=== PATIENT | female | born 1955 | race African-American/Black ===

== ENCOUNTER 2017-07-19 07:17 | Inpatient (IN) | payer MEDICAID, OTHER ==
[~2017-07-19] VITALS: Ht 165.1 cm; Wt 64.0 kg
[~2017-07-19 07:17] MED LIST: AMLO10TA4 PO; ASPI-1159 PO; BENA20TA3 PO
[2017-07-19] MEDS ORDERED: ONDANSETRON HCL 4MG/2ML VIAL IV STA (07:36)
[2017-07-19] MEDS ORDERED: MORPHINE SULFATE 4 MG/ML CPJ (NOT FOR IM USE) IV STA (07:36)
[2017-07-19] MEDS ORDERED: ASPIRIN 81MG TABLET PO STA (07:36)
[2017-07-19 08:07] LABS: BASOPHILS % 0.2 % (0.0-2.0); HEMATOCRIT. 33.4 % (36.0-48.0); LYMPHOCYTES % 12.1 % (20.0-50.0); MEAN CORPUSCULAR HEMOGLOBIN 29.1 pg (28.0-32.0); MEAN CORPUSCULAR VOLUME 88.3 fL (81.0-99.0); MEAN PLATELET VOLUME 9.6 fl (7.4-10.4); MONOCYTES % 6.1 % (2.0-8.0); NEUTROPHILS % 81.6 % (40.0-76.0); PLATELET 196 x1000/uL (130-400); RED BLOOD CELL COUNT 3.78 mill/uL (4.2-5.4); RED CELL DISTRIBUTION WIDTH 14.9 % (11.6-14.6)
[2017-07-19 08:13] LABS: PARTIAL THROMBOPLASTIN TIME 26.8 sec (23.4-31.0); PROTHROMBIN TIME 10.3 sec (9.4-11.6)
[2017-07-19 08:19] LABS: CARBON DIOXIDE 27 mEq/L (21-32); CHLORIDE 107 mEq/L (98-107); TROPONIN I < 0.02 ng/mL (0.00-0.04)
[2017-07-19] MEDS ORDERED: FUROSEMIDE 40MG/4ML VIAL IVP ONE (08:30)
[2017-07-19] MEDS ORDERED: BENAZEPRIL 10MG TABLET PO ONE (09:15)
[2017-07-19] MEDS ORDERED: AMLODIPINE 10MG TABLET PO ONE (09:15)
[2017-07-19 09:18] LABS: *AMPHETAMINES SCREEN URINE NEGATIVE (NEGATIVE); *BARBITURATES SCREEN URINE NEGATIVE (NEGATIVE); *BENZODIAZEPINES SCREEN URINE NEGATIVE (NEGATIVE); *COCAINE SCREEN URINE NEGATIVE (NEGATIVE); CANNABINOID URINE SCREEN PRESUMTIVE POSITIVE (NEGATIVE); METHADONE URINE SCREEN NEGATIVE (NEGATIVE); OPIATES URINE SCREEN NEGATIVE (NEGATIVE); PHENCYCLIDINE URINE SCREEN NEGATIVE (NEGATIVE)
[2017-07-19] MEDS ORDERED: HYDRALAZINE 20MG/ML VIAL IV ONE (10:30)
[2017-07-19] MEDS ORDERED: MAGNESIUM/ALUMINUM HYDROXIDE/SIMETHICONE 30ML UDC PO PRN (11:15)
[2017-07-19] MEDS ORDERED: NIFEDIPINE XL 60MG TAB PO SCH (11:15)
[2017-07-19] MEDS ORDERED: CLONIDINE 0.1MG TABLET PO PRN (11:15)
[2017-07-19] MEDS ORDERED: DOCUSATE SODIUM 100MG CAPSULE PO PRN (11:15)
[2017-07-19] MEDS ORDERED: IPRATROPIUM/ALBUTEROL 0.5-3(2.5)MG/3ML NEB INH PRN (11:15)
[2017-07-19] MEDS ORDERED: HYDRALAZINE (NEO) 1MG/ML IV PRN (11:15)
[2017-07-19] MEDS ORDERED: POTASSIUM CHLORIDE 20MEQ TABLET SR PO SCH (11:30)
[2017-07-19] MEDS ORDERED: CLONIDINE 0.2MG TABLET PO PRN (11:30)
[2017-07-19] MEDS: HYDROCODONE/ACETAMINOPHEN 5/325MG TABLET PO PRN ×3 (12:02→22:29)
[2017-07-19] MEDS: ONDANSETRON HCL 4MG/2ML VIAL IV PRN ×2 (13:41→18:00)
[2017-07-19] MEDS: ACETAMINOPHEN 325MG TABLET PO PRN (14:22)
[2017-07-19 16:19] LABS: TROPONIN I 0.06 ng/mL (0.00-0.04)
[2017-07-19 16:20] LABS: CREATINE KINASE MB FRACTION 2.6 ng/mL (0.5-3.6)
[2017-07-19 16:35] VITALS: BP 205/99
[2017-07-19] MEDS ORDERED: FUROSEMIDE 40MG TABLET PO SCH (17:00)
[2017-07-19] MEDS: HYDRALAZINE 20MG/ML VIAL IV PRN (17:05)
[2017-07-19] MEDS: DILTIAZEM HCL 60MG TABLET PO SCH (18:00)
[2017-07-19] MEDS ORDERED: DEXTROSE 50% WATER 50ML SYRINGE IV PRN (18:30)
[2017-07-19 19:02] VITALS: BP 167/89
[2017-07-19 19:28] LABS: CLARITY URINE CLEAR (CLEAR); COLOR URINE YELLOW (YELLOW); GLUCOSE URINE NEGATIVE (NEGATIVE); KETONES URINE NEGATIVE (NEGATIVE); LEUKOCYTE ESTERASE URINE NEGATIVE (NEGATIVE); NITRITE URINE NEGATIVE (NEGATIVE); OCCULT BLOOD URINE NEGATIVE (NEGATIVE); PROTEIN URINE 3+ (NEGATIVE); UROBILINOGEN URINE 0.2 E.U./dL (0.2-1.0)
[2017-07-19 20:00] VITALS: BP 166/89
[2017-07-19] MEDS: INSULIN LISPRO 100 UNITS/ML SUBCUT SCH (21:00)
[2017-07-19] MEDS: METOPROLOL TARTRATE 50MG TABLET PO SCH (22:05)
[2017-07-19] MEDS: BLOOD SUGAR DIAGNOSTIC STRIP TEST SCH (22:16)
[2017-07-19] MEDS ORDERED: ZOLPIDEM TARTRATE 5MG TABLET PO PRN (22:45)
[2017-07-20] VITALS: BP 139/71
[2017-07-20 00:24] LABS: CREATINE KINASE MB FRACTION 3.6 ng/mL (0.5-3.6); TROPONIN I 0.32 ng/mL (0.00-0.04)
[2017-07-20] MEDS: DILTIAZEM HCL 60MG TABLET PO SCH ×3 (01:00→12:00)
[2017-07-20] MEDS: ONDANSETRON HCL 4MG/2ML VIAL IV PRN (01:00)
[2017-07-20 04:00] VITALS: BP 137/71
[2017-07-20] MEDS: ACETAMINOPHEN 325MG TABLET PO PRN (05:33)
[2017-07-20 07:29] LABS: CARBON DIOXIDE 27 mEq/L (21-32); CHLORIDE 106 mEq/L (98-107); HDL CHOLESTEROL 89 mg/dL (40-59); LDL CHOLESTEROL 138 mg/dL (5-100)
[2017-07-20] MEDS: BLOOD SUGAR DIAGNOSTIC STRIP TEST SCH ×2 (07:36→12:40)
[2017-07-20] MEDS: INSULIN LISPRO 100 UNITS/ML SUBCUT SCH ×2 (07:40→13:06)
[2017-07-20 07:59] LABS: BASOPHILS % 0.5 % (0.0-2.0); EOSINOPHILS % 0.2 % (0.0-5.0); HEMATOCRIT. 31.6 % (36.0-48.0); HEMOGLOBIN. 10.4 g/dL (12.0-16.0); LYMPHOCYTES % 16.1 % (20.0-50.0); MEAN CORPUSCULAR VOLUME 88.4 fL (81.0-99.0); MEAN PLATELET VOLUME 10.2 fl (7.4-10.4); MONOCYTES % 8.6 % (2.0-8.0); NEUTROPHILS % 74.6 % (40.0-76.0); PLATELET 195 x1000/uL (130-400); RED BLOOD CELL COUNT 3.57 mill/uL (4.2-5.4); RED CELL DISTRIBUTION WIDTH 14.6 % (11.6-14.6)
[2017-07-20 08:00] VITALS: BP 99/51
[2017-07-20] MEDS ORDERED: SODIUM CHLORIDE 0.45% 1,000 ML IV SCH (08:15)
[2017-07-20] MEDS: HYDROCODONE/ACETAMINOPHEN 5/325MG TABLET PO PRN (08:41)
[2017-07-20] MEDS ORDERED: ASPIRIN 81MG EC TABLET PO SCH (09:00)
[2017-07-20] MEDS: METOPROLOL TARTRATE 50MG TABLET PO SCH (09:45)
[2017-07-20] MEDS ORDERED: METOCLOPRAMIDE HCL 10MG/2ML VIAL IV SCH (12:00)
[2017-07-20 13:00] VITALS: BP 176/79
[2017-07-20] MEDS: HYDRALAZINE 20MG/ML VIAL IV PRN (13:21)
[2017-07-20] MEDS ORDERED: CLONIDINE 0.1MG TABLET PO SCH (13:45)
[2017-07-20] MEDS ORDERED: NIFEDIPINE XL 60MG TAB PO SCH (13:45)
[2017-07-20] MEDS ORDERED: NIFE60TA64 PO (14:57)
[2017-07-20] MEDS ORDERED: METO50TA5 PO (14:57)
[2017-07-20] MEDS ORDERED: HYDR-4001 PO ×2 (14:57→15:07)
[2017-07-20] MEDS ORDERED: ATOR20TA PO (14:57)
[2017-07-20] MEDS ORDERED: HYDR-523 PO (15:15)
[2017-07-20 16:00] VITALS: BP 163/76
[2017-07-20 16:15] VITALS: BP 163/76
[2017-07-20] MEDS ORDERED: ATORVASTATIN CALCIUM 20MG TABLET PO SCH (21:00)
[2017-07-21 15:07] LABS: ANTI-NUCLEAR ANTIBODIES DIRECT Negative (Negative)
[2017-07-24 14:21] LABS: COMPLEMENT C3 91 mg/dL (82-167)
== END 2017-07-20 16:50 | disposition home or self-care (01) | DRG 199 ==
LOC: ER 07:58 → 7WST 10:35 → EDBEDREQ 10:37 → ENRESERV 15:39
PROVIDERS: ADMIT Internal Medicine; ATTEND Internal Medicine
DX: I16.0 Hypertensive urgency (principal); I24.9 Acute ischemic heart disease, unspecified; I50.32 Chronic diastolic (congestive) heart failure; N17.9 Acute kidney failure, unspecified; K31.84 Gastroparesis; E11.40 Type 2 diabetes mellitus with diabetic neuropathy, unspecified; E11.22 Type 2 diabetes mellitus with diabetic chronic kidney disease; N18.3 Chronic kidney disease, stage 3 (moderate); I13.0 Hypertensive heart and chronic kidney disease with heart failure and stage 1 through stage 4 chronic kidney disease, or unspecified chronic kidney disease; F12.90 Cannabis use, unspecified, uncomplicated; D64.9 Anemia, unspecified; F41.9 Anxiety disorder, unspecified; E78.5 Hyperlipidemia, unspecified; F17.210 Nicotine dependence, cigarettes, uncomplicated; H40.9 Unspecified glaucoma; Z79.899 Other long term (current) drug therapy; Z91.19 Patient's noncompliance with other medical treatment and regimen; Z88.0 Allergy status to penicillin; Z91.013 Allergy to seafood; Z79.82 Long term (current) use of aspirin; Z79.1 Long term (current) use of non-steroidal anti-inflammatories (NSAID)
CPT/HCPCS: 36415; 71010; 76770; 80048; 80053; 80061; 80305; 81001; 82550; 82553; 82962; 83690; 83735; 83880; 84443; 84484; 85025; 85610; 85730; 86038; 86160; 93005; 93306; 93970; 96374; 96375; 96376; 99291; J0360; J1940; J2270; J2405; J2765

== ENCOUNTER 2017-07-20 20:52 | Inpatient (IN) | payer OTHER ==
[~2017-07-20] VITALS: Ht 165.1 cm; Wt 68.5 kg
[~2017-07-20 20:52] MED LIST changes: +ATOR20TA PO; +HYDR-4001 PO; +HYDR-523 PO; +METO50TA5 PO; +NIFE60TA64 PO
[2017-07-20] MEDS ORDERED: ONDANSETRON HCL 4MG/2ML VIAL IV STA (21:44)
[2017-07-20] MEDS ORDERED: PANTOPRAZOLE SODIUM 40 MG/VIAL IV STA (21:44)
[2017-07-20] MEDS ORDERED: SODIUM CHLORIDE 0.9% 1,000 ML IV ONE ×2 (21:44)
[2017-07-20] MEDS ORDERED: OCTREOTIDE 1,000 MCG in SODIUM CHLORIDE 0.9% 100 ML IV STA (21:44)
[2017-07-20] MEDS ORDERED: MORPHINE SULFATE 4 MG/ML CPJ (NOT FOR IM USE) IV STA (21:44)
[2017-07-20] MEDS ORDERED: PANTOPRAZOLE 80 MG in SODIUM CHLORIDE 0.9% 100 ML IV STA (21:44)
[2017-07-20] MEDS ORDERED: OCTREOTIDE ACETATE 50 MCG/ML 1ML IV STA (21:44)
[2017-07-20] MEDS ORDERED: OCTREOTIDE 1000MCG in SODIUM CHLORIDE 0.9% 100ML IV ONE (23:00)
[2017-07-20] MEDS ORDERED: OCTREOTIDE ACETATE 50 MCG/ML 1ML IV NR (23:00)
[2017-07-20] MEDS ORDERED: PANTOPRAZOLE 80 MG in SODIUM CHLORIDE 0.9% 100 ML IV SCH (23:00)
[2017-07-20 23:09] LABS: BASOPHILS % 0.3 % (0.0-2.0); EOSINOPHILS % 0.1 % (0.0-5.0); HEMOGLOBIN. 10.8 g/dL (12.0-16.0); LYMPHOCYTES % 9.4 % (20.0-50.0); MEAN CORPUSCULAR HEMOGLOBIN 29.4 pg (28.0-32.0); MEAN CORPUSCULAR VOLUME 87.3 fL (81.0-99.0); MEAN PLATELET VOLUME 9.8 fl (7.4-10.4); NEUTROPHILS % 84.2 % (40.0-76.0); PLATELET 203 x1000/uL (130-400); RED BLOOD CELL COUNT 3.66 mill/uL (4.2-5.4); RED CELL DISTRIBUTION WIDTH 14.8 % (11.6-14.6)
[2017-07-20 23:14] LABS: CHLORIDE 102 mEq/L (98-107)
[2017-07-20 23:16] LABS: CARBON DIOXIDE 28 mEq/L (21-32)
[2017-07-20 23:17] LABS: PROTHROMBIN TIME 10.9 sec (9.4-11.6)
[2017-07-21] VITALS (42 sets, daily range): BP systolic 124–169; BP diastolic 63–97
[2017-07-21] MEDS ORDERED: MAGNESIUM/ALUMINUM HYDROXIDE/SIMETHICONE 30ML UDC PO PRN
[2017-07-21 01:13] LABS: ETHANOL BLOOD < 10 mg/dL
[2017-07-21] MEDS: SODIUM CHLORIDE 0.9% 1,000 ML IV SCH ×2 (04:24→18:42)
[2017-07-21] MEDS: ONDANSETRON HCL 4MG/2ML VIAL IV PRN (05:19)
[2017-07-21] MEDS: CLONIDINE 0.1MG TABLET PO PRN (05:20)
[2017-07-21] MEDS: ACETAMINOPHEN 325MG TABLET PO PRN (05:20)
[2017-07-21] MEDS ORDERED: DEXTROSE 50% WATER 50ML SYRINGE IV PRN (07:30)
[2017-07-21] MEDS: MORPHINE SULFATE 2 MG/ML CPJ (NOT FOR IM USE) IV PRN ×2 (07:39→22:01)
[2017-07-21] MEDS: IPRATROPIUM/ALBUTEROL 0.5-3(2.5)MG/3ML NEB INH PRN ×3 (08:28→15:06)
[2017-07-21] MEDS ORDERED: PANTOPRAZOLE 80 MG in SODIUM CHLORIDE 0.9% 100 ML IV SCH (09:00)
[2017-07-21] MEDS: PANTOPRAZOLE 80 MG in SODIUM CHLORIDE 0.9% 100 ML IV SCH ×2 (09:05→19:39)
[2017-07-21 09:43] LABS: BASOPHILS % 0.5 % (0.0-2.0); EOSINOPHILS % 0.1 % (0.0-5.0); HEMATOCRIT. 30.1 % (36.0-48.0); LYMPHOCYTES % 16.7 % (20.0-50.0); MEAN CORPUSCULAR HEMOGLOBIN 29.2 pg (28.0-32.0); MEAN CORPUSCULAR VOLUME 88.2 fL (81.0-99.0); MEAN PLATELET VOLUME 10.1 fl (7.4-10.4); MONOCYTES % 6.6 % (2.0-8.0); NEUTROPHILS % 76.1 % (40.0-76.0); PLATELET 198 x1000/uL (130-400); RED BLOOD CELL COUNT 3.41 mill/uL (4.2-5.4); RED CELL DISTRIBUTION WIDTH 15.1 % (11.6-14.6)
[2017-07-21 10:40] LABS: CARBON DIOXIDE 24 mEq/L (21-32); CHLORIDE 105 mEq/L (98-107); CREATINE KINASE 233 IU/L (26-192); CREATINE KINASE MB FRACTION 3.5 ng/mL (0.5-3.6); HDL CHOLESTEROL 82 mg/dL (40-59); LDL CHOLESTEROL 136 mg/dL (5-100)
[2017-07-21 10:44] LABS: TROPONIN I 0.61 ng/mL (0.00-0.04)
[2017-07-21 11:09] LABS: CLARITY URINE CLEAR (CLEAR); COLOR URINE YELLOW (YELLOW); GLUCOSE URINE NEGATIVE (NEGATIVE); KETONES URINE TRACE (NEGATIVE); LEUKOCYTE ESTERASE URINE NEGATIVE (NEGATIVE); NITRITE URINE NEGATIVE (NEGATIVE); OCCULT BLOOD URINE TRACE (NEGATIVE); PROTEIN URINE 3+ (NEGATIVE); SPECIFIC GRAVITY URINE 1.014 (1.005-1.030); UROBILINOGEN URINE 0.2 E.U./dL (0.2-1.0)
[2017-07-21] MEDS ORDERED: METOPROLOL TARTRATE 50MG TABLET PO SCH (11:30)
[2017-07-21] MEDS: BLOOD SUGAR DIAGNOSTIC STRIP TEST SCH ×3 (11:52→21:21)
[2017-07-21 11:54] LABS: *AMPHETAMINES SCREEN URINE NEGATIVE (NEGATIVE); *BARBITURATES SCREEN URINE NEGATIVE (NEGATIVE); *BENZODIAZEPINES SCREEN URINE NEGATIVE (NEGATIVE); *COCAINE SCREEN URINE NEGATIVE (NEGATIVE); CANNABINOID URINE SCREEN PRESUMTIVE POSITIVE (NEGATIVE); METHADONE URINE SCREEN NEGATIVE (NEGATIVE); OPIATES URINE SCREEN PRESUMTIVE POSITIVE (NEGATIVE); PHENCYCLIDINE URINE SCREEN NEGATIVE (NEGATIVE)
[2017-07-21] MEDS: METOPROLOL TARTRATE 50MG TABLET PO SCH ×2 (11:56→21:10)
[2017-07-21] MEDS: INSULIN LISPRO 100 UNITS/ML SUBCUT SCH ×3 (12:00→21:00)
[2017-07-21 14:22] LABS: HEMOGLOBIN 9.3 g/dL (12.0-16.0)
[2017-07-21] MEDS: NITROGLYCERIN OINT 1GM/INCH UDPKT TD SCH ×2 (14:36→21:11)
[2017-07-21 14:46] LABS: CREATINE KINASE MB FRACTION 3.2 ng/mL (0.5-3.6)
[2017-07-21 15:03] LABS: TROPONIN I 0.68 ng/mL (0.00-0.04)
[2017-07-21] MEDS: LORAZEPAM 2MG/ML CPJ IV PRN (18:43)
[2017-07-21] MEDS: ATORVASTATIN CALCIUM 20MG TABLET PO SCH (21:10)
[2017-07-21 23:46] LABS: HEMATOCRIT 26.4 % (36.0-48.0); HEMOGLOBIN 8.8 g/dL (12.0-16.0)
[2017-07-22] VITALS (38 sets, daily range): BP systolic 145–222; BP diastolic 64–114
[2017-07-22] MEDS: MORPHINE SULFATE 2 MG/ML CPJ (NOT FOR IM USE) IV PRN ×3 (02:30→18:45)
[2017-07-22] MEDS: CLONIDINE 0.1MG TABLET PO PRN ×2 (03:08→12:13)
[2017-07-22] MEDS: PANTOPRAZOLE 80 MG in SODIUM CHLORIDE 0.9% 100 ML IV SCH ×2 (03:25→18:47)
[2017-07-22 04:59] LABS: BASOPHILS % 0.4 % (0.0-2.0); EOSINOPHILS % 0.2 % (0.0-5.0); HEMATOCRIT. 25.8 % (36.0-48.0); HEMOGLOBIN. 8.7 g/dL (12.0-16.0); MEAN CORPUSCULAR HEMOGLOBIN 29.6 pg (28.0-32.0); MEAN CORPUSCULAR VOLUME 87.9 fL (81.0-99.0); MEAN PLATELET VOLUME 9.8 fl (7.4-10.4); MONOCYTES % 8.2 % (2.0-8.0); NEUTROPHILS % 76.2 % (40.0-76.0); PLATELET 160 x1000/uL (130-400); RED BLOOD CELL COUNT 2.94 mill/uL (4.2-5.4); RED CELL DISTRIBUTION WIDTH 14.9 % (11.6-14.6)
[2017-07-22 05:15] LABS: CREATINE KINASE MB FRACTION 2.1 ng/mL (0.5-3.6)
[2017-07-22] MEDS: NITROGLYCERIN OINT 1GM/INCH UDPKT TD SCH ×3 (05:23→21:57)
[2017-07-22] MEDS: ACETAMINOPHEN 325MG TABLET PO PRN (05:23)
[2017-07-22 05:48] LABS: TROPONIN I 0.79 ng/mL (0.00-0.04)
[2017-07-22] MEDS: BLOOD SUGAR DIAGNOSTIC STRIP TEST SCH ×4 (06:30→21:22)
[2017-07-22] MEDS: INSULIN LISPRO 100 UNITS/ML SUBCUT SCH ×4 (07:00→21:00)
[2017-07-22] MEDS ORDERED: POTASSIUM CHLORIDE 20MEQ TABLET SR PO SCH (08:30)
[2017-07-22] MEDS: AMLODIPINE 5MG TABLET PO SCH ×2 (08:42→20:29)
[2017-07-22] MEDS: METOPROLOL TARTRATE 100MG TABLET PO SCH ×2 (08:43→20:29)
[2017-07-22] MEDS: LORAZEPAM 2MG/ML CPJ IV PRN ×2 (09:03→23:09)
[2017-07-22] MEDS: SODIUM CHLORIDE 0.9% 1,000 ML IV SCH ×2 (10:00→12:43)
[2017-07-22] MEDS: CLONIDINE 0.2MG TABLET PO SCH ×2 (14:35→21:57)
[2017-07-22] MEDS: HYDRALAZINE 20MG/ML VIAL IV PRN (18:06)
[2017-07-22] MEDS: DILTIAZEM HCL 5MG/ML 5ML VIAL IV PRN (20:06)
[2017-07-22] MEDS: ONDANSETRON HCL 4MG/2ML VIAL IV PRN (20:19)
[2017-07-22] MEDS: IPRATROPIUM/ALBUTEROL 0.5-3(2.5)MG/3ML NEB INH PRN (20:20)
[2017-07-22] MEDS: ATORVASTATIN CALCIUM 20MG TABLET PO SCH (20:29)
[2017-07-23] VITALS (25 sets, daily range): BP systolic 139–184; BP diastolic 65–90
[2017-07-23] MEDS: PANTOPRAZOLE 80 MG in SODIUM CHLORIDE 0.9% 100 ML IV SCH (01:00)
[2017-07-23] MEDS: SODIUM CHLORIDE 0.9% 1,000 ML IV SCH ×3 (03:30→23:29)
[2017-07-23] MEDS: HYDRALAZINE 20MG/ML VIAL IV PRN ×3 (03:36→18:49)
[2017-07-23] MEDS: IPRATROPIUM/ALBUTEROL 0.5-3(2.5)MG/3ML NEB INH PRN (04:38)
[2017-07-23] MEDS: MORPHINE SULFATE 2 MG/ML CPJ (NOT FOR IM USE) IV PRN (04:52)
[2017-07-23 05:40] LABS: BASOPHILS % 0.2 % (0.0-2.0); HEMATOCRIT. 28.1 % (36.0-48.0); HEMOGLOBIN. 9.5 g/dL (12.0-16.0); LYMPHOCYTES % 13.1 % (20.0-50.0); MEAN CORPUSCULAR HEMOGLOBIN 29.6 pg (28.0-32.0); MEAN CORPUSCULAR VOLUME 87.5 fL (81.0-99.0); MEAN PLATELET VOLUME 10.2 fl (7.4-10.4); MONOCYTES % 5.9 % (2.0-8.0); NEUTROPHILS % 80.8 % (40.0-76.0); PLATELET 162 x1000/uL (130-400); RED BLOOD CELL COUNT 3.21 mill/uL (4.2-5.4); RED CELL DISTRIBUTION WIDTH 14.4 % (11.6-14.6)
[2017-07-23] MEDS: NITROGLYCERIN OINT 1GM/INCH UDPKT TD SCH ×3 (05:57→22:16)
[2017-07-23] MEDS: CLONIDINE 0.2MG TABLET PO SCH ×3 (06:00→22:16)
[2017-07-23] MEDS: BLOOD SUGAR DIAGNOSTIC STRIP TEST SCH ×4 (06:08→21:19)
[2017-07-23] MEDS: INSULIN LISPRO 100 UNITS/ML SUBCUT SCH ×4 (06:08→21:00)
[2017-07-23 06:09] LABS: PHOSPHORUS 2.7 mg/dL (2.5-4.9)
[2017-07-23] MEDS ORDERED: POTASSIUM CHLORIDE 20MEQ TABLET SR PO SCH (07:00)
[2017-07-23] MEDS: AMLODIPINE 5MG TABLET PO SCH ×2 (10:20→21:04)
[2017-07-23] MEDS: METOPROLOL TARTRATE 100MG TABLET PO SCH ×2 (10:20→21:04)
[2017-07-23] MEDS ORDERED: PANTOPRAZOLE SODIUM 40 MG/VIAL IV SCH (10:24)
[2017-07-23] MEDS ORDERED: HYDRALAZINE 20MG/ML VIAL IV PRN (10:45)
[2017-07-23] MEDS: CLONIDINE 0.1MG TABLET PO PRN (13:26)
[2017-07-23] MEDS: DILTIAZEM HCL 5MG/ML 5ML VIAL IV PRN (15:17)
[2017-07-23] MEDS: PANTOPRAZOLE SODIUM 40 MG/VIAL IV SCH (21:04)
[2017-07-23] MEDS: ATORVASTATIN CALCIUM 20MG TABLET PO SCH (21:04)
[2017-07-23] MEDS: MORPHINE SULFATE 4 MG/ML CPJ (NOT FOR IM USE) IV PRN (21:11)
[2017-07-24] VITALS (25 sets, daily range): BP systolic 140–199; BP diastolic 63–89
[2017-07-24] MEDS: LORAZEPAM 2MG/ML CPJ IV PRN ×2 (00:06→21:51)
[2017-07-24] MEDS: HYDRALAZINE 20MG/ML VIAL IV PRN ×2 (04:12→15:51)
[2017-07-24] MEDS: CLONIDINE 0.2MG TABLET PO SCH ×3 (05:40→21:33)
[2017-07-24] MEDS: BLOOD SUGAR DIAGNOSTIC STRIP TEST SCH ×4 (05:40→21:27)
[2017-07-24] MEDS: NITROGLYCERIN OINT 1GM/INCH UDPKT TD SCH ×3 (05:40→21:32)
[2017-07-24 06:13] LABS: BASOPHILS % 0.2 % (0.0-2.0); EOSINOPHILS % 0.2 % (0.0-5.0); HEMATOCRIT. 27.2 % (36.0-48.0); HEMOGLOBIN. 9.2 g/dL (12.0-16.0); LYMPHOCYTES % 17.6 % (20.0-50.0); MEAN CORPUSCULAR HEMOGLOBIN 29.6 pg (28.0-32.0); MEAN CORPUSCULAR VOLUME 87.6 fL (81.0-99.0); MEAN PLATELET VOLUME 10.6 fl (7.4-10.4); MONOCYTES % 8.1 % (2.0-8.0); NEUTROPHILS % 73.9 % (40.0-76.0); PLATELET 164 x1000/uL (130-400); RED CELL DISTRIBUTION WIDTH 14.9 % (11.6-14.6)
[2017-07-24] MEDS: INSULIN LISPRO 100 UNITS/ML SUBCUT SCH ×4 (06:14→21:00)
[2017-07-24 06:15] LABS: INR 1.1; PROTHROMBIN TIME 10.9 sec (9.4-11.6)
[2017-07-24] MEDS ORDERED: POTASSIUM CHLORIDE 20MEQ TABLET SR PO NR (08:00)
[2017-07-24] MEDS: PANTOPRAZOLE SODIUM 40 MG/VIAL IV SCH ×2 (08:08→20:23)
[2017-07-24] MEDS: METOPROLOL TARTRATE 100MG TABLET PO SCH ×2 (08:08→20:25)
[2017-07-24] MEDS: AMLODIPINE 5MG TABLET PO SCH ×2 (08:08→20:25)
[2017-07-24] MEDS: SODIUM CHLORIDE 0.9% 1,000 ML IV SCH (13:33)
[2017-07-24] MEDS ORDERED: SODIUM CHLORIDE 0.9% 10ML VIAL ONE (14:13)
[2017-07-24] MEDS ORDERED: SIMETHICONE 40 MG/0.6 ML 30ML ONE (16:04)
[2017-07-24] MEDS ORDERED: FENTANYL CITRATE/PF 50MCG/ML 2ML VIAL ONE (16:04)
[2017-07-24] MEDS ORDERED: MIDAZOLAM HCL 5 MG/5 ML VIAL ONE (16:05)
[2017-07-24] MEDS ORDERED: FENTANYL CITRATE/PF 50MCG/ML 2ML VIAL IV PRN (16:14)
[2017-07-24] MEDS ORDERED: MIDAZOLAM HCL 5 MG/5 ML VIAL IV PRN (16:14)
[2017-07-24] MEDS: CLONIDINE 0.1MG TABLET PO PRN ×2 (17:08→21:28)
[2017-07-24] MEDS: MORPHINE SULFATE 4 MG/ML CPJ (NOT FOR IM USE) IV PRN (20:25)
[2017-07-24] MEDS: ATORVASTATIN CALCIUM 20MG TABLET PO SCH (20:25)
[2017-07-25] VITALS (37 sets, daily range): BP systolic 142–189; BP diastolic 20–124
[2017-07-25] MEDS: SODIUM CHLORIDE 0.9% 1,000 ML IV SCH (05:02)
[2017-07-25] MEDS: BLOOD SUGAR DIAGNOSTIC STRIP TEST SCH ×4 (06:15→21:14)
[2017-07-25] MEDS: NITROGLYCERIN OINT 1GM/INCH UDPKT TD SCH ×3 (06:15→22:50)
[2017-07-25] MEDS: CLONIDINE 0.2MG TABLET PO SCH ×3 (06:15→23:51)
[2017-07-25] MEDS: MORPHINE SULFATE 4 MG/ML CPJ (NOT FOR IM USE) IV PRN ×2 (07:59→19:17)
[2017-07-25] MEDS: METOPROLOL TARTRATE 100MG TABLET PO SCH ×2 (08:00→21:13)
[2017-07-25] MEDS: PANTOPRAZOLE SODIUM 40 MG/VIAL IV SCH ×2 (08:00→21:13)
[2017-07-25] MEDS: AMLODIPINE 5MG TABLET PO SCH ×2 (08:01→21:13)
[2017-07-25 09:11] LABS: BASOPHILS % 0.7 % (0.0-2.0); EOSINOPHILS % 0.1 % (0.0-5.0); HEMATOCRIT. 28.4 % (36.0-48.0); HEMOGLOBIN. 9.5 g/dL (12.0-16.0); LYMPHOCYTES % 11.9 % (20.0-50.0); MEAN CORPUSCULAR HEMOGLOBIN 29.3 pg (28.0-32.0); MEAN CORPUSCULAR VOLUME 87.5 fL (81.0-99.0); MEAN PLATELET VOLUME 9.8 fl (7.4-10.4); NEUTROPHILS % 79.3 % (40.0-76.0); PLATELET 171 x1000/uL (130-400); RED BLOOD CELL COUNT 3.24 mill/uL (4.2-5.4); RED CELL DISTRIBUTION WIDTH 15.3 % (11.6-14.6)
[2017-07-25] MEDS: HYDRALAZINE 20MG/ML VIAL IV PRN (11:24)
[2017-07-25] MEDS: INSULIN LISPRO 100 UNITS/ML SUBCUT SCH ×3 (11:24→21:15)
[2017-07-25] MEDS: HYDRALAZINE HCL 50MG TABLET PO SCH ×2 (13:09→22:46)
[2017-07-25] MEDS: LORAZEPAM 2MG/ML CPJ IV PRN (19:46)
[2017-07-25] MEDS: ATORVASTATIN CALCIUM 20MG TABLET PO SCH (21:13)
[2017-07-26] VITALS (12 sets, daily range): BP systolic 140–184; BP diastolic 69–110
[2017-07-26] MEDS: MORPHINE SULFATE 4 MG/ML CPJ (NOT FOR IM USE) IV PRN ×2 (00:42→08:46)
[2017-07-26] MEDS: HYDRALAZINE HCL 50MG TABLET PO SCH (05:46)
[2017-07-26] MEDS: NITROGLYCERIN OINT 1GM/INCH UDPKT TD SCH ×3 (05:54→22:32)
[2017-07-26] MEDS: CLONIDINE 0.2MG TABLET PO SCH ×3 (06:38→22:32)
[2017-07-26 06:58] LABS: BASOPHILS % 0.4 % (0.0-2.0); EOSINOPHILS % 0.1 % (0.0-5.0); HEMATOCRIT. 29.2 % (36.0-48.0); HEMOGLOBIN. 9.8 g/dL (12.0-16.0); LYMPHOCYTES % 14.5 % (20.0-50.0); MEAN CORPUSCULAR HEMOGLOBIN 29.4 pg (28.0-32.0); MEAN CORPUSCULAR VOLUME 87.6 fL (81.0-99.0); MEAN PLATELET VOLUME 10.1 fl (7.4-10.4); PLATELET 171 x1000/uL (130-400); RED BLOOD CELL COUNT 3.33 mill/uL (4.2-5.4)
[2017-07-26] MEDS: BLOOD SUGAR DIAGNOSTIC STRIP TEST SCH ×4 (07:30→20:58)
[2017-07-26] MEDS: PANTOPRAZOLE SODIUM 40 MG/VIAL IV SCH ×2 (08:44→20:58)
[2017-07-26] MEDS: METOPROLOL TARTRATE 100MG TABLET PO SCH ×2 (08:45→20:58)
[2017-07-26] MEDS: AMLODIPINE 5MG TABLET PO SCH ×2 (08:45→20:58)
[2017-07-26] MEDS: LORAZEPAM 2MG/ML CPJ IV PRN (08:47)
[2017-07-26] MEDS: INSULIN LISPRO 100 UNITS/ML SUBCUT SCH ×4 (10:09→20:59)
[2017-07-26] MEDS: HYDRALAZINE HCL 100MG TABLET PO SCH ×2 (13:31→22:32)
[2017-07-26] MEDS: ATORVASTATIN CALCIUM 20MG TABLET PO SCH (20:58)
[2017-07-27] VITALS: BP 134/70
[2017-07-27] MEDS: MORPHINE SULFATE 4 MG/ML CPJ (NOT FOR IM USE) IV PRN (03:00)
[2017-07-27 04:06] VITALS: BP 157/80
[2017-07-27] MEDS: NITROGLYCERIN OINT 1GM/INCH UDPKT TD SCH (05:56)
[2017-07-27] MEDS: CLONIDINE 0.2MG TABLET PO SCH (05:56)
[2017-07-27] MEDS: HYDRALAZINE HCL 100MG TABLET PO SCH (05:56)
[2017-07-27] MEDS: BLOOD SUGAR DIAGNOSTIC STRIP TEST SCH (07:30)
[2017-07-27 08:00] VITALS: BP 148/85
[2017-07-27] MEDS: PANTOPRAZOLE SODIUM 40 MG/VIAL IV SCH (09:02)
[2017-07-27] MEDS: AMLODIPINE 5MG TABLET PO SCH (09:02)
[2017-07-27] MEDS: METOPROLOL TARTRATE 100MG TABLET PO SCH (09:03)
[2017-07-27] MEDS: INSULIN LISPRO 100 UNITS/ML SUBCUT SCH (09:24)
[2017-07-27] MEDS ORDERED: AMLO5TAB88 PO (10:59)
[2017-07-27] MEDS ORDERED: CLON0.2T12 PO (10:59)
[2017-07-27] MEDS ORDERED: METO100T5 PO (10:59)
[2017-07-27] MEDS ORDERED: PROT40 PO (10:59)
[2017-07-27] MEDS ORDERED: HYDR100T26 PO (10:59)
[2017-07-27 11:39] VITALS: BP 135/78
[2017-07-27 12:00] VITALS: BP 135/84
== END 2017-07-27 13:30 | disposition home or self-care (01) | DRG 241 ==
LOC: ER 20:56 → MICUNO 07-21 00:59 → ENRESERV 07-21 01:08 → CANRESERV 07-21 01:18 → 5EST 07-26 01:05
PROVIDERS: ADMIT Internal Medicine; ATTEND Internal Medicine
PROC: 0DB68ZX Excision of Stomach, Via Natural or Artificial Opening Endoscopic, Diagnostic (ICD-10-PCS; principal; 2017-07-24 15:00)
DX: K29.61 Other gastritis with bleeding (principal); N17.9 Acute kidney failure, unspecified; C56.9 Malignant neoplasm of unspecified ovary; E11.22 Type 2 diabetes mellitus with diabetic chronic kidney disease; E11.40 Type 2 diabetes mellitus with diabetic neuropathy, unspecified; K22.2 Esophageal obstruction; I12.9 Hypertensive chronic kidney disease with stage 1 through stage 4 chronic kidney disease, or unspecified chronic kidney disease; D64.9 Anemia, unspecified; K92.2 Gastrointestinal hemorrhage, unspecified; N83.209 Unspecified ovarian cyst, unspecified side; K44.9 Diaphragmatic hernia without obstruction or gangrene; E78.5 Hyperlipidemia, unspecified; F17.210 Nicotine dependence, cigarettes, uncomplicated; F12.10 Cannabis abuse, uncomplicated; H26.9 Unspecified cataract; H40.9 Unspecified glaucoma; N18.9 Chronic kidney disease, unspecified; K29.50 Unspecified chronic gastritis without bleeding; Z79.82 Long term (current) use of aspirin; Z79.899 Other long term (current) drug therapy; Z82.5 Family history of asthma and other chronic lower respiratory diseases; Z88.0 Allergy status to penicillin; Z91.013 Allergy to seafood
CPT/HCPCS: 36415; 71010; 74176; 80048; 80053; 80061; 80305; 81001; 82550; 82553; 82962; 83690; 83735; 84100; 84443; 84484; 85014; 85018; 85025; 85610; 85730; 86304; 86850; 86900; 87086; 88305; 88313; 93005; 93970; 94640; 94664; 96361; 96365; 96375; 99291; A4216; C9113; G0482; J0360; J1815; J2060; J2250; J2270; J2354; J2405; J3010; J3490; J7030; J7050; J7620; A4315

== ENCOUNTER 2017-09-24 09:40 | Emergency (ER) | payer MEDICAID, OTHER ==
[~2017-09-24] VITALS: Ht 160 cm; Wt 63.0 kg
[~2017-09-24 09:40] MED LIST changes: -AMLO10TA4 PO; +AMLO5TAB88 PO; -ASPI-1159 PO; -BENA20TA3 PO; +CLON0.2T12 PO; -HYDR-4001 PO; +HYDR100T26 PO; +METO100T5 PO; -METO50TA5 PO; -NIFE60TA64 PO; +PROT40 PO
[2017-09-24 10:00] VITALS: BP 169/88
== END 2017-09-24 12:33 | disposition left against medical advice (07) ==
LOC: ER 10:22
DX: Z53.21 Procedure and treatment not carried out due to patient leaving prior to being seen by health care provider (principal)

== ENCOUNTER 2017-09-25 23:51 | Emergency (ER) | payer MEDICAID ==
[~2017-09-25] VITALS: Ht 165.1 cm; Wt 60.0 kg
[2017-09-26] MEDS ORDERED: MORPHINE SULFATE 4 MG/ML CPJ (NOT FOR IM USE) IV STA (01:29)
[2017-09-26] MEDS ORDERED: CLONIDINE 0.1MG TABLET PO STA (01:29)
[2017-09-26] MEDS ORDERED: ONDANSETRON HCL 4MG/2ML VIAL IV STA (01:29)
[2017-09-26] MEDS ORDERED: ASPIRIN 81MG TABLET PO ONE (01:30)
[2017-09-26] MEDS ORDERED: HYDRALAZINE 20MG/ML VIAL IV ONE (01:30)
[2017-09-26 01:45] LABS: BASOPHILS % 0.5 % (0.0-2.0); EOSINOPHILS % 0.3 % (0.0-5.0); HEMATOCRIT. 32.5 % (36.0-48.0); HEMOGLOBIN. 10.8 g/dL (12.0-16.0); LYMPHOCYTES % 18.1 % (20.0-50.0); MEAN CORPUSCULAR HEMOGLOBIN 29.7 pg (28.0-32.0); MEAN PLATELET VOLUME 9.3 fl (7.4-10.4); NEUTROPHILS % 73.1 % (40.0-76.0); PLATELET 213 x1000/uL (130-400); RED BLOOD CELL COUNT 3.65 mill/uL (4.2-5.4)
[2017-09-26 01:54] LABS: D-DIMER 0.78 mg/L FEU (<0.50); PROTHROMBIN TIME 10.5 sec (9.4-11.6)
[2017-09-26] MEDS ORDERED: MORPHINE SULFATE 10 MG/ML CPJ IV STA (01:56)
[2017-09-26 02:00] LABS: CARBON DIOXIDE 25 mEq/L (21-32); CHLORIDE 107 mEq/L (98-107); ETHANOL BLOOD < 10 mg/dL; TROPONIN I < 0.02 ng/mL (0.00-0.04)
[2017-09-26] MEDS ORDERED: MORPHINE SULFATE 10 MG/ML CPJ IV SCH (02:00)
[2017-09-26 03:05] LABS: CLARITY URINE CLOUDY (CLEAR); COLOR URINE YELLOW (YELLOW); GLUCOSE URINE NEGATIVE (NEGATIVE); KETONES URINE NEGATIVE (NEGATIVE); LEUKOCYTE ESTERASE URINE TRACE (NEGATIVE); NITRITE URINE NEGATIVE (NEGATIVE); OCCULT BLOOD URINE 1+ (NEGATIVE); PROTEIN URINE 3+ (NEGATIVE); SPECIFIC GRAVITY URINE 1.013 (1.005-1.030); UROBILINOGEN URINE 0.2 E.U./dL (0.2-1.0)
[2017-09-26 03:40] VITALS: BP 167/80
[2017-09-26 03:48] LABS: *AMPHETAMINES SCREEN URINE NEGATIVE (NEGATIVE); *BARBITURATES SCREEN URINE NEGATIVE (NEGATIVE); *BENZODIAZEPINES SCREEN URINE NEGATIVE (NEGATIVE); *COCAINE SCREEN URINE NEGATIVE (NEGATIVE); CANNABINOID URINE SCREEN PRESUMTIVE POSITIVE (NEGATIVE); METHADONE URINE SCREEN NEGATIVE (NEGATIVE); OPIATES URINE SCREEN NEGATIVE (NEGATIVE); PHENCYCLIDINE URINE SCREEN NEGATIVE (NEGATIVE)
== END 2017-09-26 03:40 | disposition home or self-care (01) ==
LOC: ER 23:51
DX: R07.2 Precordial pain (principal); R05 Cough; R09.3 Abnormal sputum; I10 Essential (primary) hypertension; H40.9 Unspecified glaucoma; E11.9 Type 2 diabetes mellitus without complications; F17.200 Nicotine dependence, unspecified, uncomplicated; F12.10 Cannabis abuse, uncomplicated; Z88.0 Allergy status to penicillin; Z91.013 Allergy to seafood
CPT/HCPCS: 36415; 71010; 80053; 80305; 81001; 82962; 83690; 83880; 84484; 85025; 85379; 85610; 87804; 93005; 96374; 96375; 99291; G0482; J0360; J2270; J2405; Z7610

== ENCOUNTER 2017-11-17 22:02 | Emergency (ER) | payer MEDICAID ==
[~2017-11-17] VITALS: Ht 165.1 cm; Wt 59.0 kg
[~2017-11-17 22:02] MED LIST changes: +METO100T16 PO; -METO100T5 PO
[2017-11-18] MEDS ORDERED: SODIUM CHLORIDE 0.9% 1,000 ML IV ONE (00:38)
[2017-11-18] MEDS ORDERED: ONDANSETRON HCL 4MG/2ML VIAL IV STA (00:38)
[2017-11-18] MEDS ORDERED: MORPHINE SULFATE 4 MG/ML CPJ (NOT FOR IM USE) IV STA (00:38)
[2017-11-18] MEDS ORDERED: FUROSEMIDE 40MG/4ML VIAL IV STA (00:40)
[2017-11-18] MEDS ORDERED: HYDRALAZINE 20MG/ML VIAL IV ONE (00:45)
[2017-11-18 01:09] LABS: BASOPHILS % 0.6 % (0.0-2.0); EOSINOPHILS % 0.1 % (0.0-5.0); HEMATOCRIT. 27.6 % (36.0-48.0); LYMPHOCYTES % 10.9 % (20.0-50.0); MEAN CORPUSCULAR VOLUME 88.8 fL (81.0-99.0); MEAN PLATELET VOLUME 8.8 fl (7.4-10.4); MONOCYTES % 11.5 % (2.0-8.0); NEUTROPHILS % 76.9 % (40.0-76.0); PLATELET 206 x1000/uL (130-400); RED BLOOD CELL COUNT 3.11 mill/uL (4.2-5.4); RED CELL DISTRIBUTION WIDTH 15.1 % (11.6-14.6)
[2017-11-18 01:17] LABS: PARTIAL THROMBOPLASTIN TIME 26.4 sec (23.4-31.0); PROTHROMBIN TIME 10.4 sec (9.4-11.6)
[2017-11-18 01:26] LABS: CARBON DIOXIDE 23 mEq/L (21-32); CHLORIDE 108 mEq/L (98-107); TROPONIN I < 0.02 ng/mL (0.00-0.04)
[2017-11-18 03:08] LABS: CLARITY URINE CLEAR (CLEAR); COLOR URINE YELLOW (YELLOW); KETONES URINE NEGATIVE (NEGATIVE); LEUKOCYTE ESTERASE URINE NEGATIVE (NEGATIVE); NITRITE URINE NEGATIVE (NEGATIVE); OCCULT BLOOD URINE NEGATIVE (NEGATIVE); PH URINE 6.5 (4.5-8.0); PROTEIN URINE 2+ (NEGATIVE); UROBILINOGEN URINE 0.2 E.U./dL (0.2-1.0)
[2017-11-18] MEDS ORDERED: MAGNESIUM/ALUMINUM HYDROXIDE/SIMETHICONE 30ML UDC PO PRN (11:15)
[2017-11-18] MEDS ORDERED: IPRATROPIUM/ALBUTEROL 0.5-3(2.5)MG/3ML NEB INH PRN (11:15)
[2017-11-18] MEDS ORDERED: ONDANSETRON HCL 4MG/2ML VIAL IV PRN (11:15)
[2017-11-18] MEDS ORDERED: CLONIDINE 0.1MG TABLET PO PRN (11:15)
[2017-11-18] MEDS ORDERED: DOCUSATE SODIUM 100MG CAPSULE PO PRN (11:15)
[2017-11-18] MEDS ORDERED: DIPHENHYDRAMINE 50MG/ML VIAL IV PRN (11:15)
[2017-11-18] MEDS ORDERED: GUAIFENESIN 200MG/10ML SUGAR FREE UDC PO PRN (11:15)
[2017-11-18] MEDS ORDERED: HYDROCODONE/ACETAMINOPHEN 5/325MG TABLET PO PRN (11:15)
[2017-11-18] MEDS ORDERED: ACETAMINOPHEN 325MG TABLET PO PRN (11:15)
[2017-11-18 11:20] VITALS: BP 156/85
[2017-11-18] MEDS ORDERED: ENOXAPARIN 30MG/0.3ML SYR SUBCUT SCH (11:45)
== END 2017-11-18 12:45 | disposition left against medical advice (07) ==
LOC: ER 22:05 → EDBEDREQTM 11-18 03:13 → EDBEDREQ 11-18 03:13 → ER 11-18 12:45 → CANRESERV 11-18 22:55 → ENRESERV 11-18 22:55 → CANBEDREQ 11-19 05:30
DX: R19.00 Intra-abdominal and pelvic swelling, mass and lump, unspecified site (principal); N28.9 Disorder of kidney and ureter, unspecified; I10 Essential (primary) hypertension; E11.9 Type 2 diabetes mellitus without complications; F12.10 Cannabis abuse, uncomplicated; Z88.0 Allergy status to penicillin; Z91.013 Allergy to seafood
CPT/HCPCS: 36415; 71045; 74176; 80053; 81001; 82962; 83690; 83880; 84484; 85025; 85610; 85730; 86850; 86900; 86901; 93005; 96361; 96374; 96375; 99285; J0360; J1940; J2270; J2405; J7030; Z7610

== ENCOUNTER 2017-12-21 07:45 | Emergency (ER) | payer MEDICAID ==
[~2017-12-21] VITALS: Ht 165.1 cm; Wt 57.0 kg
[~2017-12-21 07:45] MED LIST changes: +ALBU6.7H INH; -AMLO5TAB88 PO; -HYDR-523 PO; -HYDR100T26 PO; -METO100T16 PO
[2017-12-21] MEDS ORDERED: LORAZEPAM 2MG/ML CPJ IV ONE (08:30)
[2017-12-21 08:38] LABS: HEMOGLOBIN. 9.5 g/dL (12.0-16.0); MEAN CORPUSCULAR HEMOGLOBIN 28.9 pg (28.0-32.0); MEAN CORPUSCULAR VOLUME 88.3 fL (81.0-99.0); PLATELET 221 x1000/uL (130-400); RED BLOOD CELL COUNT 3.28 mill/uL (4.2-5.4); RED CELL DISTRIBUTION WIDTH 14.3 % (11.6-14.6)
[2017-12-21 08:46] LABS: CHLORIDE 97 mEq/L (98-107)
[2017-12-21 08:47] LABS: INR 0.9; PROTHROMBIN TIME 9.9 sec (9.4-11.6)
[2017-12-21 08:58] LABS: AMMONIA < 25 uMol/L (<32)
[2017-12-21 09:02] LABS: ETHANOL BLOOD < 10 mg/dL
[2017-12-21 09:35] LABS: CLARITY URINE CLEAR (CLEAR); COLOR URINE YELLOW (YELLOW); KETONES URINE NEGATIVE (NEGATIVE); LEUKOCYTE ESTERASE URINE TRACE (NEGATIVE); NITRITE URINE NEGATIVE (NEGATIVE); OCCULT BLOOD URINE NEGATIVE (NEGATIVE); PROTEIN URINE 3+ (NEGATIVE); SPECIFIC GRAVITY URINE 1.018 (1.005-1.030); UROBILINOGEN URINE 0.2 E.U./dL (0.2-1.0)
[2017-12-21 09:49] LABS: PLATELET ESTIMATE NORMAL
[2017-12-21 10:02] LABS: *AMPHETAMINES SCREEN URINE NEGATIVE (NEGATIVE); *BARBITURATES SCREEN URINE NEGATIVE (NEGATIVE); *BENZODIAZEPINES SCREEN URINE PRESUMTIVE POSITIVE (NEGATIVE); *COCAINE SCREEN URINE NEGATIVE (NEGATIVE); CANNABINOID URINE SCREEN PRESUMTIVE POSITIVE (NEGATIVE); METHADONE URINE SCREEN NEGATIVE (NEGATIVE); OPIATES URINE SCREEN PRESUMTIVE POSITIVE (NEGATIVE); PHENCYCLIDINE URINE SCREEN NEGATIVE (NEGATIVE)
[2017-12-21] MEDS ORDERED: METHYLPREDNISOLONE SOD SUCC 125 MG/2 ML VIAL IV ONE ×2 (12:00→14:00)
[2017-12-21] MEDS ORDERED: IPRATROPIUM/ALBUTEROL 0.5-3(2.5)MG/3ML NEB HHN ONE ×2 (12:00→14:00)
[2017-12-21] MEDS ORDERED: ACETAMINOPHEN 325MG TABLET PO PRN (12:00)
[2017-12-21] MEDS ORDERED: HYDROCODONE/ACETAMINOPHEN 5/325MG TABLET PO PRN (12:00)
[2017-12-21] MEDS ORDERED: CEFTRIAXONE 1 G PREMIX 50 ML IV ONE (12:00)
[2017-12-21] MEDS ORDERED: METHYLPREDNISOLONE SOD SUCC 40 MG/ML VIAL IV SCH (12:00)
[2017-12-21] MEDS ORDERED: LORAZEPAM 2MG/ML CPJ IV PRN (12:00)
[2017-12-21] MEDS ORDERED: IPRATROPIUM/ALBUTEROL 0.5-3(2.5)MG/3ML NEB HHN SCH (12:00)
[2017-12-21] MEDS ORDERED: MORPHINE SULFATE 4 MG/ML CPJ (NOT FOR IM USE) IV PRN (12:00)
[2017-12-21] MEDS ORDERED: LEVOFLOXACIN 500MG PREMIX 100 ML IV SCH (12:00)
[2017-12-21] MEDS ORDERED: CLONIDINE 0.1MG TABLET PO PRN (12:00)
[2017-12-21] MEDS ORDERED: AMLODIPINE 10MG TABLET PO SCH (12:00)
[2017-12-21] MEDS ORDERED: ONDANSETRON HCL 4MG/2ML VIAL IV PRN (12:00)
[2017-12-21] MEDS ORDERED: CLONIDINE 0.2MG TABLET PO SCH (14:00)
[2017-12-21] MEDS ORDERED: BUDESONIDE 0.5MG/2ML NEB HHN SCH (14:00)
[2017-12-21] MEDS ORDERED: OLANZAPINE 10 MG/VIAL IM ONE (14:00)
[2017-12-21] MEDS ORDERED: HYDRALAZINE HCL 100MG TABLET PO SCH (14:00)
[2017-12-21] MEDS ORDERED: IPRATROPIUM/ALBUTEROL 0.5-3(2.5)MG/3ML NEB HHN PRN (14:00)
[2017-12-21 19:35] VITALS: BP 175/95
[2017-12-21] MEDS ORDERED: ATORVASTATIN CALCIUM 20MG TABLET PO SCH (21:00)
[2017-12-22] MEDS ORDERED: PANTOPRAZOLE 40MG DR TABLET PO SCH (09:00)
[2017-12-28] MEDS ORDERED: HYDR100T31 PO (03:06)
[2017-12-28] MEDS ORDERED: AMLO5TAB88 PO (03:06)
[2017-12-28] MEDS ORDERED: METO100T16 PO (03:06)
[2017-12-28] MEDS ORDERED: GLIP5TAB12 PO (03:06)
[2017-12-28] MEDS ORDERED: DOCU-150 PO (03:06)
[2017-12-28] MEDS ORDERED: METO-293 PO (03:06)
[2017-12-29] MEDS ORDERED: CLON0.2T12 PO (12:09)
[2017-12-29] MEDS ORDERED: LEVO500T2 PO (12:09)
[2017-12-29] MEDS ORDERED: MORP15TA67 PO (12:09)
[2017-12-29] MEDS ORDERED: NIFE30TA83 PO (12:09)
[2017-12-29] MEDS ORDERED: HYDR100T26 PO (12:09)
[2017-12-29] MEDS ORDERED: INSU100I28 SQ (12:10)
[2017-12-29] MEDS ORDERED: METO-293 PO (13:35)
== END 2017-12-21 20:10 | disposition left against medical advice (07) ==
LOC: ER 07:47 → CANBEDREQ 20:29
DX: R44.1 Visual hallucinations (principal); D72.825 Bandemia; E11.9 Type 2 diabetes mellitus without complications; I10 Essential (primary) hypertension; F12.10 Cannabis abuse, uncomplicated; Z88.0 Allergy status to penicillin; Z91.013 Allergy to seafood
CPT/HCPCS: 36415; 70450; 71045; 80053; 80305; 81001; 82140; 83605; 84443; 85025; 85610; 87040; 94640; 96365; 96375; 99285; G0482; J0696; J2060; J2930; J7620; Z7610; J7626

== ENCOUNTER 2018-01-13 08:02 | Inpatient (IN) | payer MEDICAID ==
[2018-01-13] VITALS (8 sets, daily range): BP systolic 136–177; BP diastolic 75–95
[~2018-01-13] VITALS: Ht 165.1 cm; Wt 69.1 kg
[~2018-01-13 08:02] MED LIST changes: +DOCU-150 PO; +HYDR100T26 PO; +INSU100I28 SQ; +LEVO500T2 PO; +METO-293 PO; +MORP15TA67 PO; +NIFE30TA83 PO
[2018-01-13] MEDS ORDERED: FUROSEMIDE 40MG/4ML VIAL IV STA (08:08)
[2018-01-13] MEDS ORDERED: NITROGLYCERIN OINT 1GM/INCH UDPKT TD STA (08:08)
[2018-01-13 08:49] LABS: BASOPHILS % 0.4 % (0.0-2.0); EOSINOPHILS % 0.2 % (0.0-5.0); HEMOGLOBIN. 9.3 g/dL (12.0-16.0); INR 1.3; LYMPHOCYTES % 22.7 % (20.0-50.0); MEAN CORPUSCULAR VOLUME 90.9 fL (81.0-99.0); MEAN PLATELET VOLUME 9.3 fl (7.4-10.4); MONOCYTES % 9.6 % (2.0-8.0); NEUTROPHILS % 67.1 % (40.0-76.0); PLATELET 542 x1000/uL (130-400); PROTHROMBIN TIME 13.2 sec (9.4-11.6); RED BLOOD CELL COUNT 3.19 mill/uL (4.2-5.4); RED CELL DISTRIBUTION WIDTH 14.5 % (11.6-14.6)
[2018-01-13 08:51] LABS: CHLORIDE 104 mEq/L (98-107)
[2018-01-13 08:57] LABS: TROPONIN I 0.24 ng/mL (0.00-0.04)
[2018-01-13 09:01] LABS: CLARITY URINE CLOUDY (CLEAR); COLOR URINE YELLOW (YELLOW); KETONES URINE NEGATIVE (NEGATIVE); LEUKOCYTE ESTERASE URINE NEGATIVE (NEGATIVE); NITRITE URINE NEGATIVE (NEGATIVE); OCCULT BLOOD URINE NEGATIVE (NEGATIVE); PROTEIN URINE 3+ (NEGATIVE); SPECIFIC GRAVITY URINE 1.017 (1.005-1.030); UROBILINOGEN URINE 0.2 E.U./dL (0.2-1.0)
[2018-01-13 09:26] LABS: BG BASE EXCESS -0.8 mmol/L (-2.0-2.0); BG BILEVEL POS AIRWAY PRESSURE 13/5; BG CARBOXYHEMOGLOBIN 2.4 % (0.5-1.5); BG DEOXYHEMOGLOBIN 0.9 % (0.0-5.0); BG FRACTION INSPIRED OXYGEN 80; BG METHEMOGLOBIN 0.3 % (0.0-1.5); BG OXYGEN SATURATION 99.1 % (92.0-98.5); BG OXYHEMOGLOBIN 96.4 % (94.0-97.0); BG PCO2 46.6 mmHg (35.0-45.0); BG PH 7.347 (7.350-7.450); BG PO2 166.8 mmHg (75.0-100.0); BG SAMPLE SITE RIGHT RADIAL; BG TOTAL HEMOGLOBIN 9.1 g/dL (12.0-18.0); BG VENT MODE MASK - BIPAP; BG VENT RATE 20 set
[2018-01-13] MEDS ORDERED: LEVOFLOXACIN 750MG PREMIX 150 ML IV ONE (09:30)
[2018-01-13] MEDS ORDERED: AZTREONAM 2 GM in DEXT 5% WATER 100 ML IV ONE (09:30)
[2018-01-13] MEDS ORDERED: PANTOPRAZOLE SODIUM 40 MG/VIAL IV SCH (12:30)
[2018-01-13] MEDS ORDERED: DEXTROSE 50% WATER 50ML SYRINGE IV PRN (12:30)
[2018-01-13] MEDS ORDERED: ACETAMINOPHEN 650MG SUPP PR PRN (12:30)
[2018-01-13] MEDS ORDERED: IPRATROPIUM/ALBUTEROL 0.5-3(2.5)MG/3ML NEB HHN PRN (12:30)
[2018-01-13] MEDS ORDERED: LABETALOL 5MG/ML SYR 20 MG/4 ML SYRINGE IV PRN (12:30)
[2018-01-13] MEDS ORDERED: POTASSIUM CHLORIDE 20MEQ TABLET SR PO NR (12:30)
[2018-01-13] MEDS: INSULIN LISPRO 100 UNITS/ML SUBCUT SCH ×3 (13:00→21:56)
[2018-01-13] MEDS: BLOOD SUGAR DIAGNOSTIC STRIP TEST SCH ×3 (13:16→21:30)
[2018-01-13] MEDS: ONDANSETRON HCL 4MG/2ML VIAL IV PRN ×2 (13:30→23:27)
[2018-01-13] MEDS ORDERED: KCL 10MEQ/50ML PREMIX 50 ML IV ONE ×4 (15:00→18:00)
[2018-01-13] MEDS ORDERED: POTASSIUM CHLORIDE INJ 40 MEQ in SODIUM CHLORIDE 0.9% 250 ML IV SCH (15:30)
[2018-01-13 17:32] LABS: *BARBITURATES SCREEN URINE NEGATIVE (NEGATIVE)
[2018-01-13 17:33] LABS: *AMPHETAMINES SCREEN URINE NEGATIVE (NEGATIVE); *BENZODIAZEPINES SCREEN URINE PRESUMTIVE POSITIVE (NEGATIVE); *COCAINE SCREEN URINE NEGATIVE (NEGATIVE); CANNABINOID URINE SCREEN PRESUMTIVE POSITIVE (NEGATIVE); METHADONE URINE SCREEN NEGATIVE (NEGATIVE); OPIATES URINE SCREEN PRESUMTIVE POSITIVE (NEGATIVE); PHENCYCLIDINE URINE SCREEN NEGATIVE (NEGATIVE)
[2018-01-13] MEDS: DEXT 5%/0.45% NACL 1000ML 1,000 ML IV SCH (17:55)
[2018-01-13 18:34] LABS: HEMATOCRIT 22.5 % (36.0-48.0); HEMOGLOBIN 7.5 g/dL (12.0-16.0)
[2018-01-13] MEDS ORDERED: LORAZEPAM 2MG/ML CPJ IV PRN (20:30)
[2018-01-13] MEDS ORDERED: HEPARIN 5000 UNITS/ML VIAL SUBCUT SCH (21:00)
[2018-01-13] MEDS: PANTOPRAZOLE SODIUM 40 MG/VIAL IV SCH (21:30)
[2018-01-13 21:57] LABS: HEMATOCRIT 27.2 % (36.0-48.0); HEMOGLOBIN 8.4 g/dL (12.0-16.0)
[2018-01-13] MEDS: MORPHINE SULFATE 4 MG/ML CPJ (NOT FOR IM USE) IV PRN (23:28)
[2018-01-14] VITALS (15 sets, daily range): BP systolic 124–176; BP diastolic 60–107
[2018-01-14] MEDS: IPRATROPIUM/ALBUTEROL 0.5-3(2.5)MG/3ML NEB HHN SCH ×7 (00:27→21:20)
[2018-01-14 01:28] LABS: HEMATOCRIT 23.7 % (36.0-48.0); HEMOGLOBIN 7.5 g/dL (12.0-16.0)
[2018-01-14] MEDS: DEXT 5%/0.45% NACL 1000ML 1,000 ML IV SCH (06:31)
[2018-01-14] MEDS: BLOOD SUGAR DIAGNOSTIC STRIP TEST SCH ×4 (06:31→20:53)
[2018-01-14 07:33] LABS: BASOPHILS % 0.2 % (0.0-2.0); EOSINOPHILS % 0.2 % (0.0-5.0); HEMATOCRIT. 22.5 % (36.0-48.0); HEMOGLOBIN. 7.3 g/dL (12.0-16.0); LYMPHOCYTES % 8.6 % (20.0-50.0); MEAN CORPUSCULAR HEMOGLOBIN 29.2 pg (28.0-32.0); MEAN CORPUSCULAR VOLUME 90.3 fL (81.0-99.0); MEAN PLATELET VOLUME 9.6 fl (7.4-10.4); MONOCYTES % 7.6 % (2.0-8.0); NEUTROPHILS % 83.4 % (40.0-76.0); PLATELET 349 x1000/uL (130-400); RED CELL DISTRIBUTION WIDTH 14.4 % (11.6-14.6)
[2018-01-14 07:35] LABS: CHLORIDE 109 mEq/L (98-107)
[2018-01-14 07:48] LABS: HDL CHOLESTEROL 53 mg/dL (40-59); LDL CHOLESTEROL 65 mg/dL (5-100); PHOSPHORUS 4.6 mg/dL (2.5-4.9)
[2018-01-14] MEDS: INSULIN LISPRO 100 UNITS/ML SUBCUT SCH ×4 (08:00→21:19)
[2018-01-14] MEDS ORDERED: FUROSEMIDE 40MG/4ML VIAL IVP SCH (09:00)
[2018-01-14] MEDS ORDERED: LIDOCAINE HCL/PF 1% 10 MG/ML 5ML VIAL ONE (09:07)
[2018-01-14 09:14] LABS: BG BILEVEL POS AIRWAY PRESSURE 13.5; BG CARBOXYHEMOGLOBIN 0.7 % (0.5-1.5); BG DEOXYHEMOGLOBIN 3.1 % (0.0-5.0); BG FRACTION INSPIRED OXYGEN 50; BG HCO3 ACT 24.1 mmol/L (22.0-26.0); BG METHEMOGLOBIN 0.3 % (0.0-1.5); BG OXYGEN SATURATION 96.9 % (92.0-98.5); BG OXYHEMOGLOBIN 95.9 % (94.0-97.0); BG PCO2 42.1 mmHg (35.0-45.0); BG PH 7.376 (7.350-7.450); BG PO2 92.6 mmHg (75.0-100.0); BG SAMPLE SITE RIGHT RADIAL; BG TOTAL HEMOGLOBIN 7.4 g/dL (12.0-18.0); BG VENT MODE MASK - BIPAP; BG VENT RATE 16 set
[2018-01-14] MEDS: PANTOPRAZOLE SODIUM 40 MG/VIAL IV SCH ×2 (09:26→20:37)
[2018-01-14 10:55] LABS: INR 1.3; PARTIAL THROMBOPLASTIN TIME 34.1 sec (23.4-31.0); PROTHROMBIN TIME 13.1 sec (9.4-11.6)
[2018-01-14 11:51] LABS: HEPATITIS B SURFACE ANTIGEN NEGATIVE
[2018-01-14 12:18] LABS: HEPATITIS B CORE AB IGM NEGATIVE
[2018-01-14 12:20] LABS: HEPATITIS A AB IGM NEGATIVE (NEGATIVE)
[2018-01-14] MEDS: ONDANSETRON HCL 4MG/2ML VIAL IV PRN (12:26)
[2018-01-14] MEDS: MORPHINE SULFATE 4 MG/ML CPJ (NOT FOR IM USE) IV PRN ×2 (12:27→20:40)
[2018-01-14 15:09] LABS: HEMATOCRIT 32.4 % (36.0-48.0); HEMOGLOBIN 10.4 g/dL (12.0-16.0)
[2018-01-14] MEDS ORDERED: DILTIAZEM HCL 60MG TABLET PO NR (22:26)
[2018-01-15] VITALS (12 sets, daily range): BP systolic 110–172; BP diastolic 63–101
[2018-01-15] MEDS: ONDANSETRON HCL 4MG/2ML VIAL IV PRN (00:11)
[2018-01-15] MEDS: MORPHINE SULFATE 4 MG/ML CPJ (NOT FOR IM USE) IV PRN ×5 (00:11→20:12)
[2018-01-15] MEDS: IPRATROPIUM/ALBUTEROL 0.5-3(2.5)MG/3ML NEB HHN SCH ×5 (00:25→20:45)
[2018-01-15] MEDS: DILTIAZEM HCL 60MG TABLET PO SCH ×3 (06:11→22:00)
[2018-01-15 07:40] LABS: BASOPHILS % 0.1 % (0.0-2.0); EOSINOPHILS % 0.1 % (0.0-5.0); HEMATOCRIT. 24.9 % (36.0-48.0); LYMPHOCYTES % 7.3 % (20.0-50.0); MEAN CORPUSCULAR HEMOGLOBIN 28.5 pg (28.0-32.0); MEAN CORPUSCULAR VOLUME 89.3 fL (81.0-99.0); MEAN PLATELET VOLUME 9.7 fl (7.4-10.4); MONOCYTES % 10.7 % (2.0-8.0); NEUTROPHILS % 81.8 % (40.0-76.0); PLATELET 366 x1000/uL (130-400); RED CELL DISTRIBUTION WIDTH 14.5 % (11.6-14.6)
[2018-01-15] MEDS: PANTOPRAZOLE SODIUM 40 MG/VIAL IV SCH ×2 (08:25→20:12)
[2018-01-15] MEDS: BLOOD SUGAR DIAGNOSTIC STRIP TEST SCH ×4 (08:25→20:22)
[2018-01-15] MEDS: INSULIN LISPRO 100 UNITS/ML SUBCUT SCH ×4 (08:26→20:22)
[2018-01-15] MEDS: LEVOFLOXACIN 500MG PREMIX 100 ML IV SCH (09:44)
[2018-01-15 09:52] LABS: BG BASE EXCESS -1.8 mmol/L (-2.0-2.0); BG CARBOXYHEMOGLOBIN 0.9 % (0.5-1.5); BG DEOXYHEMOGLOBIN 10.2 % (0.0-5.0); BG FRACTION INSPIRED OXYGEN 36; BG METHEMOGLOBIN 1.3 % (0.0-1.5); BG OXYGEN SATURATION 89.6 % (92.0-98.5); BG OXYHEMOGLOBIN 87.6 % (94.0-97.0); BG PCO2 38.7 mmHg (35.0-45.0); BG PH 7.392 (7.350-7.450); BG PO2 57.2 mmHg (75.0-100.0); BG SAMPLE SITE RIGHT RADIAL; BG TOTAL HEMOGLOBIN 6.2 g/dL (12.0-18.0); BG VENT MODE NASAL CANNULA
[2018-01-15] MEDS ORDERED: LORAZEPAM 2MG/ML CPJ IV PRN (12:30)
[2018-01-15 14:04] LABS: HEMOGLOBIN 7.7 g/dL (12.0-16.0)
[2018-01-15] MEDS: LORAZEPAM 1MG TABLET PO PRN (20:14)
[2018-01-16] VITALS (11 sets, daily range): BP systolic 126–153; BP diastolic 64–82
[2018-01-16] MEDS: IPRATROPIUM/ALBUTEROL 0.5-3(2.5)MG/3ML NEB HHN SCH ×6 (00:53→21:06)
[2018-01-16] MEDS: MORPHINE SULFATE 4 MG/ML CPJ (NOT FOR IM USE) IV PRN ×6 (01:07→23:20)
[2018-01-16] MEDS: DILTIAZEM HCL 60MG TABLET PO SCH ×3 (05:10→21:33)
[2018-01-16] MEDS: BLOOD SUGAR DIAGNOSTIC STRIP TEST SCH ×4 (07:49→21:33)
[2018-01-16] MEDS: INSULIN LISPRO 100 UNITS/ML SUBCUT SCH ×4 (08:00→21:00)
[2018-01-16 08:16] LABS: BASOPHILS % 0.2 % (0.0-2.0); EOSINOPHILS % 0.2 % (0.0-5.0); HEMATOCRIT. 22.9 % (36.0-48.0); HEMOGLOBIN. 7.4 g/dL (12.0-16.0); MEAN CORPUSCULAR HEMOGLOBIN 28.7 pg (28.0-32.0); MEAN CORPUSCULAR VOLUME 88.2 fL (81.0-99.0); MEAN PLATELET VOLUME 9.7 fl (7.4-10.4); MONOCYTES % 12.1 % (2.0-8.0); NEUTROPHILS % 78.5 % (40.0-76.0); PLATELET 319 x1000/uL (130-400); RED BLOOD CELL COUNT 2.59 mill/uL (4.2-5.4); RED CELL DISTRIBUTION WIDTH 14.2 % (11.6-14.6)
[2018-01-16 08:35] LABS: PHOSPHORUS 3.6 mg/dL (2.5-4.9)
[2018-01-16] MEDS: PANTOPRAZOLE SODIUM 40 MG/VIAL IV SCH ×2 (08:43→21:33)
[2018-01-16] MEDS ORDERED: BISACODYL 10MG SUPP PR PRN (09:30)
[2018-01-16] MEDS ORDERED: SORBITOL 70% SOLN 30ML PO NR (10:15)
[2018-01-16] MEDS: DOCUSATE SODIUM 100MG CAPSULE PO SCH ×2 (10:48→18:29)
[2018-01-16 13:17] LABS: HEMATOCRIT 22.5 % (36.0-48.0); HEMOGLOBIN 7.5 g/dL (12.0-16.0); MEAN CORPUSCULAR HEMOGLOBIN 29.6 pg (28.0-32.0); MEAN CORPUSCULAR VOLUME 88.4 fL (81.0-99.0); PLATELET 332 x1000/uL (130-400); RED BLOOD CELL COUNT 2.54 mill/uL (4.2-5.4); RED CELL DISTRIBUTION WIDTH 14.3 % (11.6-14.6)
[2018-01-16] MEDS ORDERED: NA PHOS,M-B/NA PHOS,DI-BA ENEMA 118ML PR NR ×2 (15:10→20:00)
[2018-01-16] MEDS ORDERED: SENNOSIDES 8.6MG TABLET PO PRN (21:00)
[2018-01-17] VITALS: BP 144/71
[2018-01-17] MEDS: IPRATROPIUM/ALBUTEROL 0.5-3(2.5)MG/3ML NEB HHN SCH ×6 (00:24→22:13)
[2018-01-17] MEDS: LORAZEPAM 1MG TABLET PO PRN ×2 (00:36→21:58)
[2018-01-17 04:00] VITALS: BP 140/63
[2018-01-17] MEDS: BLOOD SUGAR DIAGNOSTIC STRIP TEST SCH ×4 (06:29→21:58)
[2018-01-17] MEDS: DILTIAZEM HCL 60MG TABLET PO SCH ×3 (06:29→21:58)
[2018-01-17] MEDS: MORPHINE SULFATE 4 MG/ML CPJ (NOT FOR IM USE) IV PRN ×4 (06:56→20:42)
[2018-01-17 07:38] VITALS: BP 144/65
[2018-01-17 08:19] LABS: HEMOGLOBIN. 7.8 g/dL (12.0-16.0); MEAN CORPUSCULAR HEMOGLOBIN 28.9 pg (28.0-32.0); MEAN PLATELET VOLUME 10.4 fl (7.4-10.4); RED CELL DISTRIBUTION WIDTH 14.4 % (11.6-14.6)
[2018-01-17] MEDS: INSULIN LISPRO 100 UNITS/ML SUBCUT SCH ×4 (08:29→21:00)
[2018-01-17] MEDS: PANTOPRAZOLE SODIUM 40 MG/VIAL IV SCH ×2 (08:31→21:58)
[2018-01-17] MEDS: DOCUSATE SODIUM 100MG CAPSULE PO SCH ×2 (08:31→17:43)
[2018-01-17 09:03] LABS: PHOSPHORUS 4.1 mg/dL (2.5-4.9)
[2018-01-17] MEDS: LEVOFLOXACIN 500MG PREMIX 100 ML IV SCH (10:31)
[2018-01-17 11:15] LABS: PLATELET ESTIMATE NORMAL
[2018-01-17 11:18] LABS: PLATELET 327 x1000/uL (130-400)
[2018-01-17 12:00] VITALS: BP 162/90
[2018-01-17] MEDS ORDERED: HEPARIN 5000 UNITS/ML VIAL IV SCH (13:15)
[2018-01-17 16:19] VITALS: BP 137/61
[2018-01-17 20:00] VITALS: BP 148/82
[2018-01-17] MEDS: ONDANSETRON HCL 4MG/2ML VIAL IV PRN (20:35)
[2018-01-17] MEDS ORDERED: MORPHINE SULFATE 4 MG/ML CPJ (NOT FOR IM USE) IV PRN (22:45)
[2018-01-18] VITALS: BP 135/77
[2018-01-18] MEDS: IPRATROPIUM/ALBUTEROL 0.5-3(2.5)MG/3ML NEB HHN SCH ×5 (01:30→20:05)
[2018-01-18 04:00] VITALS: BP 133/68
[2018-01-18] MEDS: DILTIAZEM HCL 60MG TABLET PO SCH ×3 (05:24→21:19)
[2018-01-18] MEDS: BLOOD SUGAR DIAGNOSTIC STRIP TEST SCH ×4 (06:21→21:00)
[2018-01-18] MEDS: MORPHINE SULFATE 4 MG/ML CPJ (NOT FOR IM USE) IV PRN ×3 (06:21→21:21)
[2018-01-18 06:38] LABS: PARTIAL THROMBOPLASTIN TIME 27.1 sec (23.4-31.0); PROTHROMBIN TIME 10.3 sec (9.4-11.6)
[2018-01-18 06:46] LABS: HEMATOCRIT 25.4 % (36.0-48.0); HEMOGLOBIN 8.4 g/dL (12.0-16.0); MEAN CORPUSCULAR HEMOGLOBIN 29.3 pg (28.0-32.0); MEAN CORPUSCULAR VOLUME 88.5 fL (81.0-99.0); PLATELET 366 x1000/uL (130-400); RED BLOOD CELL COUNT 2.87 mill/uL (4.2-5.4); RED CELL DISTRIBUTION WIDTH 14.1 % (11.6-14.6)
[2018-01-18 08:00] VITALS: BP 125/61
[2018-01-18] MEDS: PANTOPRAZOLE SODIUM 40 MG/VIAL IV SCH ×2 (09:05→20:52)
[2018-01-18] MEDS: DOCUSATE SODIUM 100MG CAPSULE PO SCH ×2 (09:05→17:00)
[2018-01-18] MEDS: INSULIN LISPRO 100 UNITS/ML SUBCUT SCH ×4 (09:11→21:23)
[2018-01-18 12:22] VITALS: BP 132/72
[2018-01-18 16:13] VITALS: BP 137/74
[2018-01-18] MEDS ORDERED: MORPHINE SULFATE 4 MG/ML CPJ (NOT FOR IM USE) IV ONE (16:15)
[2018-01-18] MEDS ORDERED: KETOROLAC 30MG/ML VIAL IV PRN (16:45)
[2018-01-18] MEDS ORDERED: FLUCONAZOLE 100MG TABLET PO NR (17:00)
[2018-01-18] MEDS ORDERED: IOHEXOL-350 100 ML BOTTLE ONE (17:23)
[2018-01-18] MEDS: OXYCODONE HCL/ACETAMINOPHEN 5/325MG TABLET PO PRN (17:40)
[2018-01-18 20:00] VITALS: BP 139/80
[2018-01-18] MEDS: LORAZEPAM 1MG TABLET PO PRN (20:51)
[2018-01-19 00:10] VITALS: BP 138/59
[2018-01-19] MEDS: IPRATROPIUM/ALBUTEROL 0.5-3(2.5)MG/3ML NEB HHN SCH ×6 (00:10→21:18)
[2018-01-19 04:00] VITALS: BP 140/70
[2018-01-19] MEDS: DILTIAZEM HCL 60MG TABLET PO SCH ×3 (05:47→21:28)
[2018-01-19] MEDS: BLOOD SUGAR DIAGNOSTIC STRIP TEST SCH ×4 (06:25→21:28)
[2018-01-19 08:00] VITALS: BP 147/82
[2018-01-19] MEDS: DOCUSATE SODIUM 100MG CAPSULE PO SCH ×2 (09:00→17:00)
[2018-01-19] MEDS: PANTOPRAZOLE SODIUM 40 MG/VIAL IV SCH ×2 (09:19→21:27)
[2018-01-19] MEDS: LEVOFLOXACIN 500MG PREMIX 100 ML IV SCH (09:20)
[2018-01-19] MEDS: INSULIN LISPRO 100 UNITS/ML SUBCUT SCH ×4 (09:29→21:00)
[2018-01-19] MEDS: MORPHINE SULFATE 4 MG/ML CPJ (NOT FOR IM USE) IV PRN ×2 (09:49→15:32)
[2018-01-19 12:00] VITALS: BP 141/69
[2018-01-19 16:00] VITALS: BP 145/77
[2018-01-19 20:04] VITALS: BP 148/77
[2018-01-19] MEDS: OXYCODONE HCL/ACETAMINOPHEN 5/325MG TABLET PO PRN (21:34)
[2018-01-20] VITALS: BP 155/74
[2018-01-20 00:06] VITALS: BP 148/77
[2018-01-21] MEDS ORDERED: LEVOFLOXACIN 250MG TABLET PO SCH (11:00)
== END 2018-01-20 00:40 | disposition home or self-care (01) | DRG 720 ==
LOC: ER 08:11 → 5EST 09:45 → EDBEDREQ 09:48 → ENRESERV 09:50 → 6WST 01-16 13:10
PROVIDERS: ADMIT Internal Medicine; ATTEND Internal Medicine
PROC: 5A09457 Assistance with Respiratory Ventilation, 24-96 Consecutive Hours, Continuous Positive Airway Pressure (ICD-10-PCS; principal; 2018-01-13)
PROC: 30233N1 Transfusion of Nonautologous Red Blood Cells into Peripheral Vein, Percutaneous Approach (ICD-10-PCS; 2018-01-14)
PROC: 02HV33Z Insertion of Infusion Device into Superior Vena Cava, Percutaneous Approach (ICD-10-PCS; 2018-01-14)
PROC: B548ZZA Ultrasonography of Superior Vena Cava, Guidance (ICD-10-PCS; 2018-01-14)
PROC: 5A1D70Z Performance of Urinary Filtration, Intermittent, Less than 6 Hours Per Day (ICD-10-PCS; 2018-01-14)
PROC: 5A1D70Z Performance of Urinary Filtration, Intermittent, Less than 6 Hours Per Day (ICD-10-PCS; 2018-01-15)
PROC: 5A1D70Z Performance of Urinary Filtration, Intermittent, Less than 6 Hours Per Day (ICD-10-PCS; 2018-01-17)
PROC: 5A1D70Z Performance of Urinary Filtration, Intermittent, Less than 6 Hours Per Day (ICD-10-PCS; 2018-01-19)
DX: A41.9 Sepsis, unspecified organism (principal); J96.00 Acute respiratory failure, unspecified whether with hypoxia or hypercapnia; G93.41 Metabolic encephalopathy; I50.33 Acute on chronic diastolic (congestive) heart failure; N17.9 Acute kidney failure, unspecified; J18.9 Pneumonia, unspecified organism; N18.6 End stage renal disease; I08.1 Rheumatic disorders of both mitral and tricuspid valves; E11.22 Type 2 diabetes mellitus with diabetic chronic kidney disease; D50.0 Iron deficiency anemia secondary to blood loss (chronic); E44.0 Moderate protein-calorie malnutrition; E87.5 Hyperkalemia; E87.6 Hypokalemia; G89.29 Other chronic pain; H54.8 Legal blindness, as defined in USA; I13.2 Hypertensive heart and chronic kidney disease with heart failure and with stage 5 chronic kidney disease, or end stage renal disease; J43.9 Emphysema, unspecified; Y95 Nosocomial condition; F19.10 Other psychoactive substance abuse, uncomplicated; Z91.19 Patient's noncompliance with other medical treatment and regimen; Z88.8 Allergy status to other drugs, medicaments and biological substances; Z88.6 Allergy status to analgesic agent; Z88.0 Allergy status to penicillin; Z91.013 Allergy to seafood; Z79.899 Other long term (current) drug therapy
CPT/HCPCS: 36415; 36600; 51702; 71045; 76937; 80048; 80053; 80061; 80305; 81003; 82270; 82375; 82805; 82962; 83605; 83690; 83735; 83880; 84100; 84443; 84484; 85014; 85018; 85025; 85027; 85610; 85730; 86705; 86706; 86709; 86803; 86850; 86900; 86920; 87040; 87086; 87340; 93005; 93970; 94640; 94660; 96365; 96375; 97162; 99291; C9113; J1644; J1815; J1940; J1956; J2060; J2270; J2405; J3480; J3490; J7030; J7050; J7060; J7620; P9016; Q9967; A4315

== ENCOUNTER 2018-03-30 22:48 | Emergency (ER) | payer MEDICAID ==
[~2018-03-30] VITALS: Ht 165.1 cm; Wt 61.0 kg
[~2018-03-30 22:48] MED LIST changes: -CLON0.2T12 PO; -HYDR100T26 PO; -LEVO500T2 PO; -MORP15TA67 PO; -NIFE30TA83 PO
[2018-03-30] MEDS ORDERED: MORPHINE SULFATE 4 MG/ML CPJ (NOT FOR IM USE) IV STA (23:30)
[2018-03-30] MEDS ORDERED: DIPHENHYDRAMINE 50MG/ML VIAL IV ONE (23:30)
[2018-03-31 00:07] LABS: CLARITY URINE CLEAR (CLEAR); COLOR URINE YELLOW (YELLOW); KETONES URINE NEGATIVE (NEGATIVE); LEUKOCYTE ESTERASE URINE 1+ (NEGATIVE); NITRITE URINE NEGATIVE (NEGATIVE); OCCULT BLOOD URINE NEGATIVE (NEGATIVE); PROTEIN URINE 2+ (NEGATIVE); SPECIFIC GRAVITY URINE 1.017 (1.005-1.030); UROBILINOGEN URINE 0.2 E.U./dL (0.2-1.0)
[2018-03-31 00:22] LABS: *AMPHETAMINES SCREEN URINE NEGATIVE (NEGATIVE); *BARBITURATES SCREEN URINE NEGATIVE (NEGATIVE); *BENZODIAZEPINES SCREEN URINE NEGATIVE (NEGATIVE)
[2018-03-31 00:23] LABS: *COCAINE SCREEN URINE NEGATIVE (NEGATIVE); CANNABINOID URINE SCREEN PRESUMTIVE POSITIVE (NEGATIVE); METHADONE URINE SCREEN NEGATIVE (NEGATIVE); OPIATES URINE SCREEN PRESUMTIVE POSITIVE (NEGATIVE); PHENCYCLIDINE URINE SCREEN NEGATIVE (NEGATIVE)
[2018-03-31] MEDS ORDERED: CEFTRIAXONE 1 G PREMIX 50 ML IV NR (00:45)
[2018-03-31 00:51] LABS: BASOPHILS % 0.2 % (0.0-2.0); HEMATOCRIT. 31.8 % (36.0-48.0); HEMOGLOBIN. 10.4 g/dL (12.0-16.0); LYMPHOCYTES % 12.3 % (20.0-50.0); MEAN CORPUSCULAR HEMOGLOBIN 29.2 pg (28.0-32.0); MEAN CORPUSCULAR VOLUME 89.1 fL (81.0-99.0); MEAN PLATELET VOLUME 10.4 fl (7.4-10.4); MONOCYTES % 12.2 % (2.0-8.0); NEUTROPHILS % 75.3 % (40.0-76.0); PLATELET 208 x1000/uL (130-400); RED BLOOD CELL COUNT 3.57 mill/uL (4.2-5.4); RED CELL DISTRIBUTION WIDTH 17.2 % (11.6-14.6)
[2018-03-31 00:52] LABS: CHLORIDE 103 mEq/L (98-107)
[2018-03-31 00:54] LABS: PROTHROMBIN TIME 10.1 sec (9.4-11.6)
[2018-03-31 00:56] LABS: ETHANOL BLOOD < 10 mg/dL
[2018-03-31 02:56] VITALS: BP 157/86
== END 2018-03-31 02:58 | disposition home or self-care (01) ==
LOC: ER 22:57
DX: R19.00 Intra-abdominal and pelvic swelling, mass and lump, unspecified site (principal); R10.9 Unspecified abdominal pain; M79.602 Pain in left arm; E11.22 Type 2 diabetes mellitus with diabetic chronic kidney disease; I12.0 Hypertensive chronic kidney disease with stage 5 chronic kidney disease or end stage renal disease; N18.6 End stage renal disease; Z79.4 Long term (current) use of insulin; Z88.0 Allergy status to penicillin; Z99.2 Dependence on renal dialysis; Z91.15 Patient's noncompliance with renal dialysis
CPT/HCPCS: 36415; 71045; 74176; 80053; 80305; 81003; 83605; 83690; 83880; 84484; 85025; 85610; 87040; 87086; 93005; 96374; 96375; 99285; G0482; J0696; J1200; J2270; Z7610

== ENCOUNTER 2018-05-06 02:10 | Emergency (ER) | payer MEDICAID ==
[~2018-05-06] VITALS: Ht 165.1 cm; Wt 60.0 kg
[~2018-05-06 02:10] MED LIST changes: +ALPR-339 MT; +ATEN-42 MT; +BENA5TAB3 MT; +CHLO25TA2 MT; +CLON0.2T PO; +GLIP5TAB12 MT; +HYDR100T26 MT; +MORP15TA67 MT; +TRAM50TA3 MT
[2018-05-06 02:42] VITALS: BP 161/79
== END 2018-05-06 07:34 | disposition left against medical advice (07) ==
LOC: ER 02:10
DX: R10.9 Unspecified abdominal pain (principal); M79.602 Pain in left arm; M79.601 Pain in right arm; Z53.21 Procedure and treatment not carried out due to patient leaving prior to being seen by health care provider

== ENCOUNTER 2018-05-07 09:11 | Emergency (ER) | payer MEDICAID ==
[~2018-05-07] VITALS: Ht 167.6 cm; Wt 61.0 kg
[2018-05-07] MEDS ORDERED: ONDANSETRON HCL 4MG/2ML VIAL IV STA (09:43)
[2018-05-07] MEDS ORDERED: MORPHINE SULFATE 4 MG/ML CPJ (NOT FOR IM USE) IV STA (09:43)
[2018-05-07 10:20] LABS: BASOPHILS % 0.5 % (0.0-2.0); EOSINOPHILS % 0.2 % (0.0-5.0); HEMATOCRIT. 34.3 % (36.0-48.0); HEMOGLOBIN. 11.1 g/dL (12.0-16.0); MEAN CORPUSCULAR HEMOGLOBIN 28.5 pg (28.0-32.0); MEAN CORPUSCULAR VOLUME 87.7 fL (81.0-99.0); MONOCYTES % 7.5 % (2.0-8.0); NEUTROPHILS % 77.8 % (40.0-76.0); PLATELET 178 x1000/uL (130-400); RED BLOOD CELL COUNT 3.91 mill/uL (4.2-5.4); RED CELL DISTRIBUTION WIDTH 16.7 % (11.6-14.6)
[2018-05-07 10:22] LABS: CHLORIDE 103 mEq/L (98-107); PROTHROMBIN TIME 10.4 sec (9.4-11.6)
[2018-05-07 10:32] LABS: CLARITY URINE CLEAR (CLEAR); COLOR URINE YELLOW (YELLOW); KETONES URINE NEGATIVE (NEGATIVE); LEUKOCYTE ESTERASE URINE TRACE (NEGATIVE); NITRITE URINE NEGATIVE (NEGATIVE); OCCULT BLOOD URINE NEGATIVE (NEGATIVE); PH URINE 6.5 (4.5-8.0); PROTEIN URINE 2+ (NEGATIVE); SPECIFIC GRAVITY URINE 1.015 (1.005-1.030); UROBILINOGEN URINE 0.2 E.U./dL (0.2-1.0)
[2018-05-07] MEDS ORDERED: LORAZEPAM 1MG TABLET PO ONE (11:30)
[2018-05-07] MEDS ORDERED: LEVOFLOXACIN 500MG TABLET PO ONE (12:00)
[2018-05-07] MEDS ORDERED: HYDROCODONE/ACETAMINOPHEN 5/325MG TABLET PO ONE (12:15)
[2018-05-07 13:15] VITALS: BP 130/72
== END 2018-05-07 13:18 | disposition home or self-care (01) ==
LOC: ER 09:11 → CANBEDREQ 15:27
DX: N39.0 Urinary tract infection, site not specified (principal); F41.9 Anxiety disorder, unspecified; E11.22 Type 2 diabetes mellitus with diabetic chronic kidney disease; I12.9 Hypertensive chronic kidney disease with stage 1 through stage 4 chronic kidney disease, or unspecified chronic kidney disease; N18.9 Chronic kidney disease, unspecified; D64.9 Anemia, unspecified; F12.10 Cannabis abuse, uncomplicated; Z88.8 Allergy status to other drugs, medicaments and biological substances; Z88.0 Allergy status to penicillin; Z91.013 Allergy to seafood; Z79.4 Long term (current) use of insulin
CPT/HCPCS: 36415; 80053; 81003; 83605; 83690; 85025; 85610; 93005; 96374; 96375; 99285; J2270; J2405; Z7610

== ENCOUNTER 2018-05-20 09:34 | Emergency (ER) | payer MEDICAID ==
[~2018-05-20] VITALS: Ht 160 cm; Wt 60.0 kg
[2018-05-20] MEDS ORDERED: HYDROCODONE/ACETAMINOPHEN 5/325MG TABLET PO ONE ×2 (11:00→12:45)
[2018-05-20 11:06] LABS: BASOPHILS % 0.7 % (0.0-2.0); EOSINOPHILS % 0.1 % (0.0-5.0); HEMATOCRIT. 32.6 % (36.0-48.0); HEMOGLOBIN. 10.9 g/dL (12.0-16.0); LYMPHOCYTES % 21.5 % (20.0-50.0); MEAN CORPUSCULAR VOLUME 86.7 fL (81.0-99.0); MEAN PLATELET VOLUME 8.5 fl (7.4-10.4); NEUTROPHILS % 69.7 % (40.0-76.0); PLATELET 216 x1000/uL (130-400); RED BLOOD CELL COUNT 3.77 mill/uL (4.2-5.4); RED CELL DISTRIBUTION WIDTH 16.8 % (11.6-14.6)
[2018-05-20 11:12] LABS: CHLORIDE 108 mEq/L (98-107)
[2018-05-20 11:21] LABS: INR 1.1; PROTHROMBIN TIME 10.9 sec (9.4-11.6)
[2018-05-20 12:07] LABS: CLARITY URINE CLEAR (CLEAR); COLOR URINE YELLOW (YELLOW); KETONES URINE NEGATIVE (NEGATIVE); LEUKOCYTE ESTERASE URINE NEGATIVE (NEGATIVE); NITRITE URINE NEGATIVE (NEGATIVE); OCCULT BLOOD URINE NEGATIVE (NEGATIVE); PROTEIN URINE 2+ (NEGATIVE); SPECIFIC GRAVITY URINE 1.013 (1.005-1.030); UROBILINOGEN URINE 0.2 E.U./dL (0.2-1.0)
[2018-05-20 13:09] VITALS: BP 144/80
== END 2018-05-20 13:10 | disposition home or self-care (01) ==
LOC: ER 09:34
DX: R10.0 Acute abdomen (principal); N17.9 Acute kidney failure, unspecified; D39.10 Neoplasm of uncertain behavior of unspecified ovary; I13.11 Hypertensive heart and chronic kidney disease without heart failure, with stage 5 chronic kidney disease, or end stage renal disease; N18.6 End stage renal disease; E11.22 Type 2 diabetes mellitus with diabetic chronic kidney disease; Z91.15 Patient's noncompliance with renal dialysis; F12.90 Cannabis use, unspecified, uncomplicated; F17.210 Nicotine dependence, cigarettes, uncomplicated; Z79.4 Long term (current) use of insulin; Z79.899 Other long term (current) drug therapy; Z88.0 Allergy status to penicillin; Z91.013 Allergy to seafood; Z99.2 Dependence on renal dialysis
CPT/HCPCS: 36415; 71045; 80053; 81003; 83605; 83690; 84484; 85025; 85610; 93005; 99285

== ENCOUNTER 2018-05-26 10:37 | Emergency (ER) | payer MEDICAID ==
[~2018-05-26] VITALS: Ht 167.6 cm; Wt 57.9 kg
[2018-05-26 10:43] VITALS: BP 156/74
== END 2018-05-26 16:49 | disposition left against medical advice (07) ==
LOC: ER 11:23
DX: T82.838A Hemorrhage due to vascular prosthetic devices, implants and grafts, initial encounter (principal); Y83.8 Other surgical procedures as the cause of abnormal reaction of the patient, or of later complication, without mention of misadventure at the time of the procedure; Z53.21 Procedure and treatment not carried out due to patient leaving prior to being seen by health care provider

== ENCOUNTER 2018-05-26 15:24 | Emergency (ER) | payer MEDICAID ==
[~2018-05-26] VITALS: Ht 165.1 cm; Wt 54.0 kg
[2018-05-26] MEDS ORDERED: MORPHINE SULFATE 10 MG/ML CPJ IM ONE (20:00)
[2018-05-26 20:07] VITALS: BP 160/70
== END 2018-05-26 20:13 | disposition home or self-care (01) ==
LOC: ER 16:02
DX: R19.09 Other intra-abdominal and pelvic swelling, mass and lump (principal); M25.511 Pain in right shoulder; F41.9 Anxiety disorder, unspecified; E11.22 Type 2 diabetes mellitus with diabetic chronic kidney disease; I12.0 Hypertensive chronic kidney disease with stage 5 chronic kidney disease or end stage renal disease; N18.6 End stage renal disease; F12.10 Cannabis abuse, uncomplicated; Z99.2 Dependence on renal dialysis; Z79.4 Long term (current) use of insulin; Z88.0 Allergy status to penicillin; Z88.8 Allergy status to other drugs, medicaments and biological substances; Z91.013 Allergy to seafood
CPT/HCPCS: 96372; 99283; J2270

== ENCOUNTER 2018-07-26 13:17 | Emergency (ER) | payer MEDICAID ==
[~2018-07-26] VITALS: Ht 165.1 cm; Wt 64.8 kg
[~2018-07-26 13:17] MED LIST changes: -BENA5TAB3 MT; +BENA5TAB6 MT
[2018-07-26] MEDS ORDERED: HYDROCODONE/ACETAMINOPHEN 10/325MG TABLET PO ONE (15:15)
[2018-07-26 15:29] LABS: BASOPHILS % 0.7 % (0.0-2.0); EOSINOPHILS % 0.1 % (0.0-5.0); HEMATOCRIT. 34.5 % (36.0-48.0); HEMOGLOBIN. 11.4 g/dL (12.0-16.0); LYMPHOCYTES % 13.7 % (20.0-50.0); MEAN CORPUSCULAR HEMOGLOBIN 31.5 pg (28.0-32.0); MEAN CORPUSCULAR VOLUME 95.3 fL (81.0-99.0); MEAN PLATELET VOLUME 9.6 fl (7.4-10.4); MONOCYTES % 6.4 % (2.0-8.0); NEUTROPHILS % 79.1 % (40.0-76.0); PLATELET 217 x1000/uL (130-400); RED BLOOD CELL COUNT 3.62 mill/uL (4.2-5.4); RED CELL DISTRIBUTION WIDTH 15.6 % (11.6-14.6)
[2018-07-26 15:31] VITALS: BP 146/115
[2018-07-26 15:34] LABS: CHLORIDE 108 mEq/L (98-107)
[2018-07-26 15:37] LABS: PARTIAL THROMBOPLASTIN TIME 27.2 sec (23.4-31.0); PROTHROMBIN TIME 10.2 sec (9.1-11.1)
== END 2018-07-26 15:34 | disposition left against medical advice (07) ==
LOC: ER 13:17
DX: R10.84 Generalized abdominal pain (principal); R14.0 Abdominal distension (gaseous); F12.10 Cannabis abuse, uncomplicated; E11.9 Type 2 diabetes mellitus without complications; I10 Essential (primary) hypertension; Z88.2 Allergy status to sulfonamides; Z79.899 Other long term (current) drug therapy; Z79.4 Long term (current) use of insulin; Z88.0 Allergy status to penicillin; Z91.013 Allergy to seafood; Z98.890 Other specified postprocedural states
CPT/HCPCS: 36415; 80053; 83690; 85025; 85610; 85730; 99284

== ENCOUNTER 2018-07-28 08:15 | Inpatient (IN) | payer MEDICAID ==
[~2018-07-28] VITALS: Ht 165.1 cm; Wt 65.3 kg
[2018-07-28] MEDS ORDERED: MORPHINE SULFATE 4 MG/ML CPJ (NOT FOR IM USE) IV STA (09:03)
[2018-07-28 09:21] LABS: CLARITY URINE CLEAR (CLEAR); COLOR URINE YELLOW (YELLOW); KETONES URINE NEGATIVE (NEGATIVE); LEUKOCYTE ESTERASE URINE NEGATIVE (NEGATIVE); NITRITE URINE NEGATIVE (NEGATIVE); OCCULT BLOOD URINE NEGATIVE (NEGATIVE); PH URINE 7.5 (4.5-8.0); PROTEIN URINE 2+ (NEGATIVE); SPECIFIC GRAVITY URINE 1.015 (1.005-1.030); UROBILINOGEN URINE 0.2 E.U./dL (0.2-1.0)
[2018-07-28] MEDS ORDERED: ONDANSETRON HCL 4MG/2ML INJ IV ONE (09:30)
[2018-07-28] MEDS ORDERED: CLONIDINE 0.1MG TABLET PO ONE (09:30)
[2018-07-28 10:07] LABS: *AMPHETAMINES SCREEN URINE NEGATIVE (NEGATIVE); *BENZODIAZEPINES SCREEN URINE NEGATIVE (NEGATIVE); *COCAINE SCREEN URINE NEGATIVE (NEGATIVE)
[2018-07-28 10:08] LABS: CANNABINOID URINE SCREEN PRESUMTIVE POSITIVE (NEGATIVE); METHADONE URINE SCREEN NEGATIVE (NEGATIVE); OPIATES URINE SCREEN NEGATIVE (NEGATIVE); PHENCYCLIDINE URINE SCREEN NEGATIVE (NEGATIVE)
[2018-07-28 10:20] LABS: *BARBITURATES SCREEN URINE NEGATIVE (NEGATIVE)
[2018-07-28 11:38] LABS: BASOPHILS % 0.6 % (0.0-2.0); EOSINOPHILS % 0.1 % (0.0-5.0); HEMATOCRIT. 31.6 % (36.0-48.0); HEMOGLOBIN. 10.5 g/dL (12.0-16.0); LYMPHOCYTES % 19.2 % (20.0-50.0); MEAN CORPUSCULAR HEMOGLOBIN 31.6 pg (28.0-32.0); MEAN CORPUSCULAR VOLUME 94.9 fL (81.0-99.0); MEAN PLATELET VOLUME 9.2 fl (7.4-10.4); MONOCYTES % 8.1 % (2.0-8.0); PLATELET 204 x1000/uL (130-400); RED BLOOD CELL COUNT 3.33 mill/uL (4.2-5.4); RED CELL DISTRIBUTION WIDTH 15.4 % (11.6-14.6)
[2018-07-28 11:42] LABS: PROTHROMBIN TIME 10.4 sec (9.1-11.1)
[2018-07-28 11:43] LABS: CHLORIDE 105 mEq/L (98-107)
[2018-07-28] MEDS ORDERED: ONDANSETRON HCL 4MG/2ML INJ IV PRN (18:15)
[2018-07-28] MEDS ORDERED: DIPHENHYDRAMINE 50MG/ML VIAL IV PRN (18:15)
[2018-07-28] MEDS ORDERED: ALPRAZOLAM 0.25 MG TABLET PO PRN (18:15)
[2018-07-28] MEDS ORDERED: IPRATROPIUM/ALBUTEROL 0.5-3(2.5)MG/3ML NEB INH PRN (18:15)
[2018-07-28] MEDS ORDERED: ACETAMINOPHEN 325MG TABLET PO PRN (18:15)
[2018-07-28] MEDS: CLONIDINE 0.1MG TABLET PO PRN (18:29)
[2018-07-28] MEDS ORDERED: MORPHINE SULFATE 4 MG/ML CPJ (NOT FOR IM USE) IV PRN (18:30)
[2018-07-28 22:00] VITALS: BP 121/83
[2018-07-28] MEDS: SODIUM CHLORIDE 0.9% INJ 3ML FLUSH IVF SCH (22:00)
[2018-07-28] MEDS ORDERED: TEMAZEPAM 15MG CAPSULE PO PRN (23:15)
[2018-07-28] MEDS ORDERED: BISACODYL 10MG SUPP PR PRN (23:30)
[2018-07-28] MEDS ORDERED: HYDRALAZINE 20MG/ML VIAL IV PRN (23:30)
[2018-07-28] MEDS ORDERED: MAGNESIUM HYDROXIDE 400MG/5ML 30ML UDC PO PRN (23:30)
[2018-07-29] MEDS: HYDRALAZINE HCL 100MG TABLET PO SCH ×2 (05:36→14:16)
[2018-07-29] MEDS: BLOOD SUGAR DIAGNOSTIC STRIP TEST SCH ×2 (05:41→13:31)
[2018-07-29] MEDS: INSULIN LISPRO 100 UNITS/ML SUBCUT SCH ×2 (05:41→13:10)
[2018-07-29] MEDS: SODIUM CHLORIDE 0.9% INJ 3ML FLUSH IVF SCH ×2 (05:41→14:11)
[2018-07-29] MEDS ORDERED: DEXTROSE 50% WATER 50ML SYRINGE IV PRN (07:00)
[2018-07-29 07:52] LABS: BASOPHILS % 0.3 % (0.0-2.0); EOSINOPHILS % 0.1 % (0.0-5.0); HEMOGLOBIN. 11.6 g/dL (12.0-16.0); LYMPHOCYTES % 16.7 % (20.0-50.0); MEAN CORPUSCULAR HEMOGLOBIN 32.1 pg (28.0-32.0); MEAN CORPUSCULAR VOLUME 94.2 fL (81.0-99.0); MEAN PLATELET VOLUME 9.3 fl (7.4-10.4); NEUTROPHILS % 74.9 % (40.0-76.0); PLATELET 212 x1000/uL (130-400); RED BLOOD CELL COUNT 3.61 mill/uL (4.2-5.4); RED CELL DISTRIBUTION WIDTH 15.7 % (11.6-14.6)
[2018-07-29 08:00] VITALS: BP 179/89
[2018-07-29] MEDS ORDERED: BENAZEPRIL 5MG TABLET PO SCH (09:00)
[2018-07-29] MEDS: HYDROCODONE/ACETAMINOPHEN 10/325MG TABLET PO PRN ×2 (09:08→15:52)
[2018-07-29] MEDS ORDERED: INSULIN GLARGINE UD 100 UNITS/ML SYR SUBCUT SCH (10:00)
[2018-07-29 12:00] VITALS: BP 167/87
[2018-07-29 16:00] VITALS: BP 194/108
[2018-07-29] MEDS: CLONIDINE 0.1MG TABLET PO PRN (17:06)
[2018-07-29 18:41] VITALS: BP 160/95
== END 2018-07-29 19:40 | disposition home or self-care (01) | DRG 694 ==
LOC: ER 08:15 → 7WST 12:35 → EDBEDREQ 13:08 → EDBEDREQTM 13:16 → ENRESERV 20:09
PROVIDERS: ADMIT Internal Medicine; ATTEND Internal Medicine
PROC: 5A1D70Z Performance of Urinary Filtration, Intermittent, Less than 6 Hours Per Day (ICD-10-PCS; principal; 2018-07-29)
DX: D48.7 Neoplasm of uncertain behavior of other specified sites (principal); I13.2 Hypertensive heart and chronic kidney disease with heart failure and with stage 5 chronic kidney disease, or end stage renal disease; K85.90 Acute pancreatitis without necrosis or infection, unspecified; E11.22 Type 2 diabetes mellitus with diabetic chronic kidney disease; N18.6 End stage renal disease; R18.8 Other ascites; I50.9 Heart failure, unspecified; F41.1 Generalized anxiety disorder; R74.8 Abnormal levels of other serum enzymes; K59.00 Constipation, unspecified; J45.909 Unspecified asthma, uncomplicated; Z82.49 Family history of ischemic heart disease and other diseases of the circulatory system; Z85.43 Personal history of malignant neoplasm of ovary; Z91.19 Patient's noncompliance with other medical treatment and regimen; Z99.2 Dependence on renal dialysis; Z88.8 Allergy status to other drugs, medicaments and biological substances; Z88.0 Allergy status to penicillin; Z91.013 Allergy to seafood; Z79.899 Other long term (current) drug therapy; Z79.4 Long term (current) use of insulin
CPT/HCPCS: 36415; 74021; 80048; 80053; 80305; 81003; 82962; 83690; 83880; 84484; 85025; 85610; 93005; 96374; 96375; 96376; 99285; J1815; J2270; J2405; J7030

== ENCOUNTER 2018-08-09 17:26 | Inpatient (IN) | payer MEDICAID ==
[~2018-08-09] VITALS: Ht 170.2 cm; Wt 68.5 kg
[2018-08-09 19:19] LABS: BASOPHILS % 0.1 % (0.0-2.0); EOSINOPHILS % 0.1 % (0.0-5.0); HEMATOCRIT. 39.1 % (36.0-48.0); HEMOGLOBIN. 12.9 g/dL (12.0-16.0); LYMPHOCYTES % 9.4 % (20.0-50.0); MEAN CORPUSCULAR HEMOGLOBIN 31.5 pg (28.0-32.0); MEAN CORPUSCULAR VOLUME 95.4 fL (81.0-99.0); MEAN PLATELET VOLUME 9.8 fl (7.4-10.4); MONOCYTES % 6.4 % (2.0-8.0); PLATELET 243 x1000/uL (130-400); RED CELL DISTRIBUTION WIDTH 15.7 % (11.6-14.6)
[2018-08-09 19:24] LABS: CHLORIDE 105 mEq/L (98-107)
[2018-08-09] MEDS ORDERED: ACETAMINOPHEN 325MG TABLET PO PRN (21:30)
[2018-08-09] MEDS ORDERED: ONDANSETRON HCL 4MG/2ML INJ IV PRN (21:30)
[2018-08-09] MEDS ORDERED: MAGNESIUM/ALUMINUM HYDROXIDE/SIMETHICONE 30ML UDC PO PRN (21:30)
[2018-08-09] MEDS ORDERED: IPRATROPIUM/ALBUTEROL 0.5-3(2.5)MG/3ML NEB INH PRN (21:30)
[2018-08-09] MEDS ORDERED: MORPHINE SULFATE 4 MG/ML CPJ (NOT FOR IM USE) IV NR (21:58)
[2018-08-09] MEDS: CLONIDINE 0.1MG TABLET PO PRN (22:24)
[2018-08-09] MEDS ORDERED: HYDRALAZINE 20MG/ML VIAL IV NR (22:30)
[2018-08-10 01:20] VITALS: BP 161/93
[2018-08-10] MEDS ORDERED: HYDRALAZINE 20MG/ML VIAL IV PRN (01:36)
[2018-08-10] MEDS ORDERED: METOCLOPRAMIDE HCL 10MG TABLET PO PRN (01:39)
[2018-08-10] MEDS ORDERED: DEXTROSE 50% WATER 50ML SYRINGE IV PRN (01:41)
[2018-08-10] MEDS: HYDROCODONE/ACETAMINOPHEN 10/325MG TABLET PO PRN ×3 (01:47→14:08)
[2018-08-10 04:00] VITALS: BP 159/69
[2018-08-10] MEDS: HYDRALAZINE HCL 100MG TABLET PO SCH ×3 (05:43→21:05)
[2018-08-10] MEDS: ALPRAZOLAM 0.25 MG TABLET PO SCH ×3 (05:44→21:05)
[2018-08-10] MEDS: SODIUM CHLORIDE 0.9% INJ 3ML FLUSH IVF SCH ×3 (05:44→21:04)
[2018-08-10] MEDS: GLIPIZIDE 5MG TABLET PO SCH (06:26)
[2018-08-10] MEDS: BLOOD SUGAR DIAGNOSTIC STRIP TEST SCH ×4 (06:27→20:21)
[2018-08-10] MEDS: INSULIN LISPRO 100 UNITS/ML SUBCUT SCH ×4 (07:50→20:51)
[2018-08-10 08:00] VITALS: BP 149/67
[2018-08-10] MEDS: BENAZEPRIL 5MG TABLET PO SCH (08:31)
[2018-08-10] MEDS: ATENOLOL 25MG TABLET PO SCH (08:31)
[2018-08-10] MEDS ORDERED: INFLUENZA VIRUS VACCINE 0.5ML SYR IM ONE (09:00)
[2018-08-10 12:00] VITALS: BP 125/66
[2018-08-10 16:00] VITALS: BP 160/63
[2018-08-10] MEDS: DIPHENHYDRAMINE 50MG/ML VIAL IV PRN (19:23)
[2018-08-10 20:00] VITALS: BP 117/66
[2018-08-10] MEDS: ATORVASTATIN CALCIUM 20MG TABLET PO SCH (20:51)
[2018-08-10] MEDS ORDERED: INSULIN GLARGINE UD 100 UNITS/ML SYR SUBCUT SCH (22:00)
[2018-08-10] MEDS: INSULIN GLARGINE UD 100 UNITS/ML SYR SUBCUT SCH (22:49)
[2018-08-11] VITALS: BP 171/71
[2018-08-11 04:03] VITALS: BP 146/80
[2018-08-11] MEDS: SODIUM CHLORIDE 0.9% INJ 3ML FLUSH IVF SCH ×3 (06:24→21:30)
[2018-08-11] MEDS: HYDRALAZINE HCL 100MG TABLET PO SCH ×3 (06:24→21:29)
[2018-08-11] MEDS: ALPRAZOLAM 0.25 MG TABLET PO SCH ×3 (06:25→21:29)
[2018-08-11] MEDS: GLIPIZIDE 5MG TABLET PO SCH (06:25)
[2018-08-11] MEDS: BLOOD SUGAR DIAGNOSTIC STRIP TEST SCH ×3 (06:25→20:15)
[2018-08-11 06:35] LABS: BASOPHILS % 0.4 % (0.0-2.0); EOSINOPHILS % 0.1 % (0.0-5.0); HEMATOCRIT. 33.7 % (36.0-48.0); HEMOGLOBIN. 11.1 g/dL (12.0-16.0); LYMPHOCYTES % 10.8 % (20.0-50.0); MEAN CORPUSCULAR HEMOGLOBIN 31.4 pg (28.0-32.0); MEAN CORPUSCULAR VOLUME 95.5 fL (81.0-99.0); MEAN PLATELET VOLUME 9.7 fl (7.4-10.4); MONOCYTES % 9.1 % (2.0-8.0); NEUTROPHILS % 79.6 % (40.0-76.0); PLATELET 189 x1000/uL (130-400); RED BLOOD CELL COUNT 3.53 mill/uL (4.2-5.4); RED CELL DISTRIBUTION WIDTH 15.5 % (11.6-14.6)
[2018-08-11] MEDS: INSULIN LISPRO 100 UNITS/ML SUBCUT SCH ×3 (07:50→20:15)
[2018-08-11 08:00] VITALS: BP 168/82
[2018-08-11] MEDS: ATENOLOL 25MG TABLET PO SCH (09:08)
[2018-08-11] MEDS: BENAZEPRIL 5MG TABLET PO SCH (09:08)
[2018-08-11] MEDS: HYDROCODONE/ACETAMINOPHEN 10/325MG TABLET PO PRN ×3 (09:23→23:57)
[2018-08-11 12:00] VITALS: BP 178/85
[2018-08-11 16:00] VITALS: BP 163/63
[2018-08-11] MEDS: CLONIDINE 0.1MG TABLET PO PRN (18:03)
[2018-08-11 20:00] VITALS: BP 159/83
[2018-08-11] MEDS: ATORVASTATIN CALCIUM 20MG TABLET PO SCH (20:25)
[2018-08-11] MEDS: DIPHENHYDRAMINE 50MG/ML VIAL IV PRN (20:26)
[2018-08-11] MEDS: INSULIN GLARGINE UD 100 UNITS/ML SYR SUBCUT SCH (21:31)
[2018-08-12] VITALS (18 sets, daily range): BP systolic 143–175; BP diastolic 64–87
[2018-08-12] MEDS: DIPHENHYDRAMINE 50MG/ML VIAL IV PRN (05:40)
[2018-08-12] MEDS: SODIUM CHLORIDE 0.9% INJ 3ML FLUSH IVF SCH (05:40)
[2018-08-12] MEDS: ALPRAZOLAM 0.25 MG TABLET PO SCH (05:41)
[2018-08-12] MEDS: HYDRALAZINE HCL 100MG TABLET PO SCH (05:41)
[2018-08-12] MEDS: GLIPIZIDE 5MG TABLET PO SCH (06:23)
[2018-08-12] MEDS: BLOOD SUGAR DIAGNOSTIC STRIP TEST SCH ×2 (06:24→12:36)
[2018-08-12 06:51] LABS: BASOPHILS % 0.4 % (0.0-2.0); EOSINOPHILS % 0.1 % (0.0-5.0); HEMOGLOBIN. 11.5 g/dL (12.0-16.0); LYMPHOCYTES % 12.4 % (20.0-50.0); MEAN CORPUSCULAR VOLUME 96.9 fL (81.0-99.0); MEAN PLATELET VOLUME 9.8 fl (7.4-10.4); MONOCYTES % 10.6 % (2.0-8.0); NEUTROPHILS % 76.5 % (40.0-76.0); PLATELET 187 x1000/uL (130-400); RED BLOOD CELL COUNT 3.61 mill/uL (4.2-5.4)
[2018-08-12] MEDS ORDERED: CLINDAMYCIN 600MG PREMIX 50 ML IV ONE (07:30)
[2018-08-12] MEDS ORDERED: SODIUM BICARBONATE 4% (2.4MEQ) 5ML VIAL IV ONE (07:49)
[2018-08-12] MEDS ORDERED: IOHEXOL-300 50 ML BOTTLE IV ONE (07:49)
[2018-08-12] MEDS ORDERED: LIDOCAINE HCL 1% 20ML VIAL (Pyxis) INJ ONE (07:49)
[2018-08-12] MEDS ORDERED: FENTANYL CITRATE/PF 50MCG/ML 2ML VIAL ONE (08:10)
[2018-08-12] MEDS ORDERED: FENTANYL CITRATE/PF 50MCG/ML 2ML VIAL IV ONE (08:30)
[2018-08-12] MEDS: BENAZEPRIL 5MG TABLET PO SCH (09:15)
[2018-08-12] MEDS: ATENOLOL 25MG TABLET PO SCH (09:15)
[2018-08-12] MEDS: INSULIN LISPRO 100 UNITS/ML SUBCUT SCH ×2 (09:18→12:36)
[2018-08-12] MEDS: HYDROCODONE/ACETAMINOPHEN 10/325MG TABLET PO PRN (10:41)
== END 2018-08-12 13:45 | disposition home or self-care (01) | DRG 466 ==
LOC: ER 17:30 → 6WST 19:31 → ENRESERV 23:02
PROVIDERS: ADMIT Internal Medicine; ATTEND Internal Medicine
PROC: 0JH63XZ Insertion of Tunneled Vascular Access Device into Chest Subcutaneous Tissue and Fascia, Percutaneous Approach (ICD-10-PCS; principal; 2018-08-12)
PROC: 02HV33Z Insertion of Infusion Device into Superior Vena Cava, Percutaneous Approach (ICD-10-PCS; 2018-08-12)
PROC: B5181ZA Fluoroscopy of Superior Vena Cava using Low Osmolar Contrast, Guidance (ICD-10-PCS; 2018-08-12)
PROC: B548ZZA Ultrasonography of Superior Vena Cava, Guidance (ICD-10-PCS; 2018-08-12)
PROC: 5A1D70Z Performance of Urinary Filtration, Intermittent, Less than 6 Hours Per Day (ICD-10-PCS; 2018-08-12)
DX: T82.42XA Displacement of vascular dialysis catheter, initial encounter (principal); N18.6 End stage renal disease; I13.2 Hypertensive heart and chronic kidney disease with heart failure and with stage 5 chronic kidney disease, or end stage renal disease; E11.22 Type 2 diabetes mellitus with diabetic chronic kidney disease; I50.9 Heart failure, unspecified; E78.5 Hyperlipidemia, unspecified; R19.00 Intra-abdominal and pelvic swelling, mass and lump, unspecified site; F41.1 Generalized anxiety disorder; J45.909 Unspecified asthma, uncomplicated; Y71.2 Prosthetic and other implants, materials and accessory cardiovascular devices associated with adverse incidents; Y92.098 Other place in other non-institutional residence as the place of occurrence of the external cause; Z99.2 Dependence on renal dialysis; Z79.4 Long term (current) use of insulin; Z79.899 Other long term (current) drug therapy; Z88.0 Allergy status to penicillin; Z91.013 Allergy to seafood; Z88.8 Allergy status to other drugs, medicaments and biological substances; Z98.891 History of uterine scar from previous surgery; Z82.49 Family history of ischemic heart disease and other diseases of the circulatory system
CPT/HCPCS: 36415; 36558; 71045; 76937; 77001; 80048; 80053; 82962; 85025; 85610; 90686; 93005; 93970; 96374; 96375; 99152; 99153; 99285; C1750; C1769; C1887; J1200; J1642; J1815; J2270; J2405; J3010; J3490; J7030; J7050; Q9967

== ENCOUNTER 2018-09-11 08:10 | Inpatient (IN) | payer MEDICAID ==
[~2018-09-11] VITALS: Ht 165.1 cm; Wt 69.4 kg
[2018-09-11] MEDS: BLOOD SUGAR DIAGNOSTIC STRIP TEST SCH (07:40)
[~2018-09-11 08:10] MED LIST changes: -ALPR-339 MT; -ATEN-42 MT; -CHLO25TA2 MT; -DOCU-150 PO; -GLIP5TAB12 MT; -HYDR100T26 MT; -TRAM50TA3 MT
[2018-09-11] MEDS: INSULIN LISPRO 100 UNITS/ML SUBCUT SCH (08:10)
[2018-09-11] MEDS ORDERED: MORPHINE SULFATE 4 MG/ML CPJ (NOT FOR IM USE) IV STA ×2 (09:24→11:12)
[2018-09-11] MEDS ORDERED: ONDANSETRON HCL 4MG/2ML INJ IV STA (09:24)
[2018-09-11 09:57] LABS: CHLORIDE 104 mEq/L (98-107)
[2018-09-11 10:06] LABS: CLARITY URINE CLEAR (CLEAR); COLOR URINE YELLOW (YELLOW); KETONES URINE NEGATIVE (NEGATIVE); LEUKOCYTE ESTERASE URINE NEGATIVE (NEGATIVE); NITRITE URINE NEGATIVE (NEGATIVE); OCCULT BLOOD URINE NEGATIVE (NEGATIVE); PROTEIN URINE 2+ (NEGATIVE); SPECIFIC GRAVITY URINE 1.015 (1.005-1.030); UROBILINOGEN URINE 0.2 E.U./dL (0.2-1.0)
[2018-09-11] MEDS ORDERED: ZOLPIDEM TARTRATE 5MG TABLET PO PRN (11:30)
[2018-09-11] MEDS ORDERED: MAGNESIUM/ALUMINUM HYDROXIDE/SIMETHICONE 30ML UDC PO PRN (11:30)
[2018-09-11] MEDS ORDERED: DEXTROSE 50% WATER 50ML SYRINGE IV PRN (11:30)
[2018-09-11] MEDS ORDERED: DOCUSATE SODIUM 100MG CAPSULE PO PRN (11:30)
[2018-09-11] MEDS ORDERED: ACETAMINOPHEN 325MG TABLET PO PRN (11:30)
[2018-09-11] MEDS ORDERED: GUAIFENESIN 200MG/10ML SUGAR FREE UDC PO PRN (11:30)
[2018-09-11] MEDS ORDERED: TRAMADOL 50MG TABLET PO PRN (11:30)
[2018-09-11] MEDS ORDERED: IPRATROPIUM/ALBUTEROL 0.5-3(2.5)MG/3ML NEB INH PRN (11:30)
[2018-09-11] MEDS ORDERED: ONDANSETRON HCL 4MG/2ML INJ IV PRN (11:30)
[2018-09-11] MEDS ORDERED: LORAZEPAM 0.5MG TABLET PO PRN (11:30)
[2018-09-11] MEDS ORDERED: CLONIDINE 0.1MG TABLET PO PRN (11:30)
[2018-09-11 11:56] LABS: BASOPHILS % 0.2 % (0.0-2.0); HEMATOCRIT. 38.4 % (36.0-48.0); HEMOGLOBIN. 12.7 g/dL (12.0-16.0); LYMPHOCYTES % 9.4 % (20.0-50.0); MEAN CORPUSCULAR HEMOGLOBIN 31.4 pg (28.0-32.0); MEAN CORPUSCULAR VOLUME 94.9 fL (81.0-99.0); MEAN PLATELET VOLUME 9.3 fl (7.4-10.4); MONOCYTES % 5.7 % (2.0-8.0); NEUTROPHILS % 84.7 % (40.0-76.0); PLATELET 216 x1000/uL (130-400); RED BLOOD CELL COUNT 4.05 mill/uL (4.2-5.4); RED CELL DISTRIBUTION WIDTH 15.2 % (11.6-14.6)
[2018-09-11] MEDS ORDERED: IOHEXOL-350 100 ML BOTTLE ONE (13:56)
[2018-09-11 20:20] VITALS: BP 172/82
[2018-09-11 20:32] LABS: CREATINE KINASE MB FRACTION 4.6 ng/mL (0.5-3.6)
[2018-09-11] MEDS ORDERED: ENOXAPARIN 30MG/0.3ML SYR SUBCUT SCH (21:00)
[2018-09-11 22:00] VITALS: BP 172/82
[2018-09-11] MEDS: HYDRALAZINE HCL 50MG TABLET PO SCH (22:58)
[2018-09-11] MEDS: ENOXAPARIN 60MG/0.6ML SYR SUBCUT SCH (22:58)
[2018-09-11] MEDS: SEVELAMER CARBONATE 800 MG TABLET PO SCH (22:58)
[2018-09-11] MEDS: MORPHINE SULFATE 4 MG/ML CPJ (NOT FOR IM USE) IV PRN (23:00)
[2018-09-12] VITALS: BP 185/89
[2018-09-12 04:00] VITALS: BP 156/73
[2018-09-12] MEDS: MORPHINE SULFATE 4 MG/ML CPJ (NOT FOR IM USE) IV PRN ×3 (04:51→20:09)
[2018-09-12] MEDS: HYDRALAZINE HCL 50MG TABLET PO SCH ×3 (06:56→22:29)
[2018-09-12 07:01] LABS: INR 1.1; PROTHROMBIN TIME 10.7 sec (9.1-11.1)
[2018-09-12 07:02] LABS: BASOPHILS % 0.4 % (0.0-2.0); EOSINOPHILS % 0.1 % (0.0-5.0); HEMATOCRIT. 37.7 % (36.0-48.0); HEMOGLOBIN. 12.3 g/dL (12.0-16.0); LYMPHOCYTES % 18.9 % (20.0-50.0); MEAN CORPUSCULAR HEMOGLOBIN 31.2 pg (28.0-32.0); MEAN CORPUSCULAR VOLUME 95.6 fL (81.0-99.0); MEAN PLATELET VOLUME 9.9 fl (7.4-10.4); MONOCYTES % 8.4 % (2.0-8.0); NEUTROPHILS % 72.2 % (40.0-76.0); PLATELET 243 x1000/uL (130-400); RED BLOOD CELL COUNT 3.94 mill/uL (4.2-5.4); RED CELL DISTRIBUTION WIDTH 15.3 % (11.6-14.6)
[2018-09-12 07:42] LABS: CREATINE KINASE MB FRACTION 3.6 ng/mL (0.5-3.6)
[2018-09-12 08:00] VITALS: BP 141/59
[2018-09-12] MEDS: SEVELAMER CARBONATE 800 MG TABLET PO SCH ×3 (08:51→18:10)
[2018-09-12] MEDS: FOLIC ACID/VITAMIN B COMP W-C TABLET PO SCH (08:52)
[2018-09-12] MEDS: FAMOTIDINE 20MG TABLET PO SCH (08:52)
[2018-09-12] MEDS: AMLODIPINE 10MG TABLET PO SCH (08:53)
[2018-09-12] MEDS ORDERED: HEPARIN SODIUM 1,000 UNIT/1ML VIAL IV SCH (10:15)
[2018-09-12 12:00] VITALS: BP 137/77
[2018-09-12] MEDS: BLOOD SUGAR DIAGNOSTIC STRIP TEST SCH ×3 (12:00→22:28)
[2018-09-12] MEDS: INSULIN LISPRO 100 UNITS/ML SUBCUT SCH ×3 (12:01→22:29)
[2018-09-12] MEDS ORDERED: REGADENOSON 0.4 MG/5 ML IV ONE (12:45)
[2018-09-12] MEDS: CLONIDINE 0.1MG TABLET PO SCH ×2 (13:46→22:29)
[2018-09-12 15:43] LABS: *AMPHETAMINES SCREEN URINE NEGATIVE (NEGATIVE); *BARBITURATES SCREEN URINE NEGATIVE (NEGATIVE); *BENZODIAZEPINES SCREEN URINE NEGATIVE (NEGATIVE)
[2018-09-12 15:45] LABS: *COCAINE SCREEN URINE NEGATIVE (NEGATIVE); CANNABINOID URINE SCREEN PRESUMTIVE POSITIVE (NEGATIVE); METHADONE URINE SCREEN NEGATIVE (NEGATIVE); OPIATES URINE SCREEN NEGATIVE (NEGATIVE); PHENCYCLIDINE URINE SCREEN NEGATIVE (NEGATIVE)
[2018-09-12 16:00] VITALS: BP 134/73
[2018-09-12 19:56] VITALS: BP 143/68
[2018-09-12] MEDS ORDERED: ATORVASTATIN CALCIUM 20MG TABLET PO SCH (21:00)
[2018-09-12] MEDS: ENOXAPARIN 60MG/0.6ML SYR SUBCUT SCH (22:35)
[2018-09-13] VITALS: BP 135/55
[2018-09-13 04:00] VITALS: BP 136/60
[2018-09-13] MEDS: HYDRALAZINE HCL 50MG TABLET PO SCH (05:13)
[2018-09-13] MEDS: CLONIDINE 0.1MG TABLET PO SCH (05:13)
[2018-09-13] MEDS: INSULIN LISPRO 100 UNITS/ML SUBCUT SCH ×2 (05:16→11:54)
[2018-09-13] MEDS: BLOOD SUGAR DIAGNOSTIC STRIP TEST SCH ×2 (05:16→11:50)
[2018-09-13 06:57] LABS: BASOPHILS % 0.5 % (0.0-2.0); HEMATOCRIT. 35.5 % (36.0-48.0); HEMOGLOBIN. 11.8 g/dL (12.0-16.0); LYMPHOCYTES % 17.9 % (20.0-50.0); MEAN CORPUSCULAR HEMOGLOBIN 31.8 pg (28.0-32.0); MEAN CORPUSCULAR VOLUME 95.8 fL (81.0-99.0); MEAN PLATELET VOLUME 9.3 fl (7.4-10.4); MONOCYTES % 9.9 % (2.0-8.0); NEUTROPHILS % 71.7 % (40.0-76.0); PLATELET 181 x1000/uL (130-400); RED CELL DISTRIBUTION WIDTH 14.9 % (11.6-14.6)
[2018-09-13 08:00] VITALS: BP 147/70
[2018-09-13] MEDS: SEVELAMER CARBONATE 800 MG TABLET PO SCH (08:10)
[2018-09-13] MEDS: FAMOTIDINE 20MG TABLET PO SCH (08:39)
[2018-09-13] MEDS: FOLIC ACID/VITAMIN B COMP W-C TABLET PO SCH (08:39)
[2018-09-13] MEDS: AMLODIPINE 10MG TABLET PO SCH (08:39)
[2018-09-13] MEDS: MORPHINE SULFATE 4 MG/ML CPJ (NOT FOR IM USE) IV PRN (09:08)
[2018-09-13] MEDS ORDERED: REGADENOSON 0.4 MG/5 ML IV ONE (10:02)
[2018-09-13 12:00] VITALS: BP 159/80
[2018-09-13 13:04] VITALS: BP 159/80
== END 2018-09-13 13:30 | disposition home or self-care (01) | DRG 190 ==
LOC: ER 08:10 → 7WST 10:22 → EDBEDREQ 10:27 → ENRESERV 19:30
PROVIDERS: ADMIT Internal Medicine; ATTEND Internal Medicine
PROC: 5A1D70Z Performance of Urinary Filtration, Intermittent, Less than 6 Hours Per Day (ICD-10-PCS; principal; 2018-09-11)
PROC: 5A1D70Z Performance of Urinary Filtration, Intermittent, Less than 6 Hours Per Day (ICD-10-PCS; 2018-09-12)
DX: I21.4 Non-ST elevation (NSTEMI) myocardial infarction (principal); E11.22 Type 2 diabetes mellitus with diabetic chronic kidney disease; N18.6 End stage renal disease; D68.59 Other primary thrombophilia; I13.11 Hypertensive heart and chronic kidney disease without heart failure, with stage 5 chronic kidney disease, or end stage renal disease; E11.319 Type 2 diabetes mellitus with unspecified diabetic retinopathy without macular edema; D64.9 Anemia, unspecified; E78.00 Pure hypercholesterolemia, unspecified; F41.9 Anxiety disorder, unspecified; G89.4 Chronic pain syndrome; F32.9 Major depressive disorder, single episode, unspecified; F51.04 Psychophysiologic insomnia; C56.9 Malignant neoplasm of unspecified ovary; I25.10 Atherosclerotic heart disease of native coronary artery without angina pectoris; Z99.2 Dependence on renal dialysis; I25.2 Old myocardial infarction; Z79.4 Long term (current) use of insulin; Z85.028 Personal history of other malignant neoplasm of stomach; Z85.43 Personal history of malignant neoplasm of ovary; Z88.0 Allergy status to penicillin; Z88.8 Allergy status to other drugs, medicaments and biological substances; Z91.013 Allergy to seafood; Z79.899 Other long term (current) drug therapy
CPT/HCPCS: 36415; 71045; 71275; 78452; 80048; 80061; 80305; 82550; 82553; 82962; 83036; 83880; 84484; 93005; 93017; 93306; 93970; 99285; A9500; J1644; J1650; J2270; J2405; J2785; J7030; Q9967

== ENCOUNTER 2018-12-02 05:47 | Inpatient (IN) | payer MEDICAID ==
[~2018-12-02] VITALS: Ht 165.1 cm; Wt 63.5 kg
[2018-12-02] MEDS ORDERED: ONDANSETRON HCL 4MG/2ML INJ IV ONE (06:30)
[2018-12-02] MEDS ORDERED: NITROGLYCERIN OINT 1GM/INCH UDPKT TD ONE (06:30)
[2018-12-02] MEDS ORDERED: FENTANYL CITRATE/PF 50MCG/ML 2ML VIAL IV ONE (06:30)
[2018-12-02] MEDS ORDERED: ASPIRIN 81MG TABLET PO ONE (06:30)
[2018-12-02 06:44] LABS: BASOPHILS % 0.5 % (0.0-2.0); HEMOGLOBIN. 12.8 g/dL (12.0-16.0); LYMPHOCYTES % 8.7 % (20.0-50.0); MEAN CORPUSCULAR HEMOGLOBIN 30.8 pg (28.0-32.0); MEAN CORPUSCULAR VOLUME 93.9 fL (81.0-99.0); MEAN PLATELET VOLUME 9.5 fl (7.4-10.4); NEUTROPHILS % 85.8 % (40.0-76.0); PLATELET 204 x1000/uL (130-400); RED BLOOD CELL COUNT 4.15 mill/uL (4.2-5.4); RED CELL DISTRIBUTION WIDTH 15.1 % (11.6-14.6)
[2018-12-02 06:53] LABS: PARTIAL THROMBOPLASTIN TIME 22.4 sec (23.4-31.0); PROTHROMBIN TIME 10.5 sec (9.1-11.1)
[2018-12-02 06:57] LABS: CHLORIDE 107 mEq/L (98-107)
[2018-12-02] MEDS ORDERED: IPRATROPIUM/ALBUTEROL 0.5-3(2.5)MG/3ML NEB INH PRN (07:45)
[2018-12-02] MEDS ORDERED: LORAZEPAM 0.5MG TABLET PO PRN (07:45)
[2018-12-02] MEDS ORDERED: NITROGLYCERIN 0.4MG TABLET SL SL PRN (07:45)
[2018-12-02] MEDS ORDERED: DOCUSATE SODIUM 100MG CAPSULE PO PRN (07:45)
[2018-12-02] MEDS ORDERED: DEXTROSE 50% WATER 50ML SYRINGE IV PRN (07:45)
[2018-12-02] MEDS ORDERED: ENOXAPARIN 40MG/0.4ML SYR SUBCUT SCH (07:45)
[2018-12-02] MEDS ORDERED: GUAIFENESIN 200MG/10ML SUGAR FREE UDC PO PRN (07:45)
[2018-12-02] MEDS ORDERED: ONDANSETRON HCL 4MG/2ML INJ IV PRN (07:45)
[2018-12-02] MEDS ORDERED: MAGNESIUM/ALUMINUM HYDROXIDE/SIMETHICONE 30ML UDC PO PRN (07:45)
[2018-12-02] MEDS ORDERED: AMLODIPINE 10MG TABLET PO NR (10:00)
[2018-12-02] MEDS: ACETAMINOPHEN 325MG TABLET PO PRN (10:02)
[2018-12-02] MEDS: CLONIDINE 0.1MG TABLET PO PRN ×2 (10:37→18:12)
[2018-12-02] MEDS: BLOOD SUGAR DIAGNOSTIC STRIP TEST SCH ×3 (13:00→21:49)
[2018-12-02] MEDS: INSULIN LISPRO 100 UNITS/ML SUBCUT SCH ×3 (13:20→22:01)
[2018-12-02] MEDS: METOPROLOL TARTRATE 25MG TABLET PO SCH ×2 (13:30→21:58)
[2018-12-02 13:47] VITALS: BP 194/100
[2018-12-02] MEDS: HYDRALAZINE HCL 50MG TABLET PO SCH ×2 (14:00→21:59)
[2018-12-02 14:12] VITALS: BP 193/100
[2018-12-02] MEDS: TRAMADOL 50MG TABLET PO PRN ×2 (14:37→21:59)
[2018-12-02] MEDS: FAMOTIDINE 20MG TABLET PO SCH (14:37)
[2018-12-02] MEDS: ENOXAPARIN 30MG/0.3ML SYR SUBCUT SCH (14:38)
[2018-12-02 16:00] VITALS: BP 188/113
[2018-12-02 17:25] LABS: CLARITY URINE CLEAR (CLEAR); COLOR URINE YELLOW (YELLOW); KETONES URINE NEGATIVE (NEGATIVE); LEUKOCYTE ESTERASE URINE NEGATIVE (NEGATIVE); NITRITE URINE NEGATIVE (NEGATIVE); OCCULT BLOOD URINE NEGATIVE (NEGATIVE); PROTEIN URINE 2+ (NEGATIVE); UROBILINOGEN URINE 0.2 E.U./dL (0.2-1.0)
[2018-12-02 17:49] LABS: *AMPHETAMINES SCREEN URINE NEGATIVE (NEGATIVE); *BENZODIAZEPINES SCREEN URINE NEGATIVE (NEGATIVE); METHADONE URINE SCREEN NEGATIVE (NEGATIVE)
[2018-12-02 17:50] LABS: CANNABINOID URINE SCREEN PRESUMTIVE POSITIVE (NEGATIVE); OPIATES URINE SCREEN NEGATIVE (NEGATIVE); PHENCYCLIDINE URINE SCREEN NEGATIVE (NEGATIVE)
[2018-12-02 17:51] LABS: *BARBITURATES SCREEN URINE NEGATIVE (NEGATIVE)
[2018-12-02 17:58] LABS: *COCAINE SCREEN URINE NEGATIVE (NEGATIVE)
[2018-12-02] MEDS: DIPHENHYDRAMINE 50MG/ML VIAL IV PRN ×2 (18:12→23:23)
[2018-12-02 20:00] VITALS: BP 160/75
[2018-12-02] MEDS ORDERED: ZOLPIDEM TARTRATE 5MG TABLET PO PRN (21:00)
[2018-12-02 22:49] LABS: CREATINE KINASE MB FRACTION 1.6 ng/mL (0.5-3.6)
[2018-12-03] VITALS: BP 183/93
[2018-12-03] MEDS: CLONIDINE 0.1MG TABLET PO PRN (02:04)
[2018-12-03 04:00] VITALS: BP 155/88
[2018-12-03] MEDS: TRAMADOL 50MG TABLET PO PRN ×2 (04:22→10:26)
[2018-12-03] MEDS: HYDRALAZINE HCL 50MG TABLET PO SCH (06:00)
[2018-12-03] MEDS: BLOOD SUGAR DIAGNOSTIC STRIP TEST SCH (07:05)
[2018-12-03] MEDS: INSULIN LISPRO 100 UNITS/ML SUBCUT SCH (07:53)
[2018-12-03 08:00] VITALS: BP 154/84
[2018-12-03] MEDS: ENOXAPARIN 30MG/0.3ML SYR SUBCUT SCH (08:24)
[2018-12-03] MEDS: METOPROLOL TARTRATE 25MG TABLET PO SCH (08:25)
[2018-12-03] MEDS: FAMOTIDINE 20MG TABLET PO SCH (08:25)
[2018-12-03] MEDS: ACETAMINOPHEN 325MG TABLET PO PRN (08:26)
[2018-12-03] MEDS ORDERED: ASPIRIN 325MG EC TABLET PO SCH (09:00)
[2018-12-03] MEDS ORDERED: AMLODIPINE 10MG TABLET PO SCH (09:00)
[2018-12-03 10:06] VITALS: BP 154/84
[2018-12-03 10:26] VITALS: BP 154/84
== END 2018-12-03 11:14 | disposition home or self-care (01) | DRG 203 ==
LOC: ER 05:47 → 7WST 07:10 → EDBEDREQ 07:32 → ENRESERV 10:04
PROVIDERS: ADMIT Internal Medicine; ATTEND Internal Medicine
PROC: 5A1D70Z Performance of Urinary Filtration, Intermittent, Less than 6 Hours Per Day (ICD-10-PCS; principal; 2018-12-02)
DX: R07.89 Other chest pain (principal); E11.22 Type 2 diabetes mellitus with diabetic chronic kidney disease; E87.2 Acidosis; E78.5 Hyperlipidemia, unspecified; F17.210 Nicotine dependence, cigarettes, uncomplicated; F32.9 Major depressive disorder, single episode, unspecified; D39.10 Neoplasm of uncertain behavior of unspecified ovary; I12.0 Hypertensive chronic kidney disease with stage 5 chronic kidney disease or end stage renal disease; N18.6 End stage renal disease; Z85.43 Personal history of malignant neoplasm of ovary; Z99.2 Dependence on renal dialysis; Z88.8 Allergy status to other drugs, medicaments and biological substances; Z88.0 Allergy status to penicillin; Z91.013 Allergy to seafood; Z79.899 Other long term (current) drug therapy; Z79.84 Long term (current) use of oral hypoglycemic drugs
CPT/HCPCS: 36415; 71045; 74176; 80061; 80305; 82550; 82553; 82962; 83036; 83880; 84484; 93005; 93971; 96374; 99285; J1200; J1650; J1815; J2405; J3010

== ENCOUNTER 2018-12-31 08:32 | Emergency (ER) | payer MEDICAID ==
[~2018-12-31] VITALS: Ht 165.1 cm; Wt 54.0 kg
[2018-12-31] MEDS ORDERED: MORPHINE SULFATE 10 MG/ML CPJ IM ONE (10:15)
[2018-12-31] MEDS ORDERED: AMLODIPINE 10MG TABLET PO ONE (10:15)
[2018-12-31] MEDS ORDERED: ONDANSETRON 4MG ODT PO ONE (10:15)
[2018-12-31] MEDS ORDERED: CLONIDINE 0.1MG TABLET PO ONE (10:15)
[2018-12-31] MEDS ORDERED: HYDRALAZINE HCL 10MG TABLET PO ONE (10:15)
[2018-12-31 13:05] VITALS: BP 170/83
== END 2018-12-31 13:15 | disposition home or self-care (01) ==
LOC: ER 08:43
DX: I12.9 Hypertensive chronic kidney disease with stage 1 through stage 4 chronic kidney disease, or unspecified chronic kidney disease (principal); E11.22 Type 2 diabetes mellitus with diabetic chronic kidney disease; N18.9 Chronic kidney disease, unspecified; G89.29 Other chronic pain; R10.9 Unspecified abdominal pain; G89.18 Other acute postprocedural pain; F12.10 Cannabis abuse, uncomplicated; Z98.890 Other specified postprocedural states; Z79.4 Long term (current) use of insulin; Z88.0 Allergy status to penicillin; Z91.013 Allergy to seafood; Z79.899 Other long term (current) drug therapy
CPT/HCPCS: 96372; 99284; J2270; Q0162; Z7610

== ENCOUNTER 2019-01-22 08:26 | Inpatient (IN) | payer MEDICAID ==
[~2019-01-22] VITALS: Ht 165.1 cm; Wt 55.3 kg
[2019-01-22] MEDS ORDERED: ASPIRIN 81MG TABLET PO ONE (10:00)
[2019-01-22] MEDS: NITROGLYCERIN 0.4MG TABLET SL SL PRN ×2 (10:10→10:28)
[2019-01-22 10:12] LABS: BASOPHILS % 0.5 % (0.0-2.0); EOSINOPHILS % 0.1 % (0.0-5.0); HEMATOCRIT. 29.7 % (36.0-48.0); HEMOGLOBIN. 9.8 g/dL (12.0-16.0); LYMPHOCYTES % 14.2 % (20.0-50.0); MEAN CORPUSCULAR HEMOGLOBIN 30.7 pg (28.0-32.0); MEAN CORPUSCULAR VOLUME 93.1 fL (81.0-99.0); MEAN PLATELET VOLUME 8.5 fl (7.4-10.4); MONOCYTES % 7.2 % (2.0-8.0); PLATELET 234 x1000/uL (130-400); RED BLOOD CELL COUNT 3.19 mill/uL (4.2-5.4)
[2019-01-22 10:19] LABS: CHLORIDE 107 mEq/L (98-107)
[2019-01-22] MEDS ORDERED: HYDROCODONE/ACETAMINOPHEN 5/325MG TABLET PO ONE (11:15)
[2019-01-22] MEDS ORDERED: DIPHENHYDRAMINE 25MG CAPSULE PO ONE (13:15)
[2019-01-22 15:59] VITALS: BP 153/68
[2019-01-22] MEDS ORDERED: NITROGLYCERIN 0.4MG TABLET SL SL PRN (16:45)
[2019-01-22] MEDS ORDERED: IBUPROFEN 200MG TABLET PO PRN (16:45)
[2019-01-22] MEDS ORDERED: ZOLPIDEM TARTRATE 5MG TABLET PO PRN (16:45)
[2019-01-22] MEDS: AMLODIPINE 10MG TABLET PO SCH (16:45)
[2019-01-22] MEDS ORDERED: CLONIDINE 0.1MG TABLET PO PRN (17:00)
[2019-01-22] MEDS ORDERED: ACETAMINOPHEN 325MG TABLET PO PRN (17:00)
[2019-01-22] MEDS ORDERED: LORAZEPAM 0.5MG TABLET PO PRN (17:00)
[2019-01-22] MEDS ORDERED: GUAIFENESIN 200MG/10ML SUGAR FREE UDC PO PRN (17:00)
[2019-01-22] MEDS ORDERED: ENOXAPARIN 30MG/0.3ML SYR SUBCUT SCH (17:00)
[2019-01-22] MEDS ORDERED: MAGNESIUM/ALUMINUM HYDROXIDE/SIMETHICONE 30ML UDC PO PRN (17:00)
[2019-01-22] MEDS ORDERED: DEXTROSE 50% WATER 50ML SYRINGE IV PRN (17:00)
[2019-01-22] MEDS ORDERED: IPRATROPIUM/ALBUTEROL 0.5-3(2.5)MG/3ML NEB INH PRN (17:00)
[2019-01-22] MEDS ORDERED: DOCUSATE SODIUM 100MG CAPSULE PO PRN (17:00)
[2019-01-22] MEDS ORDERED: ONDANSETRON HCL 4MG/2ML INJ IV PRN (17:00)
[2019-01-22] MEDS: BLOOD SUGAR DIAGNOSTIC STRIP TEST SCH ×2 (17:40→21:01)
[2019-01-22] MEDS: INSULIN LISPRO 100 UNITS/ML SUBCUT SCH ×2 (18:10→21:00)
[2019-01-22] MEDS: SEVELAMER CARBONATE 800 MG TABLET PO SCH (18:52)
[2019-01-22] MEDS: FAMOTIDINE 20MG TABLET PO SCH ×2 (18:53→18:55)
[2019-01-22 20:00] VITALS: BP 136/73
[2019-01-22] MEDS: DIPHENHYDRAMINE 50MG/ML VIAL IV PRN (20:40)
[2019-01-22] MEDS: HYDRALAZINE HCL 50MG TABLET PO SCH (20:41)
[2019-01-22] MEDS: LISINOPRIL 20MG TABLET PO SCH (20:41)
[2019-01-22] MEDS ORDERED: ATORVASTATIN CALCIUM 20MG TABLET PO SCH (21:00)
[2019-01-22] MEDS ORDERED: INSULIN GLARGINE UD 100 UNITS/ML SYR SUBCUT SCH (22:00)
[2019-01-23] VITALS: BP 168/79
[2019-01-23] MEDS: DIPHENHYDRAMINE 50MG/ML VIAL IV PRN (00:55)
[2019-01-23 01:10] LABS: CREATINE KINASE 112 IU/L (26-192)
[2019-01-23 01:11] LABS: CREATINE KINASE MB FRACTION 1.8 ng/mL (0.5-3.6)
[2019-01-23 04:00] VITALS: BP 154/71
[2019-01-23] MEDS ORDERED: HEPARIN 5000 UNITS/ML VIAL IV SCH (04:30)
[2019-01-23] MEDS: BLOOD SUGAR DIAGNOSTIC STRIP TEST SCH (05:45)
[2019-01-23] MEDS: HYDRALAZINE HCL 50MG TABLET PO SCH (05:45)
[2019-01-23 08:00] VITALS: BP 176/86
[2019-01-23] MEDS: INSULIN LISPRO 100 UNITS/ML SUBCUT SCH (08:10)
[2019-01-23] MEDS: FAMOTIDINE 20MG TABLET PO SCH (08:52)
[2019-01-23] MEDS: LISINOPRIL 20MG TABLET PO SCH (08:52)
[2019-01-23] MEDS: AMLODIPINE 10MG TABLET PO SCH (08:54)
[2019-01-23] MEDS: SEVELAMER CARBONATE 800 MG TABLET PO SCH (08:56)
[2019-01-23 09:00] VITALS: BP 152/81
[2019-01-23] MEDS ORDERED: ASPIRIN 325MG EC TABLET PO SCH (09:00)
[2019-01-23] MEDS ORDERED: FOLIC ACID/VITAMIN B COMP W-C TABLET PO SCH (09:00)
[2019-01-23 10:48] LABS: CREATINE KINASE 111 IU/L (26-192)
[2019-01-23 10:49] LABS: CREATINE KINASE MB FRACTION 1.4 ng/mL (0.5-3.6)
[2019-01-23 11:18] VITALS: BP 145/82
[2019-01-23 12:00] VITALS: BP 148/82
== END 2019-01-23 12:29 | disposition home or self-care (01) | DRG 194 ==
LOC: ER 08:26 → 7WST 11:11 → EDBEDREQ 11:16 → ENRESERV 14:57
PROVIDERS: ADMIT Internal Medicine; ATTEND Internal Medicine
PROC: 5A1D70Z Performance of Urinary Filtration, Intermittent, Less than 6 Hours Per Day (ICD-10-PCS; principal; 2019-01-22)
DX: I13.2 Hypertensive heart and chronic kidney disease with heart failure and with stage 5 chronic kidney disease, or end stage renal disease (principal); E11.22 Type 2 diabetes mellitus with diabetic chronic kidney disease; N18.6 End stage renal disease; D63.8 Anemia in other chronic diseases classified elsewhere; E11.65 Type 2 diabetes mellitus with hyperglycemia; E78.00 Pure hypercholesterolemia, unspecified; R07.89 Other chest pain; E78.5 Hyperlipidemia, unspecified; F12.90 Cannabis use, unspecified, uncomplicated; I50.33 Acute on chronic diastolic (congestive) heart failure; Z85.43 Personal history of malignant neoplasm of ovary; Z91.15 Patient's noncompliance with renal dialysis; Z91.19 Patient's noncompliance with other medical treatment and regimen; Z99.2 Dependence on renal dialysis; Z88.8 Allergy status to other drugs, medicaments and biological substances; Z88.0 Allergy status to penicillin; Z91.013 Allergy to seafood; Z79.4 Long term (current) use of insulin; Z79.899 Other long term (current) drug therapy
CPT/HCPCS: 36415; 71045; 80061; 82550; 82553; 82962; 83036; 83880; 84484; 93005; 93970; 99291; J1200; J1644; J1650; J1815; Q0163

== ENCOUNTER 2019-02-27 08:04 | Emergency (ER) | payer MEDICAID ==
[~2019-02-27] VITALS: Ht 165.1 cm; Wt 57.0 kg
[2019-02-27] MEDS ORDERED: MORPHINE SULFATE 4 MG/ML CPJ (NOT FOR IM USE) IV STA (08:48)
[2019-02-27] MEDS ORDERED: ONDANSETRON HCL 4MG/2ML INJ IV STA (08:48)
[2019-02-27] MEDS ORDERED: ASPIRIN 81MG TABLET PO ONE (09:00)
[2019-02-27 09:16] LABS: BASOPHILS % 0.6 % (0.0-2.0); HEMATOCRIT. 38.8 % (36.0-48.0); HEMOGLOBIN. 13.1 g/dL (12.0-16.0); LYMPHOCYTES % 18.3 % (20.0-50.0); MEAN CORPUSCULAR HEMOGLOBIN 30.5 pg (28.0-32.0); MEAN CORPUSCULAR VOLUME 90.6 fL (81.0-99.0); MEAN PLATELET VOLUME 8.6 fl (7.4-10.4); MONOCYTES % 6.7 % (2.0-8.0); NEUTROPHILS % 74.4 % (40.0-76.0); PLATELET 235 x1000/uL (130-400); RED BLOOD CELL COUNT 4.29 mill/uL (4.2-5.4); RED CELL DISTRIBUTION WIDTH 15.4 % (11.6-14.6)
[2019-02-27 09:20] LABS: CHLORIDE 104 mEq/L (98-107)
[2019-02-27] MEDS ORDERED: CLONIDINE 0.1MG TABLET PO ONE (09:45)
[2019-02-27 13:00] VITALS: BP 154/68
== END 2019-02-27 13:23 | disposition home or self-care (01) ==
LOC: ER 08:04
DX: R07.9 Chest pain, unspecified (principal); I12.0 Hypertensive chronic kidney disease with stage 5 chronic kidney disease or end stage renal disease; E11.22 Type 2 diabetes mellitus with diabetic chronic kidney disease; N18.6 End stage renal disease; N17.9 Acute kidney failure, unspecified; Z99.2 Dependence on renal dialysis; Z79.4 Long term (current) use of insulin; Z88.0 Allergy status to penicillin; Z91.013 Allergy to seafood
CPT/HCPCS: 36415; 71045; 80053; 83880; 84484; 85025; 93005; 96374; 96375; 99284; J2270; J2405

== ENCOUNTER 2019-03-20 15:59 | Inpatient (IN) | payer MEDICAID ==
[~2019-03-20] VITALS: Ht 165.1 cm; Wt 56.2 kg
[2019-03-20] MEDS ORDERED: HYDRALAZINE 20MG/ML VIAL IV ONE (16:45)
[2019-03-20] MEDS ORDERED: ASPIRIN 81MG TABLET PO ONE (16:45)
[2019-03-20] MEDS ORDERED: NITROGLYCERIN OINT 1GM/INCH UDPKT TD ONE (16:45)
[2019-03-20 16:55] LABS: BASOPHILS % 0.6 % (0.0-2.0); EOSINOPHILS % 0.2 % (0.0-5.0); HEMATOCRIT. 36.5 % (36.0-48.0); HEMOGLOBIN. 12.1 g/dL (12.0-16.0); LYMPHOCYTES % 17.3 % (20.0-50.0); MEAN CORPUSCULAR HEMOGLOBIN 30.4 pg (28.0-32.0); MEAN CORPUSCULAR VOLUME 91.4 fL (81.0-99.0); MEAN PLATELET VOLUME 9.2 fl (7.4-10.4); MONOCYTES % 8.6 % (2.0-8.0); NEUTROPHILS % 73.3 % (40.0-76.0); PLATELET 236 x1000/uL (130-400); RED CELL DISTRIBUTION WIDTH 14.6 % (11.6-14.6)
[2019-03-20 17:01] LABS: CHLORIDE 113 mEq/L (98-107)
[2019-03-20 17:02] LABS: INR 1.2; PROTHROMBIN TIME 12.4 sec (9.6-11.0)
[2019-03-20] MEDS ORDERED: IPRATROPIUM/ALBUTEROL 0.5-3(2.5)MG/3ML NEB INH PRN (20:00)
[2019-03-20] MEDS ORDERED: DEXTROSE 50% WATER 50ML SYRINGE IV PRN (20:00)
[2019-03-20] MEDS ORDERED: DOCUSATE SODIUM 100MG CAPSULE PO PRN (20:00)
[2019-03-20] MEDS ORDERED: GUAIFENESIN 200MG/10ML SUGAR FREE UDC PO PRN (20:00)
[2019-03-20] MEDS ORDERED: ONDANSETRON HCL 4MG/2ML INJ IV PRN (20:00)
[2019-03-20] MEDS ORDERED: LORAZEPAM 0.5MG TABLET PO PRN (20:00)
[2019-03-20] MEDS ORDERED: MAGNESIUM/ALUMINUM HYDROXIDE/SIMETHICONE 30ML UDC PO PRN (20:00)
[2019-03-20] MEDS ORDERED: NITROGLYCERIN 0.4MG TABLET SL SL PRN (20:00)
[2019-03-20 20:48] LABS: *AMPHETAMINES SCREEN URINE NEGATIVE (NEGATIVE); *BARBITURATES SCREEN URINE NEGATIVE (NEGATIVE); *BENZODIAZEPINES SCREEN URINE NEGATIVE (NEGATIVE); *COCAINE SCREEN URINE NEGATIVE (NEGATIVE); METHADONE URINE SCREEN NEGATIVE (NEGATIVE); OPIATES URINE SCREEN NEGATIVE (NEGATIVE); PHENCYCLIDINE URINE SCREEN NEGATIVE (NEGATIVE)
[2019-03-20 20:49] LABS: CANNABINOID URINE SCREEN PRESUMTIVE POSITIVE (NEGATIVE)
[2019-03-20] MEDS: METOPROLOL TARTRATE 25MG TABLET PO SCH (21:09)
[2019-03-20] MEDS: INSULIN LISPRO 100 UNITS/ML SUBCUT SCH (21:37)
[2019-03-20 22:52] LABS: CREATINE KINASE MB FRACTION 1.5 ng/mL (0.5-3.6)
[2019-03-20 23:00] VITALS: BP 160/91
[2019-03-20] MEDS ORDERED: ZOLPIDEM TARTRATE 5MG TABLET PO PRN (23:00)
[2019-03-20] MEDS: FAMOTIDINE 20MG TABLET PO SCH (23:56)
[2019-03-20] MEDS: ATORVASTATIN CALCIUM 10MG TABLET PO SCH (23:56)
[2019-03-20] MEDS: HYDRALAZINE HCL 50MG TABLET PO SCH (23:56)
[2019-03-20] MEDS: DIPHENHYDRAMINE 50MG/ML VIAL IV PRN (23:57)
[2019-03-20] MEDS: BLOOD SUGAR DIAGNOSTIC STRIP TEST SCH (23:58)
[2019-03-20] MEDS: ENOXAPARIN 30MG/0.3ML SYR SUBCUT SCH (23:59)
[2019-03-21] MEDS ORDERED: INSULIN GLARGINE UD 100 UNITS/ML SYR SUBCUT NR (01:00)
[2019-03-21] MEDS: DIPHENHYDRAMINE 50MG/ML VIAL IV PRN ×2 (04:05→20:34)
[2019-03-21] MEDS: CLONIDINE 0.2MG TABLET PO PRN ×3 (04:22→17:18)
[2019-03-21] MEDS: HYDRALAZINE HCL 50MG TABLET PO SCH ×3 (06:08→21:35)
[2019-03-21] MEDS: BLOOD SUGAR DIAGNOSTIC STRIP TEST SCH ×4 (06:47→20:53)
[2019-03-21] MEDS: INSULIN LISPRO 100 UNITS/ML SUBCUT SCH ×4 (07:01→21:32)
[2019-03-21 07:40] LABS: CREATINE KINASE 85 IU/L (26-192)
[2019-03-21 07:41] LABS: CREATINE KINASE MB FRACTION 1.4 ng/mL (0.5-3.6)
[2019-03-21 08:00] VITALS: BP 173/143
[2019-03-21] MEDS: FOLIC ACID/VITAMIN B COMP W-C TABLET PO SCH (09:04)
[2019-03-21] MEDS: SEVELAMER CARBONATE 800 MG TABLET PO SCH ×3 (09:04→18:13)
[2019-03-21] MEDS: ASPIRIN 325MG EC TABLET PO SCH (09:05)
[2019-03-21] MEDS: METOPROLOL TARTRATE 25MG TABLET PO SCH ×2 (09:05→21:00)
[2019-03-21] MEDS: AMLODIPINE 10MG TABLET PO SCH (09:05)
[2019-03-21 11:58] LABS: HEMOGLOBIN. 11.9 g/dL (12.0-16.0); MEAN CORPUSCULAR HEMOGLOBIN 30.2 pg (28.0-32.0); MEAN CORPUSCULAR VOLUME 91.4 fL (81.0-99.0); MEAN PLATELET VOLUME 9.5 fl (7.4-10.4); PLATELET 231 x1000/uL (130-400); RED BLOOD CELL COUNT 3.94 mill/uL (4.2-5.4); RED CELL DISTRIBUTION WIDTH 14.6 % (11.6-14.6)
[2019-03-21 12:00] VITALS: BP 172/135
[2019-03-21 13:07] LABS: PLATELET ESTIMATE NORMAL
[2019-03-21 16:00] VITALS: BP 186/88
[2019-03-21] MEDS: ACETAMINOPHEN 325MG TABLET PO PRN (17:17)
[2019-03-21 20:00] VITALS: BP 167/81
[2019-03-21] MEDS: ENOXAPARIN 30MG/0.3ML SYR SUBCUT SCH (21:31)
[2019-03-21] MEDS: FAMOTIDINE 20MG TABLET PO SCH (21:31)
[2019-03-21] MEDS: ATORVASTATIN CALCIUM 10MG TABLET PO SCH (21:31)
[2019-03-21] MEDS ORDERED: INSULIN GLARGINE UD 100 UNITS/ML SYR SUBCUT SCH (22:00)
[2019-03-22] VITALS: BP 164/80
[2019-03-22] MEDS: DIPHENHYDRAMINE 50MG/ML VIAL IV PRN (01:04)
[2019-03-22 04:00] VITALS: BP 179/86
[2019-03-22] MEDS: HYDRALAZINE HCL 50MG TABLET PO SCH (05:05)
[2019-03-22] MEDS: BLOOD SUGAR DIAGNOSTIC STRIP TEST SCH (06:19)
[2019-03-22] MEDS: INSULIN LISPRO 100 UNITS/ML SUBCUT SCH (06:31)
[2019-03-22 06:47] LABS: BASOPHILS % 0.6 % (0.0-2.0); EOSINOPHILS % 0.1 % (0.0-5.0); HEMATOCRIT. 37.7 % (36.0-48.0); HEMOGLOBIN. 12.6 g/dL (12.0-16.0); LYMPHOCYTES % 18.1 % (20.0-50.0); MEAN CORPUSCULAR HEMOGLOBIN 30.3 pg (28.0-32.0); MEAN CORPUSCULAR VOLUME 90.6 fL (81.0-99.0); MEAN PLATELET VOLUME 8.8 fl (7.4-10.4); MONOCYTES % 8.2 % (2.0-8.0); PLATELET 238 x1000/uL (130-400); RED BLOOD CELL COUNT 4.16 mill/uL (4.2-5.4); RED CELL DISTRIBUTION WIDTH 14.6 % (11.6-14.6)
[2019-03-22] MEDS: ACETAMINOPHEN 325MG TABLET PO PRN (06:49)
[2019-03-22 08:00] VITALS: BP 211/103
[2019-03-22] MEDS: SEVELAMER CARBONATE 800 MG TABLET PO SCH (08:03)
[2019-03-22] MEDS: FOLIC ACID/VITAMIN B COMP W-C TABLET PO SCH (08:03)
[2019-03-22] MEDS: ASPIRIN 325MG EC TABLET PO SCH (08:04)
[2019-03-22] MEDS: METOPROLOL TARTRATE 25MG TABLET PO SCH (08:04)
[2019-03-22] MEDS: AMLODIPINE 10MG TABLET PO SCH (08:04)
[2019-03-22] MEDS ORDERED: TRAMADOL 50MG TABLET PO PRN (09:15)
[2019-03-22] MEDS ORDERED: CLONIDINE 0.3MG TABLET PO NR (11:37)
[2019-03-22 11:58] VITALS: BP 222/116
== END 2019-03-22 12:25 | disposition home or self-care (01) | DRG 203 ==
LOC: ER 16:14 → 8WST 17:55 → EDBEDREQ 17:59 → CANRESERV 20:54 → ENRESERV 20:54 → 8WST 22:54
PROVIDERS: ADMIT Internal Medicine; ATTEND Internal Medicine
PROC: 5A1D70Z Performance of Urinary Filtration, Intermittent, Less than 6 Hours Per Day (ICD-10-PCS; principal; 2019-03-21)
DX: R07.89 Other chest pain (principal); E43 Unspecified severe protein-calorie malnutrition; E11.22 Type 2 diabetes mellitus with diabetic chronic kidney disease; I12.0 Hypertensive chronic kidney disease with stage 5 chronic kidney disease or end stage renal disease; N18.6 End stage renal disease; E11.65 Type 2 diabetes mellitus with hyperglycemia; E83.51 Hypocalcemia; E83.52 Hypercalcemia; F41.9 Anxiety disorder, unspecified; E87.6 Hypokalemia; F12.10 Cannabis abuse, uncomplicated; D64.9 Anemia, unspecified; Z91.19 Patient's noncompliance with other medical treatment and regimen; Z99.2 Dependence on renal dialysis; Z88.0 Allergy status to penicillin; Z91.013 Allergy to seafood; Z79.4 Long term (current) use of insulin; Z79.51 Long term (current) use of inhaled steroids; Z79.899 Other long term (current) drug therapy; Z85.43 Personal history of malignant neoplasm of ovary; Z68.20 Body mass index [BMI] 20.0-20.9, adult
CPT/HCPCS: 36415; 71045; 80048; 80305; 82550; 82553; 82962; 83036; 83880; 84484; 93005; 96374; 99285; J0360; J1200; J1650; J1815

== ENCOUNTER 2019-05-03 12:09 | Emergency (ER) | payer MEDICAID ==
[~2019-05-03] VITALS: Ht 167.6 cm; Wt 69.0 kg
[2019-05-03] MEDS ORDERED: MORPHINE SULFATE 4 MG/ML CPJ (NOT FOR IM USE) IV STA (12:29)
[2019-05-03] MEDS ORDERED: ONDANSETRON HCL 4MG/2ML INJ IV STA (12:29)
[2019-05-03 13:52] LABS: CHLORIDE 98 mEq/L (98-107)
[2019-05-03 13:53] LABS: BASOPHILS % 0.3 % (0.0-2.0); EOSINOPHILS % 0.1 % (0.0-5.0); HEMATOCRIT. 38.9 % (36.0-48.0); HEMOGLOBIN. 13.1 g/dL (12.0-16.0); LYMPHOCYTES % 13.5 % (20.0-50.0); MEAN CORPUSCULAR VOLUME 89.2 fL (81.0-99.0); MEAN PLATELET VOLUME 9.2 fl (7.4-10.4); MONOCYTES % 7.5 % (2.0-8.0); NEUTROPHILS % 78.6 % (40.0-76.0); PLATELET 216 x1000/uL (130-400); RED BLOOD CELL COUNT 4.37 mill/uL (4.2-5.4); RED CELL DISTRIBUTION WIDTH 14.1 % (11.6-14.6)
[2019-05-03 15:16] VITALS: BP 158/84
== END 2019-05-03 15:20 | disposition home or self-care (01) ==
LOC: ER 12:09
DX: T78.49XA Other allergy, initial encounter (principal); E11.22 Type 2 diabetes mellitus with diabetic chronic kidney disease; I12.0 Hypertensive chronic kidney disease with stage 5 chronic kidney disease or end stage renal disease; N18.6 End stage renal disease; Z99.2 Dependence on renal dialysis; F14.10 Cocaine abuse, uncomplicated; F12.10 Cannabis abuse, uncomplicated; Z85.9 Personal history of malignant neoplasm, unspecified; Z88.0 Allergy status to penicillin; Z91.013 Allergy to seafood; X58.XXXA Exposure to other specified factors, initial encounter
CPT/HCPCS: 36415; 71045; 80053; 85025; 93005; 96374; 96375; 99284; J2270; J2405

== ENCOUNTER 2019-05-08 06:32 | Inpatient (IN) | payer MEDICAID ==
[2019-05-08] VITALS (7 sets, daily range): BP systolic 139–159; BP diastolic 64–95
[~2019-05-08] VITALS: Ht 165.1 cm; Wt 63.0 kg
[2019-05-08] MEDS ORDERED: CLONIDINE 0.1MG TABLET PO PRN (07:00)
[2019-05-08] MEDS ORDERED: ACETAMINOPHEN 325MG TABLET PO PRN (07:00)
[2019-05-08] MEDS ORDERED: MORPHINE SULFATE 4 MG/ML CPJ (NOT FOR IM USE) IV ONE (07:00)
[2019-05-08] MEDS ORDERED: ONDANSETRON HCL 4MG/2ML INJ IV ONE (07:00)
[2019-05-08] MEDS ORDERED: DOCUSATE SODIUM 100MG CAPSULE PO PRN (07:00)
[2019-05-08] MEDS ORDERED: ONDANSETRON HCL 4MG/2ML INJ IV PRN (07:00)
[2019-05-08] MEDS ORDERED: GUAIFENESIN 200MG/10ML SUGAR FREE UDC PO PRN (07:00)
[2019-05-08] MEDS ORDERED: HYDROCODONE/ACETAMINOPHEN 5/325MG TABLET PO PRN (07:00)
[2019-05-08 07:02] LABS: BG BASE EXCESS -5.3 mmol/L (-2.0-2.0); BG CARBOXYHEMOGLOBIN 0.8 % (0.5-1.5); BG DEOXYHEMOGLOBIN 2.7 % (0.0-5.0); BG FRACTION INSPIRED OXYGEN 21; BG HCO3 ACT 19.1 mmol/L (22.0-26.0); BG METHEMOGLOBIN 0.3 % (0.0-1.5); BG OXYGEN SATURATION 97.3 % (92.0-98.5); BG OXYHEMOGLOBIN 96.2 % (94.0-97.0); BG PCO2 33.6 mmHg (35.0-45.0); BG PH 7.372 (7.350-7.450); BG PO2 99.1 mmHg (75.0-100.0); BG SAMPLE SITE RIGHT RADIAL; BG TOTAL HEMOGLOBIN 12.1 g/dL (12.0-18.0); BG VENT MODE ROOM AIR
[2019-05-08 07:10] LABS: BASOPHILS % 0.4 % (0.0-2.0); HEMATOCRIT. 36.8 % (36.0-48.0); LYMPHOCYTES % 11.3 % (20.0-50.0); MEAN CORPUSCULAR HEMOGLOBIN 30.1 pg (28.0-32.0); MEAN CORPUSCULAR VOLUME 92.4 fL (81.0-99.0); MEAN PLATELET VOLUME 9.4 fl (7.4-10.4); MONOCYTES % 1.2 % (2.0-8.0); NEUTROPHILS % 87.1 % (40.0-76.0); PLATELET 248 x1000/uL (130-400); RED BLOOD CELL COUNT 3.98 mill/uL (4.2-5.4)
[2019-05-08 07:14] LABS: CHLORIDE 95 mEq/L (98-107)
[2019-05-08 07:17] LABS: PROTHROMBIN TIME 9.8 sec (9.6-11.0)
[2019-05-08] MEDS ORDERED: INSULIN REGULAR (HUMULIN R) 300UNITS/3ML IV ONE (08:15)
[2019-05-08] MEDS ORDERED: DEXTROSE 50% WATER 50ML SYRINGE IV PRN ×2 (12:00)
[2019-05-08] MEDS: BLOOD SUGAR DIAGNOSTIC STRIP TEST SCH ×3 (12:31→20:38)
[2019-05-08] MEDS: INSULIN LISPRO 100 UNITS/ML SUBCUT SCH ×3 (12:31→20:38)
[2019-05-08] MEDS: ASPIRIN 81MG EC TABLET PO SCH (13:44)
[2019-05-08] MEDS: AMLODIPINE 10MG TABLET PO SCH (13:44)
[2019-05-08] MEDS: METOPROLOL TARTRATE 25MG TABLET PO SCH ×2 (13:45→20:40)
[2019-05-08] MEDS: ISOSORBIDE MONONITRATE 30MG TABLET SR 24HR PO SCH (13:48)
[2019-05-08] MEDS: INSULIN GLARGINE UD 100 UNITS/ML SYR SUBCUT SCH ×2 (13:49→21:18)
[2019-05-08 16:34] LABS: CREATINE KINASE 848 IU/L (26-192)
[2019-05-08] MEDS ORDERED: ATORVASTATIN CALCIUM 20MG TABLET PO SCH (21:00)
[2019-05-08] MEDS: DIPHENHYDRAMINE 50MG/ML VIAL IV PRN (21:18)
[2019-05-08] MEDS ORDERED: INSULIN GLARGINE UD 100 UNITS/ML SYR SUBCUT SCH (22:00)
[2019-05-08 23:17] LABS: CREATINE KINASE 612 IU/L (26-192)
[2019-05-09] VITALS (8 sets, daily range): BP systolic 130–158; BP diastolic 50–86
[2019-05-09] MEDS: MORPHINE SULFATE 2 MG/ML CPJ (NOT FOR IM USE) IV PRN ×3 (00:34→13:55)
[2019-05-09] MEDS: DIPHENHYDRAMINE 50MG/ML VIAL IV PRN (00:35)
[2019-05-09 06:52] LABS: BASOPHILS % 0.3 % (0.0-2.0); HEMATOCRIT. 32.8 % (36.0-48.0); HEMOGLOBIN. 11.2 g/dL (12.0-16.0); LYMPHOCYTES % 12.6 % (20.0-50.0); MEAN CORPUSCULAR HEMOGLOBIN 30.1 pg (28.0-32.0); MEAN CORPUSCULAR VOLUME 88.7 fL (81.0-99.0); MEAN PLATELET VOLUME 9.6 fl (7.4-10.4); MONOCYTES % 6.8 % (2.0-8.0); NEUTROPHILS % 80.3 % (40.0-76.0); PLATELET 217 x1000/uL (130-400); RED CELL DISTRIBUTION WIDTH 14.1 % (11.6-14.6)
[2019-05-09 07:11] LABS: CHLORIDE 103 mEq/L (98-107)
[2019-05-09 07:25] LABS: LDL CHOLESTEROL 150 mg/dL (5-100)
[2019-05-09 07:28] LABS: HDL CHOLESTEROL 99 mg/dL (40-59)
[2019-05-09] MEDS: BLOOD SUGAR DIAGNOSTIC STRIP TEST SCH ×2 (07:30→12:48)
[2019-05-09] MEDS: INSULIN LISPRO 100 UNITS/ML SUBCUT SCH ×2 (08:00→13:00)
[2019-05-09] MEDS: METOPROLOL TARTRATE 25MG TABLET PO SCH (08:39)
[2019-05-09] MEDS: ISOSORBIDE MONONITRATE 30MG TABLET SR 24HR PO SCH (08:39)
[2019-05-09] MEDS: ASPIRIN 81MG EC TABLET PO SCH (08:39)
[2019-05-09] MEDS: AMLODIPINE 10MG TABLET PO SCH (08:40)
[2019-05-09] MEDS: INSULIN GLARGINE UD 100 UNITS/ML SYR SUBCUT SCH (10:02)
== END 2019-05-09 16:26 | disposition home or self-care (01) | DRG 425 ==
LOC: ER 06:40 → 5EST 06:53 → ENRESERV 08:08
PROVIDERS: ADMIT Hospitalist; ATTEND Hospitalist
PROC: 5A1D70Z Performance of Urinary Filtration, Intermittent, Less than 6 Hours Per Day (ICD-10-PCS; principal; 2019-05-08)
PROC: 5A1D70Z Performance of Urinary Filtration, Intermittent, Less than 6 Hours Per Day (ICD-10-PCS; 2019-05-09)
DX: E87.70 Fluid overload, unspecified (principal); I13.2 Hypertensive heart and chronic kidney disease with heart failure and with stage 5 chronic kidney disease, or end stage renal disease; E11.22 Type 2 diabetes mellitus with diabetic chronic kidney disease; E87.2 Acidosis; E11.65 Type 2 diabetes mellitus with hyperglycemia; R07.89 Other chest pain; I20.9 Angina pectoris, unspecified; I50.33 Acute on chronic diastolic (congestive) heart failure; N18.6 End stage renal disease; E87.1 Hypo-osmolality and hyponatremia; F32.9 Major depressive disorder, single episode, unspecified; F41.9 Anxiety disorder, unspecified; F12.10 Cannabis abuse, uncomplicated; F14.10 Cocaine abuse, uncomplicated; N83.9 Noninflammatory disorder of ovary, fallopian tube and broad ligament, unspecified; Z85.00 Personal history of malignant neoplasm of unspecified digestive organ; Z99.2 Dependence on renal dialysis; Z88.2 Allergy status to sulfonamides; Z88.0 Allergy status to penicillin; Z91.013 Allergy to seafood
CPT/HCPCS: 36415; 36600; 71045; 80061; 82375; 82550; 82805; 82962; 83735; 84484; 93005; 93306; 93970; 96374; 96375; 99291; J1200; J1815; J2270; J2405

== ENCOUNTER 2019-07-24 06:06 | Inpatient (IN) | payer MEDICAID ==
[~2019-07-24] VITALS: Ht 165.1 cm; Wt 74.5 kg
[2019-07-24] VITALS (28 sets, daily range): BP systolic 105–195; BP diastolic 66–110
[~2019-07-24 06:06] MED LIST changes: -MORP15TA67 MT
[2019-07-24] MEDS ORDERED: ASPIRIN 81MG TABLET PO ONE (06:30)
[2019-07-24] MEDS ORDERED: MORPHINE SULFATE 4 MG/ML CPJ (NOT FOR IM USE) IV ONE ×3 (06:30→15:00)
[2019-07-24] MEDS ORDERED: NITROGLYCERIN 0.4MG TABLET SL SL ONE (06:30)
[2019-07-24 06:44] LABS: BASOPHILS % 1.1 % (0.0-2.0); EOSINOPHILS % 0.4 % (0.0-5.0); HEMATOCRIT. 32.2 % (36.0-48.0); HEMOGLOBIN. 10.5 g/dL (12.0-16.0); LYMPHOCYTES % 15.4 % (20.0-50.0); MEAN CORPUSCULAR HEMOGLOBIN 29.9 pg (28.0-32.0); MEAN CORPUSCULAR VOLUME 91.9 fL (81.0-99.0); MEAN PLATELET VOLUME 8.5 fl (7.4-10.4); MONOCYTES % 9.4 % (2.0-8.0); NEUTROPHILS % 73.7 % (40.0-76.0); PLATELET 382 x1000/uL (130-400); RED CELL DISTRIBUTION WIDTH 16.4 % (11.6-14.6)
[2019-07-24 06:57] LABS: CHLORIDE 105 mEq/L (98-107)
[2019-07-24 07:04] LABS: INR 1.1; PARTIAL THROMBOPLASTIN TIME 30.6 sec (23.4-31.0); PROTHROMBIN TIME 11.1 sec (9.6-11.0)
[2019-07-24] MEDS ORDERED: NITROGLYCERIN OINT 1GM/INCH UDPKT TD ONE (07:15)
[2019-07-24 08:26] LABS: CLARITY URINE CLOUDY (CLEAR); COLOR URINE YELLOW (YELLOW); KETONES URINE NEGATIVE (NEGATIVE); LEUKOCYTE ESTERASE URINE NEGATIVE (NEGATIVE); NITRITE URINE NEGATIVE (NEGATIVE); OCCULT BLOOD URINE NEGATIVE (NEGATIVE); PH URINE 5.5 (4.5-8.0); PROTEIN URINE 3+ (NEGATIVE); SPECIFIC GRAVITY URINE 1.018 (1.005-1.030); UROBILINOGEN URINE 0.2 E.U./dL (0.2-1.0)
[2019-07-24] MEDS ORDERED: CLONIDINE 0.1MG TABLET PO ONE (10:00)
[2019-07-24] MEDS ORDERED: HYDRALAZINE HCL 25MG TABLET PO ONE (10:00)
[2019-07-24] MEDS ORDERED: NITROGLYCERIN 50MG PREMIX 250 ML IV ONE (15:00)
[2019-07-24] MEDS ORDERED: ENOXAPARIN 60MG/0.6ML SYR SUBCUT ONE (15:15)
[2019-07-24] MEDS ORDERED: ASPIRIN 325MG TABLET PO ONE (15:15)
[2019-07-24] MEDS: NITROGLYCERIN 50MG PREMIX 250 ML IV PRN (17:22)
[2019-07-24] MEDS: CLONIDINE 0.1MG TABLET PO SCH (18:08)
[2019-07-24] MEDS ORDERED: DEXTROSE 50% WATER 50ML SYRINGE IV PRN (18:45)
[2019-07-24] MEDS: BLOOD SUGAR DIAGNOSTIC STRIP TEST SCH (20:30)
[2019-07-24] MEDS: INSULIN LISPRO 100 UNITS/ML SUBCUT SCH (20:31)
[2019-07-24] MEDS: ATORVASTATIN CALCIUM 20MG TABLET PO SCH (20:46)
[2019-07-24] MEDS: MORPHINE SULFATE 4 MG/ML CPJ (NOT FOR IM USE) IV PRN (20:47)
[2019-07-25] VITALS (62 sets, daily range): BP systolic 100–192; BP diastolic 64–105
[2019-07-25] MEDS: MORPHINE SULFATE 4 MG/ML CPJ (NOT FOR IM USE) IV PRN ×2 (00:49→05:06)
[2019-07-25 04:27] LABS: BASOPHILS % 0.5 % (0.0-2.0); EOSINOPHILS % 0.3 % (0.0-5.0); HEMATOCRIT. 33.8 % (36.0-48.0); HEMOGLOBIN. 11.1 g/dL (12.0-16.0); LYMPHOCYTES % 15.7 % (20.0-50.0); MEAN CORPUSCULAR HEMOGLOBIN 29.9 pg (28.0-32.0); MEAN CORPUSCULAR VOLUME 91.1 fL (81.0-99.0); MEAN PLATELET VOLUME 8.6 fl (7.4-10.4); MONOCYTES % 9.1 % (2.0-8.0); NEUTROPHILS % 74.4 % (40.0-76.0); PLATELET 353 x1000/uL (130-400); RED BLOOD CELL COUNT 3.71 mill/uL (4.2-5.4); RED CELL DISTRIBUTION WIDTH 16.2 % (11.6-14.6)
[2019-07-25] MEDS: CLONIDINE 0.1MG TABLET PO SCH ×2 (05:26→17:35)
[2019-07-25] MEDS: BLOOD SUGAR DIAGNOSTIC STRIP TEST SCH ×4 (07:50→20:59)
[2019-07-25] MEDS ORDERED: CAPSAICIN 0.025% CREAM 60GM TOP PRN (08:00)
[2019-07-25] MEDS ORDERED: BENAZEPRIL 5MG TABLET PO SCH (08:00)
[2019-07-25] MEDS: NITROGLYCERIN 50MG PREMIX 250 ML IV PRN (08:59)
[2019-07-25] MEDS ORDERED: NIFEDIPINE XL 90MG TAB PO SCH (09:00)
[2019-07-25] MEDS: ONDANSETRON HCL 4MG/2ML INJ IV PRN ×3 (09:03→23:47)
[2019-07-25] MEDS: INSULIN LISPRO 100 UNITS/ML SUBCUT SCH ×4 (09:09→20:58)
[2019-07-25] MEDS: HYDRALAZINE HCL 25MG TABLET PO SCH ×2 (09:12→23:04)
[2019-07-25] MEDS: ENOXAPARIN 30MG/0.3ML SYR SUBCUT SCH (09:12)
[2019-07-25] MEDS: FAMOTIDINE 20MG/2ML VIAL IV SCH (09:15)
[2019-07-25] MEDS: MORPHINE SULFATE 2 MG/ML CPJ (NOT FOR IM USE) IV PRN ×3 (09:23→20:57)
[2019-07-25] MEDS: ASPIRIN 81MG EC TABLET PO SCH ×2 (10:19→17:24)
[2019-07-25] MEDS: NITROGLYCERIN OINT 1GM/INCH UDPKT TD SCH ×3 (10:27→23:03)
[2019-07-25] MEDS: HYDROCODONE/ACETAMINOPHEN 5/325MG TABLET PO PRN (11:44)
[2019-07-25 14:19] LABS: *AMPHETAMINES SCREEN URINE NEGATIVE (NEGATIVE); *BARBITURATES SCREEN URINE NEGATIVE (NEGATIVE); *BENZODIAZEPINES SCREEN URINE NEGATIVE (NEGATIVE); *COCAINE SCREEN URINE NEGATIVE (NEGATIVE); CANNABINOID URINE SCREEN PRESUMTIVE POSITIVE (NEGATIVE); METHADONE URINE SCREEN NEGATIVE (NEGATIVE); OPIATES URINE SCREEN PRESUMTIVE POSITIVE (NEGATIVE); PHENCYCLIDINE URINE SCREEN NEGATIVE (NEGATIVE)
[2019-07-25] MEDS: ATORVASTATIN CALCIUM 20MG TABLET PO SCH (20:59)
[2019-07-25] MEDS: AMLODIPINE 5MG TABLET PO SCH (23:04)
[2019-07-25] MEDS ORDERED: DIPHENHYDRAMINE 25MG CAPSULE PO PRN (23:30)
[2019-07-26] VITALS (17 sets, daily range): BP systolic 129–180; BP diastolic 56–93
[2019-07-26] MEDS: MORPHINE SULFATE 2 MG/ML CPJ (NOT FOR IM USE) IV PRN ×3 (01:43→11:45)
[2019-07-26] MEDS: HYDROCODONE/ACETAMINOPHEN 5/325MG TABLET PO PRN ×3 (02:59→19:41)
[2019-07-26] MEDS: NITROGLYCERIN OINT 1GM/INCH UDPKT TD SCH ×3 (04:00→15:08)
[2019-07-26] MEDS: CLONIDINE 0.1MG TABLET PO SCH ×2 (05:53→18:57)
[2019-07-26] MEDS: BLOOD SUGAR DIAGNOSTIC STRIP TEST SCH ×4 (06:16→21:33)
[2019-07-26] MEDS: INSULIN LISPRO 100 UNITS/ML SUBCUT SCH ×4 (06:24→21:42)
[2019-07-26 07:14] LABS: BASOPHILS % 0.2 % (0.0-2.0); EOSINOPHILS % 0.3 % (0.0-5.0); HEMATOCRIT. 29.6 % (36.0-48.0); HEMOGLOBIN. 9.7 g/dL (12.0-16.0); MEAN CORPUSCULAR HEMOGLOBIN 29.6 pg (28.0-32.0); MEAN CORPUSCULAR VOLUME 90.1 fL (81.0-99.0); MEAN PLATELET VOLUME 8.7 fl (7.4-10.4); MONOCYTES % 8.7 % (2.0-8.0); NEUTROPHILS % 74.8 % (40.0-76.0); PLATELET 366 x1000/uL (130-400); RED BLOOD CELL COUNT 3.28 mill/uL (4.2-5.4); RED CELL DISTRIBUTION WIDTH 16.1 % (11.6-14.6)
[2019-07-26] MEDS: HYDRALAZINE HCL 25MG TABLET PO SCH (08:53)
[2019-07-26] MEDS: ASPIRIN 81MG EC TABLET PO SCH ×2 (08:54→16:04)
[2019-07-26] MEDS: FAMOTIDINE 20MG/2ML VIAL IV SCH (08:54)
[2019-07-26] MEDS: AMLODIPINE 5MG TABLET PO SCH ×2 (08:54→21:32)
[2019-07-26] MEDS: ENOXAPARIN 30MG/0.3ML SYR SUBCUT SCH (08:55)
[2019-07-26] MEDS ORDERED: AMLO5TAB88 PO (18:38)
[2019-07-26] MEDS ORDERED: HYDR-4134 PO (18:38)
[2019-07-26] MEDS ORDERED: ASPI-1158 PO (18:38)
[2019-07-26] MEDS: ONDANSETRON HCL 4MG/2ML INJ IV PRN (18:53)
[2019-07-26] MEDS: HYDRALAZINE HCL 50MG TABLET PO SCH (21:33)
[2019-07-26] MEDS: ATORVASTATIN CALCIUM 20MG TABLET PO SCH (21:33)
[2019-07-26 21:34] LABS: BG BASE EXCESS -1.9 mmol/L (-2.0-2.0); BG CARBOXYHEMOGLOBIN 0.2 % (0.5-1.5); BG DEOXYHEMOGLOBIN 5.1 % (0.0-5.0); BG FRACTION INSPIRED OXYGEN 21; BG METHEMOGLOBIN 0.3 % (0.0-1.5); BG OXYGEN SATURATION 94.9 % (92.0-98.5); BG OXYHEMOGLOBIN 94.4 % (94.0-97.0); BG PCO2 34.5 mmHg (35.0-45.0); BG PH 7.423 (7.350-7.450); BG PO2 74.2 mmHg (75.0-100.0); BG SAMPLE SITE RIGHT RADIAL; BG TOTAL HEMOGLOBIN 10.6 g/dL (12.0-18.0); BG VENT MODE ROOM AIR
[2019-07-27] VITALS (10 sets, daily range): BP systolic 109–163; BP diastolic 67–99
[2019-07-27] MEDS: HYDROCODONE/ACETAMINOPHEN 5/325MG TABLET PO PRN ×5 (03:30→23:00)
[2019-07-27 05:38] LABS: BASOPHILS % 0.6 % (0.0-2.0); EOSINOPHILS % 0.3 % (0.0-5.0); HEMATOCRIT. 33.1 % (36.0-48.0); HEMOGLOBIN. 10.9 g/dL (12.0-16.0); LYMPHOCYTES % 13.3 % (20.0-50.0); MEAN CORPUSCULAR HEMOGLOBIN 29.9 pg (28.0-32.0); MEAN CORPUSCULAR VOLUME 90.8 fL (81.0-99.0); MEAN PLATELET VOLUME 8.4 fl (7.4-10.4); MONOCYTES % 8.5 % (2.0-8.0); NEUTROPHILS % 77.3 % (40.0-76.0); PLATELET 365 x1000/uL (130-400); RED BLOOD CELL COUNT 3.64 mill/uL (4.2-5.4)
[2019-07-27] MEDS: CLONIDINE 0.1MG TABLET PO SCH ×2 (05:57→17:25)
[2019-07-27] MEDS: BLOOD SUGAR DIAGNOSTIC STRIP TEST SCH ×4 (05:57→21:00)
[2019-07-27] MEDS ORDERED: ATOR20TA PO (06:40)
[2019-07-27] MEDS: INSULIN LISPRO 100 UNITS/ML SUBCUT SCH ×5 (07:20→22:59)
[2019-07-27] MEDS: AMLODIPINE 5MG TABLET PO SCH ×2 (08:14→21:28)
[2019-07-27] MEDS: ASPIRIN 81MG EC TABLET PO SCH ×2 (08:14→17:27)
[2019-07-27] MEDS: FAMOTIDINE 20MG/2ML VIAL IV SCH (08:14)
[2019-07-27] MEDS: ENOXAPARIN 30MG/0.3ML SYR SUBCUT SCH (08:15)
[2019-07-27] MEDS: HYDRALAZINE HCL 50MG TABLET PO SCH ×2 (08:15→21:28)
[2019-07-27] MEDS ORDERED: HYDR-4134 PO (10:35)
[2019-07-27] MEDS: ATORVASTATIN CALCIUM 20MG TABLET PO SCH (21:28)
[2019-07-28] VITALS: BP 154/82
[2019-07-28] MEDS: HYDROCODONE/ACETAMINOPHEN 5/325MG TABLET PO PRN ×2 (02:52→09:20)
[2019-07-28 04:00] VITALS: BP 154/84
[2019-07-28 05:56] LABS: BASOPHILS % 0.3 % (0.0-2.0); EOSINOPHILS % 0.3 % (0.0-5.0); HEMATOCRIT. 31.3 % (36.0-48.0); HEMOGLOBIN. 10.2 g/dL (12.0-16.0); MEAN CORPUSCULAR HEMOGLOBIN 29.4 pg (28.0-32.0); MEAN CORPUSCULAR VOLUME 90.2 fL (81.0-99.0); MEAN PLATELET VOLUME 8.9 fl (7.4-10.4); MONOCYTES % 9.6 % (2.0-8.0); NEUTROPHILS % 71.8 % (40.0-76.0); PLATELET 317 x1000/uL (130-400); RED BLOOD CELL COUNT 3.47 mill/uL (4.2-5.4); RED CELL DISTRIBUTION WIDTH 15.8 % (11.6-14.6)
[2019-07-28] MEDS: INSULIN LISPRO 100 UNITS/ML SUBCUT SCH ×2 (06:18→13:10)
[2019-07-28] MEDS: BLOOD SUGAR DIAGNOSTIC STRIP TEST SCH ×2 (06:18→13:35)
[2019-07-28] MEDS: CLONIDINE 0.1MG TABLET PO SCH ×2 (06:35→17:06)
[2019-07-28 08:00] VITALS: BP 143/82
[2019-07-28] MEDS: ENOXAPARIN 30MG/0.3ML SYR SUBCUT SCH (09:19)
[2019-07-28] MEDS: FAMOTIDINE 20MG/2ML VIAL IV SCH (09:19)
[2019-07-28] MEDS: HYDRALAZINE HCL 50MG TABLET PO SCH (09:21)
[2019-07-28] MEDS: ASPIRIN 81MG EC TABLET PO SCH ×2 (09:21→17:06)
[2019-07-28] MEDS: AMLODIPINE 5MG TABLET PO SCH (09:21)
[2019-07-28] MEDS: MORPHINE SULFATE 2 MG/ML CPJ (NOT FOR IM USE) IV PRN (10:31)
[2019-07-28 16:40] VITALS: BP 165/86
== END 2019-07-28 17:45 | disposition home or self-care (01) | DRG 199 ==
LOC: ER 06:06 → EDBEDREQ 15:13 → EDBEDREQSVC 15:13 → EDBEDREQ 15:26 → EDBEDREQSVC 15:26 → EDBEDREQTM 15:26 → EDBEDREQSVC 15:32 → EDBEDREQ 15:41 → EDBEDREQSVC 15:48 → CVICU 15:51 → ENRESERV 15:56 → EDBEDREQ 15:58 → 3WST 07-25 20:18 → 7WST 07-27 18:57
PROVIDERS: ADMIT Family Medicine; ATTEND Family Medicine
PROC: 5A09357 Assistance with Respiratory Ventilation, Less than 24 Consecutive Hours, Continuous Positive Airway Pressure (ICD-10-PCS; principal; 2019-07-24)
PROC: 5A1D70Z Performance of Urinary Filtration, Intermittent, Less than 6 Hours Per Day (ICD-10-PCS; 2019-07-24)
PROC: 5A1D70Z Performance of Urinary Filtration, Intermittent, Less than 6 Hours Per Day (ICD-10-PCS; 2019-07-26)
PROC: 5A1D70Z Performance of Urinary Filtration, Intermittent, Less than 6 Hours Per Day (ICD-10-PCS; 2019-07-28)
DX: I16.9 Hypertensive crisis, unspecified (principal); E11.22 Type 2 diabetes mellitus with diabetic chronic kidney disease; E87.2 Acidosis; E44.1 Mild protein-calorie malnutrition; E11.319 Type 2 diabetes mellitus with unspecified diabetic retinopathy without macular edema; I25.110 Atherosclerotic heart disease of native coronary artery with unstable angina pectoris; I13.2 Hypertensive heart and chronic kidney disease with heart failure and with stage 5 chronic kidney disease, or end stage renal disease; I31.3 Pericardial effusion (noninflammatory); N18.6 End stage renal disease; Z95.1 Presence of aortocoronary bypass graft; D63.1 Anemia in chronic kidney disease; Z79.4 Long term (current) use of insulin; I44.7 Left bundle-branch block, unspecified; I25.5 Ischemic cardiomyopathy; M25.512 Pain in left shoulder; F41.9 Anxiety disorder, unspecified; I35.0 Nonrheumatic aortic (valve) stenosis; E78.5 Hyperlipidemia, unspecified; F32.9 Major depressive disorder, single episode, unspecified; I25.2 Old myocardial infarction; Z99.2 Dependence on renal dialysis; I25.10 Atherosclerotic heart disease of native coronary artery without angina pectoris; I50.20 Unspecified systolic (congestive) heart failure; I16.1 Hypertensive emergency; Z68.27 Body mass index [BMI] 27.0-27.9, adult
CPT/HCPCS: 36415; 36600; 71045; 73030; 80048; 80305; 81003; 82375; 82805; 82962; 83605; 83880; 84484; 93005; 93306; 94660; 97162; 99291; J1650; J1815; J2270; J2405; J3490

== ENCOUNTER 2019-08-21 06:21 | Inpatient (IN) | payer MEDICAID ==
[~2019-08-21] VITALS: Ht 165.1 cm; Wt 63.3 kg
[~2019-08-21 06:21] MED LIST changes: +AMLO5TAB88 PO; +ASPI-1158 PO; +HYDR-4134 PO
[2019-08-21] MEDS ORDERED: ASPIRIN 81MG TABLET PO ONE (06:45)
[2019-08-21] MEDS ORDERED: NITROGLYCERIN 0.4MG TABLET SL SL PRN (06:45)
[2019-08-21 07:55] LABS: BASOPHILS % 0.6 % (0.0-2.0); EOSINOPHILS % 0.2 % (0.0-5.0); HEMOGLOBIN. 11.7 g/dL (12.0-16.0); MEAN CORPUSCULAR HEMOGLOBIN 29.3 pg (28.0-32.0); MEAN PLATELET VOLUME 8.8 fl (7.4-10.4); MONOCYTES % 7.3 % (2.0-8.0); NEUTROPHILS % 78.9 % (40.0-76.0); PLATELET 214 x1000/uL (130-400); RED CELL DISTRIBUTION WIDTH 16.5 % (11.6-14.6)
[2019-08-21 08:10] LABS: CHLORIDE 106 mEq/L (98-107)
[2019-08-21 11:00] VITALS: BP 171/96
[2019-08-21] MEDS ORDERED: DEXTROSE 50% WATER 50ML SYRINGE IV PRN (11:30)
[2019-08-21] MEDS ORDERED: HYDROCODONE/ACETAMINOPHEN 5/325MG TABLET PO PRN (11:30)
[2019-08-21] MEDS ORDERED: HYDROCODONE/ACETAMINOPHEN 10/325MG TABLET PO PRN (12:15)
[2019-08-21 12:32] VITALS: BP 171/96
[2019-08-21] MEDS: BLOOD SUGAR DIAGNOSTIC STRIP TEST SCH ×3 (12:59→21:04)
[2019-08-21] MEDS: INSULIN LISPRO 100 UNITS/ML SUBCUT SCH ×3 (13:00→21:04)
[2019-08-21] MEDS ORDERED: METOCLOPRAMIDE HCL 5MG TABLET PO PRN (15:00)
[2019-08-21] MEDS: MORPHINE SULFATE 2 MG/ML CPJ (NOT FOR IM USE) IV PRN ×2 (15:22→19:44)
[2019-08-21] MEDS: ENOXAPARIN 30MG/0.3ML SYR SUBCUT SCH (15:23)
[2019-08-21 20:00] VITALS: BP 179/89
[2019-08-21] MEDS ORDERED: ZOLPIDEM TARTRATE 5MG TABLET PO NR (20:57)
[2019-08-21] MEDS ORDERED: ATORVASTATIN CALCIUM 20MG TABLET PO SCH (21:00)
[2019-08-21] MEDS ORDERED: DIPHENHYDRAMINE 25MG CAPSULE PO PRN (21:00)
[2019-08-21] MEDS: CLONIDINE 0.2MG TABLET PO SCH (21:03)
[2019-08-21] MEDS: AMLODIPINE 5MG TABLET PO SCH (21:03)
[2019-08-21] MEDS: HYDRALAZINE HCL 25MG TABLET PO SCH (21:04)
[2019-08-21] MEDS ORDERED: DULOXETINE HCL 20MG DR CAPSULE PO SCH (21:15)
[2019-08-21] MEDS: DIPHENHYDRAMINE 50MG/ML VIAL IV PRN (22:26)
[2019-08-22] VITALS: BP 139/84
[2019-08-22 00:31] LABS: CLARITY URINE CLOUDY (CLEAR); COLOR URINE YELLOW (YELLOW); KETONES URINE NEGATIVE (NEGATIVE); LEUKOCYTE ESTERASE URINE TRACE (NEGATIVE); NITRITE URINE NEGATIVE (NEGATIVE); OCCULT BLOOD URINE NEGATIVE (NEGATIVE); PROTEIN URINE 3+ (NEGATIVE); SPECIFIC GRAVITY URINE 1.017 (1.005-1.030); UROBILINOGEN URINE 0.2 E.U./dL (0.2-1.0)
[2019-08-22 00:47] LABS: *AMPHETAMINES SCREEN URINE NEGATIVE (NEGATIVE)
[2019-08-22 00:48] LABS: *BARBITURATES SCREEN URINE NEGATIVE (NEGATIVE); *BENZODIAZEPINES SCREEN URINE NEGATIVE (NEGATIVE); *COCAINE SCREEN URINE NEGATIVE (NEGATIVE); CANNABINOID URINE SCREEN PRESUMTIVE POSITIVE (NEGATIVE); METHADONE URINE SCREEN NEGATIVE (NEGATIVE); OPIATES URINE SCREEN PRESUMTIVE POSITIVE (NEGATIVE)
[2019-08-22] MEDS: MORPHINE SULFATE 2 MG/ML CPJ (NOT FOR IM USE) IV PRN ×3 (00:49→12:46)
[2019-08-22 00:50] LABS: PHENCYCLIDINE URINE SCREEN NEGATIVE (NEGATIVE)
[2019-08-22 04:00] VITALS: BP 154/88
[2019-08-22] MEDS: HYDRALAZINE HCL 25MG TABLET PO SCH ×2 (05:08→13:05)
[2019-08-22] MEDS: DIPHENHYDRAMINE 50MG/ML VIAL IV PRN (05:08)
[2019-08-22] MEDS: BLOOD SUGAR DIAGNOSTIC STRIP TEST SCH ×3 (06:21→18:02)
[2019-08-22] MEDS ORDERED: PANTOPRAZOLE 40MG DR TABLET PO SCH (07:20)
[2019-08-22 08:00] VITALS: BP 138/90
[2019-08-22] MEDS: CLONIDINE 0.2MG TABLET PO SCH (08:16)
[2019-08-22] MEDS: AMLODIPINE 5MG TABLET PO SCH (08:18)
[2019-08-22] MEDS: INSULIN LISPRO 100 UNITS/ML SUBCUT SCH ×3 (08:25→18:24)
[2019-08-22] MEDS ORDERED: ENOXAPARIN 40MG/0.4ML SYR SUBCUT SCH (09:00)
[2019-08-22] MEDS ORDERED: ASPIRIN 81MG TABLET PO SCH (09:00)
[2019-08-22] MEDS ORDERED: PREGABALIN 25MG CAPSULE PO SCH (09:00)
[2019-08-22 12:00] VITALS: BP 129/81
[2019-08-22] MEDS: ENOXAPARIN 30MG/0.3ML SYR SUBCUT SCH (13:05)
[2019-08-22 16:00] VITALS: BP 128/84
[2019-08-22 16:12] LABS: T4 FREE 1.15 ng/dL (0.76-1.46)
[2019-08-22 16:13] LABS: CREATINE KINASE 47 IU/L (26-192)
[2019-08-22 16:14] LABS: CREATINE KINASE MB FRACTION < 1.0 ng/mL (0.5-3.6)
[2019-08-22 17:41] VITALS: BP 128/84
== END 2019-08-22 19:55 | disposition home or self-care (01) | DRG 425 ==
LOC: ER 06:21 → 6WST 09:56 → EDBEDREQ 09:59 → ENRESERV 10:02
PROVIDERS: ADMIT Family Medicine; ATTEND Family Medicine
PROC: 5A1D70Z Performance of Urinary Filtration, Intermittent, Less than 6 Hours Per Day (ICD-10-PCS; principal; 2019-08-21)
PROC: 5A1D70Z Performance of Urinary Filtration, Intermittent, Less than 6 Hours Per Day (ICD-10-PCS; 2019-08-22)
DX: E87.70 Fluid overload, unspecified (principal); E11.22 Type 2 diabetes mellitus with diabetic chronic kidney disease; I13.11 Hypertensive heart and chronic kidney disease without heart failure, with stage 5 chronic kidney disease, or end stage renal disease; I25.110 Atherosclerotic heart disease of native coronary artery with unstable angina pectoris; N18.6 End stage renal disease; R07.9 Chest pain, unspecified; D64.9 Anemia, unspecified; J98.11 Atelectasis; E78.5 Hyperlipidemia, unspecified; Z87.891 Personal history of nicotine dependence; Z79.899 Other long term (current) drug therapy; Z79.82 Long term (current) use of aspirin; Z79.4 Long term (current) use of insulin; Z91.19 Patient's noncompliance with other medical treatment and regimen; Z99.2 Dependence on renal dialysis; Z95.1 Presence of aortocoronary bypass graft; Z88.2 Allergy status to sulfonamides; Z88.0 Allergy status to penicillin; Z91.013 Allergy to seafood; Z85.9 Personal history of malignant neoplasm, unspecified
CPT/HCPCS: 36415; 71045; 80061; 80305; 81003; 82550; 82553; 82962; 83036; 83880; 84439; 84443; 84484; 85379; 93005; 93970; 96372; 99285; J1200; J1650; J1815; J2270; J8597

== ENCOUNTER 2019-09-03 07:00 | Inpatient (IN) | payer MEDICAID ==
[~2019-09-03] VITALS: Ht 165.1 cm; Wt 62.1 kg
[2019-09-03] MEDS ORDERED: ONDANSETRON HCL 4MG/2ML INJ IV STA (07:15)
[2019-09-03] MEDS ORDERED: MORPHINE SULFATE 4 MG/ML CPJ (NOT FOR IM USE) IV STA (07:15)
[2019-09-03] MEDS ORDERED: CALCIUM CHLORIDE 1GM/10ML SYR IV ONE (08:15)
[2019-09-03] MEDS ORDERED: AMIODARONE HCL 150 MG in DEXT 5% WATER 100 ML IV ONE (08:30)
[2019-09-03 08:39] LABS: BASOPHILS % 0.3 % (0.0-2.0); HEMATOCRIT. 36.2 % (36.0-48.0); HEMOGLOBIN. 11.5 g/dL (12.0-16.0); LYMPHOCYTES % 17.3 % (20.0-50.0); MEAN CORPUSCULAR HEMOGLOBIN 29.3 pg (28.0-32.0); MEAN PLATELET VOLUME 9.4 fl (7.4-10.4); MONOCYTES % 3.7 % (2.0-8.0); NEUTROPHILS % 78.7 % (40.0-76.0); PLATELET 260 x1000/uL (130-400); RED BLOOD CELL COUNT 3.94 mill/uL (4.2-5.4); RED CELL DISTRIBUTION WIDTH 16.7 % (11.6-14.6)
[2019-09-03 08:44] LABS: CHLORIDE 106 mEq/L (98-107)
[2019-09-03] MEDS ORDERED: AMIODARONE HCL 150 MG in DEXT 5% WATER 100 ML IV NR (08:45)
[2019-09-03] MEDS ORDERED: ASPIRIN 325MG EC TABLET PO SCH (09:00)
[2019-09-03] MEDS ORDERED: MORPHINE SULFATE 4 MG/ML CPJ (NOT FOR IM USE) IV ONE (09:15)
[2019-09-03] MEDS ORDERED: HYDRALAZINE 20MG/ML VIAL IV ONE (09:30)
[2019-09-03] MEDS ORDERED: IPRATROPIUM/ALBUTEROL 0.5-3(2.5)MG/3ML NEB NEB PRN (12:45)
[2019-09-03] MEDS ORDERED: ACETAMINOPHEN 325MG TABLET PO PRN (12:45)
[2019-09-03] MEDS ORDERED: LORAZEPAM 0.5MG TABLET PO PRN (12:45)
[2019-09-03] MEDS ORDERED: GUAIFENESIN 200MG/10ML SUGAR FREE UDC PO PRN (12:45)
[2019-09-03] MEDS ORDERED: ONDANSETRON HCL 4MG/2ML INJ IV PRN (12:45)
[2019-09-03] MEDS ORDERED: DEXTROSE 50% WATER 50ML SYRINGE IV PRN (12:45)
[2019-09-03] MEDS ORDERED: MAGNESIUM/ALUMINUM HYDROXIDE/SIMETHICONE 30ML UDC PO PRN (12:45)
[2019-09-03] MEDS: INSULIN LISPRO 100 UNITS/ML SUBCUT SCH ×2 (13:20→21:00)
[2019-09-03] MEDS: NITROGLYCERIN 0.4MG TABLET SL SL PRN ×2 (15:15→15:20)
[2019-09-03] MEDS: BLOOD SUGAR DIAGNOSTIC STRIP TEST SCH ×3 (15:46→21:00)
[2019-09-03 16:35] VITALS: BP 178/106
[2019-09-03] MEDS: AMLODIPINE 5MG TABLET PO SCH (17:13)
[2019-09-03] MEDS: LOSARTAN POTASSIUM 25 MG TABLET PO SCH (17:13)
[2019-09-03] MEDS ORDERED: POTASSIUM CHLORIDE 20MEQ TABLET SR PO NR (17:15)
[2019-09-03 18:00] VITALS: BP 179/99
[2019-09-03] MEDS ORDERED: PNEUMOCOCCAL 23-VAL P-SAC VAC 0.5 ML IM ONE (18:15)
[2019-09-03] MEDS ORDERED: INFLUENZA VIRUS VACCINE(AFLURIA) 0.5ML SYR IM ONE (18:15)
[2019-09-03] MEDS: NITROGLYCERIN OINT 1GM/INCH UDPKT TD SCH (18:20)
[2019-09-03] MEDS: ENOXAPARIN 30MG/0.3ML SYR SUBCUT SCH (18:20)
[2019-09-03] MEDS: TRAMADOL 50MG TABLET PO PRN (18:21)
[2019-09-03] MEDS: SEVELAMER CARBONATE 800 MG TABLET PO SCH (18:21)
[2019-09-03] MEDS: CLONIDINE 0.1MG TABLET PO PRN (18:23)
[2019-09-03 20:00] VITALS: BP 156/90
[2019-09-04] VITALS (11 sets, daily range): BP systolic 132–178; BP diastolic 68–99
[2019-09-04] MEDS: MORPHINE SULFATE 2 MG/ML CPJ (NOT FOR IM USE) IV PRN ×5 (00:59→18:44)
[2019-09-04] MEDS: FAMOTIDINE 20MG TABLET PO SCH ×2 (02:13→08:27)
[2019-09-04] MEDS: NITROGLYCERIN OINT 1GM/INCH UDPKT TD SCH ×5 (02:14→23:18)
[2019-09-04] MEDS: ZOLPIDEM TARTRATE 5MG TABLET PO PRN (02:14)
[2019-09-04] MEDS: METOPROLOL TARTRATE 25MG TABLET PO SCH ×3 (02:15→21:44)
[2019-09-04] MEDS: AMLODIPINE 5MG TABLET PO SCH ×3 (02:15→21:44)
[2019-09-04] MEDS: CLONIDINE 0.1MG TABLET PO PRN (02:15)
[2019-09-04] MEDS: INSULIN GLARGINE UD 100 UNITS/ML SYR SUBCUT SCH (03:23)
[2019-09-04] MEDS: BLOOD SUGAR DIAGNOSTIC STRIP TEST SCH ×4 (06:50→21:26)
[2019-09-04 07:03] LABS: CHLORIDE 105 mEq/L (98-107)
[2019-09-04 07:05] LABS: BASOPHILS % 0.3 % (0.0-2.0); EOSINOPHILS % 0.3 % (0.0-5.0); HEMATOCRIT. 32.5 % (36.0-48.0); HEMOGLOBIN. 10.6 g/dL (12.0-16.0); LYMPHOCYTES % 18.7 % (20.0-50.0); MEAN CORPUSCULAR HEMOGLOBIN 29.5 pg (28.0-32.0); MEAN CORPUSCULAR VOLUME 90.6 fL (81.0-99.0); MEAN PLATELET VOLUME 9.8 fl (7.4-10.4); MONOCYTES % 9.3 % (2.0-8.0); NEUTROPHILS % 71.4 % (40.0-76.0); PLATELET 204 x1000/uL (130-400); RED BLOOD CELL COUNT 3.58 mill/uL (4.2-5.4); RED CELL DISTRIBUTION WIDTH 16.4 % (11.6-14.6)
[2019-09-04] MEDS: INSULIN LISPRO 100 UNITS/ML SUBCUT SCH ×4 (07:20→21:39)
[2019-09-04] MEDS: SEVELAMER CARBONATE 800 MG TABLET PO SCH ×3 (07:20→17:20)
[2019-09-04 07:22] LABS: CREATINE KINASE MB FRACTION 6.8 ng/mL (0.5-3.6); LDL CHOLESTEROL 111 mg/dL (5-100)
[2019-09-04 07:23] LABS: CREATINE KINASE 114 IU/L (26-192)
[2019-09-04 07:24] LABS: HDL CHOLESTEROL 69 mg/dL (40-59)
[2019-09-04] MEDS: LOSARTAN POTASSIUM 25 MG TABLET PO SCH ×3 (08:27→21:43)
[2019-09-04] MEDS: ASPIRIN 325MG EC TABLET PO SCH (08:28)
[2019-09-04] MEDS: FOLIC ACID/VITAMIN B COMP W-C TABLET PO SCH (08:28)
[2019-09-04] MEDS ORDERED: CLINDAMYCIN 600MG PREMIX 50 ML IV SCH (09:30)
[2019-09-04] MEDS ORDERED: HYDRALAZINE 20MG/ML VIAL IV PRN (09:45)
[2019-09-04] MEDS: CLONIDINE 0.1MG TABLET PO SCH ×2 (10:00→21:43)
[2019-09-04 10:17] LABS: PARTIAL THROMBOPLASTIN TIME 30.7 sec (23.4-31.0); PROTHROMBIN TIME 10.7 sec (9.6-11.0)
[2019-09-04] MEDS ORDERED: IODIXANOL 320MG/ML 100 ML BOTTLE IV ONE ×2 (12:39→13:45)
[2019-09-04] MEDS ORDERED: LIDOCAINE HCL 1% 20ML VIAL (Pyxis) INJ ONE (12:39)
[2019-09-04] MEDS ORDERED: FAMOTIDINE 20MG/2ML VIAL IV ONE (12:55)
[2019-09-04] MEDS ORDERED: HYDROCORTISONE SOD SUCCINATE 250 MG/2 ML VIAL ONE (12:55)
[2019-09-04] MEDS ORDERED: DIPHENHYDRAMINE 50MG/ML VIAL ONE (12:55)
[2019-09-04] MEDS ORDERED: FENTANYL CITRATE/PF 50MCG/ML 2ML VIAL ONE (13:05)
[2019-09-04] MEDS ORDERED: MIDAZOLAM HCL 2 MG/2 ML VIAL ONE (13:05)
[2019-09-04] MEDS ORDERED: IOHEXOL-300 100 ML BOTTLE ONE (13:47)
[2019-09-04] MEDS: HYDRALAZINE HCL 100MG TABLET PO SCH ×2 (14:00→23:00)
[2019-09-04] MEDS ORDERED: HYDRALAZINE HCL 25MG TABLET PO SCH (14:00)
[2019-09-04] MEDS ORDERED: CLOPIDOGREL 75MG TABLET ONE (14:18)
[2019-09-04] MEDS ORDERED: ATROPINE SULFATE 1MG/10ML SYR IV PRN (14:30)
[2019-09-04] MEDS ORDERED: HEPARIN SODIUM 1,000 UNIT/1ML VIAL IV ONE (14:30)
[2019-09-04] MEDS ORDERED: CLOPIDOGREL 75MG TABLET PO NR (14:30)
[2019-09-04] MEDS ORDERED: ONDANSETRON HCL 4MG/2ML INJ IV PRN (14:30)
[2019-09-04] MEDS ORDERED: NICARDIPINE 100MCG/ML 10ML VIAL (CATH LAB) IV ONE (14:30)
[2019-09-04] MEDS ORDERED: NITROGLYCERIN 50MCG/ML 10ML VIAL (CATH LAB) IV ONE (14:30)
[2019-09-04] MEDS ORDERED: MORPHINE SULFATE 2 MG/ML CPJ (NOT FOR IM USE) IV PRN (14:30)
[2019-09-04] MEDS ORDERED: ACETAMINOPHEN 325MG TABLET PO PRN (14:30)
[2019-09-04] MEDS: ENOXAPARIN 30MG/0.3ML SYR SUBCUT SCH (18:24)
[2019-09-04] MEDS: TRAMADOL 50MG TABLET PO PRN (20:00)
[2019-09-04] MEDS: ATORVASTATIN CALCIUM 10MG TABLET PO SCH (21:44)
[2019-09-05] VITALS (23 sets, daily range): BP systolic 110–170; BP diastolic 63–91
[2019-09-05] MEDS: INSULIN GLARGINE UD 100 UNITS/ML SYR SUBCUT SCH (00:41)
[2019-09-05] MEDS: MORPHINE SULFATE 2 MG/ML CPJ (NOT FOR IM USE) IV PRN (00:45)
[2019-09-05] MEDS: HYDRALAZINE HCL 100MG TABLET PO SCH ×3 (06:00→22:00)
[2019-09-05] MEDS: NITROGLYCERIN OINT 1GM/INCH UDPKT TD SCH ×3 (06:31→17:30)
[2019-09-05] MEDS: BLOOD SUGAR DIAGNOSTIC STRIP TEST SCH ×4 (06:34→21:38)
[2019-09-05 06:51] LABS: BASOPHILS % 0.4 % (0.0-2.0); EOSINOPHILS % 0.6 % (0.0-5.0); HEMATOCRIT. 34.9 % (36.0-48.0); HEMOGLOBIN. 11.2 g/dL (12.0-16.0); LYMPHOCYTES % 20.6 % (20.0-50.0); MEAN CORPUSCULAR HEMOGLOBIN 29.1 pg (28.0-32.0); MEAN CORPUSCULAR VOLUME 90.3 fL (81.0-99.0); MONOCYTES % 8.3 % (2.0-8.0); NEUTROPHILS % 70.1 % (40.0-76.0); PLATELET 266 x1000/uL (130-400); RED BLOOD CELL COUNT 3.86 mill/uL (4.2-5.4); RED CELL DISTRIBUTION WIDTH 16.6 % (11.6-14.6)
[2019-09-05] MEDS: SEVELAMER CARBONATE 800 MG TABLET PO SCH ×3 (07:20→17:29)
[2019-09-05 07:28] LABS: CHLORIDE 103 mEq/L (98-107)
[2019-09-05 07:38] LABS: CREATINE KINASE 163 IU/L (26-192)
[2019-09-05 07:41] LABS: CREATINE KINASE MB FRACTION 14.8 ng/mL (0.5-3.6)
[2019-09-05] MEDS ORDERED: SODIUM BICARBONATE 4% (2.4MEQ) 5ML VIAL IV ONE (08:40)
[2019-09-05] MEDS ORDERED: LIDOCAINE HCL 1% 20ML VIAL (Pyxis) INJ ONE (08:40)
[2019-09-05] MEDS ORDERED: LIDOCAINE HCL/EPINEPHRINE 1%-EPI 1:100,000 20 ML VIAL ONE (08:40)
[2019-09-05] MEDS: INSULIN LISPRO 100 UNITS/ML SUBCUT SCH ×4 (08:57→21:50)
[2019-09-05] MEDS ORDERED: CLINDAMYCIN 600MG PREMIX 50 ML IV NR (09:00)
[2019-09-05] MEDS ORDERED: ASPIRIN 325MG TABLET PO SCH (09:00)
[2019-09-05] MEDS ORDERED: FENTANYL CITRATE/PF 50MCG/ML 2ML VIAL ONE (09:14)
[2019-09-05] MEDS ORDERED: FENTANYL CITRATE/PF 50MCG/ML 2ML VIAL IV SCH (09:45)
[2019-09-05] MEDS: CLOPIDOGREL 75MG TABLET PO SCH (10:32)
[2019-09-05] MEDS: ASPIRIN 325MG EC TABLET PO SCH (10:33)
[2019-09-05] MEDS: METOPROLOL TARTRATE 25MG TABLET PO SCH (10:33)
[2019-09-05] MEDS: FOLIC ACID/VITAMIN B COMP W-C TABLET PO SCH (10:33)
[2019-09-05] MEDS: LOSARTAN POTASSIUM 25 MG TABLET PO SCH (10:33)
[2019-09-05] MEDS: AMLODIPINE 5MG TABLET PO SCH ×2 (10:33→20:43)
[2019-09-05] MEDS: CLONIDINE 0.1MG TABLET PO SCH ×2 (10:34→20:42)
[2019-09-05] MEDS: TRAMADOL 50MG TABLET PO PRN (11:08)
[2019-09-05] MEDS ORDERED: HEPARIN SODIUM 1,000 UNIT/1ML VIAL IV NR (14:15)
[2019-09-05] MEDS ORDERED: LOSARTAN POTASSIUM 50 MG TABLET PO SCH (16:42)
[2019-09-05] MEDS: ENOXAPARIN 30MG/0.3ML SYR SUBCUT SCH (17:31)
[2019-09-05] MEDS: LOSARTAN POTASSIUM 50 MG TABLET PO SCH (20:42)
[2019-09-05] MEDS: FAMOTIDINE 20MG TABLET PO SCH (21:48)
[2019-09-05] MEDS: METOPROLOL TARTRATE 50MG TABLET PO SCH (21:48)
[2019-09-05] MEDS: ATORVASTATIN CALCIUM 10MG TABLET PO SCH (21:48)
[2019-09-05] MEDS ORDERED: INSULIN GLARGINE UD 100 UNITS/ML SYR SUBCUT SCH (22:00)
[2019-09-05] MEDS: ZOLPIDEM TARTRATE 5MG TABLET PO PRN (22:20)
[2019-09-06] VITALS (12 sets, daily range): BP systolic 108–165; BP diastolic 45–78
[2019-09-06] MEDS: NITROGLYCERIN OINT 1GM/INCH UDPKT TD SCH ×4 (00:40→17:55)
[2019-09-06] MEDS: BLOOD SUGAR DIAGNOSTIC STRIP TEST SCH ×3 (06:05→17:25)
[2019-09-06] MEDS: HYDRALAZINE HCL 100MG TABLET PO SCH ×2 (06:23→13:26)
[2019-09-06 06:45] LABS: BASOPHILS % 0.3 % (0.0-2.0); EOSINOPHILS % 0.2 % (0.0-5.0); HEMATOCRIT. 32.4 % (36.0-48.0); HEMOGLOBIN. 10.7 g/dL (12.0-16.0); LYMPHOCYTES % 18.3 % (20.0-50.0); MEAN CORPUSCULAR HEMOGLOBIN 29.4 pg (28.0-32.0); MEAN CORPUSCULAR VOLUME 89.3 fL (81.0-99.0); MEAN PLATELET VOLUME 9.5 fl (7.4-10.4); MONOCYTES % 12.2 % (2.0-8.0); PLATELET 187 x1000/uL (130-400); RED BLOOD CELL COUNT 3.63 mill/uL (4.2-5.4); RED CELL DISTRIBUTION WIDTH 16.3 % (11.6-14.6)
[2019-09-06] MEDS: INSULIN LISPRO 100 UNITS/ML SUBCUT SCH ×3 (07:20→17:45)
[2019-09-06] MEDS: SEVELAMER CARBONATE 800 MG TABLET PO SCH ×3 (07:54→17:20)
[2019-09-06] MEDS: LOSARTAN POTASSIUM 50 MG TABLET PO SCH (08:37)
[2019-09-06] MEDS: METOPROLOL TARTRATE 50MG TABLET PO SCH (08:37)
[2019-09-06] MEDS: CLOPIDOGREL 75MG TABLET PO SCH (08:37)
[2019-09-06] MEDS: FOLIC ACID/VITAMIN B COMP W-C TABLET PO SCH (08:37)
[2019-09-06] MEDS: CLONIDINE 0.1MG TABLET PO SCH (08:37)
[2019-09-06] MEDS: ASPIRIN 325MG EC TABLET PO SCH (08:37)
[2019-09-06] MEDS: AMLODIPINE 5MG TABLET PO SCH (08:38)
[2019-09-06] MEDS: TRAMADOL 50MG TABLET PO PRN (08:38)
[2019-09-06] MEDS: ENOXAPARIN 30MG/0.3ML SYR SUBCUT SCH (17:48)
== END 2019-09-06 20:45 | disposition home or self-care (01) | DRG 174 ==
LOC: ER 07:00 → 3WST 10:18 → EDBEDREQ 10:22 → EDBEDREQSVC 10:22 → ENRESERV 15:16
PROVIDERS: ADMIT Internal Medicine; ATTEND Internal Medicine
PROC: 5A1D70Z Performance of Urinary Filtration, Intermittent, Less than 6 Hours Per Day (ICD-10-PCS; 2019-09-03)
PROC: 0JPT0XZ Removal of Tunneled Vascular Access Device from Trunk Subcutaneous Tissue and Fascia, Open Approach (ICD-10-PCS; 2019-09-03)
PROC: 0JH60XZ Insertion of Tunneled Vascular Access Device into Chest Subcutaneous Tissue and Fascia, Open Approach (ICD-10-PCS; 2019-09-03)
PROC: B5181ZA Fluoroscopy of Superior Vena Cava using Low Osmolar Contrast, Guidance (ICD-10-PCS; 2019-09-03)
PROC: 4A023N7 Measurement of Cardiac Sampling and Pressure, Left Heart, Percutaneous Approach (ICD-10-PCS; principal; 2019-09-04)
PROC: 027034Z Dilation of Coronary Artery, One Artery with Drug-eluting Intraluminal Device, Percutaneous Approach (ICD-10-PCS; 2019-09-04)
PROC: B2111ZZ Fluoroscopy of Multiple Coronary Arteries using Low Osmolar Contrast (ICD-10-PCS; 2019-09-04)
PROC: B2181ZZ Fluoroscopy of Left Internal Mammary Bypass Graft using Low Osmolar Contrast (ICD-10-PCS; 2019-09-04)
PROC: B2151ZZ Fluoroscopy of Left Heart using Low Osmolar Contrast (ICD-10-PCS; 2019-09-04)
PROC: 5A1D70Z Performance of Urinary Filtration, Intermittent, Less than 6 Hours Per Day (ICD-10-PCS; 2019-09-04)
PROC: 5A1D70Z Performance of Urinary Filtration, Intermittent, Less than 6 Hours Per Day (ICD-10-PCS; 2019-09-05)
PROC: 5A1D70Z Performance of Urinary Filtration, Intermittent, Less than 6 Hours Per Day (ICD-10-PCS; 2019-09-06)
DX: I21.4 Non-ST elevation (NSTEMI) myocardial infarction (principal); I47.2 Ventricular tachycardia; I13.2 Hypertensive heart and chronic kidney disease with heart failure and with stage 5 chronic kidney disease, or end stage renal disease; E11.22 Type 2 diabetes mellitus with diabetic chronic kidney disease; N18.6 End stage renal disease; I31.3 Pericardial effusion (noninflammatory); E11.649 Type 2 diabetes mellitus with hypoglycemia without coma; I50.33 Acute on chronic diastolic (congestive) heart failure; E11.65 Type 2 diabetes mellitus with hyperglycemia; I25.10 Atherosclerotic heart disease of native coronary artery without angina pectoris; Z99.2 Dependence on renal dialysis; Z95.1 Presence of aortocoronary bypass graft; N83.9 Noninflammatory disorder of ovary, fallopian tube and broad ligament, unspecified; D63.8 Anemia in other chronic diseases classified elsewhere; I44.7 Left bundle-branch block, unspecified; D64.9 Anemia, unspecified; I25.2 Old myocardial infarction; I25.5 Ischemic cardiomyopathy; E78.00 Pure hypercholesterolemia, unspecified; E78.5 Hyperlipidemia, unspecified; F32.9 Major depressive disorder, single episode, unspecified; J44.9 Chronic obstructive pulmonary disease, unspecified; K21.9 Gastro-esophageal reflux disease without esophagitis; Z79.4 Long term (current) use of insulin; Z85.43 Personal history of malignant neoplasm of ovary; Z91.11 Patient's noncompliance with dietary regimen; Z91.14 Patient's other noncompliance with medication regimen; Z91.15 Patient's noncompliance with renal dialysis; Z88.0 Allergy status to penicillin; Z88.2 Allergy status to sulfonamides; Z91.013 Allergy to seafood
CPT/HCPCS: 36415; 36558; 71045; 77001; 80048; 80061; 82550; 82553; 82962; 83036; 83735; 83880; 84443; 84484; 85347; 85379; 90686; 90732; 92928; 93005; 93306; 93459; 93571; 93970; 99152; 99153; 99291; C1725; C1750; C1769; C1887; C1893; J0282; J0360; J1200; J1642; J1644; J1650; J1720; J1815; J2250; J2270; J2405; J3010; J3490; J7040; J7060; Q9967; G0500

== ENCOUNTER 2019-10-28 08:36 | Inpatient (IN) | payer MEDICAID ==
[~2019-10-28] VITALS: Ht 166.4 cm; Wt 59.0 kg
[2019-10-28 12:31] LABS: BASOPHILS % 1.2 % (0.0-2.0); EOSINOPHILS % 0.1 % (0.0-5.0); HEMATOCRIT. 37.4 % (36.0-48.0); HEMOGLOBIN. 12.2 g/dL (12.0-16.0); LYMPHOCYTES % 22.4 % (20.0-50.0); MEAN CORPUSCULAR HEMOGLOBIN 30.4 pg (28.0-32.0); MEAN CORPUSCULAR VOLUME 92.9 fL (81.0-99.0); MEAN PLATELET VOLUME 9.7 fl (7.4-10.4); MONOCYTES % 6.7 % (2.0-8.0); NEUTROPHILS % 69.6 % (40.0-76.0); PLATELET 185 x1000/uL (130-400); RED BLOOD CELL COUNT 4.02 mill/uL (4.2-5.4); RED CELL DISTRIBUTION WIDTH 16.8 % (11.6-14.6)
[2019-10-28] MEDS ORDERED: MORPHINE SULFATE 4 MG/ML CPJ (NOT FOR IM USE) IV STA (13:10)
[2019-10-28] MEDS ORDERED: ONDANSETRON HCL 4MG/2ML INJ IV STA (13:10)
[2019-10-28] MEDS ORDERED: MORPHINE SULFATE 4 MG/ML CPJ (NOT FOR IM USE) IV ONE (17:00)
[2019-10-28] MEDS ORDERED: NITROGLYCERIN 0.4MG TABLET SL SL PRN (17:30)
[2019-10-28] MEDS: ASPIRIN 325MG EC TABLET PO NR ×2 (17:30→20:58)
[2019-10-28] MEDS ORDERED: DIPHENHYDRAMINE 50MG/ML VIAL IV PRN (23:30)
[2019-10-28] MEDS ORDERED: GUAIFENESIN 200MG/10ML SUGAR FREE UDC PO PRN (23:30)
[2019-10-28] MEDS ORDERED: CLONIDINE 0.1MG TABLET PO PRN (23:30)
[2019-10-28] MEDS ORDERED: MAGNESIUM/ALUMINUM HYDROXIDE/SIMETHICONE 30ML UDC PO PRN (23:30)
[2019-10-28] MEDS ORDERED: ACETAMINOPHEN 325MG TABLET PO PRN (23:30)
[2019-10-28] MEDS ORDERED: IPRATROPIUM/ALBUTEROL 0.5-3(2.5)MG/3ML NEB NEB PRN (23:30)
[2019-10-28] MEDS ORDERED: ONDANSETRON HCL 4MG/2ML INJ IV PRN (23:30)
[2019-10-28] MEDS ORDERED: DEXTROSE 50% WATER 50ML SYRINGE IV PRN (23:30)
[2019-10-29] VITALS: BP 173/83
[2019-10-29] MEDS: TRAMADOL 50MG TABLET PO PRN ×3 (00:28→18:28)
[2019-10-29] MEDS ORDERED: INSULIN GLARGINE UD 100 UNITS/ML SYR SUBCUT NR (01:00)
[2019-10-29] MEDS: LORAZEPAM 0.5MG TABLET PO PRN ×2 (01:01→19:44)
[2019-10-29] MEDS: HYDRALAZINE HCL 100MG TABLET PO SCH ×4 (06:33→21:18)
[2019-10-29] MEDS: BLOOD SUGAR DIAGNOSTIC STRIP TEST SCH ×4 (06:33→20:40)
[2019-10-29] MEDS: SODIUM CHLORIDE 0.9% INJ 3ML FLUSH IVF SCH ×3 (06:34→21:18)
[2019-10-29] MEDS: INSULIN LISPRO 100 UNITS/ML SUBCUT SCH ×4 (07:50→20:40)
[2019-10-29 08:16] VITALS: BP 127/64
[2019-10-29] MEDS: CLOPIDOGREL 75MG TABLET PO SCH (08:46)
[2019-10-29] MEDS: METOPROLOL TARTRATE 50MG TABLET PO SCH ×2 (08:47→20:39)
[2019-10-29] MEDS: LOSARTAN POTASSIUM 50 MG TABLET PO SCH ×2 (08:47→20:39)
[2019-10-29] MEDS: FAMOTIDINE 20MG TABLET PO SCH (08:47)
[2019-10-29] MEDS: ASPIRIN 325MG EC TABLET PO SCH (08:47)
[2019-10-29 12:08] VITALS: BP 135/72
[2019-10-29 16:19] VITALS: BP 160/86
[2019-10-29 20:00] VITALS: BP 148/79
[2019-10-29] MEDS: TRAZODONE HCL 50MG TABLET PO SCH (20:38)
[2019-10-29] MEDS: ATORVASTATIN CALCIUM 10MG TABLET PO SCH (20:39)
[2019-10-29] MEDS: INSULIN GLARGINE UD 100 UNITS/ML SYR SUBCUT SCH (21:29)
[2019-10-30] VITALS (12 sets, daily range): BP systolic 127–170; BP diastolic 63–100
[2019-10-30] MEDS: HYDRALAZINE HCL 100MG TABLET PO SCH ×3 (06:00→23:05)
[2019-10-30] MEDS: BLOOD SUGAR DIAGNOSTIC STRIP TEST SCH ×4 (06:59→20:59)
[2019-10-30] MEDS: SODIUM CHLORIDE 0.9% INJ 3ML FLUSH IVF SCH ×3 (07:00→21:30)
[2019-10-30] MEDS: INSULIN LISPRO 100 UNITS/ML SUBCUT SCH ×4 (07:50→21:30)
[2019-10-30 07:54] LABS: BASOPHILS % 0.4 % (0.0-2.0); EOSINOPHILS % 0.2 % (0.0-5.0); HEMATOCRIT. 41.3 % (36.0-48.0); HEMOGLOBIN. 13.5 g/dL (12.0-16.0); LYMPHOCYTES % 15.6 % (20.0-50.0); MEAN CORPUSCULAR HEMOGLOBIN 30.3 pg (28.0-32.0); MEAN CORPUSCULAR VOLUME 92.6 fL (81.0-99.0); MEAN PLATELET VOLUME 9.8 fl (7.4-10.4); MONOCYTES % 10.3 % (2.0-8.0); NEUTROPHILS % 73.5 % (40.0-76.0); PLATELET 187 x1000/uL (130-400); RED BLOOD CELL COUNT 4.47 mill/uL (4.2-5.4); RED CELL DISTRIBUTION WIDTH 16.4 % (11.6-14.6)
[2019-10-30] MEDS: TRAMADOL 50MG TABLET PO PRN ×2 (08:59→16:41)
[2019-10-30] MEDS: METOPROLOL TARTRATE 50MG TABLET PO SCH ×2 (09:00→20:56)
[2019-10-30] MEDS: LOSARTAN POTASSIUM 50 MG TABLET PO SCH ×2 (09:00→23:05)
[2019-10-30] MEDS: FAMOTIDINE 20MG TABLET PO SCH (09:00)
[2019-10-30] MEDS: CLOPIDOGREL 75MG TABLET PO SCH (09:00)
[2019-10-30] MEDS: ASPIRIN 325MG EC TABLET PO SCH (09:00)
[2019-10-30] MEDS ORDERED: DEXT 5%/0.45% NACL 500ML 500 ML IV ONE (10:15)
[2019-10-30] MEDS ORDERED: NITROGLYCERIN 50MCG/ML 10ML VIAL (CATH LAB) IV ONE (11:00)
[2019-10-30] MEDS ORDERED: HEPARIN SODIUM 1,000 UNIT/1ML VIAL IV ONE (11:00)
[2019-10-30] MEDS ORDERED: NICARDIPINE 100MCG/ML 10ML VIAL (CATH LAB) IV ONE (11:00)
[2019-10-30] MEDS ORDERED: ASPIRIN/SOD BICARB/CITRIC ACID 324MG TAB EFF ONE (11:53)
[2019-10-30] MEDS ORDERED: IODIXANOL 320MG/ML 100 ML BOTTLE IV ONE (11:54)
[2019-10-30] MEDS ORDERED: IOHEXOL-300 100 ML BOTTLE ONE (11:54)
[2019-10-30] MEDS ORDERED: FENTANYL CITRATE/PF 50MCG/ML 2ML VIAL ONE (11:54)
[2019-10-30] MEDS ORDERED: MIDAZOLAM HCL 2 MG/2 ML VIAL ONE (11:54)
[2019-10-30] MEDS ORDERED: LIDOCAINE HCL 1% 20ML VIAL (Pyxis) INJ ONE (11:55)
[2019-10-30] MEDS ORDERED: DIPHENHYDRAMINE 50MG/ML VIAL ONE (12:34)
[2019-10-30] MEDS ORDERED: HYDROCORTISONE SOD SUCCINATE 250 MG/2 ML VIAL ONE (12:35)
[2019-10-30] MEDS ORDERED: ONDANSETRON HCL 4MG/2ML INJ IV PRN (14:00)
[2019-10-30] MEDS ORDERED: CLOPIDOGREL 75MG TABLET PO SCH (14:00)
[2019-10-30] MEDS ORDERED: ACETAMINOPHEN 325MG TABLET PO PRN (14:00)
[2019-10-30] MEDS ORDERED: MORPHINE SULFATE 2 MG/ML CPJ (NOT FOR IM USE) IV PRN (14:00)
[2019-10-30] MEDS ORDERED: ATROPINE SULFATE 1MG/10ML SYR IV PRN (14:00)
[2019-10-30] MEDS ORDERED: CLOPIDOGREL 75MG TABLET ONE (14:08)
[2019-10-30] MEDS: LORAZEPAM 0.5MG TABLET PO PRN (19:40)
[2019-10-30] MEDS: ATORVASTATIN CALCIUM 10MG TABLET PO SCH (20:55)
[2019-10-30] MEDS: TRAZODONE HCL 50MG TABLET PO SCH (20:56)
[2019-10-30] MEDS: HYDROCODONE/ACETAMINOPHEN 5/325MG TABLET PO PRN (21:29)
[2019-10-30] MEDS: INSULIN GLARGINE UD 100 UNITS/ML SYR SUBCUT SCH (23:08)
[2019-10-31] VITALS (12 sets, daily range): BP systolic 125–169; BP diastolic 55–88
[2019-10-31] MEDS: HYDRALAZINE HCL 100MG TABLET PO SCH ×3 (06:22→22:34)
[2019-10-31] MEDS: BLOOD SUGAR DIAGNOSTIC STRIP TEST SCH ×4 (06:22→21:00)
[2019-10-31] MEDS: SODIUM CHLORIDE 0.9% INJ 3ML FLUSH IVF SCH ×3 (06:22→22:32)
[2019-10-31 07:09] LABS: BASOPHILS % 0.4 % (0.0-2.0); EOSINOPHILS % 0.1 % (0.0-5.0); HEMATOCRIT. 40.8 % (36.0-48.0); HEMOGLOBIN. 13.7 g/dL (12.0-16.0); LYMPHOCYTES % 14.4 % (20.0-50.0); MEAN CORPUSCULAR HEMOGLOBIN 30.7 pg (28.0-32.0); MEAN CORPUSCULAR VOLUME 91.5 fL (81.0-99.0); MEAN PLATELET VOLUME 9.9 fl (7.4-10.4); MONOCYTES % 11.1 % (2.0-8.0); PLATELET 182 x1000/uL (130-400); RED BLOOD CELL COUNT 4.46 mill/uL (4.2-5.4)
[2019-10-31] MEDS: INSULIN LISPRO 100 UNITS/ML SUBCUT SCH ×4 (07:20→21:00)
[2019-10-31] MEDS: LOSARTAN POTASSIUM 50 MG TABLET PO SCH ×2 (09:00→20:44)
[2019-10-31] MEDS: TRAMADOL 50MG TABLET PO PRN (09:50)
[2019-10-31] MEDS: FAMOTIDINE 20MG TABLET PO SCH (09:52)
[2019-10-31] MEDS: METOPROLOL TARTRATE 50MG TABLET PO SCH ×2 (09:52→20:43)
[2019-10-31] MEDS: ASPIRIN 325MG EC TABLET PO SCH (09:52)
[2019-10-31] MEDS: CLOPIDOGREL 75MG TABLET PO SCH (09:52)
[2019-10-31] MEDS: HYDROCODONE/ACETAMINOPHEN 5/325MG TABLET PO PRN ×2 (17:17→22:05)
[2019-10-31] MEDS: LORAZEPAM 0.5MG TABLET PO PRN (20:44)
[2019-10-31] MEDS: ATORVASTATIN CALCIUM 10MG TABLET PO SCH (20:44)
[2019-10-31] MEDS: TRAZODONE HCL 50MG TABLET PO SCH (20:44)
[2019-10-31] MEDS: INSULIN GLARGINE UD 100 UNITS/ML SYR SUBCUT SCH (22:28)
[2019-11-01] MEDS: HYDROCODONE/ACETAMINOPHEN 5/325MG TABLET PO PRN ×2 (04:33→10:10)
[2019-11-01 04:34] VITALS: BP 156/79
[2019-11-01] MEDS: HYDRALAZINE HCL 100MG TABLET PO SCH ×2 (04:35→14:00)
[2019-11-01] MEDS: BLOOD SUGAR DIAGNOSTIC STRIP TEST SCH ×2 (06:12→13:17)
[2019-11-01] MEDS: INSULIN LISPRO 100 UNITS/ML SUBCUT SCH ×2 (06:12→12:50)
[2019-11-01] MEDS: SODIUM CHLORIDE 0.9% INJ 3ML FLUSH IVF SCH ×2 (06:51→14:00)
[2019-11-01 07:15] LABS: BASOPHILS % 0.3 % (0.0-2.0); EOSINOPHILS % 0.1 % (0.0-5.0); HEMATOCRIT. 37.8 % (36.0-48.0); HEMOGLOBIN. 12.5 g/dL (12.0-16.0); LYMPHOCYTES % 19.6 % (20.0-50.0); MEAN CORPUSCULAR HEMOGLOBIN 30.3 pg (28.0-32.0); MEAN CORPUSCULAR VOLUME 91.8 fL (81.0-99.0); MEAN PLATELET VOLUME 9.9 fl (7.4-10.4); MONOCYTES % 11.5 % (2.0-8.0); NEUTROPHILS % 68.5 % (40.0-76.0); PLATELET 189 x1000/uL (130-400); RED BLOOD CELL COUNT 4.11 mill/uL (4.2-5.4); RED CELL DISTRIBUTION WIDTH 15.9 % (11.6-14.6)
[2019-11-01 08:00] VITALS: BP 131/61
[2019-11-01] MEDS: LOSARTAN POTASSIUM 50 MG TABLET PO SCH (08:43)
[2019-11-01] MEDS: CLOPIDOGREL 75MG TABLET PO SCH (08:43)
[2019-11-01] MEDS: FAMOTIDINE 20MG TABLET PO SCH (08:43)
[2019-11-01] MEDS: ASPIRIN 325MG EC TABLET PO SCH (08:43)
[2019-11-01] MEDS: METOPROLOL TARTRATE 50MG TABLET PO SCH (08:43)
[2019-11-01 12:00] VITALS: BP 148/77
[2019-11-01 14:50] VITALS: BP 148/77
== END 2019-11-01 15:40 | disposition home or self-care (01) | DRG 175 ==
LOC: ER 08:36 → EDBEDREQTM 16:49 → EDBEDREQ 16:49 → ENRESERV 19:59 → 6WST 23:17 → 3WST 10-30 14:16 → 6WST 10-31 23:31
PROVIDERS: ADMIT Internal Medicine; ATTEND Internal Medicine
PROC: 5A1D70Z Performance of Urinary Filtration, Intermittent, Less than 6 Hours Per Day (ICD-10-PCS; 2019-10-29)
PROC: 4A023N7 Measurement of Cardiac Sampling and Pressure, Left Heart, Percutaneous Approach (ICD-10-PCS; principal; 2019-10-30)
PROC: 027034Z Dilation of Coronary Artery, One Artery with Drug-eluting Intraluminal Device, Percutaneous Approach (ICD-10-PCS; 2019-10-30)
PROC: B2111ZZ Fluoroscopy of Multiple Coronary Arteries using Low Osmolar Contrast (ICD-10-PCS; 2019-10-30)
PROC: B2181ZZ Fluoroscopy of Left Internal Mammary Bypass Graft using Low Osmolar Contrast (ICD-10-PCS; 2019-10-30)
PROC: 4A033BC Measurement of Arterial Pressure, Coronary, Percutaneous Approach (ICD-10-PCS; 2019-10-30)
PROC: 5A1D70Z Performance of Urinary Filtration, Intermittent, Less than 6 Hours Per Day (ICD-10-PCS; 2019-10-31)
DX: T82.898A Other specified complication of vascular prosthetic devices, implants and grafts, initial encounter (principal); E11.22 Type 2 diabetes mellitus with diabetic chronic kidney disease; I12.0 Hypertensive chronic kidney disease with stage 5 chronic kidney disease or end stage renal disease; I25.82 Chronic total occlusion of coronary artery; N18.6 End stage renal disease; R07.89 Other chest pain; F17.200 Nicotine dependence, unspecified, uncomplicated; I25.5 Ischemic cardiomyopathy; I35.0 Nonrheumatic aortic (valve) stenosis; Y83.2 Surgical operation with anastomosis, bypass or graft as the cause of abnormal reaction of the patient, or of later complication, without mention of misadventure at the time of the procedure; F41.1 Generalized anxiety disorder; F41.9 Anxiety disorder, unspecified; I25.10 Atherosclerotic heart disease of native coronary artery without angina pectoris; K21.9 Gastro-esophageal reflux disease without esophagitis; Z99.2 Dependence on renal dialysis; Z82.49 Family history of ischemic heart disease and other diseases of the circulatory system; I25.2 Old myocardial infarction; Z95.1 Presence of aortocoronary bypass graft; Z88.2 Allergy status to sulfonamides; Z88.0 Allergy status to penicillin; Z91.013 Allergy to seafood; Z79.82 Long term (current) use of aspirin; Z79.4 Long term (current) use of insulin; Z79.899 Other long term (current) drug therapy; Y92.89 Other specified places as the place of occurrence of the external cause
CPT/HCPCS: 36415; 71045; 80048; 82962; 83880; 84484; 85347; 92937; 93005; 93454; 93571; 96374; 96375; 96376; 99285; C1769; C1874; C1887; C1893; J1200; J1644; J1720; J1815; J2250; J2270; J2405; J3010; J3490; J7620; Q9967

== ENCOUNTER 2020-02-02 00:12 | Inpatient (IN) | payer MEDICAID ==
[2020-02-02] VITALS (11 sets, daily range): BP systolic 116–151; BP diastolic 63–104
[~2020-02-02] VITALS: Ht 162.6 cm; Wt 56.8 kg
[~2020-02-02 00:12] MED LIST changes: -ALBU6.7H INH; +ALBU6.7H11 INH; -CLON0.2T PO; -HYDR-4134 PO; -METO-293 PO
[2020-02-02] MEDS ORDERED: NITROGLYCERIN OINT 1GM/INCH UDPKT TD ONE (00:30)
[2020-02-02] MEDS ORDERED: ASPIRIN 81MG TABLET PO ONE (00:30)
[2020-02-02 01:04] LABS: BASOPHILS % 0.6 % (0.0-2.0); EOSINOPHILS % 0.2 % (0.0-5.0); HEMATOCRIT. 31.2 % (36.0-48.0); HEMOGLOBIN. 10.3 g/dL (12.0-16.0); LYMPHOCYTES % 10.4 % (20.0-50.0); MEAN CORPUSCULAR HEMOGLOBIN 31.3 pg (28.0-32.0); MEAN CORPUSCULAR VOLUME 94.9 fL (81.0-99.0); MEAN PLATELET VOLUME 10.1 fl (7.4-10.4); MONOCYTES % 5.3 % (2.0-8.0); NEUTROPHILS % 83.5 % (40.0-76.0); PLATELET 420 x1000/uL (130-400); RED BLOOD CELL COUNT 3.28 mill/uL (4.2-5.4); RED CELL DISTRIBUTION WIDTH 16.1 % (11.6-14.6)
[2020-02-02 01:10] LABS: CHLORIDE 103 mEq/L (98-107)
[2020-02-02] MEDS ORDERED: MORPHINE SULFATE 2 MG/ML CPJ (NOT FOR IM USE) IV ONE (01:30)
[2020-02-02] MEDS ORDERED: HEPARIN 25,000 UNITS PREMIX 500 ML IV ONE (01:45)
[2020-02-02] MEDS ORDERED: HEPARIN 5000 UNITS/ML VIAL IV ONE (01:45)
[2020-02-02 02:08] LABS: PARTIAL THROMBOPLASTIN TIME 26.7 sec (23.4-31.0); PROTHROMBIN TIME 10.5 sec (9.6-11.0)
[2020-02-02] MEDS ORDERED: HEPARIN BOLUS PRN aPTT <30 IV (02:45)
[2020-02-02] MEDS ORDERED: HEPARIN BOLUS PRN aPTT 30-44 IV ×2 (02:45→03:06)
[2020-02-02] MEDS: HEPARIN 25,000 UNITS PREMIX 500 ML IV SCH (03:01)
[2020-02-02] MEDS ORDERED: ONDANSETRON HCL 4MG/2ML INJ IV PRN (06:00)
[2020-02-02] MEDS ORDERED: DEXTROSE 50% WATER 50ML SYRINGE IV PRN (07:00)
[2020-02-02] MEDS ORDERED: LORAZEPAM 0.5MG TABLET PO PRN (07:16)
[2020-02-02] MEDS ORDERED: PANTOPRAZOLE 40MG DR TABLET PO SCH (07:30)
[2020-02-02] MEDS: BLOOD SUGAR DIAGNOSTIC STRIP TEST SCH ×4 (08:10→21:43)
[2020-02-02] MEDS ORDERED: AMLODIPINE 5MG TABLET PO SCH (09:00)
[2020-02-02] MEDS: ASPIRIN 81MG TABLET PO SCH (09:14)
[2020-02-02] MEDS: INSULIN LISPRO 100 UNITS/ML SUBCUT SCH ×4 (09:15→21:39)
[2020-02-02] MEDS: MORPHINE SULFATE 2 MG/ML CPJ (NOT FOR IM USE) IV PRN ×2 (09:16→23:23)
[2020-02-02 09:36] LABS: BASOPHILS % 0.6 % (0.0-2.0); EOSINOPHILS % 0.1 % (0.0-5.0); HEMATOCRIT. 28.8 % (36.0-48.0); HEMOGLOBIN. 9.4 g/dL (12.0-16.0); LYMPHOCYTES % 9.6 % (20.0-50.0); MEAN CORPUSCULAR HEMOGLOBIN 31.1 pg (28.0-32.0); MEAN CORPUSCULAR VOLUME 94.9 fL (81.0-99.0); MEAN PLATELET VOLUME 10.2 fl (7.4-10.4); MONOCYTES % 5.7 % (2.0-8.0); PLATELET 362 x1000/uL (130-400); RED BLOOD CELL COUNT 3.03 mill/uL (4.2-5.4); RED CELL DISTRIBUTION WIDTH 16.3 % (11.6-14.6)
[2020-02-02] MEDS: HEPARIN BOLUS PRN aPTT <30 IV ×2 (10:19→18:24)
[2020-02-02] MEDS: AMLODIPINE 5MG TABLET PO SCH (21:37)
[2020-02-02] MEDS: ATORVASTATIN CALCIUM 20MG TABLET PO SCH (21:38)
[2020-02-02] MEDS: ACETAMINOPHEN 650MG/20.3ML UDC PO PRN (21:38)
[2020-02-02] MEDS ORDERED: INSULIN GLARGINE UD 100 UNITS/ML SYR SUBCUT SCH (22:00)
[2020-02-02] MEDS: INSULIN GLARGINE UD 100 UNITS/ML SYR SUBCUT SCH (22:15)
[2020-02-03] VITALS (12 sets, daily range): BP systolic 115–150; BP diastolic 52–82
[2020-02-03] MEDS ORDERED: ENOXAPARIN 40MG/0.4ML SYR SUBCUT NR
[2020-02-03 03:00] LABS: *BARBITURATES SCREEN URINE NEGATIVE (NEGATIVE); *BENZODIAZEPINES SCREEN URINE NEGATIVE (NEGATIVE); *COCAINE SCREEN URINE NEGATIVE (NEGATIVE); CANNABINOID URINE SCREEN PRESUMTIVE POSITIVE (NEGATIVE); METHADONE URINE SCREEN NEGATIVE (NEGATIVE); OPIATES URINE SCREEN PRESUMTIVE POSITIVE (NEGATIVE)
[2020-02-03 03:01] LABS: *AMPHETAMINES SCREEN URINE NEGATIVE (NEGATIVE); PHENCYCLIDINE URINE SCREEN NEGATIVE (NEGATIVE)
[2020-02-03 06:12] LABS: BASOPHILS % 0.6 % (0.0-2.0); EOSINOPHILS % 0.2 % (0.0-5.0); HEMATOCRIT. 28.2 % (36.0-48.0); HEMOGLOBIN. 9.4 g/dL (12.0-16.0); LYMPHOCYTES % 10.8 % (20.0-50.0); MEAN CORPUSCULAR HEMOGLOBIN 31.3 pg (28.0-32.0); MEAN CORPUSCULAR VOLUME 94.2 fL (81.0-99.0); MEAN PLATELET VOLUME 10.2 fl (7.4-10.4); MONOCYTES % 5.8 % (2.0-8.0); NEUTROPHILS % 82.6 % (40.0-76.0); PLATELET 377 x1000/uL (130-400); RED CELL DISTRIBUTION WIDTH 16.4 % (11.6-14.6)
[2020-02-03] MEDS: BLOOD SUGAR DIAGNOSTIC STRIP TEST SCH ×4 (07:35→20:56)
[2020-02-03] MEDS: MORPHINE SULFATE 2 MG/ML CPJ (NOT FOR IM USE) IV PRN ×2 (07:38→21:49)
[2020-02-03] MEDS: INSULIN LISPRO 100 UNITS/ML SUBCUT SCH ×4 (07:48→21:00)
[2020-02-03] MEDS ORDERED: LIDOCAINE HCL 1% 20ML VIAL (Pyxis) INJ ONE (08:17)
[2020-02-03] MEDS: AMLODIPINE 5MG TABLET PO SCH (08:47)
[2020-02-03] MEDS: PANTOPRAZOLE 40MG DR TABLET PO SCH (08:47)
[2020-02-03] MEDS: ASPIRIN 81MG TABLET PO SCH (08:47)
[2020-02-03] MEDS: HEPARIN 25,000 UNITS PREMIX 500 ML IV SCH (08:50)
[2020-02-03] MEDS: NICOTINE 14MG PATCH TD SCH (08:56)
[2020-02-03] MEDS: INSULIN GLARGINE UD 100 UNITS/ML SYR SUBCUT SCH ×2 (10:00→21:07)
[2020-02-03] MEDS ORDERED: HEPARIN 25,000 UNITS PREMIX 500 ML IV PRN (13:30)
[2020-02-03] MEDS: ACETAMINOPHEN 650MG/20.3ML UDC PO PRN (17:28)
[2020-02-03] MEDS ORDERED: ENOXAPARIN 80MG/0.8ML SYR SUBCUT SCH (18:00)
[2020-02-03] MEDS: ATORVASTATIN CALCIUM 20MG TABLET PO SCH (20:55)
[2020-02-03] MEDS: CARVEDILOL 3.125 MG TABLET PO SCH (20:55)
[2020-02-04] VITALS (13 sets, daily range): BP systolic 101–141; BP diastolic 43–88
[2020-02-04] MEDS: MORPHINE SULFATE 2 MG/ML CPJ (NOT FOR IM USE) IV PRN ×2 (05:44→20:16)
[2020-02-04 06:32] LABS: BASOPHILS % 0.3 % (0.0-2.0); EOSINOPHILS % 0.2 % (0.0-5.0); HEMATOCRIT. 28.6 % (36.0-48.0); HEMOGLOBIN. 9.4 g/dL (12.0-16.0); LYMPHOCYTES % 10.4 % (20.0-50.0); MEAN PLATELET VOLUME 10.2 fl (7.4-10.4); MONOCYTES % 7.7 % (2.0-8.0); NEUTROPHILS % 81.4 % (40.0-76.0); PLATELET 336 x1000/uL (130-400); RED BLOOD CELL COUNT 3.04 mill/uL (4.2-5.4); RED CELL DISTRIBUTION WIDTH 16.4 % (11.6-14.6)
[2020-02-04 06:35] LABS: PROTHROMBIN TIME 10.8 sec (9.6-11.0)
[2020-02-04] MEDS: BLOOD SUGAR DIAGNOSTIC STRIP TEST SCH ×3 (07:40→20:30)
[2020-02-04] MEDS: INSULIN LISPRO 100 UNITS/ML SUBCUT SCH ×3 (08:00→21:45)
[2020-02-04] MEDS: PANTOPRAZOLE 40MG DR TABLET PO SCH (08:26)
[2020-02-04] MEDS: ASPIRIN 81MG TABLET PO SCH (08:26)
[2020-02-04] MEDS: NICOTINE 14MG PATCH TD SCH (08:27)
[2020-02-04] MEDS: CARVEDILOL 3.125 MG TABLET PO SCH ×2 (08:27→20:17)
[2020-02-04] MEDS ORDERED: IODIXANOL 320MG/ML 100 ML BOTTLE IV ONE (09:50)
[2020-02-04] MEDS ORDERED: LIDOCAINE HCL 1% 20ML VIAL (Pyxis) INJ ONE (09:50)
[2020-02-04] MEDS ORDERED: DIPHENHYDRAMINE 50MG/ML VIAL ONE (09:52)
[2020-02-04] MEDS ORDERED: HYDROCORTISONE SOD SUCCINATE 250 MG/2 ML VIAL ONE (09:52)
[2020-02-04] MEDS ORDERED: ASPIRIN/SOD BICARB/CITRIC ACID 324MG TAB EFF ONE (09:52)
[2020-02-04] MEDS ORDERED: FAMOTIDINE 20MG/2ML VIAL IV ONE (09:52)
[2020-02-04] MEDS ORDERED: HEPARIN SODIUM 1,000 UNIT/1ML VIAL IV ONE (10:00)
[2020-02-04] MEDS: INSULIN GLARGINE UD 100 UNITS/ML SYR SUBCUT SCH ×2 (10:28→21:46)
[2020-02-04] MEDS ORDERED: MIDAZOLAM HCL 2 MG/2 ML VIAL ONE (11:15)
[2020-02-04] MEDS ORDERED: FENTANYL CITRATE/PF 50MCG/ML 2ML VIAL ONE (11:15)
[2020-02-04] MEDS ORDERED: ONDANSETRON HCL 4MG/2ML INJ IV PRN (12:00)
[2020-02-04] MEDS ORDERED: CLOPIDOGREL 75MG TABLET PO SCH (12:00)
[2020-02-04] MEDS ORDERED: ATROPINE SULFATE 1MG/10ML SYR IV PRN (12:00)
[2020-02-04] MEDS ORDERED: ACETAMINOPHEN 325MG TABLET PO PRN (12:00)
[2020-02-04] MEDS ORDERED: MORPHINE SULFATE 2 MG/ML CPJ (NOT FOR IM USE) IV PRN (12:00)
[2020-02-04] MEDS: ATORVASTATIN CALCIUM 20MG TABLET PO SCH (20:17)
[2020-02-05] VITALS (13 sets, daily range): BP systolic 123–161; BP diastolic 60–118
[2020-02-05] MEDS: BLOOD SUGAR DIAGNOSTIC STRIP TEST SCH ×4 (05:40→22:05)
[2020-02-05 06:26] LABS: BASOPHILS % 0.8 % (0.0-2.0); EOSINOPHILS % 0.4 % (0.0-5.0); HEMATOCRIT. 28.4 % (36.0-48.0); HEMOGLOBIN. 9.5 g/dL (12.0-16.0); LYMPHOCYTES % 15.3 % (20.0-50.0); MEAN CORPUSCULAR HEMOGLOBIN 31.3 pg (28.0-32.0); MEAN CORPUSCULAR VOLUME 93.9 fL (81.0-99.0); MEAN PLATELET VOLUME 10.2 fl (7.4-10.4); MONOCYTES % 8.6 % (2.0-8.0); NEUTROPHILS % 74.9 % (40.0-76.0); PLATELET 357 x1000/uL (130-400); RED BLOOD CELL COUNT 3.03 mill/uL (4.2-5.4); RED CELL DISTRIBUTION WIDTH 16.5 % (11.6-14.6)
[2020-02-05] MEDS: INSULIN LISPRO 100 UNITS/ML SUBCUT SCH ×4 (07:20→22:05)
[2020-02-05] MEDS: NICOTINE 14MG PATCH TD SCH (09:00)
[2020-02-05] MEDS ORDERED: CLOPIDOGREL 75MG TABLET PO SCH (09:00)
[2020-02-05] MEDS: ASPIRIN 81MG TABLET PO SCH ×2 (09:31→17:43)
[2020-02-05] MEDS: PANTOPRAZOLE 40MG DR TABLET PO SCH (09:31)
[2020-02-05] MEDS: CARVEDILOL 6.25 MG TABLET PO SCH ×2 (09:32→23:30)
[2020-02-05] MEDS: INSULIN GLARGINE UD 100 UNITS/ML SYR SUBCUT SCH ×2 (11:05→22:11)
[2020-02-05] MEDS: MORPHINE SULFATE 2 MG/ML CPJ (NOT FOR IM USE) IV PRN ×3 (11:12→23:29)
[2020-02-05] MEDS ORDERED: CLOP75TA15 PO (12:32)
[2020-02-05] MEDS ORDERED: ASPI-1160 PO (12:32)
[2020-02-05] MEDS ORDERED: ATOR20TA PO (12:32)
[2020-02-05] MEDS ORDERED: COR6 PO (12:32)
[2020-02-05] MEDS: ATORVASTATIN CALCIUM 20MG TABLET PO SCH (22:03)
[2020-02-06 00:09] VITALS: BP 144/81
[2020-02-06 01:35] VITALS: BP 111/69
[2020-02-06 03:36] VITALS: BP 148/80
[2020-02-06 05:35] VITALS: BP 115/60
[2020-02-06] MEDS: BLOOD SUGAR DIAGNOSTIC STRIP TEST SCH (05:54)
[2020-02-06 06:13] VITALS: BP 115/60
[2020-02-06] MEDS: INSULIN LISPRO 100 UNITS/ML SUBCUT SCH (07:20)
[2020-02-06 07:55] VITALS: BP 116/50
== END 2020-02-06 07:49 | disposition home or self-care (01) | DRG 190 ==
LOC: ER 00:12 → 5EST 02:45 → EDBEDREQSVC 02:49 → EDBEDREQTM 02:49 → EDBEDREQ 02:49 → ENRESERV 03:30 → 3WST 02-04 12:18
PROVIDERS: ADMIT Internal Medicine; ATTEND Internal Medicine
PROC: 05HY33Z Insertion of Infusion Device into Upper Vein, Percutaneous Approach (ICD-10-PCS; 2020-02-03)
PROC: 5A1D70Z Performance of Urinary Filtration, Intermittent, Less than 6 Hours Per Day (ICD-10-PCS; 2020-02-03)
PROC: 4A023N7 Measurement of Cardiac Sampling and Pressure, Left Heart, Percutaneous Approach (ICD-10-PCS; principal; 2020-02-04)
PROC: B2111ZZ Fluoroscopy of Multiple Coronary Arteries using Low Osmolar Contrast (ICD-10-PCS; 2020-02-04)
PROC: B2131ZZ Fluoroscopy of Multiple Coronary Artery Bypass Grafts using Low Osmolar Contrast (ICD-10-PCS; 2020-02-04)
PROC: B2151ZZ Fluoroscopy of Left Heart using Low Osmolar Contrast (ICD-10-PCS; 2020-02-04)
PROC: B2181ZZ Fluoroscopy of Left Internal Mammary Bypass Graft using Low Osmolar Contrast (ICD-10-PCS; 2020-02-04)
PROC: B41J1ZZ Fluoroscopy of Other Lower Arteries using Low Osmolar Contrast (ICD-10-PCS; 2020-02-04)
PROC: 5A1D70Z Performance of Urinary Filtration, Intermittent, Less than 6 Hours Per Day (ICD-10-PCS; 2020-02-05)
DX: I21.3 ST elevation (STEMI) myocardial infarction of unspecified site (principal); I13.2 Hypertensive heart and chronic kidney disease with heart failure and with stage 5 chronic kidney disease, or end stage renal disease; E11.22 Type 2 diabetes mellitus with diabetic chronic kidney disease; E11.65 Type 2 diabetes mellitus with hyperglycemia; N18.6 End stage renal disease; I69.354 Hemiplegia and hemiparesis following cerebral infarction affecting left non-dominant side; R45.851 Suicidal ideations; I44.7 Left bundle-branch block, unspecified; I25.10 Atherosclerotic heart disease of native coronary artery without angina pectoris; R07.9 Chest pain, unspecified; I25.5 Ischemic cardiomyopathy; N83.9 Noninflammatory disorder of ovary, fallopian tube and broad ligament, unspecified; D64.9 Anemia, unspecified; I50.22 Chronic systolic (congestive) heart failure; I34.0 Nonrheumatic mitral (valve) insufficiency; F41.9 Anxiety disorder, unspecified; F17.200 Nicotine dependence, unspecified, uncomplicated; E78.1 Pure hyperglyceridemia; E78.5 Hyperlipidemia, unspecified; D72.829 Elevated white blood cell count, unspecified; K21.9 Gastro-esophageal reflux disease without esophagitis; Z88.2 Allergy status to sulfonamides; Z95.1 Presence of aortocoronary bypass graft; Z95.5 Presence of coronary angioplasty implant and graft; Z99.2 Dependence on renal dialysis; Z85.43 Personal history of malignant neoplasm of ovary; Z79.899 Other long term (current) drug therapy; Z79.02 Long term (current) use of antithrombotics/antiplatelets; Z79.4 Long term (current) use of insulin; Z88.0 Allergy status to penicillin; Z91.013 Allergy to seafood; Z79.82 Long term (current) use of aspirin
CPT/HCPCS: 36415; 71045; 76937; 80048; 80053; 80061; 80305; 82550; 82962; 83036; 83880; 84484; 85025; 85347; 93005; 93306; 93459; 96365; 99291; C1725; C1760; C1769; C1893; J1200; J1644; J1720; J1815; J2250; J2270; J2405; J3010; J3490; Q9967

== ENCOUNTER 2020-02-24 03:57 | Inpatient (IN) | payer MEDICAID ==
[~2020-02-24] VITALS: Ht 165.1 cm; Wt 66.7 kg
[2020-02-24] VITALS (9 sets, daily range): BP systolic 124–149; BP diastolic 74–86
[~2020-02-24 03:57] MED LIST changes: -AMLO5TAB88 PO; -ASPI-1158 PO; +ASPI-1160 PO; -BENA5TAB6 MT; +CLOP75TA15 PO; +COR6 PO
[2020-02-24] MEDS ORDERED: ONDANSETRON HCL 4MG/2ML INJ IV STA (04:05)
[2020-02-24] MEDS ORDERED: MORPHINE SULFATE 2 MG/ML CPJ (NOT FOR IM USE) IV ONE (04:15)
[2020-02-24] MEDS ORDERED: FUROSEMIDE 40MG/4ML VIAL IV ONE (04:15)
[2020-02-24] MEDS ORDERED: ENALAPRIL 2.5MG/2ML VIAL 2ML IV ONE (04:15)
[2020-02-24] MEDS ORDERED: NITROGLYCERIN OINT 1GM/INCH UDPKT TD ONE (04:15)
[2020-02-24] MEDS ORDERED: LABETALOL HCL 20MG/4ML CARPUJECT IV ONE (04:30)
[2020-02-24 04:31] LABS: BASOPHILS % 0.6 % (0.0-2.0); EOSINOPHILS % 0.3 % (0.0-5.0); HEMATOCRIT. 32.3 % (36.0-48.0); HEMOGLOBIN. 10.4 g/dL (12.0-16.0); LYMPHOCYTES % 30.7 % (20.0-50.0); MEAN CORPUSCULAR HEMOGLOBIN 31.4 pg (28.0-32.0); MEAN CORPUSCULAR VOLUME 97.9 fL (81.0-99.0); MEAN PLATELET VOLUME 10.1 fl (7.4-10.4); MONOCYTES % 6.4 % (2.0-8.0); PLATELET 295 x1000/uL (130-400); RED CELL DISTRIBUTION WIDTH 16.4 % (11.6-14.6)
[2020-02-24 04:36] LABS: PROTHROMBIN TIME 10.6 sec (9.6-11.0)
[2020-02-24 04:38] LABS: CHLORIDE 100 mEq/L (98-107)
[2020-02-24 05:45] LABS: BG BASE EXCESS -7.6 mmol/L (-2.0-2.0); BG CARBOXYHEMOGLOBIN 0.3 % (0.5-1.5); BG DEOXYHEMOGLOBIN 0.9 % (0.0-5.0); BG FRACTION INSPIRED OXYGEN 60; BG HCO3 ACT 18.8 mmol/L (22.0-26.0); BG METHEMOGLOBIN 0.3 % (0.0-1.5); BG OXYGEN SATURATION 99.1 % (92.0-98.5); BG OXYHEMOGLOBIN 98.5 % (94.0-97.0); BG PCO2 41.9 mmHg (35.0-45.0); BG PH 7.269 (7.350-7.450); BG PO2 188.5 mmHg (75.0-100.0); BG SAMPLE SITE LEFT BRACHIAL; BG TOTAL HEMOGLOBIN 9.3 g/dL (12.0-18.0); BG VENT MODE MASK - SIMPLE
[2020-02-24] MEDS ORDERED: LABETALOL 5MG/ML SYR 20 MG/4 ML SYRINGE IV SCH (06:15)
[2020-02-24] MEDS ORDERED: IPRATROPIUM/ALBUTEROL 0.5-3(2.5)MG/3ML NEB NEB PRN (07:15)
[2020-02-24] MEDS ORDERED: DOCUSATE SODIUM 100MG CAPSULE PO PRN (07:15)
[2020-02-24] MEDS ORDERED: ONDANSETRON HCL 4MG/2ML INJ IV PRN (07:15)
[2020-02-24] MEDS ORDERED: ACETAMINOPHEN 325MG TABLET PO PRN ×2 (07:15)
[2020-02-24] MEDS ORDERED: MAGNESIUM/ALUMINUM HYDROXIDE/SIMETHICONE 30ML UDC PO PRN (07:15)
[2020-02-24] MEDS ORDERED: CLONIDINE 0.1MG TABLET PO PRN (07:15)
[2020-02-24] MEDS ORDERED: LORAZEPAM 0.5MG TABLET PO PRN (07:15)
[2020-02-24] MEDS ORDERED: NITROGLYCERIN 0.4MG TABLET SL SL PRN (07:15)
[2020-02-24] MEDS ORDERED: DEXTROSE 50% WATER 50ML SYRINGE IV PRN (07:15)
[2020-02-24] MEDS ORDERED: ZOLPIDEM TARTRATE 5MG TABLET PO PRN ×2 (07:15)
[2020-02-24] MEDS ORDERED: ENOXAPARIN 40MG/0.4ML SYR SUBCUT SCH (07:15)
[2020-02-24] MEDS ORDERED: GUAIFENESIN 200MG/10ML SUGAR FREE UDC PO PRN (07:15)
[2020-02-24] MEDS ORDERED: ATOR-2 PO (08:21)
[2020-02-24] MEDS ORDERED: METO75TA PO (08:21)
[2020-02-24] MEDS ORDERED: CALC667C PO (08:21)
[2020-02-24] MEDS ORDERED: TICA90TA PO (08:21)
[2020-02-24] MEDS: BLOOD SUGAR DIAGNOSTIC STRIP TEST SCH ×4 (08:45→20:43)
[2020-02-24] MEDS ORDERED: FAMOTIDINE 20MG TABLET PO SCH (09:00)
[2020-02-24] MEDS ORDERED: ENOXAPARIN 30MG/0.3ML SYR SUBCUT SCH ×2 (09:00→17:30)
[2020-02-24] MEDS: SEVELAMER CARBONATE 800 MG TABLET PO SCH ×3 (09:59→18:31)
[2020-02-24] MEDS ORDERED: INSULIN GLARGINE UD 100 UNITS/ML SYR SUBCUT SCH (10:00)
[2020-02-24] MEDS: ASCORBIC ACID 500 MG TABLET PO SCH ×2 (10:00→20:26)
[2020-02-24] MEDS: ZINC SULFATE 220 MG ( 50 ) CAPSULE PO SCH (10:00)
[2020-02-24] MEDS: ASPIRIN 81MG EC TABLET PO SCH (10:00)
[2020-02-24] MEDS: FAMOTIDINE 20MG TABLET PO SCH (10:00)
[2020-02-24] MEDS: CLOPIDOGREL 75MG TABLET PO SCH (10:00)
[2020-02-24] MEDS: INSULIN LISPRO 100 UNITS/ML SUBCUT SCH ×4 (10:03→20:46)
[2020-02-24] MEDS: HYDROCODONE/APAP 7.5/325MG 1 TAB TABLET PO PRN ×2 (13:39→20:27)
[2020-02-24] MEDS: INSULIN GLARGINE UD 100 UNITS/ML SYR SUBCUT SCH (13:42)
[2020-02-24] MEDS: CARVEDILOL 6.25 MG TABLET PO SCH (18:31)
[2020-02-24] MEDS ORDERED: ATORVASTATIN CALCIUM 20MG TABLET PO SCH (21:00)
[2020-02-24] MEDS ORDERED: ATORVASTATIN CALCIUM 10MG TABLET PO SCH (21:00)
[2020-02-24] MEDS: DIPHENHYDRAMINE 50MG/ML VIAL IV PRN (23:09)
[2020-02-24 23:45] LABS: CREATINE KINASE MB FRACTION 4.4 ng/mL (0.5-3.6)
[2020-02-25] VITALS (11 sets, daily range): BP systolic 124–153; BP diastolic 74–94
[2020-02-25] MEDS: CARVEDILOL 6.25 MG TABLET PO SCH ×2 (06:20→18:00)
[2020-02-25] MEDS: INSULIN LISPRO 100 UNITS/ML SUBCUT SCH ×4 (08:00→20:34)
[2020-02-25] MEDS: BLOOD SUGAR DIAGNOSTIC STRIP TEST SCH ×4 (08:49→20:34)
[2020-02-25] MEDS ORDERED: ENOXAPARIN 60MG/0.6ML SYR SUBCUT SCH (09:00)
[2020-02-25] MEDS: CLOPIDOGREL 75MG TABLET PO SCH (09:02)
[2020-02-25] MEDS: ZINC SULFATE 220 MG ( 50 ) CAPSULE PO SCH (09:02)
[2020-02-25] MEDS: ASPIRIN 81MG EC TABLET PO SCH (09:02)
[2020-02-25] MEDS: FAMOTIDINE 20MG TABLET PO SCH (09:02)
[2020-02-25] MEDS: ASCORBIC ACID 500 MG TABLET PO SCH ×2 (09:02→20:29)
[2020-02-25] MEDS: SEVELAMER CARBONATE 800 MG TABLET PO SCH ×3 (09:02→18:41)
[2020-02-25] MEDS: INSULIN GLARGINE UD 100 UNITS/ML SYR SUBCUT SCH (10:00)
[2020-02-25] MEDS: DIPHENHYDRAMINE 50MG/ML VIAL IV PRN (16:15)
[2020-02-25] MEDS ORDERED: HEPARIN SODIUM 1,000 UNIT/1ML VIAL IV NR (18:45)
[2020-02-25] MEDS: HYDROCODONE/APAP 7.5/325MG 1 TAB TABLET PO PRN (19:17)
[2020-02-25] MEDS ORDERED: ATORVASTATIN CALCIUM 20MG TABLET PO SCH (21:00)
== END 2020-02-25 20:50 | disposition home or self-care (01) | DRG 133 ==
LOC: ER 03:57 → 5EST 05:12 → EDBEDREQSVC 05:14 → EDBEDREQTM 05:14 → EDBEDREQ 05:14 → ENRESERV 07:22
PROVIDERS: ADMIT Internal Medicine; ATTEND Internal Medicine
PROC: 5A1D70Z Performance of Urinary Filtration, Intermittent, Less than 6 Hours Per Day (ICD-10-PCS; principal; 2020-02-24)
PROC: 5A09357 Assistance with Respiratory Ventilation, Less than 24 Consecutive Hours, Continuous Positive Airway Pressure (ICD-10-PCS; 2020-02-24)
PROC: 5A09357 Assistance with Respiratory Ventilation, Less than 24 Consecutive Hours, Continuous Positive Airway Pressure (ICD-10-PCS; 2020-02-25)
DX: J96.00 Acute respiratory failure, unspecified whether with hypoxia or hypercapnia (principal); I13.2 Hypertensive heart and chronic kidney disease with heart failure and with stage 5 chronic kidney disease, or end stage renal disease; E11.22 Type 2 diabetes mellitus with diabetic chronic kidney disease; N18.6 End stage renal disease; E11.65 Type 2 diabetes mellitus with hyperglycemia; I50.30 Unspecified diastolic (congestive) heart failure; I70.0 Atherosclerosis of aorta; I25.5 Ischemic cardiomyopathy; D63.8 Anemia in other chronic diseases classified elsewhere; E78.5 Hyperlipidemia, unspecified; I25.10 Atherosclerotic heart disease of native coronary artery without angina pectoris; N83.9 Noninflammatory disorder of ovary, fallopian tube and broad ligament, unspecified; I34.0 Nonrheumatic mitral (valve) insufficiency; I44.7 Left bundle-branch block, unspecified; K21.9 Gastro-esophageal reflux disease without esophagitis; Z99.81 Dependence on supplemental oxygen; Z95.1 Presence of aortocoronary bypass graft; Z95.5 Presence of coronary angioplasty implant and graft; Z79.82 Long term (current) use of aspirin; Z79.02 Long term (current) use of antithrombotics/antiplatelets; Z91.11 Patient's noncompliance with dietary regimen; Z99.2 Dependence on renal dialysis; Z88.0 Allergy status to penicillin; Z79.899 Other long term (current) drug therapy; Z88.2 Allergy status to sulfonamides; Z91.013 Allergy to seafood
CPT/HCPCS: 36415; 36600; 71045; 80053; 80061; 82375; 82550; 82553; 82805; 82962; 83036; 83605; 83880; 84484; 85025; 93005; 93970; 99291; J1200; J1644; J1650; J1815; J1940; J2270; J2405; J3490

== ENCOUNTER 2020-03-01 05:27 | Inpatient (IN) | payer MEDICAID ==
[2020-03-01] VITALS (7 sets, daily range): BP systolic 106–138; BP diastolic 67–84
[~2020-03-01] VITALS: Ht 152.4 cm; Wt 60.3 kg
[~2020-03-01 05:27] MED LIST changes: +ATOR-2 PO; +CALC667C PO; +METO75TA PO; +TICA90TA PO
[2020-03-01] MEDS ORDERED: ASPIRIN 325MG TABLET PO ONE (06:15)
[2020-03-01 06:31] LABS: BASOPHILS % 0.9 % (0.0-2.0); EOSINOPHILS % 0.1 % (0.0-5.0); HEMATOCRIT. 33.9 % (36.0-48.0); HEMOGLOBIN. 10.9 g/dL (12.0-16.0); LYMPHOCYTES % 25.9 % (20.0-50.0); MEAN CORPUSCULAR HEMOGLOBIN 31.8 pg (28.0-32.0); MEAN CORPUSCULAR VOLUME 98.6 fL (81.0-99.0); MEAN PLATELET VOLUME 10.8 fl (7.4-10.4); MONOCYTES % 4.9 % (2.0-8.0); NEUTROPHILS % 68.2 % (40.0-76.0); PLATELET 381 x1000/uL (130-400); RED BLOOD CELL COUNT 3.44 mill/uL (4.2-5.4); RED CELL DISTRIBUTION WIDTH 17.1 % (11.6-14.6)
[2020-03-01 06:37] LABS: CHLORIDE 101 mEq/L (98-107)
[2020-03-01] MEDS ORDERED: MORPHINE SULFATE 4 MG/ML CPJ (NOT FOR IM USE) IV ONE (06:45)
[2020-03-01] MEDS ORDERED: ENALAPRIL 2.5MG/2ML VIAL 2ML IV ONE (07:00)
[2020-03-01] MEDS ORDERED: FUROSEMIDE 40MG/4ML VIAL IVP ONE (07:00)
[2020-03-01] MEDS ORDERED: SODIUM BICARBONATE 8.4% 1 MEQ/ML 50ML SYR IV ONE (07:15)
[2020-03-01] MEDS ORDERED: INSULIN REGULAR (HUMULIN R) 300UNITS/3ML IV ONE (07:15)
[2020-03-01] MEDS ORDERED: DEXTROSE 50% WATER 50ML SYRINGE IV ONE (07:15)
[2020-03-01] MEDS ORDERED: CALCIUM CHLORIDE 1GM/10ML SYR IV ONE (07:15)
[2020-03-01] MEDS ORDERED: ALBUTEROL (0.083%) 2.5MG/3ML NEB HHN ONE (07:15)
[2020-03-01 07:31] LABS: BG BILEVEL POS AIRWAY PRESSURE 15/5; BG CARBOXYHEMOGLOBIN 0.3 % (0.5-1.5); BG DEOXYHEMOGLOBIN 0.3 % (0.0-5.0); BG FRACTION INSPIRED OXYGEN 100; BG HCO3 ACT 23.2 mmol/L (22.0-26.0); BG OXYGEN SATURATION 99.7 % (92.0-98.5); BG OXYHEMOGLOBIN 99.4 % (94.0-97.0); BG PCO2 60.2 mmHg (35.0-45.0); BG PH 7.203 (7.350-7.450); BG SAMPLE SITE RIGHT BRACHIAL; BG TOTAL HEMOGLOBIN 9.2 g/dL (12.0-18.0); BG VENT MODE MASK - BIPAP
[2020-03-01] MEDS: HYDROMORPHONE HCL/PF 2MG/ML CPJ IV PRN ×2 (11:41→21:21)
[2020-03-01] MEDS ORDERED: ONDANSETRON HCL 4MG/2ML INJ IV PRN (15:45)
[2020-03-01] MEDS ORDERED: ACETAMINOPHEN 325MG TABLET PO PRN (15:45)
[2020-03-01] MEDS ORDERED: IPRATROPIUM/ALBUTEROL 0.5-3(2.5)MG/3ML NEB HHN PRN (15:45)
[2020-03-01] MEDS: CALCIUM ACETATE 667MG CAPSULE PO SCH (17:10)
[2020-03-01] MEDS: DIPHENHYDRAMINE 50MG/ML VIAL IV PRN (17:10)
[2020-03-01] MEDS: IPRATROPIUM/ALBUTEROL 0.5-3(2.5)MG/3ML NEB HHN SCH (20:09)
[2020-03-01] MEDS: INSULIN GLARGINE UD 100 UNITS/ML SYR SUBCUT SCH (21:22)
[2020-03-01] MEDS: ATORVASTATIN CALCIUM 40MG TABLET PO SCH (21:25)
[2020-03-01] MEDS: CARVEDILOL 6.25 MG TABLET PO SCH (21:26)
[2020-03-01] MEDS: LORAZEPAM 0.5MG TABLET PO PRN (22:49)
[2020-03-02] VITALS (10 sets, daily range): BP systolic 110–135; BP diastolic 66–83
[2020-03-02] MEDS: DIPHENHYDRAMINE 50MG/ML VIAL IV PRN ×2 (00:53→19:59)
[2020-03-02] MEDS: CALCIUM ACETATE 667MG CAPSULE PO SCH ×3 (06:55→17:13)
[2020-03-02 07:11] LABS: BASOPHILS % 0.2 % (0.0-2.0); EOSINOPHILS % 0.3 % (0.0-5.0); HEMATOCRIT. 22.8 % (36.0-48.0); HEMOGLOBIN. 7.5 g/dL (12.0-16.0); LYMPHOCYTES % 10.9 % (20.0-50.0); MEAN CORPUSCULAR HEMOGLOBIN 31.5 pg (28.0-32.0); MEAN CORPUSCULAR VOLUME 96.2 fL (81.0-99.0); MEAN PLATELET VOLUME 10.1 fl (7.4-10.4); NEUTROPHILS % 79.6 % (40.0-76.0); PLATELET 191 x1000/uL (130-400); RED BLOOD CELL COUNT 2.37 mill/uL (4.2-5.4); RED CELL DISTRIBUTION WIDTH 16.7 % (11.6-14.6)
[2020-03-02] MEDS: IPRATROPIUM/ALBUTEROL 0.5-3(2.5)MG/3ML NEB HHN SCH ×2 (08:28)
[2020-03-02] MEDS ORDERED: ASPIRIN 81MG TABLET PO SCH (09:00)
[2020-03-02] MEDS ORDERED: CLOPIDOGREL 75MG TABLET PO SCH (09:00)
[2020-03-02] MEDS: CARVEDILOL 6.25 MG TABLET PO SCH ×2 (09:27→22:09)
[2020-03-02] MEDS: INSULIN GLARGINE UD 100 UNITS/ML SYR SUBCUT SCH ×2 (09:29→22:19)
[2020-03-02 11:51] LABS: HEMATOCRIT 23.3 % (36.0-48.0); HEMOGLOBIN 7.6 g/dL (12.0-16.0)
[2020-03-02] MEDS: LORAZEPAM 0.5MG TABLET PO PRN (20:03)
[2020-03-02] MEDS: ATORVASTATIN CALCIUM 40MG TABLET PO SCH (22:08)
[2020-03-03] VITALS (12 sets, daily range): BP systolic 121–154; BP diastolic 70–87
[2020-03-03] MEDS ORDERED: DEXTROSE 50% WATER 50ML SYRINGE IV PRN (05:30)
[2020-03-03] MEDS: BLOOD SUGAR DIAGNOSTIC STRIP TEST SCH ×4 (06:50→21:00)
[2020-03-03] MEDS: CALCIUM ACETATE 667MG CAPSULE PO SCH ×3 (06:50→17:20)
[2020-03-03 07:50] LABS: BASOPHILS % 0.4 % (0.0-2.0); EOSINOPHILS % 0.2 % (0.0-5.0); HEMATOCRIT. 22.7 % (36.0-48.0); HEMOGLOBIN. 7.8 g/dL (12.0-16.0); LYMPHOCYTES % 8.8 % (20.0-50.0); MEAN CORPUSCULAR HEMOGLOBIN 33.1 pg (28.0-32.0); MONOCYTES % 9.9 % (2.0-8.0); NEUTROPHILS % 80.7 % (40.0-76.0); PLATELET 173 x1000/uL (130-400); RED BLOOD CELL COUNT 2.37 mill/uL (4.2-5.4); RED CELL DISTRIBUTION WIDTH 16.2 % (11.6-14.6)
[2020-03-03] MEDS: INSULIN LISPRO 100 UNITS/ML SUBCUT SCH ×4 (08:20→22:30)
[2020-03-03] MEDS: CARVEDILOL 6.25 MG TABLET PO SCH ×2 (08:31→20:59)
[2020-03-03] MEDS: LORAZEPAM 0.5MG TABLET PO PRN ×2 (08:31→21:09)
[2020-03-03] MEDS ORDERED: DIPHENHYDRAMINE 25MG CAPSULE PO PRN (10:45)
[2020-03-03] MEDS: INSULIN GLARGINE UD 100 UNITS/ML SYR SUBCUT SCH ×2 (11:41→22:30)
[2020-03-03] MEDS: DIPHENHYDRAMINE 50MG/ML VIAL IV PRN ×2 (11:42→21:01)
[2020-03-03] MEDS ORDERED: CLOPIDOGREL 75MG TABLET PO SCH (13:45)
[2020-03-03] MEDS ORDERED: ASPIRIN 81MG EC TABLET PO SCH (13:45)
[2020-03-03 17:07] LABS: TOTAL IRON BINDING CAPACITY 228 ug/dL (250-450)
[2020-03-03] MEDS: ATORVASTATIN CALCIUM 40MG TABLET PO SCH (20:57)
[2020-03-03] MEDS ORDERED: EPOETIN ALFA 10000UNITS/ML VIAL SUBCUT SCH (21:00)
[2020-03-04] VITALS (9 sets, daily range): BP systolic 103–133; BP diastolic 55–84
[2020-03-04 07:04] LABS: BASOPHILS % 0.3 % (0.0-2.0); EOSINOPHILS % 0.2 % (0.0-5.0); HEMATOCRIT. 24.8 % (36.0-48.0); HEMOGLOBIN. 8.3 g/dL (12.0-16.0); LYMPHOCYTES % 10.8 % (20.0-50.0); MEAN CORPUSCULAR HEMOGLOBIN 32.2 pg (28.0-32.0); MEAN CORPUSCULAR VOLUME 96.3 fL (81.0-99.0); MEAN PLATELET VOLUME 9.9 fl (7.4-10.4); MONOCYTES % 10.1 % (2.0-8.0); NEUTROPHILS % 78.6 % (40.0-76.0); PLATELET 222 x1000/uL (130-400); RED BLOOD CELL COUNT 2.57 mill/uL (4.2-5.4)
[2020-03-04] MEDS: INSULIN LISPRO 100 UNITS/ML SUBCUT SCH ×2 (07:20→12:36)
[2020-03-04] MEDS: BLOOD SUGAR DIAGNOSTIC STRIP TEST SCH ×2 (07:24→11:51)
[2020-03-04] MEDS: DIPHENHYDRAMINE 50MG/ML VIAL IV PRN (08:31)
[2020-03-04] MEDS: LORAZEPAM 0.5MG TABLET PO PRN (08:31)
[2020-03-04] MEDS: CARVEDILOL 6.25 MG TABLET PO SCH (08:31)
[2020-03-04] MEDS: CALCIUM ACETATE 667MG CAPSULE PO SCH ×2 (08:31→12:43)
[2020-03-04 10:42] LABS: FOLIC ACID (FOLATE) SERUM 11.7 ng/mL (>5.38)
[2020-03-04] MEDS: INSULIN GLARGINE UD 100 UNITS/ML SYR SUBCUT SCH (11:12)
[2020-03-04] MEDS ORDERED: ASPIRIN 81MG EC TABLET PO SCH (12:00)
== END 2020-03-04 14:58 | disposition home or self-care (01) | DRG 133 ==
LOC: ER 05:27 → 3WST 07:17 → EDBEDREQSVC 07:38 → EDBEDREQ 07:38 → EDBEDREQTM 07:38 → ENRESERV 10:41
PROVIDERS: ADMIT Internal Medicine; ATTEND Internal Medicine
PROC: 5A1D70Z Performance of Urinary Filtration, Intermittent, Less than 6 Hours Per Day (ICD-10-PCS; principal; 2020-03-01)
PROC: 5A09357 Assistance with Respiratory Ventilation, Less than 24 Consecutive Hours, Continuous Positive Airway Pressure (ICD-10-PCS; 2020-03-01)
PROC: 5A1D70Z Performance of Urinary Filtration, Intermittent, Less than 6 Hours Per Day (ICD-10-PCS; 2020-03-02)
PROC: 5A09357 Assistance with Respiratory Ventilation, Less than 24 Consecutive Hours, Continuous Positive Airway Pressure (ICD-10-PCS; 2020-03-02)
PROC: 5A1D70Z Performance of Urinary Filtration, Intermittent, Less than 6 Hours Per Day (ICD-10-PCS; 2020-03-03)
PROC: 5A09357 Assistance with Respiratory Ventilation, Less than 24 Consecutive Hours, Continuous Positive Airway Pressure (ICD-10-PCS; 2020-03-03)
PROC: 5A1D70Z Performance of Urinary Filtration, Intermittent, Less than 6 Hours Per Day (ICD-10-PCS; 2020-03-04)
PROC: 5A09357 Assistance with Respiratory Ventilation, Less than 24 Consecutive Hours, Continuous Positive Airway Pressure (ICD-10-PCS; 2020-03-04)
DX: J96.02 Acute respiratory failure with hypercapnia (principal); I13.2 Hypertensive heart and chronic kidney disease with heart failure and with stage 5 chronic kidney disease, or end stage renal disease; E11.22 Type 2 diabetes mellitus with diabetic chronic kidney disease; R65.10 Systemic inflammatory response syndrome (SIRS) of non-infectious origin without acute organ dysfunction; N18.6 End stage renal disease; E87.1 Hypo-osmolality and hyponatremia; E87.5 Hyperkalemia; Z95.1 Presence of aortocoronary bypass graft; I50.43 Acute on chronic combined systolic (congestive) and diastolic (congestive) heart failure; E78.5 Hyperlipidemia, unspecified; I25.10 Atherosclerotic heart disease of native coronary artery without angina pectoris; K21.9 Gastro-esophageal reflux disease without esophagitis; I70.0 Atherosclerosis of aorta; I34.0 Nonrheumatic mitral (valve) insufficiency; I25.5 Ischemic cardiomyopathy; F17.210 Nicotine dependence, cigarettes, uncomplicated; D63.8 Anemia in other chronic diseases classified elsewhere; Z88.0 Allergy status to penicillin; Z79.899 Other long term (current) drug therapy; Z95.5 Presence of coronary angioplasty implant and graft; Z99.2 Dependence on renal dialysis; I69.354 Hemiplegia and hemiparesis following cerebral infarction affecting left non-dominant side; Z79.82 Long term (current) use of aspirin; Z79.02 Long term (current) use of antithrombotics/antiplatelets; Z88.2 Allergy status to sulfonamides; Z91.013 Allergy to seafood; Z91.14 Patient's other noncompliance with medication regimen
CPT/HCPCS: 36415; 36600; 71045; 80048; 80053; 82270; 82375; 82607; 82746; 82805; 82962; 83036; 83540; 83550; 83880; 84484; 85014; 85018; 85025; 85044; 93005; 99291; J0885; J1170; J1200; J1815; J1940; J2270; J3490

== ENCOUNTER 2020-03-06 04:10 | Inpatient (IN) | payer MEDICAID ==
[~2020-03-06] VITALS: Ht 165.1 cm; Wt 66.5 kg
[~2020-03-06 04:10] MED LIST changes: -ATOR20TA PO; -METO75TA PO; -TICA90TA PO
[2020-03-06] MEDS ORDERED: NITROGLYCERIN 50MG PREMIX 250 ML IV ONE (04:30)
[2020-03-06] MEDS ORDERED: MORPHINE SULFATE 4 MG/ML CPJ (NOT FOR IM USE) IV ONE (04:45)
[2020-03-06] MEDS ORDERED: ASPIRIN 81MG TABLET PO ONE (04:45)
[2020-03-06] MEDS ORDERED: NITROGLYCERIN 0.4MG TABLET SL SL SCH (04:45)
[2020-03-06 04:56] LABS: BASOPHILS % 0.9 % (0.0-2.0); EOSINOPHILS % 0.1 % (0.0-5.0); HEMATOCRIT. 29.8 % (36.0-48.0); HEMOGLOBIN. 9.4 g/dL (12.0-16.0); LYMPHOCYTES % 34.2 % (20.0-50.0); MEAN CORPUSCULAR HEMOGLOBIN 31.7 pg (28.0-32.0); MEAN CORPUSCULAR VOLUME 100.3 fL (81.0-99.0); MEAN PLATELET VOLUME 9.8 fl (7.4-10.4); NEUTROPHILS % 57.8 % (40.0-76.0); PLATELET 345 x1000/uL (130-400); RED BLOOD CELL COUNT 2.98 mill/uL (4.2-5.4); RED CELL DISTRIBUTION WIDTH 17.1 % (11.6-14.6)
[2020-03-06 05:03] LABS: CHLORIDE 104 mEq/L (98-107); PROTHROMBIN TIME 10.8 sec (9.6-11.0)
[2020-03-06 06:09] LABS: BG BASE EXCESS -7.4 mmol/L (-2.0-2.0); BG BILEVEL POS AIRWAY PRESSURE 15/5; BG CARBOXYHEMOGLOBIN 0.3 % (0.5-1.5); BG DEOXYHEMOGLOBIN 2.5 % (0.0-5.0); BG FRACTION INSPIRED OXYGEN 60; BG HCO3 ACT 18.8 mmol/L (22.0-26.0); BG METHEMOGLOBIN 0.2 % (0.0-1.5); BG OXYGEN SATURATION 97.5 % (92.0-98.5); BG PCO2 40.9 mmHg (35.0-45.0); BG PO2 114.2 mmHg (75.0-100.0); BG SAMPLE SITE RIGHT RADIAL; BG TOTAL HEMOGLOBIN 7.9 g/dL (12.0-18.0); BG VENT MODE MASK - BIPAP
[2020-03-06] MEDS ORDERED: MORPHINE SULFATE 2 MG/ML CPJ (NOT FOR IM USE) IV ONE (06:15)
[2020-03-06] MEDS ORDERED: LEVOFLOXACIN 500MG PREMIX 100 ML IV SCH (09:15)
[2020-03-06] MEDS ORDERED: ACETAMINOPHEN 325MG TABLET PO PRN (09:15)
[2020-03-06] MEDS ORDERED: DEXTROSE 50% WATER 50ML SYRINGE IV PRN (09:15)
[2020-03-06] MEDS ORDERED: ONDANSETRON HCL 4MG/2ML INJ IV PRN (09:15)
[2020-03-06] MEDS ORDERED: LEVOFLOXACIN 500MG PREMIX 100 ML IV ONE (11:45)
[2020-03-06] MEDS: MORPHINE SULFATE 2 MG/ML CPJ (NOT FOR IM USE) IV PRN ×2 (12:45→19:44)
[2020-03-06] MEDS: INSULIN LISPRO 100 UNITS/ML SUBCUT SCH ×3 (13:20→21:11)
[2020-03-06] MEDS ORDERED: IPRATROPIUM/ALBUTEROL 0.5-3(2.5)MG/3ML NEB HHN PRN (16:15)
[2020-03-06 17:13] VITALS: BP 132/73
[2020-03-06 17:30] VITALS: BP 127/76
[2020-03-06] MEDS: BLOOD SUGAR DIAGNOSTIC STRIP TEST SCH ×2 (17:40→21:00)
[2020-03-06] MEDS ORDERED: ENOXAPARIN 30MG/0.3ML SYR SUBCUT SCH (18:00)
[2020-03-06] MEDS: LOSARTAN POTASSIUM 50 MG TABLET PO SCH (18:48)
[2020-03-06 20:00] VITALS: BP 126/67
[2020-03-06] MEDS: ATORVASTATIN CALCIUM 40MG TABLET PO SCH (21:09)
[2020-03-06] MEDS: DIPHENHYDRAMINE 50MG/ML VIAL IV PRN (21:10)
[2020-03-06] MEDS: CARVEDILOL 12.5MG TABLET PO SCH (21:10)
[2020-03-06 22:00] VITALS: BP 121/68
[2020-03-07] VITALS (12 sets, daily range): BP systolic 99–132; BP diastolic 53–78
[2020-03-07] MEDS: BLOOD SUGAR DIAGNOSTIC STRIP TEST SCH ×4 (06:11→20:43)
[2020-03-07] MEDS: INSULIN LISPRO 100 UNITS/ML SUBCUT SCH ×4 (06:25→20:42)
[2020-03-07] MEDS ORDERED: CLOPIDOGREL 75MG TABLET PO SCH (09:00)
[2020-03-07] MEDS ORDERED: ASPIRIN 81MG TABLET PO SCH (09:00)
[2020-03-07] MEDS: DIPHENHYDRAMINE 50MG/ML VIAL IV PRN ×2 (09:42→20:43)
[2020-03-07] MEDS: CARVEDILOL 12.5MG TABLET PO SCH ×2 (09:43→20:42)
[2020-03-07 09:48] LABS: BASOPHILS % 0.6 % (0.0-2.0); EOSINOPHILS % 0.1 % (0.0-5.0); HEMOGLOBIN. 7.2 g/dL (12.0-16.0); LYMPHOCYTES % 15.9 % (20.0-50.0); MEAN CORPUSCULAR VOLUME 98.3 fL (81.0-99.0); MEAN PLATELET VOLUME 9.8 fl (7.4-10.4); MONOCYTES % 6.5 % (2.0-8.0); NEUTROPHILS % 76.9 % (40.0-76.0); PLATELET 183 x1000/uL (130-400); RED BLOOD CELL COUNT 2.24 mill/uL (4.2-5.4); RED CELL DISTRIBUTION WIDTH 16.5 % (11.6-14.6)
[2020-03-07] MEDS ORDERED: HEPARIN SODIUM 1,000 UNIT/1ML VIAL IV SCH (10:15)
[2020-03-07] MEDS: LOSARTAN POTASSIUM 50 MG TABLET PO SCH (11:25)
[2020-03-07 15:16] LABS: BG CARBOXYHEMOGLOBIN 0.3 % (0.5-1.5); BG DEOXYHEMOGLOBIN 6.6 % (0.0-5.0); BG FRACTION INSPIRED OXYGEN 21; BG HCO3 ACT 26.8 mmol/L (22.0-26.0); BG METHEMOGLOBIN 0.2 % (0.0-1.5); BG OXYGEN SATURATION 93.4 % (92.0-98.5); BG OXYHEMOGLOBIN 92.9 % (94.0-97.0); BG PH 7.412 (7.350-7.450); BG PO2 69.7 mmHg (75.0-100.0); BG SAMPLE SITE RIGHT BRACHIAL; BG TOTAL HEMOGLOBIN 7.6 g/dL (12.0-18.0); BG VENT MODE ROOM AIR
[2020-03-07 17:36] LABS: BASOPHILS % 0.3 % (0.0-2.0); EOSINOPHILS % 0.1 % (0.0-5.0); HEMATOCRIT. 23.3 % (36.0-48.0); HEMOGLOBIN. 7.7 g/dL (12.0-16.0); LYMPHOCYTES % 7.7 % (20.0-50.0); MEAN CORPUSCULAR HEMOGLOBIN 32.1 pg (28.0-32.0); MEAN CORPUSCULAR VOLUME 97.3 fL (81.0-99.0); MEAN PLATELET VOLUME 9.4 fl (7.4-10.4); MONOCYTES % 9.6 % (2.0-8.0); NEUTROPHILS % 82.3 % (40.0-76.0); PLATELET 211 x1000/uL (130-400); RED CELL DISTRIBUTION WIDTH 16.2 % (11.6-14.6)
[2020-03-07] MEDS: OMEPRAZOLE 20MG CAPSULE EXTENDED RELEASE PO SCH (17:37)
[2020-03-07 17:47] LABS: TOTAL IRON BINDING CAPACITY 233 ug/dL (250-450)
[2020-03-07] MEDS: HYDROCODONE/ACETAMINOPHEN 10/325MG TABLET PO PRN (18:47)
[2020-03-07] MEDS: ATORVASTATIN CALCIUM 40MG TABLET PO SCH (20:42)
[2020-03-08] VITALS (11 sets, daily range): BP systolic 101–134; BP diastolic 57–79
[2020-03-08] MEDS: HYDROCODONE/ACETAMINOPHEN 10/325MG TABLET PO PRN ×2 (03:19→20:20)
[2020-03-08 06:03] LABS: BASOPHILS % 0.3 % (0.0-2.0); EOSINOPHILS % 0.2 % (0.0-5.0); HEMATOCRIT. 22.7 % (36.0-48.0); HEMOGLOBIN. 7.5 g/dL (12.0-16.0); LYMPHOCYTES % 13.7 % (20.0-50.0); MEAN CORPUSCULAR HEMOGLOBIN 32.2 pg (28.0-32.0); MEAN CORPUSCULAR VOLUME 97.8 fL (81.0-99.0); MEAN PLATELET VOLUME 9.8 fl (7.4-10.4); NEUTROPHILS % 73.8 % (40.0-76.0); PLATELET 180 x1000/uL (130-400); RED BLOOD CELL COUNT 2.32 mill/uL (4.2-5.4); RED CELL DISTRIBUTION WIDTH 16.2 % (11.6-14.6)
[2020-03-08] MEDS: OMEPRAZOLE 20MG CAPSULE EXTENDED RELEASE PO SCH (06:16)
[2020-03-08] MEDS: BLOOD SUGAR DIAGNOSTIC STRIP TEST SCH ×4 (06:42→20:21)
[2020-03-08] MEDS: INSULIN LISPRO 100 UNITS/ML SUBCUT SCH ×4 (07:20→20:30)
[2020-03-08] MEDS: CARVEDILOL 12.5MG TABLET PO SCH ×2 (09:58→20:20)
[2020-03-08] MEDS: LOSARTAN POTASSIUM 50 MG TABLET PO SCH (09:58)
[2020-03-08] MEDS: DIPHENHYDRAMINE 50MG/ML VIAL IV PRN ×2 (11:03→20:21)
[2020-03-08] MEDS ORDERED: BISACODYL 5MG TABLET PO SCH (12:15)
[2020-03-08] MEDS: ASPIRIN 81MG EC TABLET PO SCH (14:35)
[2020-03-08] MEDS: CLOPIDOGREL 75MG TABLET PO SCH (14:35)
[2020-03-08] MEDS ORDERED: LEVOFLOXACIN 250MG PREMIX 50 ML IV SCH (18:00)
[2020-03-08] MEDS: ATORVASTATIN CALCIUM 40MG TABLET PO SCH (20:20)
[2020-03-09] VITALS (12 sets, daily range): BP systolic 112–141; BP diastolic 58–81
[2020-03-09] MEDS: OMEPRAZOLE 20MG CAPSULE EXTENDED RELEASE PO SCH (06:01)
[2020-03-09] MEDS: INSULIN LISPRO 100 UNITS/ML SUBCUT SCH ×4 (06:09→20:53)
[2020-03-09] MEDS: BLOOD SUGAR DIAGNOSTIC STRIP TEST SCH ×4 (06:09→20:44)
[2020-03-09 07:06] LABS: BASOPHILS % 0.4 % (0.0-2.0); EOSINOPHILS % 0.1 % (0.0-5.0); HEMATOCRIT. 23.6 % (36.0-48.0); HEMOGLOBIN. 7.8 g/dL (12.0-16.0); LYMPHOCYTES % 14.3 % (20.0-50.0); MEAN CORPUSCULAR HEMOGLOBIN 32.3 pg (28.0-32.0); MEAN CORPUSCULAR VOLUME 97.7 fL (81.0-99.0); MEAN PLATELET VOLUME 9.9 fl (7.4-10.4); MONOCYTES % 11.2 % (2.0-8.0); PLATELET 200 x1000/uL (130-400); RED BLOOD CELL COUNT 2.41 mill/uL (4.2-5.4); RED CELL DISTRIBUTION WIDTH 16.2 % (11.6-14.6)
[2020-03-09] MEDS: LOSARTAN POTASSIUM 50 MG TABLET PO SCH (09:00)
[2020-03-09] MEDS: CARVEDILOL 12.5MG TABLET PO SCH ×2 (09:00→20:44)
[2020-03-09] MEDS: CLOPIDOGREL 75MG TABLET PO SCH (10:44)
[2020-03-09] MEDS: ASPIRIN 81MG EC TABLET PO SCH (10:44)
[2020-03-09] MEDS: DIPHENHYDRAMINE 50MG/ML VIAL IV PRN ×2 (10:52→18:15)
[2020-03-09] MEDS: HYDROCODONE/ACETAMINOPHEN 10/325MG TABLET PO PRN (14:12)
[2020-03-09] MEDS: ATORVASTATIN CALCIUM 40MG TABLET PO SCH (20:43)
== END 2020-03-09 21:35 | disposition home or self-care (01) | DRG 720 ==
LOC: ER 04:10 → 3WST 06:45 → EDBEDREQSVC 13:46 → ENRESERV 15:23
PROVIDERS: ADMIT Internal Medicine; ATTEND Internal Medicine
PROC: 5A09357 Assistance with Respiratory Ventilation, Less than 24 Consecutive Hours, Continuous Positive Airway Pressure (ICD-10-PCS; principal; 2020-03-06)
PROC: 5A1D70Z Performance of Urinary Filtration, Intermittent, Less than 6 Hours Per Day (ICD-10-PCS; 2020-03-07)
PROC: 5A1D70Z Performance of Urinary Filtration, Intermittent, Less than 6 Hours Per Day (ICD-10-PCS; 2020-03-09)
DX: A41.9 Sepsis, unspecified organism (principal); J96.00 Acute respiratory failure, unspecified whether with hypoxia or hypercapnia; I13.2 Hypertensive heart and chronic kidney disease with heart failure and with stage 5 chronic kidney disease, or end stage renal disease; E87.2 Acidosis; E11.22 Type 2 diabetes mellitus with diabetic chronic kidney disease; N18.6 End stage renal disease; I50.23 Acute on chronic systolic (congestive) heart failure; Z95.1 Presence of aortocoronary bypass graft; E78.5 Hyperlipidemia, unspecified; F17.200 Nicotine dependence, unspecified, uncomplicated; I25.10 Atherosclerotic heart disease of native coronary artery without angina pectoris; I25.5 Ischemic cardiomyopathy; M94.0 Chondrocostal junction syndrome [Tietze]; D63.1 Anemia in chronic kidney disease; K21.9 Gastro-esophageal reflux disease without esophagitis; I44.7 Left bundle-branch block, unspecified; I35.0 Nonrheumatic aortic (valve) stenosis; I16.9 Hypertensive crisis, unspecified; Z79.02 Long term (current) use of antithrombotics/antiplatelets; Z99.2 Dependence on renal dialysis; Z79.82 Long term (current) use of aspirin; Z86.73 Personal history of transient ischemic attack (TIA), and cerebral infarction without residual deficits; Z91.19 Patient's noncompliance with other medical treatment and regimen; Z95.5 Presence of coronary angioplasty implant and graft; Z88.2 Allergy status to sulfonamides; Z88.0 Allergy status to penicillin; Z91.013 Allergy to seafood; Z82.49 Family history of ischemic heart disease and other diseases of the circulatory system; Z83.3 Family history of diabetes mellitus
CPT/HCPCS: 36415; 36600; 71045; 80048; 80053; 82375; 82607; 82728; 82746; 82805; 82962; 83540; 83550; 83605; 83735; 84145; 84484; 85025; 86850; 86900; 93005; 99285; J1200; J1644; J1650; J1815; J1956; J2270; J3490

== ENCOUNTER 2020-03-16 02:37 | Inpatient (IN) | payer MEDICAID ==
[~2020-03-16] VITALS: Ht 165.1 cm; Wt 65.8 kg
[2020-03-16] VITALS (11 sets, daily range): BP systolic 98–128; BP diastolic 57–73
[2020-03-16] MEDS ORDERED: METHYLPREDNISOLONE SOD SUCC 125 MG/2 ML VIAL IV STA (02:48)
[2020-03-16] MEDS ORDERED: ALBUTEROL (0.083%) 2.5MG/3ML NEB HHN STA (02:48)
[2020-03-16] MEDS ORDERED: IPRATROPIUM BROMIDE (0.02%) 0.5MG/2.5ML NEB HHN STA (02:48)
[2020-03-16] MEDS ORDERED: ASPIRIN 81MG TABLET PO ONE (03:00)
[2020-03-16] MEDS ORDERED: NITROGLYCERIN OINT 1GM/INCH UDPKT TD ONE (03:00)
[2020-03-16 03:29] LABS: BG BASE EXCESS -6.6 mmol/L (-2.0-2.0); BG BILEVEL POS AIRWAY PRESSURE 15/5; BG CARBOXYHEMOGLOBIN 0.3 % (0.5-1.5); BG DEOXYHEMOGLOBIN 0.5 % (0.0-5.0); BG FRACTION INSPIRED OXYGEN 100; BG HCO3 ACT 19.8 mmol/L (22.0-26.0); BG METHEMOGLOBIN 0.1 % (0.0-1.5); BG OXYGEN SATURATION 99.5 % (92.0-98.5); BG OXYHEMOGLOBIN 99.1 % (94.0-97.0); BG PCO2 43.6 mmHg (35.0-45.0); BG PH 7.276 (7.350-7.450); BG PO2 354.5 mmHg (75.0-100.0); BG SAMPLE SITE RIGHT BRACHIAL; BG TOTAL HEMOGLOBIN 10.6 g/dL (12.0-18.0); BG VENT MODE MASK - BIPAP; BG VENT RATE 18 set
[2020-03-16 03:38] LABS: BASOPHILS % 0.8 % (0.0-2.0); EOSINOPHILS % 0.1 % (0.0-5.0); HEMATOCRIT. 28.7 % (36.0-48.0); HEMOGLOBIN. 9.4 g/dL (12.0-16.0); LYMPHOCYTES % 31.5 % (20.0-50.0); MEAN CORPUSCULAR HEMOGLOBIN 32.7 pg (28.0-32.0); MEAN CORPUSCULAR VOLUME 99.4 fL (81.0-99.0); MEAN PLATELET VOLUME 10.8 fl (7.4-10.4); MONOCYTES % 6.2 % (2.0-8.0); NEUTROPHILS % 61.4 % (40.0-76.0); PLATELET 267 x1000/uL (130-400); RED BLOOD CELL COUNT 2.89 mill/uL (4.2-5.4); RED CELL DISTRIBUTION WIDTH 16.7 % (11.6-14.6)
[2020-03-16 03:41] LABS: CHLORIDE 102 mEq/L (98-107)
[2020-03-16 03:43] LABS: PARTIAL THROMBOPLASTIN TIME 26.9 sec (23.4-31.0); PROTHROMBIN TIME 10.8 sec (9.6-11.0)
[2020-03-16] MEDS ORDERED: MORPHINE SULFATE 4 MG/ML CPJ (NOT FOR IM USE) IV STA (04:16)
[2020-03-16] MEDS ORDERED: ONDANSETRON HCL 4MG/2ML INJ IV STA (04:16)
[2020-03-16] MEDS ORDERED: ENOXAPARIN 40MG/0.4ML SYR SUBCUT SCH (06:45)
[2020-03-16] MEDS ORDERED: MAGNESIUM/ALUMINUM HYDROXIDE/SIMETHICONE 30ML UDC PO PRN (06:45)
[2020-03-16] MEDS ORDERED: ONDANSETRON HCL 4MG/2ML INJ IV PRN (06:45)
[2020-03-16] MEDS ORDERED: CLONIDINE 0.1MG TABLET PO PRN (06:45)
[2020-03-16] MEDS ORDERED: ACETAMINOPHEN 325MG TABLET PO PRN (06:45)
[2020-03-16] MEDS ORDERED: ZOLPIDEM TARTRATE 5MG TABLET PO PRN (06:45)
[2020-03-16] MEDS ORDERED: IPRATROPIUM/ALBUTEROL 0.5-3(2.5)MG/3ML NEB ORI PRN (06:45)
[2020-03-16] MEDS ORDERED: GUAIFENESIN 200MG/10ML SUGAR FREE UDC PO PRN (06:45)
[2020-03-16] MEDS: BLOOD SUGAR DIAGNOSTIC STRIP TEST SCH ×4 (07:30→21:00)
[2020-03-16] MEDS: IPRATROPIUM/ALBUTEROL 0.5-3(2.5)MG/3ML NEB HHN SCH ×5 (08:00→23:55)
[2020-03-16] MEDS: METHYLPREDNISOLONE SOD SUCC 125 MG/2 ML VIAL IV SCH ×2 (08:31→15:17)
[2020-03-16] MEDS: CLOPIDOGREL 75MG TABLET PO SCH (08:32)
[2020-03-16] MEDS: SEVELAMER CARBONATE 800 MG TABLET PO SCH ×3 (08:32→18:12)
[2020-03-16] MEDS: FAMOTIDINE 20MG TABLET PO SCH (08:32)
[2020-03-16] MEDS: ASCORBIC ACID 500 MG TABLET PO SCH ×2 (08:32→20:25)
[2020-03-16] MEDS: ENOXAPARIN 30MG/0.3ML SYR SUBCUT SCH (08:32)
[2020-03-16] MEDS: ZINC SULFATE 220 MG ( 50 ) CAPSULE PO SCH (08:33)
[2020-03-16] MEDS: CARVEDILOL 3.125 MG TABLET PO SCH ×2 (08:34→21:00)
[2020-03-16] MEDS: INSULIN LISPRO 100 UNITS/ML SUBCUT SCH ×4 (08:47→21:17)
[2020-03-16] MEDS: TRAMADOL 50MG TABLET PO PRN ×2 (08:53→20:25)
[2020-03-16] MEDS ORDERED: FAMOTIDINE 20MG TABLET PO SCH (09:00)
[2020-03-16] MEDS: INSULIN GLARGINE UD 100 UNITS/ML SYR SUBCUT SCH (11:36)
[2020-03-16] MEDS: LORAZEPAM 0.5MG TABLET PO PRN ×2 (11:42→20:26)
[2020-03-16] MEDS ORDERED: LEVOFLOXACIN 500MG PREMIX 100 ML IV SCH ×2 (12:30→14:00)
[2020-03-16 17:12] LABS: CREATINE KINASE MB FRACTION 2.4 ng/mL (0.5-3.6)
[2020-03-16] MEDS: DIPHENHYDRAMINE 50MG/ML VIAL IV PRN (19:56)
[2020-03-17] VITALS (11 sets, daily range): BP systolic 101–153; BP diastolic 63–90
[2020-03-17] MEDS: NITROGLYCERIN 0.4MG TABLET SL SL PRN ×2 (00:09→11:19)
[2020-03-17 01:30] LABS: CREATINE KINASE MB FRACTION 1.9 ng/mL (0.5-3.6)
[2020-03-17] MEDS: IPRATROPIUM/ALBUTEROL 0.5-3(2.5)MG/3ML NEB HHN SCH ×5 (04:39→21:38)
[2020-03-17] MEDS: BLOOD SUGAR DIAGNOSTIC STRIP TEST SCH ×4 (07:17→21:22)
[2020-03-17] MEDS: ASCORBIC ACID 500 MG TABLET PO SCH ×2 (08:16→21:12)
[2020-03-17] MEDS: SEVELAMER CARBONATE 800 MG TABLET PO SCH ×3 (08:16→18:11)
[2020-03-17] MEDS: FAMOTIDINE 20MG TABLET PO SCH (08:16)
[2020-03-17] MEDS: DOCUSATE SODIUM 100MG CAPSULE PO PRN (08:17)
[2020-03-17] MEDS: CARVEDILOL 3.125 MG TABLET PO SCH ×2 (08:17→21:12)
[2020-03-17] MEDS: CLOPIDOGREL 75MG TABLET PO SCH (08:17)
[2020-03-17] MEDS: ZINC SULFATE 220 MG ( 50 ) CAPSULE PO SCH (08:17)
[2020-03-17] MEDS: INSULIN LISPRO 100 UNITS/ML SUBCUT SCH ×4 (08:18→21:00)
[2020-03-17] MEDS: ENOXAPARIN 30MG/0.3ML SYR SUBCUT SCH (08:18)
[2020-03-17] MEDS: INSULIN GLARGINE UD 100 UNITS/ML SYR SUBCUT SCH (11:18)
[2020-03-17] MEDS: TRAMADOL 50MG TABLET PO PRN (11:19)
[2020-03-17] MEDS ORDERED: ALBU18HF2 IH (13:28)
[2020-03-17] MEDS: DEXTROSE 50% WATER 50ML SYRINGE IV PRN ×2 (17:37→21:51)
[2020-03-17] MEDS: DIPHENHYDRAMINE 50MG/ML VIAL IV PRN (21:13)
[2020-03-17] MEDS: LORAZEPAM 0.5MG TABLET PO PRN (21:13)
[2020-03-18] VITALS (12 sets, daily range): BP systolic 115–137; BP diastolic 63–81
[2020-03-18] MEDS: IPRATROPIUM/ALBUTEROL 0.5-3(2.5)MG/3ML NEB HHN SCH ×6 (01:04→20:03)
[2020-03-18 06:11] LABS: BASOPHILS % 0.2 % (0.0-2.0); EOSINOPHILS % 0.2 % (0.0-5.0); HEMOGLOBIN. 7.6 g/dL (12.0-16.0); MEAN CORPUSCULAR HEMOGLOBIN 32.1 pg (28.0-32.0); MEAN CORPUSCULAR VOLUME 97.5 fL (81.0-99.0); MEAN PLATELET VOLUME 10.6 fl (7.4-10.4); MONOCYTES % 5.6 % (2.0-8.0); PLATELET 161 x1000/uL (130-400); RED BLOOD CELL COUNT 2.36 mill/uL (4.2-5.4)
[2020-03-18] MEDS: BLOOD SUGAR DIAGNOSTIC STRIP TEST SCH ×4 (07:30→20:27)
[2020-03-18] MEDS: INSULIN LISPRO 100 UNITS/ML SUBCUT SCH ×4 (08:00→20:29)
[2020-03-18] MEDS: ASCORBIC ACID 500 MG TABLET PO SCH ×2 (08:47→20:26)
[2020-03-18] MEDS: ZINC SULFATE 220 MG ( 50 ) CAPSULE PO SCH (08:47)
[2020-03-18] MEDS: FAMOTIDINE 20MG TABLET PO SCH (08:47)
[2020-03-18] MEDS: SEVELAMER CARBONATE 800 MG TABLET PO SCH ×3 (08:47→18:34)
[2020-03-18] MEDS: DIPHENHYDRAMINE 50MG/ML VIAL IV PRN ×2 (08:47→20:27)
[2020-03-18] MEDS: DOCUSATE SODIUM 100MG CAPSULE PO PRN (08:47)
[2020-03-18] MEDS: CLOPIDOGREL 75MG TABLET PO SCH (08:47)
[2020-03-18] MEDS: ENOXAPARIN 30MG/0.3ML SYR SUBCUT SCH (08:48)
[2020-03-18] MEDS: CARVEDILOL 3.125 MG TABLET PO SCH ×2 (08:49→20:26)
[2020-03-18] MEDS ORDERED: LEVOFLOXACIN 250MG PREMIX 50 ML IV SCH (11:00)
[2020-03-18] MEDS: TRAMADOL 50MG TABLET PO PRN (11:55)
[2020-03-18] MEDS: INSULIN GLARGINE UD 100 UNITS/ML SYR SUBCUT SCH (11:56)
[2020-03-18 12:27] LABS: HEMATOCRIT 24.1 % (36.0-48.0); HEMOGLOBIN 7.9 g/dL (12.0-16.0)
[2020-03-18] MEDS: ACETAMINOPHEN 325MG TABLET PO PRN (18:35)
[2020-03-19] VITALS (7 sets, daily range): BP systolic 113–140; BP diastolic 44–87
[2020-03-19] MEDS: IPRATROPIUM/ALBUTEROL 0.5-3(2.5)MG/3ML NEB HHN SCH ×3 (04:00→08:28)
[2020-03-19] MEDS: BLOOD SUGAR DIAGNOSTIC STRIP TEST SCH (07:30)
[2020-03-19] MEDS: INSULIN LISPRO 100 UNITS/ML SUBCUT SCH (08:00)
[2020-03-19] MEDS: ASCORBIC ACID 500 MG TABLET PO SCH (08:36)
[2020-03-19] MEDS: ENOXAPARIN 30MG/0.3ML SYR SUBCUT SCH (08:36)
[2020-03-19] MEDS: ZINC SULFATE 220 MG ( 50 ) CAPSULE PO SCH (08:36)
[2020-03-19] MEDS: CARVEDILOL 3.125 MG TABLET PO SCH (08:37)
[2020-03-19] MEDS: FAMOTIDINE 20MG TABLET PO SCH (08:37)
[2020-03-19] MEDS: SEVELAMER CARBONATE 800 MG TABLET PO SCH (08:37)
[2020-03-19] MEDS: CLOPIDOGREL 75MG TABLET PO SCH (08:37)
[2020-03-19] MEDS: ACETAMINOPHEN 325MG TABLET PO PRN (09:09)
[2020-03-19] MEDS: INSULIN GLARGINE UD 100 UNITS/ML SYR SUBCUT SCH (10:00)
== END 2020-03-19 11:00 | disposition home or self-care (01) | DRG 140 ==
LOC: ER 02:37 → 5EST 04:19 → EDBEDREQ 04:28 → EDBEDREQTM 04:28 → ENRESERV 05:14 → 5EST 06:28
PROVIDERS: ADMIT Internal Medicine; ATTEND Internal Medicine
PROC: 5A09357 Assistance with Respiratory Ventilation, Less than 24 Consecutive Hours, Continuous Positive Airway Pressure (ICD-10-PCS; principal; 2020-03-16)
PROC: 5A09357 Assistance with Respiratory Ventilation, Less than 24 Consecutive Hours, Continuous Positive Airway Pressure (ICD-10-PCS; 2020-03-17)
DX: J44.1 Chronic obstructive pulmonary disease with (acute) exacerbation (principal); J96.00 Acute respiratory failure, unspecified whether with hypoxia or hypercapnia; I13.2 Hypertensive heart and chronic kidney disease with heart failure and with stage 5 chronic kidney disease, or end stage renal disease; E11.22 Type 2 diabetes mellitus with diabetic chronic kidney disease; E87.2 Acidosis; I95.9 Hypotension, unspecified; I42.9 Cardiomyopathy, unspecified; N18.6 End stage renal disease; I50.22 Chronic systolic (congestive) heart failure; D63.8 Anemia in other chronic diseases classified elsewhere; E78.00 Pure hypercholesterolemia, unspecified; I25.10 Atherosclerotic heart disease of native coronary artery without angina pectoris; N83.9 Noninflammatory disorder of ovary, fallopian tube and broad ligament, unspecified; Z91.15 Patient's noncompliance with renal dialysis; Z91.19 Patient's noncompliance with other medical treatment and regimen; Z95.1 Presence of aortocoronary bypass graft; Z95.5 Presence of coronary angioplasty implant and graft; Z99.2 Dependence on renal dialysis; Z88.2 Allergy status to sulfonamides; Z88.8 Allergy status to other drugs, medicaments and biological substances; Z88.0 Allergy status to penicillin; Z91.013 Allergy to seafood; Z79.82 Long term (current) use of aspirin; Z79.84 Long term (current) use of oral hypoglycemic drugs; Z79.899 Other long term (current) drug therapy; R79.89 Other specified abnormal findings of blood chemistry
CPT/HCPCS: 36415; 36600; 71045; 80048; 80053; 80061; 82375; 82550; 82553; 82805; 82962; 83036; 83880; 84484; 85014; 85018; 85025; 93005; 93970; 99291; J1200; J1650; J1815; J1956; J2270; J2405; J2930

== ENCOUNTER 2020-03-30 02:09 | Inpatient (IN) | payer MEDICAID ==
[2020-03-30] VITALS (68 sets, daily range): BP systolic 50–185; BP diastolic 33–125
[~2020-03-30] VITALS: Ht 182.9 cm; Wt 64.9 kg
[~2020-03-30 02:09] MED LIST changes: +ALBU18HF2 IH
[2020-03-30] MEDS ORDERED: ONDANSETRON HCL 4MG/2ML INJ IV STA (02:33)
[2020-03-30] MEDS ORDERED: NITROGLYCERIN OINT 1GM/INCH UDPKT TD ONE (02:45)
[2020-03-30] MEDS ORDERED: LABETALOL 5MG/ML SYR 20 MG/4 ML SYRINGE IV ONE (02:45)
[2020-03-30 02:54] LABS: BASOPHILS % 0.7 % (0.0-2.0); EOSINOPHILS % 0.1 % (0.0-5.0); HEMOGLOBIN. 7.6 g/dL (12.0-16.0); LYMPHOCYTES % 20.8 % (20.0-50.0); MEAN CORPUSCULAR HEMOGLOBIN 32.8 pg (28.0-32.0); MEAN CORPUSCULAR VOLUME 99.7 fL (81.0-99.0); MEAN PLATELET VOLUME 10.3 fl (7.4-10.4); MONOCYTES % 4.2 % (2.0-8.0); NEUTROPHILS % 74.2 % (40.0-76.0); PLATELET 207 x1000/uL (130-400); RED CELL DISTRIBUTION WIDTH 15.8 % (11.6-14.6)
[2020-03-30 03:01] LABS: CHLORIDE 104 mEq/L (98-107); INR 1.1; PROTHROMBIN TIME 11.9 sec (9.6-11.0)
[2020-03-30 03:11] LABS: BG BASE EXCESS -10.7 mmol/L (-2.0-2.0); BG BILEVEL POS AIRWAY PRESSURE 15/5; BG CARBOXYHEMOGLOBIN 0.3 % (0.5-1.5); BG DEOXYHEMOGLOBIN 0.3 % (0.0-5.0); BG FRACTION INSPIRED OXYGEN 100; BG HCO3 ACT 16.6 mmol/L (22.0-26.0); BG METHEMOGLOBIN 0.1 % (0.0-1.5); BG OXYGEN SATURATION 99.7 % (92.0-98.5); BG OXYHEMOGLOBIN 99.3 % (94.0-97.0); BG PCO2 42.5 mmHg (35.0-45.0); BG PO2 524.9 mmHg (75.0-100.0); BG SAMPLE SITE LEFT BRACHIAL; BG TOTAL HEMOGLOBIN 10.6 g/dL (12.0-18.0); BG VENT MODE MASK - BIPAP; BG VENT RATE 16 set
[2020-03-30] MEDS ORDERED: HYDROCODONE/ACETAMINOPHEN 5/325MG TABLET PO ONE (05:30)
[2020-03-30] MEDS: HYDROCODONE/ACETAMINOPHEN 5/325MG TABLET PO PRN ×2 (11:15→11:50)
[2020-03-30] MEDS ORDERED: LEVOFLOXACIN 250MG PREMIX 50 ML IV SCH (14:15)
[2020-03-30] MEDS ORDERED: PHENYLEPHRINE 20 MG in DEXT 5% WATER 248 ML IV PRN (14:15)
[2020-03-30] MEDS ORDERED: FENTANYL CITRATE/PF 500 MCG in SODIUM CHLORIDE 0.9% 40 ML IV PRN (14:15)
[2020-03-30] MEDS ORDERED: IPRATROPIUM/ALBUTEROL 0.5-3(2.5)MG/3ML NEB HHN PRN (14:15)
[2020-03-30 15:42] LABS: BG BASE EXCESS -9.5 mmol/L (-2.0-2.0); BG CARBOXYHEMOGLOBIN 0.3 % (0.5-1.5); BG DEOXYHEMOGLOBIN 0.5 % (0.0-5.0); BG HCO3 ACT 18.5 mmol/L (22.0-26.0); BG METHEMOGLOBIN 0.2 % (0.0-1.5); BG OXYGEN SATURATION 99.5 % (92.0-98.5); BG PCO2 50.8 mmHg (35.0-45.0); BG PH 7.179 (7.350-7.450); BG PO2 476.3 mmHg (75.0-100.0); BG SAMPLE SITE RIGHT BRACHIAL; BG TIDAL VOLUME(mL) 500 mL; BG TOTAL HEMOGLOBIN 9.5 g/dL (12.0-18.0); BG VENT MODE VENT - A/C; BG VENT RATE 18 set
[2020-03-30] MEDS: PROPOFOL 10MG/ML 100ML 100 ML IV PRN ×2 (16:28→17:34)
[2020-03-30] MEDS ORDERED: LEVOFLOXACIN 500MG PREMIX 100 ML IV NR (16:30)
[2020-03-30] MEDS ORDERED: MORPHINE SULFATE 2 MG/ML CPJ (NOT FOR IM USE) IV NR (16:30)
[2020-03-30] MEDS: FENTANYL CITRATE/PF 1,000 MCG in SODIUM CHLORIDE 0.9% 80 ML IV PRN (16:30)
[2020-03-30] MEDS ORDERED: AZITHROMYCIN 500MG in DEXTROSE 5% WATER 250ML IV NR (18:00)
[2020-03-30] MEDS ORDERED: PHENYLEPHRINE 40 MG in DEXT 5% WATER 246 ML IV PRN (19:00)
[2020-03-30] MEDS ORDERED: ACETAMINOPHEN 650MG SUPP PR PRN (19:15)
[2020-03-30] MEDS ORDERED: DEXTROSE 50% WATER 50ML SYRINGE IV PRN (19:15)
[2020-03-30] MEDS: NOREPINEPHRINE 8 MG in DEXT 5% WATER 242 ML IV PRN (20:34)
[2020-03-30] MEDS: SODIUM CHLORIDE 0.9% INJ 3ML FLUSH IVF SCH (22:09)
[2020-03-30 22:54] LABS: BG BASE EXCESS 3.1 mmol/L (-2.0-2.0); BG CARBOXYHEMOGLOBIN 0.3 % (0.5-1.5); BG DEOXYHEMOGLOBIN 6.9 % (0.0-5.0); BG FRACTION INSPIRED OXYGEN 40; BG HCO3 ACT 24.9 mmol/L (22.0-26.0); BG METHEMOGLOBIN 0.1 % (0.0-1.5); BG OXYGEN SATURATION 93.1 % (92.0-98.5); BG OXYHEMOGLOBIN 92.7 % (94.0-97.0); BG PCO2 28.7 mmHg (35.0-45.0); BG PH 7.557 (7.350-7.450); BG PIP 42 cmH2O; BG PO2 63.7 mmHg (75.0-100.0); BG SAMPLE SITE RIGHT BRACHIAL; BG TIDAL VOLUME(mL) 500 mL; BG TOTAL HEMOGLOBIN 9.8 g/dL (12.0-18.0); BG VENT MODE VENT - A/C; BG VENT RATE 20 set
[2020-03-30] MEDS: BLOOD SUGAR DIAGNOSTIC STRIP TEST SCH (23:49)
[2020-03-30] MEDS: INSULIN LISPRO 100 UNITS/ML SUBCUT SCH (23:49)
[2020-03-31] VITALS (96 sets, daily range): BP systolic 70–133; BP diastolic 44–83
[2020-03-31] MEDS ORDERED: VANCOMYCIN 1 G PREMIX 200 ML IV NR
[2020-03-31] MEDS: FENTANYL CITRATE/PF 1,000 MCG in SODIUM CHLORIDE 0.9% 80 ML IV PRN ×2 (00:43→19:03)
[2020-03-31] MEDS: PROPOFOL 10MG/ML 100ML 100 ML IV PRN ×2 (03:36→10:14)
[2020-03-31] MEDS: INSULIN LISPRO 100 UNITS/ML SUBCUT SCH ×3 (05:16→18:00)
[2020-03-31] MEDS: SODIUM CHLORIDE 0.9% INJ 3ML FLUSH IVF SCH ×3 (05:16→22:07)
[2020-03-31] MEDS: BLOOD SUGAR DIAGNOSTIC STRIP TEST SCH ×3 (05:16→18:00)
[2020-03-31 08:04] LABS: BASOPHILS % 0.2 % (0.0-2.0); EOSINOPHILS % 0.2 % (0.0-5.0); HEMATOCRIT. 21.9 % (36.0-48.0); HEMOGLOBIN. 7.4 g/dL (12.0-16.0); LYMPHOCYTES % 8.6 % (20.0-50.0); MEAN CORPUSCULAR HEMOGLOBIN 32.2 pg (28.0-32.0); MEAN PLATELET VOLUME 10.4 fl (7.4-10.4); MONOCYTES % 7.5 % (2.0-8.0); NEUTROPHILS % 83.5 % (40.0-76.0); PLATELET 164 x1000/uL (130-400); RED CELL DISTRIBUTION WIDTH 15.2 % (11.6-14.6)
[2020-03-31] MEDS: CLOPIDOGREL 75MG TABLET PO SCH (08:28)
[2020-03-31] MEDS: PANTOPRAZOLE SODIUM 40 MG/VIAL IV SCH (08:28)
[2020-03-31] MEDS: ASPIRIN 81MG TABLET NG SCH (08:31)
[2020-03-31 08:54] LABS: BG CARBOXYHEMOGLOBIN 0.2 % (0.5-1.5); BG DEOXYHEMOGLOBIN 6.1 % (0.0-5.0); BG FRACTION INSPIRED OXYGEN 40; BG HCO3 ACT 20.6 mmol/L (22.0-26.0); BG METHEMOGLOBIN 0.3 % (0.0-1.5); BG OXYGEN SATURATION 93.9 % (92.0-98.5); BG OXYHEMOGLOBIN 93.4 % (94.0-97.0); BG PCO2 26.5 mmHg (35.0-45.0); BG PH 7.509 (7.350-7.450); BG PO2 72.8 mmHg (75.0-100.0); BG SAMPLE SITE RIGHT BRACHIAL; BG TIDAL VOLUME(mL) 500 mL; BG TOTAL HEMOGLOBIN 7.3 g/dL (12.0-18.0); BG VENT MODE VENT - A/C; BG VENT RATE 16 set
[2020-03-31] MEDS ORDERED: ASPIRIN 81MG EC TABLET PO SCH (09:00)
[2020-03-31] MEDS: IPRATROPIUM/ALBUTEROL 0.5-3(2.5)MG/3ML NEB HHN SCH ×2 (12:00→23:45)
[2020-03-31] MEDS: AZITHROMYCIN 250 MG in DEXT 5% WATER 250 ML IV SCH (12:22)
[2020-03-31] MEDS ORDERED: POTASSIUM CHLORIDE 20MEQ/PACKET NG NR (14:00)
[2020-03-31] MEDS: MIDAZOLAM HCL 100 MG in DEXT 5% WATER 80 ML IV PRN (15:17)
[2020-03-31] MEDS ORDERED: ACETAMINOPHEN 650MG/20.3ML UDC PO PRN (18:15)
[2020-03-31] MEDS: EPOETIN ALFA 10000UNITS/ML VIAL SUBCUT SCH (21:30)
[2020-04-01] VITALS (103 sets, daily range): BP systolic 62–154; BP diastolic 40–75
[2020-04-01] MEDS: FENTANYL CITRATE/PF 1,000 MCG in SODIUM CHLORIDE 0.9% 80 ML IV PRN ×3 (03:29→20:17)
[2020-04-01] MEDS: MIDAZOLAM HCL 100 MG in DEXT 5% WATER 80 ML IV PRN (03:57)
[2020-04-01] MEDS: SODIUM CHLORIDE 0.9% INJ 3ML FLUSH IVF SCH ×3 (05:22→22:14)
[2020-04-01] MEDS: NOREPINEPHRINE 8 MG in DEXT 5% WATER 242 ML IV PRN (05:34)
[2020-04-01 05:47] LABS: BASOPHILS % 0.2 % (0.0-2.0); EOSINOPHILS % 0.2 % (0.0-5.0); HEMATOCRIT. 21.1 % (36.0-48.0); HEMOGLOBIN. 7.3 g/dL (12.0-16.0); LYMPHOCYTES % 7.9 % (20.0-50.0); MEAN CORPUSCULAR HEMOGLOBIN 32.6 pg (28.0-32.0); MEAN CORPUSCULAR VOLUME 94.7 fL (81.0-99.0); MEAN PLATELET VOLUME 10.3 fl (7.4-10.4); MONOCYTES % 10.8 % (2.0-8.0); NEUTROPHILS % 80.9 % (40.0-76.0); PLATELET 144 x1000/uL (130-400); RED BLOOD CELL COUNT 2.23 mill/uL (4.2-5.4); RED CELL DISTRIBUTION WIDTH 15.1 % (11.6-14.6)
[2020-04-01] MEDS: INSULIN LISPRO 100 UNITS/ML SUBCUT SCH ×5 (06:00→23:43)
[2020-04-01] MEDS: BLOOD SUGAR DIAGNOSTIC STRIP TEST SCH ×5 (06:34→23:35)
[2020-04-01] MEDS: IPRATROPIUM/ALBUTEROL 0.5-3(2.5)MG/3ML NEB HHN SCH ×3 (08:20→20:40)
[2020-04-01] MEDS: ASPIRIN 81MG TABLET NG SCH (08:22)
[2020-04-01] MEDS: CLOPIDOGREL 75MG TABLET PO SCH (08:22)
[2020-04-01] MEDS: FOLIC ACID/VITAMIN B COMP W-C TABLET PO SCH (08:22)
[2020-04-01] MEDS: PANTOPRAZOLE SODIUM 40 MG/VIAL IV SCH (08:22)
[2020-04-01 09:22] LABS: BG BASE EXCESS 1.3 mmol/L (-2.0-2.0); BG CARBOXYHEMOGLOBIN 0.3 % (0.5-1.5); BG DEOXYHEMOGLOBIN 1.2 % (0.0-5.0); BG FRACTION INSPIRED OXYGEN 40; BG HCO3 ACT 26.1 mmol/L (22.0-26.0); BG METHEMOGLOBIN 0.3 % (0.0-1.5); BG OXYGEN SATURATION 98.8 % (92.0-98.5); BG OXYHEMOGLOBIN 98.2 % (94.0-97.0); BG PCO2 42.4 mmHg (35.0-45.0); BG PH 7.407 (7.350-7.450); BG PO2 176.7 mmHg (75.0-100.0); BG SAMPLE SITE RIGHT RADIAL; BG TIDAL VOLUME(mL) 500 mL; BG TOTAL HEMOGLOBIN 7.9 g/dL (12.0-18.0); BG VENT MODE VENT - A/C; BG VENT RATE 12 set
[2020-04-01] MEDS ORDERED: LEVOFLOXACIN 500MG PREMIX 100 ML IV SCH (11:00)
[2020-04-01] MEDS: AZITHROMYCIN 250 MG in DEXT 5% WATER 250 ML IV SCH (12:21)
[2020-04-01] MEDS: HYDROCODONE/ACETAMINOPHEN 5/325MG TABLET NG PRN (14:17)
[2020-04-01] MEDS ORDERED: VANCOMYCIN 1 G PREMIX 200 ML IV SCH (15:00)
[2020-04-02] VITALS (79 sets, daily range): BP systolic 70–145; BP diastolic 22–83
[2020-04-02] MEDS: MIDAZOLAM HCL 100 MG in DEXT 5% WATER 80 ML IV PRN (00:56)
[2020-04-02] MEDS: IPRATROPIUM/ALBUTEROL 0.5-3(2.5)MG/3ML NEB HHN SCH ×3 (04:00→20:52)
[2020-04-02] MEDS: FENTANYL CITRATE/PF 1,000 MCG in SODIUM CHLORIDE 0.9% 80 ML IV PRN (04:26)
[2020-04-02] MEDS: INSULIN LISPRO 100 UNITS/ML SUBCUT SCH ×3 (05:10→17:13)
[2020-04-02] MEDS: SODIUM CHLORIDE 0.9% INJ 3ML FLUSH IVF SCH ×3 (05:10→22:07)
[2020-04-02] MEDS: BLOOD SUGAR DIAGNOSTIC STRIP TEST SCH ×3 (05:10→17:08)
[2020-04-02 05:29] LABS: HEMATOCRIT. 26.6 % (36.0-48.0); HEMOGLOBIN. 9.4 g/dL (12.0-16.0); MEAN CORPUSCULAR HEMOGLOBIN 33.7 pg (28.0-32.0); MEAN CORPUSCULAR VOLUME 95.6 fL (81.0-99.0); MEAN PLATELET VOLUME 10.4 fl (7.4-10.4); PLATELET 163 x1000/uL (130-400); RED BLOOD CELL COUNT 2.78 mill/uL (4.2-5.4); RED CELL DISTRIBUTION WIDTH 15.1 % (11.6-14.6)
[2020-04-02] MEDS: CLOPIDOGREL 75MG TABLET PO SCH (08:00)
[2020-04-02] MEDS: FOLIC ACID/VITAMIN B COMP W-C TABLET PO SCH (08:00)
[2020-04-02] MEDS: ASPIRIN 81MG TABLET NG SCH (08:00)
[2020-04-02] MEDS: PANTOPRAZOLE SODIUM 40 MG/VIAL IV SCH (08:01)
[2020-04-02 10:30] LABS: PLATELET ESTIMATE NORMAL
[2020-04-02 10:56] LABS: BG BASE EXCESS 1.1 mmol/L (-2.0-2.0); BG CARBOXYHEMOGLOBIN 0.2 % (0.5-1.5); BG DEOXYHEMOGLOBIN 1.2 % (0.0-5.0); BG FRACTION INSPIRED OXYGEN 40; BG HCO3 ACT 26.3 mmol/L (22.0-26.0); BG METHEMOGLOBIN 0.1 % (0.0-1.5); BG OXYGEN SATURATION 98.8 % (92.0-98.5); BG OXYHEMOGLOBIN 98.5 % (94.0-97.0); BG PCO2 44.3 mmHg (35.0-45.0); BG PH 7.391 (7.350-7.450); BG PO2 167.7 mmHg (75.0-100.0); BG PRESSURE SUPPORT 8; BG SAMPLE SITE RIGHT BRACHIAL; BG TOTAL HEMOGLOBIN 8.9 g/dL (12.0-18.0); BG VENT MODE VENT - CPAP
[2020-04-02] MEDS: AZITHROMYCIN 250 MG in DEXT 5% WATER 250 ML IV SCH (11:40)
[2020-04-02] MEDS: MORPHINE SULFATE 2 MG/ML CPJ (NOT FOR IM USE) IV PRN ×2 (14:20→18:23)
[2020-04-02] MEDS: MIDODRINE HCL 2.5MG TABLET PO SCH (17:12)
[2020-04-02] MEDS: ZOLPIDEM TARTRATE 5MG TABLET PO PRN (19:27)
[2020-04-02] MEDS: EPOETIN ALFA 10000UNITS/ML VIAL SUBCUT SCH (20:28)
[2020-04-02] MEDS: DIPHENHYDRAMINE 50MG/ML VIAL IV PRN (22:18)
[2020-04-03] VITALS (12 sets, daily range): BP systolic 86–131; BP diastolic 49–79
[2020-04-03] MEDS: BLOOD SUGAR DIAGNOSTIC STRIP TEST SCH ×5 (00:45→20:37)
[2020-04-03] MEDS: INSULIN LISPRO 100 UNITS/ML SUBCUT SCH ×5 (00:45→21:08)
[2020-04-03] MEDS: IPRATROPIUM/ALBUTEROL 0.5-3(2.5)MG/3ML NEB HHN SCH ×4 (01:26→20:50)
[2020-04-03] MEDS: SODIUM CHLORIDE 0.9% INJ 3ML FLUSH IVF SCH ×3 (06:00→21:08)
[2020-04-03 07:37] LABS: BASOPHILS % 0.4 % (0.0-2.0); EOSINOPHILS % 0.3 % (0.0-5.0); HEMATOCRIT. 25.6 % (36.0-48.0); HEMOGLOBIN. 8.5 g/dL (12.0-16.0); LYMPHOCYTES % 11.4 % (20.0-50.0); MEAN CORPUSCULAR HEMOGLOBIN 31.6 pg (28.0-32.0); MEAN CORPUSCULAR VOLUME 94.9 fL (81.0-99.0); MEAN PLATELET VOLUME 10.6 fl (7.4-10.4); NEUTROPHILS % 75.9 % (40.0-76.0); PLATELET 163 x1000/uL (130-400)
[2020-04-03] MEDS: PANTOPRAZOLE SODIUM 40 MG/VIAL IV SCH (08:03)
[2020-04-03] MEDS: ASPIRIN 81MG TABLET NG SCH (08:03)
[2020-04-03] MEDS: MIDODRINE HCL 2.5MG TABLET PO SCH ×3 (08:04→16:18)
[2020-04-03] MEDS: CLOPIDOGREL 75MG TABLET PO SCH (08:04)
[2020-04-03] MEDS: FOLIC ACID/VITAMIN B COMP W-C TABLET PO SCH (08:04)
[2020-04-03] MEDS: DIPHENHYDRAMINE 50MG/ML VIAL IV PRN ×3 (08:04→21:16)
[2020-04-03] MEDS: MORPHINE SULFATE 2 MG/ML CPJ (NOT FOR IM USE) IV PRN ×2 (10:33→14:44)
[2020-04-03] MEDS: HYDROCODONE/ACETAMINOPHEN 5/325MG TABLET NG PRN (18:38)
[2020-04-04] VITALS (12 sets, daily range): BP systolic 95–135; BP diastolic 52–97
[2020-04-04] MEDS: ZOLPIDEM TARTRATE 5MG TABLET PO PRN (00:28)
[2020-04-04] MEDS: ONDANSETRON HCL 4MG/2ML INJ IV PRN ×2 (04:03→20:50)
[2020-04-04] MEDS: SODIUM CHLORIDE 0.9% INJ 3ML FLUSH IVF SCH ×3 (05:00→21:00)
[2020-04-04 07:53] LABS: BASOPHILS % 0.3 % (0.0-2.0); EOSINOPHILS % 0.2 % (0.0-5.0); HEMATOCRIT. 25.9 % (36.0-48.0); HEMOGLOBIN. 8.7 g/dL (12.0-16.0); LYMPHOCYTES % 12.3 % (20.0-50.0); MEAN CORPUSCULAR HEMOGLOBIN 32.2 pg (28.0-32.0); MEAN CORPUSCULAR VOLUME 95.5 fL (81.0-99.0); MEAN PLATELET VOLUME 10.1 fl (7.4-10.4); MONOCYTES % 13.4 % (2.0-8.0); NEUTROPHILS % 73.8 % (40.0-76.0); PLATELET 186 x1000/uL (130-400); RED BLOOD CELL COUNT 2.71 mill/uL (4.2-5.4); RED CELL DISTRIBUTION WIDTH 14.6 % (11.6-14.6)
[2020-04-04] MEDS: BLOOD SUGAR DIAGNOSTIC STRIP TEST SCH ×4 (08:10→20:35)
[2020-04-04] MEDS: PANTOPRAZOLE SODIUM 40 MG/VIAL IV SCH (08:10)
[2020-04-04] MEDS: FOLIC ACID/VITAMIN B COMP W-C TABLET PO SCH (08:10)
[2020-04-04] MEDS: ASPIRIN 81MG TABLET NG SCH (08:10)
[2020-04-04] MEDS: MIDODRINE HCL 2.5MG TABLET PO SCH ×3 (08:12→16:14)
[2020-04-04] MEDS: INSULIN LISPRO 100 UNITS/ML SUBCUT SCH ×4 (08:13→20:59)
[2020-04-04] MEDS: CLOPIDOGREL 75MG TABLET PO SCH (08:29)
[2020-04-04] MEDS: IPRATROPIUM/ALBUTEROL 0.5-3(2.5)MG/3ML NEB HHN SCH ×3 (08:49→22:13)
[2020-04-04] MEDS: DIPHENHYDRAMINE 50MG/ML VIAL IV PRN ×2 (11:33→20:50)
[2020-04-04] MEDS: MORPHINE SULFATE 2 MG/ML CPJ (NOT FOR IM USE) IV PRN (12:22)
[2020-04-04] MEDS ORDERED: GUAIFENESIN-DM 200MG-20MG/10ML UDC PO PRN (14:45)
[2020-04-05] VITALS (13 sets, daily range): BP systolic 110–138; BP diastolic 43–80
[2020-04-05] MEDS: DIPHENHYDRAMINE 50MG/ML VIAL IV PRN ×3 (01:48→20:27)
[2020-04-05] MEDS: IPRATROPIUM/ALBUTEROL 0.5-3(2.5)MG/3ML NEB HHN SCH ×4 (02:51→20:29)
[2020-04-05] MEDS: ONDANSETRON HCL 4MG/2ML INJ IV PRN (03:47)
[2020-04-05] MEDS: SODIUM CHLORIDE 0.9% INJ 3ML FLUSH IVF SCH ×3 (05:54→22:00)
[2020-04-05 07:03] LABS: BASOPHILS % 0.3 % (0.0-2.0); EOSINOPHILS % 0.3 % (0.0-5.0); HEMATOCRIT. 24.3 % (36.0-48.0); HEMOGLOBIN. 8.3 g/dL (12.0-16.0); MEAN CORPUSCULAR HEMOGLOBIN 32.2 pg (28.0-32.0); MEAN CORPUSCULAR VOLUME 94.1 fL (81.0-99.0); MONOCYTES % 12.2 % (2.0-8.0); NEUTROPHILS % 72.2 % (40.0-76.0); PLATELET 190 x1000/uL (130-400); RED BLOOD CELL COUNT 2.59 mill/uL (4.2-5.4); RED CELL DISTRIBUTION WIDTH 14.5 % (11.6-14.6)
[2020-04-05] MEDS: BLOOD SUGAR DIAGNOSTIC STRIP TEST SCH ×4 (07:30→21:00)
[2020-04-05] MEDS: MIDODRINE HCL 2.5MG TABLET PO SCH ×3 (08:35→18:23)
[2020-04-05] MEDS: FAMOTIDINE 20MG/2ML VIAL IV SCH (08:35)
[2020-04-05] MEDS: ASPIRIN 81MG TABLET NG SCH (08:35)
[2020-04-05] MEDS: FOLIC ACID/VITAMIN B COMP W-C TABLET PO SCH (08:35)
[2020-04-05] MEDS: MORPHINE SULFATE 2 MG/ML CPJ (NOT FOR IM USE) IV PRN ×3 (08:37→20:28)
[2020-04-05] MEDS: CLOPIDOGREL 75MG TABLET PO SCH (08:56)
[2020-04-05] MEDS: INSULIN LISPRO 100 UNITS/ML SUBCUT SCH ×4 (08:57→21:00)
[2020-04-05] MEDS: EPOETIN ALFA 10000UNITS/ML VIAL SUBCUT SCH (20:27)
[2020-04-06] VITALS (8 sets, daily range): BP systolic 98–141; BP diastolic 68–127
[2020-04-06] MEDS: IPRATROPIUM/ALBUTEROL 0.5-3(2.5)MG/3ML NEB HHN SCH (01:50)
[2020-04-06] MEDS: FOLIC ACID/VITAMIN B COMP W-C TABLET PO SCH (08:11)
[2020-04-06] MEDS: ASPIRIN 81MG TABLET NG SCH (08:11)
[2020-04-06] MEDS: CLOPIDOGREL 75MG TABLET PO SCH (08:12)
[2020-04-06] MEDS: DIPHENHYDRAMINE 50MG/ML VIAL IV PRN (08:12)
[2020-04-06] MEDS: MIDODRINE HCL 2.5MG TABLET PO SCH ×2 (08:12→12:42)
[2020-04-06] MEDS: MORPHINE SULFATE 2 MG/ML CPJ (NOT FOR IM USE) IV PRN (08:13)
[2020-04-06] MEDS: INSULIN LISPRO 100 UNITS/ML SUBCUT SCH ×2 (08:14→12:40)
[2020-04-06] MEDS: BLOOD SUGAR DIAGNOSTIC STRIP TEST SCH ×2 (08:15→12:24)
[2020-04-06] MEDS: FAMOTIDINE 20MG/2ML VIAL IV SCH (08:19)
[2020-04-06] MEDS ORDERED: HEPARIN SODIUM 1,000 UNIT/1ML VIAL IV ONE (13:30)
== END 2020-04-06 14:35 | disposition home or self-care (01) | DRG 720 ==
LOC: ER 02:09 → 7EST 05:22 → ENRESERV 11:15 → MICUNO 14:30 → 5EST 04-02 22:00
PROVIDERS: ADMIT Internal Medicine; ATTEND Internal Medicine
PROC: 5A1945Z Respiratory Ventilation, 24-96 Consecutive Hours (ICD-10-PCS; principal; 2020-03-30)
PROC: 0BH17EZ Insertion of Endotracheal Airway into Trachea, Via Natural or Artificial Opening (ICD-10-PCS; 2020-03-30)
PROC: 02HV33Z Insertion of Infusion Device into Superior Vena Cava, Percutaneous Approach (ICD-10-PCS; 2020-03-30)
PROC: B548ZZA Ultrasonography of Superior Vena Cava, Guidance (ICD-10-PCS; 2020-03-30)
PROC: 5A1D70Z Performance of Urinary Filtration, Intermittent, Less than 6 Hours Per Day (ICD-10-PCS; 2020-03-30)
PROC: 5A09357 Assistance with Respiratory Ventilation, Less than 24 Consecutive Hours, Continuous Positive Airway Pressure (ICD-10-PCS; 2020-03-30)
PROC: 5A1D70Z Performance of Urinary Filtration, Intermittent, Less than 6 Hours Per Day (ICD-10-PCS; 2020-03-31)
PROC: 5A1D70Z Performance of Urinary Filtration, Intermittent, Less than 6 Hours Per Day (ICD-10-PCS; 2020-04-06)
DX: A40.8 Other streptococcal sepsis (principal); J96.00 Acute respiratory failure, unspecified whether with hypoxia or hypercapnia; R57.9 Shock, unspecified; I13.2 Hypertensive heart and chronic kidney disease with heart failure and with stage 5 chronic kidney disease, or end stage renal disease; E11.22 Type 2 diabetes mellitus with diabetic chronic kidney disease; I50.22 Chronic systolic (congestive) heart failure; E87.5 Hyperkalemia; N18.6 End stage renal disease; I25.5 Ischemic cardiomyopathy; E78.5 Hyperlipidemia, unspecified; D63.8 Anemia in other chronic diseases classified elsewhere; J44.9 Chronic obstructive pulmonary disease, unspecified; I44.7 Left bundle-branch block, unspecified; I25.10 Atherosclerotic heart disease of native coronary artery without angina pectoris; F41.1 Generalized anxiety disorder; F12.90 Cannabis use, unspecified, uncomplicated; I70.0 Atherosclerosis of aorta; I34.0 Nonrheumatic mitral (valve) insufficiency; F17.210 Nicotine dependence, cigarettes, uncomplicated; Z88.2 Allergy status to sulfonamides; Z88.0 Allergy status to penicillin; Z91.013 Allergy to seafood; Z79.82 Long term (current) use of aspirin; Z79.4 Long term (current) use of insulin; Z99.2 Dependence on renal dialysis; Z95.1 Presence of aortocoronary bypass graft; Z82.49 Family history of ischemic heart disease and other diseases of the circulatory system; Z95.5 Presence of coronary angioplasty implant and graft; Z91.19 Patient's noncompliance with other medical treatment and regimen; Z91.15 Patient's noncompliance with renal dialysis; Z03.818 Encounter for observation for suspected exposure to other biological agents ruled out
CPT/HCPCS: 36415; 36600; 71045; 80048; 80053; 80202; 82375; 82805; 82962; 83605; 84145; 84478; 84484; 85025; 87070; 93005; 93970; 94618; 97162; 99291; C9113; J0456; J0885; J1200; J1644; J1815; J1956; J2250; J2270; J2405; J2704; J3010; J3370; J3490; J7050; J7060; U0003-CS

== ENCOUNTER 2020-05-16 14:17 | Inpatient (IN) | payer MEDICAID ==
[~2020-05-16] VITALS: Ht 165.1 cm; Wt 68.5 kg
[~2020-05-16 14:17] MED LIST changes: +HYDR-4001 MT
[2020-05-16] MEDS ORDERED: IPRATROPIUM BROMIDE (0.02%) 0.5MG/2.5ML NEB HHN STA (14:32)
[2020-05-16] MEDS ORDERED: METHYLPREDNISOLONE SOD SUCC 125 MG/2 ML VIAL IV STA (14:32)
[2020-05-16] MEDS ORDERED: MAGNESIUM 2 G PREMIX 50 ML IV STA (14:32)
[2020-05-16] MEDS ORDERED: ALBUTEROL (0.083%) 2.5MG/3ML NEB HHN STA (14:32)
[2020-05-16 15:33] LABS: BASOPHILS % 0.2 % (0.0-2.0); EOSINOPHILS % 0.1 % (0.0-5.0); HEMATOCRIT. 27.7 % (36.0-48.0); LYMPHOCYTES % 12.2 % (20.0-50.0); MEAN CORPUSCULAR HEMOGLOBIN 30.4 pg (28.0-32.0); MEAN CORPUSCULAR VOLUME 93.9 fL (81.0-99.0); MEAN PLATELET VOLUME 10.7 fl (7.4-10.4); MONOCYTES % 6.6 % (2.0-8.0); NEUTROPHILS % 80.9 % (40.0-76.0); PLATELET 168 x1000/uL (130-400); RED BLOOD CELL COUNT 2.95 mill/uL (4.2-5.4); RED CELL DISTRIBUTION WIDTH 16.7 % (11.6-14.6)
[2020-05-16 15:38] LABS: CHLORIDE 100 mEq/L (98-107)
[2020-05-16 15:44] LABS: INR 1.1; PROTHROMBIN TIME 11.6 sec (9.6-11.0)
[2020-05-16 15:47] LABS: CLARITY URINE CLOUDY (CLEAR); COLOR URINE YELLOW (YELLOW); KETONES URINE TRACE (NEGATIVE); LEUKOCYTE ESTERASE URINE 1+ (NEGATIVE); NITRITE URINE NEGATIVE (NEGATIVE); OCCULT BLOOD URINE NEGATIVE (NEGATIVE); PROTEIN URINE 3+ (NEGATIVE); SPECIFIC GRAVITY URINE 1.022 (1.005-1.030)
[2020-05-16 16:09] LABS: *AMPHETAMINES SCREEN URINE NEGATIVE (NEGATIVE); *BARBITURATES SCREEN URINE NEGATIVE (NEGATIVE); *BENZODIAZEPINES SCREEN URINE NEGATIVE (NEGATIVE)
[2020-05-16 16:10] LABS: *COCAINE SCREEN URINE NEGATIVE (NEGATIVE); CANNABINOID URINE SCREEN NEGATIVE (NEGATIVE); METHADONE URINE SCREEN NEGATIVE (NEGATIVE); OPIATES URINE SCREEN PRESUMTIVE POSITIVE (NEGATIVE); PHENCYCLIDINE URINE SCREEN NEGATIVE (NEGATIVE)
[2020-05-16] MEDS ORDERED: MORPHINE SULFATE 2 MG/ML CPJ (NOT FOR IM USE) IV ONE (16:15)
[2020-05-16] MEDS ORDERED: ONDANSETRON HCL 4MG/2ML INJ IV ONE (16:15)
[2020-05-16] MEDS ORDERED: LEVOFLOXACIN 500MG PREMIX 100 ML IV ONE (16:45)
[2020-05-16 17:21] LABS: BG BASE EXCESS -4.3 mmol/L (-2.0-2.0); BG CARBOXYHEMOGLOBIN 0.4 % (0.5-1.5); BG DEOXYHEMOGLOBIN 9.1 % (0.0-5.0); BG FRACTION INSPIRED OXYGEN 21; BG HCO3 ACT 20.5 mmol/L (22.0-26.0); BG METHEMOGLOBIN 0.1 % (0.0-1.5); BG OXYGEN SATURATION 90.9 % (92.0-98.5); BG OXYHEMOGLOBIN 90.4 % (94.0-97.0); BG PCO2 36.5 mmHg (35.0-45.0); BG PH 7.367 (7.350-7.450); BG PO2 63.6 mmHg (75.0-100.0); BG SAMPLE SITE RIGHT BRACHIAL; BG TOTAL HEMOGLOBIN 9.9 g/dL (12.0-18.0); BG VENT MODE ROOM AIR
[2020-05-16] MEDS ORDERED: DEXTROSE 50% WATER 50ML SYRINGE IV PRN (18:45)
[2020-05-16] MEDS ORDERED: ACETAMINOPHEN 325MG TABLET PO PRN (18:45)
[2020-05-16] MEDS ORDERED: VANCOMYCIN 1 G PREMIX 200 ML IV SCH (20:00)
[2020-05-16] MEDS: IPRATROPIUM/ALBUTEROL 0.5-3(2.5)MG/3ML NEB HHN SCH (20:00)
[2020-05-16] MEDS ORDERED: CEFEPIME 1,000 MG in DEXTROSE 5% WATER 50 ML IV SCH (20:00)
[2020-05-16] MEDS: HYDROCODONE/ACETAMINOPHEN 5/325MG TABLET PO PRN (20:19)
[2020-05-16] MEDS: ATORVASTATIN CALCIUM 20MG TABLET PO SCH (21:00)
[2020-05-16] MEDS: ENOXAPARIN 30MG/0.3ML SYR SUBCUT SCH (21:00)
[2020-05-16] MEDS ORDERED: ENOXAPARIN 40MG/0.4ML SYR SUBCUT SCH (21:00)
[2020-05-16] MEDS ORDERED: MORPHINE SULFATE 2 MG/ML CPJ (NOT FOR IM USE) IV PRN (21:30)
[2020-05-16] MEDS ORDERED: METHYLPREDNISOLONE SOD SUCC 40 MG/ML VIAL IV SCH (23:00)
[2020-05-17] MEDS: HYDROCODONE/ACETAMINOPHEN 5/325MG TABLET PO PRN ×3 (03:39→22:29)
[2020-05-17] MEDS: IPRATROPIUM/ALBUTEROL 0.5-3(2.5)MG/3ML NEB HHN SCH ×6 (04:00→20:00)
[2020-05-17 04:44] LABS: HEMATOCRIT. 27.9 % (36.0-48.0); HEMOGLOBIN. 8.9 g/dL (12.0-16.0); MEAN CORPUSCULAR HEMOGLOBIN 30.7 pg (28.0-32.0); MEAN CORPUSCULAR VOLUME 96.5 fL (81.0-99.0); MEAN PLATELET VOLUME 11.4 fl (7.4-10.4); PLATELET 161 x1000/uL (130-400); RED BLOOD CELL COUNT 2.89 mill/uL (4.2-5.4); RED CELL DISTRIBUTION WIDTH 16.5 % (11.6-14.6)
[2020-05-17] MEDS: INSULIN LISPRO 100 UNITS/ML SUBCUT SCH ×5 (05:30→21:00)
[2020-05-17] MEDS: BLOOD SUGAR DIAGNOSTIC STRIP TEST SCH ×5 (06:30→21:00)
[2020-05-17 10:08] LABS: PLATELET ESTIMATE NORMAL
[2020-05-17] MEDS: INSULIN GLARGINE UD 100 UNITS/ML SYR SUBCUT SCH ×2 (11:54→22:31)
[2020-05-17] MEDS ORDERED: VANCOMYCIN 500 MG PREMIX 100 ML IV NR (14:00)
[2020-05-17 22:00] VITALS: BP 139/84
[2020-05-17] MEDS: ATORVASTATIN CALCIUM 20MG TABLET PO SCH (22:28)
[2020-05-17] MEDS: CARVEDILOL 6.25 MG TABLET PO SCH (22:28)
[2020-05-17] MEDS: ENOXAPARIN 30MG/0.3ML SYR SUBCUT SCH (22:30)
[2020-05-17] MEDS: CEFEPIME 1,000 MG in DEXTROSE 5% WATER 50 ML IV SCH (22:32)
[2020-05-17 22:56] VITALS: BP 139/84
[2020-05-17] MEDS: DIPHENHYDRAMINE 50MG/ML VIAL IV PRN (23:16)
[2020-05-18] VITALS (7 sets, daily range): BP systolic 101–127; BP diastolic 61–76
[2020-05-18] MEDS: IPRATROPIUM/ALBUTEROL 0.5-3(2.5)MG/3ML NEB HHN SCH ×5 (00:31→16:55)
[2020-05-18 06:21] LABS: BASOPHILS % 0.1 % (0.0-2.0); HEMATOCRIT. 26.9 % (36.0-48.0); HEMOGLOBIN. 8.6 g/dL (12.0-16.0); LYMPHOCYTES % 7.4 % (20.0-50.0); MEAN CORPUSCULAR HEMOGLOBIN 29.7 pg (28.0-32.0); MEAN CORPUSCULAR VOLUME 92.8 fL (81.0-99.0); MEAN PLATELET VOLUME 10.5 fl (7.4-10.4); MONOCYTES % 5.8 % (2.0-8.0); NEUTROPHILS % 86.7 % (40.0-76.0); PLATELET 184 x1000/uL (130-400); RED CELL DISTRIBUTION WIDTH 16.6 % (11.6-14.6)
[2020-05-18] MEDS: BLOOD SUGAR DIAGNOSTIC STRIP TEST SCH ×4 (07:20→21:44)
[2020-05-18] MEDS: INSULIN LISPRO 100 UNITS/ML SUBCUT SCH ×4 (07:50→21:55)
[2020-05-18] MEDS: LOSARTAN POTASSIUM 25 MG TABLET PO SCH (08:55)
[2020-05-18] MEDS: CARVEDILOL 6.25 MG TABLET PO SCH ×3 (08:56→21:43)
[2020-05-18] MEDS: HYDROCODONE/ACETAMINOPHEN 5/325MG TABLET PO PRN ×2 (08:59→17:34)
[2020-05-18] MEDS: ENOXAPARIN 30MG/0.3ML SYR SUBCUT SCH (21:00)
[2020-05-18] MEDS: ATORVASTATIN CALCIUM 20MG TABLET PO SCH (21:43)
[2020-05-18] MEDS: DIPHENHYDRAMINE 50MG/ML VIAL IV PRN (21:43)
[2020-05-19] VITALS (7 sets, daily range): BP systolic 109–131; BP diastolic 72–107
[2020-05-19] MEDS: HYDROCODONE/ACETAMINOPHEN 5/325MG TABLET PO PRN ×4 (00:41→20:00)
[2020-05-19] MEDS: CEFEPIME 1,000 MG in DEXTROSE 5% WATER 50 ML IV SCH ×2 (02:44→20:51)
[2020-05-19] MEDS: ONDANSETRON HCL 4MG/2ML INJ IV PRN (03:50)
[2020-05-19] MEDS: DIPHENHYDRAMINE 50MG/ML VIAL IV PRN ×3 (03:50→20:51)
[2020-05-19] MEDS: BLOOD SUGAR DIAGNOSTIC STRIP TEST SCH ×4 (06:18→21:44)
[2020-05-19 06:45] LABS: BASOPHILS % 0.1 % (0.0-2.0); EOSINOPHILS % 0.1 % (0.0-5.0); HEMATOCRIT. 29.5 % (36.0-48.0); HEMOGLOBIN. 9.5 g/dL (12.0-16.0); LYMPHOCYTES % 14.5 % (20.0-50.0); MEAN CORPUSCULAR HEMOGLOBIN 29.9 pg (28.0-32.0); MEAN CORPUSCULAR VOLUME 92.8 fL (81.0-99.0); MEAN PLATELET VOLUME 10.5 fl (7.4-10.4); MONOCYTES % 6.8 % (2.0-8.0); NEUTROPHILS % 78.5 % (40.0-76.0); PLATELET 209 x1000/uL (130-400); RED BLOOD CELL COUNT 3.18 mill/uL (4.2-5.4); RED CELL DISTRIBUTION WIDTH 16.3 % (11.6-14.6)
[2020-05-19] MEDS: IPRATROPIUM/ALBUTEROL 0.5-3(2.5)MG/3ML NEB HHN SCH ×5 (07:35→23:52)
[2020-05-19] MEDS: INSULIN LISPRO 100 UNITS/ML SUBCUT SCH ×4 (07:47→20:51)
[2020-05-19] MEDS: LOSARTAN POTASSIUM 25 MG TABLET PO SCH (08:36)
[2020-05-19] MEDS ORDERED: LOSA50TA41 MT (12:59)
[2020-05-19] MEDS ORDERED: COR6 PO (12:59)
[2020-05-19] MEDS ORDERED: MORPHINE SULFATE 2 MG/ML CPJ (NOT FOR IM USE) IV NR (15:15)
[2020-05-19] MEDS: NITROGLYCERIN 0.4MG TABLET SL SL PRN ×3 (20:36→21:00)
[2020-05-19] MEDS: ATORVASTATIN CALCIUM 20MG TABLET PO SCH (20:50)
[2020-05-19] MEDS: CARVEDILOL 6.25 MG TABLET PO SCH (20:51)
[2020-05-19] MEDS: ENOXAPARIN 30MG/0.3ML SYR SUBCUT SCH (22:34)
[2020-05-20] VITALS: BP 107/60
[2020-05-20] MEDS: DIPHENHYDRAMINE 50MG/ML VIAL IV PRN (02:04)
[2020-05-20] MEDS: ONDANSETRON HCL 4MG/2ML INJ IV PRN (02:14)
[2020-05-20] MEDS: IPRATROPIUM/ALBUTEROL 0.5-3(2.5)MG/3ML NEB HHN SCH ×3 (04:10→12:00)
[2020-05-20 04:14] VITALS: BP 116/72
[2020-05-20] MEDS: BLOOD SUGAR DIAGNOSTIC STRIP TEST SCH ×2 (06:44→12:20)
[2020-05-20 08:00] VITALS: BP 117/79
[2020-05-20] MEDS: INSULIN LISPRO 100 UNITS/ML SUBCUT SCH ×2 (08:40→12:50)
[2020-05-20] MEDS: CARVEDILOL 6.25 MG TABLET PO SCH (08:41)
[2020-05-20] MEDS: LOSARTAN POTASSIUM 25 MG TABLET PO SCH (08:41)
[2020-05-20] MEDS: HYDROCODONE/ACETAMINOPHEN 5/325MG TABLET PO PRN (08:42)
[2020-05-20 12:00] VITALS: BP 149/99
[2020-08-11] MEDS ORDERED: AMLO10TA4 MT (15:45)
[2020-08-11] MEDS ORDERED: CALC667C PO (15:56)
== END 2020-05-20 14:35 | disposition home or self-care (01) | DRG 720 ==
LOC: ER 14:30 → EDBEDREQ 15:29 → EDBEDREQTM 15:29 → EDBEDREQ 15:31 → MICUSO 16:15 → EDBEDREQ 16:18 → EDBEDREQTM 19:46 → EDBEDREQSVC 19:46 → 6WST 05-17 20:58
PROVIDERS: ADMIT Internal Medicine; ATTEND Internal Medicine
PROC: 5A09357 Assistance with Respiratory Ventilation, Less than 24 Consecutive Hours, Continuous Positive Airway Pressure (ICD-10-PCS; principal; 2020-05-16)
PROC: 5A09357 Assistance with Respiratory Ventilation, Less than 24 Consecutive Hours, Continuous Positive Airway Pressure (ICD-10-PCS; 2020-05-17)
PROC: 5A1D70Z Performance of Urinary Filtration, Intermittent, Less than 6 Hours Per Day (ICD-10-PCS; 2020-05-17)
PROC: 5A1D70Z Performance of Urinary Filtration, Intermittent, Less than 6 Hours Per Day (ICD-10-PCS; 2020-05-19)
DX: A41.51 Sepsis due to Escherichia coli [E. coli] (principal); J96.01 Acute respiratory failure with hypoxia; I13.2 Hypertensive heart and chronic kidney disease with heart failure and with stage 5 chronic kidney disease, or end stage renal disease; I27.20 Pulmonary hypertension, unspecified; E11.22 Type 2 diabetes mellitus with diabetic chronic kidney disease; N18.6 End stage renal disease; I42.9 Cardiomyopathy, unspecified; I50.23 Acute on chronic systolic (congestive) heart failure; N39.0 Urinary tract infection, site not specified; E78.5 Hyperlipidemia, unspecified; I25.10 Atherosclerotic heart disease of native coronary artery without angina pectoris; I08.0 Rheumatic disorders of both mitral and aortic valves; F17.200 Nicotine dependence, unspecified, uncomplicated; E87.5 Hyperkalemia; D64.9 Anemia, unspecified; E78.00 Pure hypercholesterolemia, unspecified; E87.2 Acidosis; Z86.73 Personal history of transient ischemic attack (TIA), and cerebral infarction without residual deficits; Z95.1 Presence of aortocoronary bypass graft; Z99.2 Dependence on renal dialysis; Z91.15 Patient's noncompliance with renal dialysis; Z95.5 Presence of coronary angioplasty implant and graft; Z88.2 Allergy status to sulfonamides; Z88.0 Allergy status to penicillin; Z91.013 Allergy to seafood; Z79.82 Long term (current) use of aspirin; Z79.4 Long term (current) use of insulin; Z79.899 Other long term (current) drug therapy
CPT/HCPCS: 36415; 36600; 71045; 80048; 80053; 80202; 80305; 81003; 82375; 82805; 82962; 83605; 83880; 84145; 84484; 85025; 87077; 87186; 93005; 94640; 94660; 96365; 99291; J0692; J1200; J1650; J1815; J1956; J2270; J2405; J2920; J2930; J3370; J3475; J7060

== ENCOUNTER 2020-06-10 14:09 | Inpatient (IN) | payer MEDICAID ==
[~2020-06-10] VITALS: Ht 165.1 cm; Wt 69.6 kg
[~2020-06-10 14:09] MED LIST changes: +LOSA50TA41 MT
[2020-06-10] MEDS ORDERED: SODIUM CHLORIDE 0.9% 250 ML IV ONE (14:45)
[2020-06-10 15:38] LABS: HEMATOCRIT. 31.4 % (36.0-48.0); MEAN CORPUSCULAR VOLUME 87.7 fL (81.0-99.0); MEAN PLATELET VOLUME 9.8 fl (7.4-10.4); PLATELET 192 x1000/uL (130-400); RED BLOOD CELL COUNT 3.58 mill/uL (4.2-5.4); RED CELL DISTRIBUTION WIDTH 17.3 % (11.6-14.6)
[2020-06-10 15:42] LABS: CHLORIDE 100 mEq/L (98-107)
[2020-06-10 15:45] LABS: INR 1.2; PROTHROMBIN TIME 12.5 sec (9.6-11.0)
[2020-06-10 16:01] LABS: PLATELET ESTIMATE NORMAL
[2020-06-10] MEDS ORDERED: IPRATROPIUM/ALBUTEROL 0.5-3(2.5)MG/3ML NEB NEB PRN (18:15)
[2020-06-10] MEDS ORDERED: MAGNESIUM/ALUMINUM HYDROXIDE/SIMETHICONE 30ML UDC PO PRN (18:15)
[2020-06-10] MEDS ORDERED: CLONIDINE 0.1MG TABLET PO PRN (18:15)
[2020-06-10] MEDS ORDERED: HYDROCODONE/ACETAMINOPHEN 5/325MG TABLET PO PRN (18:15)
[2020-06-10] MEDS ORDERED: GUAIFENESIN 200MG/10ML SUGAR FREE UDC PO PRN (18:15)
[2020-06-10] MEDS ORDERED: DOCUSATE SODIUM 100MG CAPSULE PO PRN (18:15)
[2020-06-10] MEDS ORDERED: ACETAMINOPHEN 325MG TABLET PO PRN (18:15)
[2020-06-10] MEDS ORDERED: ONDANSETRON HCL 4MG/2ML INJ IV PRN (18:15)
[2020-06-10] MEDS ORDERED: DIPHENHYDRAMINE 50MG/ML VIAL IV PRN (18:30)
[2020-06-10] MEDS ORDERED: ENOXAPARIN 30MG/0.3ML SYR SUBCUT SCH (19:00)
[2020-06-10] MEDS: LOSARTAN POTASSIUM 50 MG TABLET PO SCH (20:30)
[2020-06-10] MEDS: PANTOPRAZOLE 40MG DR TABLET PO SCH (20:30)
[2020-06-10] MEDS ORDERED: ATORVASTATIN CALCIUM 40MG TABLET PO SCH (21:00)
[2020-06-10 21:30] VITALS: BP 146/63
[2020-06-10] MEDS: CARVEDILOL 6.25 MG TABLET PO SCH (22:04)
[2020-06-10] MEDS: INSULIN GLARGINE UD 100 UNITS/ML SYR SUBCUT SCH (22:06)
[2020-06-11] MEDS ORDERED: DEXTROSE 50% WATER 50ML SYRINGE IV PRN (00:15)
[2020-06-11 00:31] VITALS: BP 126/66
[2020-06-11 04:00] VITALS: BP 122/71
[2020-06-11] MEDS: BLOOD SUGAR DIAGNOSTIC STRIP TEST SCH ×2 (06:10→11:54)
[2020-06-11 07:16] LABS: CHLORIDE 102 mEq/L (98-107)
[2020-06-11 07:19] LABS: HEMATOCRIT. 28.1 % (36.0-48.0); HEMOGLOBIN. 8.8 g/dL (12.0-16.0); MEAN CORPUSCULAR HEMOGLOBIN 27.6 pg (28.0-32.0); MEAN CORPUSCULAR VOLUME 88.3 fL (81.0-99.0); MEAN PLATELET VOLUME 10.3 fl (7.4-10.4); PLATELET 146 x1000/uL (130-400); RED BLOOD CELL COUNT 3.19 mill/uL (4.2-5.4); RED CELL DISTRIBUTION WIDTH 17.2 % (11.6-14.6)
[2020-06-11] MEDS ORDERED: INSULIN LISPRO 100 UNITS/ML SUBCUT SCH (07:50)
[2020-06-11] MEDS ORDERED: CALCIUM ACETATE 667MG CAPSULE PO SCH (07:50)
[2020-06-11 08:00] VITALS: BP 144/86
[2020-06-11] MEDS: ALBUTEROL (0.083%) 2.5MG/3ML NEB HHN SCH ×2 (08:24→11:34)
[2020-06-11] MEDS: PANTOPRAZOLE 40MG DR TABLET PO SCH (08:41)
[2020-06-11] MEDS: LOSARTAN POTASSIUM 50 MG TABLET PO SCH (08:41)
[2020-06-11] MEDS: CARVEDILOL 6.25 MG TABLET PO SCH (08:42)
[2020-06-11] MEDS: INSULIN GLARGINE UD 100 UNITS/ML SYR SUBCUT SCH (08:43)
[2020-06-11] MEDS ORDERED: CLOPIDOGREL 75MG TABLET PO SCH (09:00)
[2020-06-11] MEDS ORDERED: AMLODIPINE 10MG TABLET PO SCH (09:00)
[2020-06-11 16:59] LABS: PLATELET ESTIMATE NORMAL
[2020-08-11] MEDS ORDERED: AMLO10TA4 MT (15:45)
[2020-08-11] MEDS ORDERED: CALC667C PO (15:56)
== END 2020-06-11 12:50 | disposition home or self-care (01) | DRG 52 ==
LOC: ER 14:09 → 6WST 17:10 → EDBEDREQ 17:22 → ENRESERV 21:01
PROVIDERS: ADMIT Hospitalist; ATTEND Hospitalist
DX: G93.40 Encephalopathy, unspecified (principal); F32.9 Major depressive disorder, single episode, unspecified; E78.00 Pure hypercholesterolemia, unspecified; E11.22 Type 2 diabetes mellitus with diabetic chronic kidney disease; I13.2 Hypertensive heart and chronic kidney disease with heart failure and with stage 5 chronic kidney disease, or end stage renal disease; N18.6 End stage renal disease; I25.10 Atherosclerotic heart disease of native coronary artery without angina pectoris; I50.9 Heart failure, unspecified; J44.9 Chronic obstructive pulmonary disease, unspecified; I95.9 Hypotension, unspecified; Z86.73 Personal history of transient ischemic attack (TIA), and cerebral infarction without residual deficits; Z87.891 Personal history of nicotine dependence; Z95.1 Presence of aortocoronary bypass graft; Z95.2 Presence of prosthetic heart valve; Z99.2 Dependence on renal dialysis; Z88.2 Allergy status to sulfonamides; Z88.0 Allergy status to penicillin; Z91.013 Allergy to seafood; Z79.82 Long term (current) use of aspirin; Z79.4 Long term (current) use of insulin; Z79.899 Other long term (current) drug therapy; I25.2 Old myocardial infarction
CPT/HCPCS: 36415; 71045; 80053; 82962; 83036; 83605; 84484; 85025; 87077; 87186; 93005; 93970; 94640; 99291; J1650; J1815; J7050

== ENCOUNTER 2020-06-13 07:54 | Inpatient (IN) | payer MEDICAID ==
[~2020-06-13] VITALS: Ht 160 cm; Wt 66.7 kg
[2020-06-13] MEDS ORDERED: ONDANSETRON HCL 4MG/2ML INJ IV STA (08:14)
[2020-06-13 09:04] LABS: BASOPHILS % 0.5 % (0.0-2.0); HEMATOCRIT. 31.7 % (36.0-48.0); HEMOGLOBIN. 10.1 g/dL (12.0-16.0); LYMPHOCYTES % 7.3 % (20.0-50.0); MEAN CORPUSCULAR HEMOGLOBIN 28.2 pg (28.0-32.0); MEAN CORPUSCULAR VOLUME 88.8 fL (81.0-99.0); MEAN PLATELET VOLUME 10.5 fl (7.4-10.4); MONOCYTES % 6.5 % (2.0-8.0); NEUTROPHILS % 85.7 % (40.0-76.0); PLATELET 138 x1000/uL (130-400); RED BLOOD CELL COUNT 3.57 mill/uL (4.2-5.4); RED CELL DISTRIBUTION WIDTH 17.5 % (11.6-14.6)
[2020-06-13 09:11] LABS: CHLORIDE 100 mEq/L (98-107)
[2020-06-13 09:14] LABS: INR 1.2; PROTHROMBIN TIME 12.1 sec (9.6-11.0)
[2020-06-13] MEDS ORDERED: MEROPENEM 500 MG in SODIUM CHLORIDE 0.9% 50 ML IV SCH (09:30)
[2020-06-13 10:50] VITALS: BP 126/86
[2020-06-13] MEDS ORDERED: DEXTROSE 50% WATER 50ML SYRINGE IV PRN (12:30)
[2020-06-13] MEDS ORDERED: ACETAMINOPHEN 325MG TABLET PO PRN (12:30)
[2020-06-13] MEDS ORDERED: ONDANSETRON HCL 4MG/2ML INJ IV PRN (12:30)
[2020-06-13] MEDS ORDERED: DIPHENHYDRAMINE 25MG CAPSULE PO PRN (13:00)
[2020-06-13] MEDS: INSULIN LISPRO 100 UNITS/ML SUBCUT SCH ×3 (13:04→21:45)
[2020-06-13] MEDS: TRAMADOL 50MG TABLET PO PRN (13:10)
[2020-06-13] MEDS ORDERED: CEFEPIME 1,000 MG in DEXTROSE 5% WATER 50 ML IV SCH (15:00)
[2020-06-13 16:00] VITALS: BP 100/70
[2020-06-13] MEDS: BLOOD SUGAR DIAGNOSTIC STRIP TEST SCH ×2 (17:43→21:17)
[2020-06-13] MEDS: CEFEPIME 1,000 MG in DEXTROSE 5% WATER 50 ML IV SCH (18:11)
[2020-06-13 20:00] VITALS: BP 119/71
[2020-06-13] MEDS ORDERED: ZOLPIDEM TARTRATE 5MG TABLET PO PRN (21:15)
[2020-06-13] MEDS: CARVEDILOL 6.25 MG TABLET PO SCH (21:45)
[2020-06-13] MEDS: ATORVASTATIN CALCIUM 40MG TABLET PO SCH (21:45)
[2020-06-13] MEDS: DIPHENHYDRAMINE 50MG/ML VIAL IV PRN (23:13)
[2020-06-14] VITALS: BP 126/77
[2020-06-14 04:00] VITALS: BP 109/88
[2020-06-14] MEDS: TRAMADOL 50MG TABLET PO PRN ×2 (05:59→21:15)
[2020-06-14] MEDS: INSULIN LISPRO 100 UNITS/ML SUBCUT SCH ×4 (07:40→21:00)
[2020-06-14] MEDS: BLOOD SUGAR DIAGNOSTIC STRIP TEST SCH ×4 (07:51→21:15)
[2020-06-14 08:00] VITALS: BP 129/70
[2020-06-14] MEDS: LOSARTAN POTASSIUM 25 MG TABLET PO SCH (09:00)
[2020-06-14] MEDS: CLOPIDOGREL 75MG TABLET PO SCH (09:00)
[2020-06-14] MEDS: ASPIRIN 81MG EC TABLET PO SCH (09:00)
[2020-06-14] MEDS: CARVEDILOL 6.25 MG TABLET PO SCH ×2 (09:00→21:09)
[2020-06-14 10:18] LABS: BASOPHILS % 0.4 % (0.0-2.0); EOSINOPHILS % 0.1 % (0.0-5.0); HEMATOCRIT. 32.5 % (36.0-48.0); HEMOGLOBIN. 10.3 g/dL (12.0-16.0); MEAN CORPUSCULAR HEMOGLOBIN 27.9 pg (28.0-32.0); MEAN CORPUSCULAR VOLUME 88.4 fL (81.0-99.0); MEAN PLATELET VOLUME 10.3 fl (7.4-10.4); MONOCYTES % 7.9 % (2.0-8.0); NEUTROPHILS % 78.6 % (40.0-76.0); PLATELET 143 x1000/uL (130-400); RED BLOOD CELL COUNT 3.68 mill/uL (4.2-5.4); RED CELL DISTRIBUTION WIDTH 17.5 % (11.6-14.6)
[2020-06-14] MEDS: DIPHENHYDRAMINE 50MG/ML VIAL IV PRN (11:46)
[2020-06-14 11:58] VITALS: BP 145/89
[2020-06-14] MEDS ORDERED: IPRATROPIUM/ALBUTEROL 0.5-3(2.5)MG/3ML NEB HHN NR (13:37)
[2020-06-14] MEDS ORDERED: LIDOCAINE HCL 1% 20ML VIAL (Pyxis) INJ ONE (14:54)
[2020-06-14] MEDS ORDERED: SODIUM BICARBONATE 4% (2.4MEQ) 5ML VIAL IV ONE (14:54)
[2020-06-14 16:00] VITALS: BP 108/68
[2020-06-14] MEDS: CEFEPIME 1,000 MG in DEXTROSE 5% WATER 50 ML IV SCH (18:40)
[2020-06-14 20:00] VITALS: BP 121/61
[2020-06-14] MEDS: ATORVASTATIN CALCIUM 40MG TABLET PO SCH (21:09)
[2020-06-15] VITALS: BP 100/47
[2020-06-15 04:00] VITALS: BP 100/60
[2020-06-15] MEDS: BLOOD SUGAR DIAGNOSTIC STRIP TEST SCH ×4 (06:32→21:27)
[2020-06-15] MEDS: INSULIN LISPRO 100 UNITS/ML SUBCUT SCH ×4 (06:32→21:00)
[2020-06-15 08:00] VITALS: BP 122/73
[2020-06-15] MEDS: ASPIRIN 81MG EC TABLET PO SCH (08:29)
[2020-06-15] MEDS: CLOPIDOGREL 75MG TABLET PO SCH (08:29)
[2020-06-15] MEDS: LOSARTAN POTASSIUM 25 MG TABLET PO SCH (08:29)
[2020-06-15] MEDS: CARVEDILOL 6.25 MG TABLET PO SCH ×2 (08:30→21:26)
[2020-06-15] MEDS: TRAMADOL 50MG TABLET PO PRN ×3 (08:30→23:36)
[2020-06-15 12:00] VITALS: BP 115/66
[2020-06-15 16:00] VITALS: BP 125/70
[2020-06-15] MEDS: CEFEPIME 1,000 MG in DEXTROSE 5% WATER 50 ML IV SCH (18:03)
[2020-06-15 20:00] VITALS: BP 135/69
[2020-06-15] MEDS: DIPHENHYDRAMINE 50MG/ML VIAL IV PRN (20:22)
[2020-06-15] MEDS: ATORVASTATIN CALCIUM 40MG TABLET PO SCH (21:26)
[2020-06-16] VITALS (22 sets, daily range): BP systolic 121–148; BP diastolic 78–92
[2020-06-16] MEDS: DIPHENHYDRAMINE 50MG/ML VIAL IV PRN (03:06)
[2020-06-16] MEDS: BLOOD SUGAR DIAGNOSTIC STRIP TEST SCH ×4 (06:20→21:51)
[2020-06-16] MEDS: INSULIN LISPRO 100 UNITS/ML SUBCUT SCH ×4 (06:24→21:00)
[2020-06-16 07:01] LABS: BASOPHILS % 0.4 % (0.0-2.0); HEMATOCRIT. 28.6 % (36.0-48.0); LYMPHOCYTES % 11.4 % (20.0-50.0); MEAN CORPUSCULAR HEMOGLOBIN 27.3 pg (28.0-32.0); MEAN CORPUSCULAR VOLUME 86.6 fL (81.0-99.0); MEAN PLATELET VOLUME 10.8 fl (7.4-10.4); MONOCYTES % 8.1 % (2.0-8.0); NEUTROPHILS % 80.1 % (40.0-76.0); PLATELET 119 x1000/uL (130-400); RED CELL DISTRIBUTION WIDTH 17.1 % (11.6-14.6)
[2020-06-16] MEDS: LOSARTAN POTASSIUM 25 MG TABLET PO SCH (09:00)
[2020-06-16] MEDS: ASPIRIN 81MG EC TABLET PO SCH (09:00)
[2020-06-16] MEDS: CLOPIDOGREL 75MG TABLET PO SCH (09:00)
[2020-06-16] MEDS: CARVEDILOL 6.25 MG TABLET PO SCH ×2 (09:00→21:53)
[2020-06-16] MEDS ORDERED: HEPARIN 1000 UNITS/ML 10ML ONE (13:16)
[2020-06-16] MEDS ORDERED: LIDOCAINE HCL 1% 20ML VIAL (Pyxis) INJ ONE (13:16)
[2020-06-16] MEDS ORDERED: SODIUM BICARBONATE 4% (2.4MEQ) 5ML VIAL IV ONE (13:16)
[2020-06-16] MEDS ORDERED: FENTANYL CITRATE/PF 50MCG/ML 2ML VIAL ONE (13:27)
[2020-06-16] MEDS ORDERED: FENTANYL CITRATE/PF 50MCG/ML 2ML VIAL IV ONE (14:30)
[2020-06-16] MEDS: CEFEPIME 1,000 MG in DEXTROSE 5% WATER 50 ML IV SCH (21:42)
[2020-06-16] MEDS: ATORVASTATIN CALCIUM 40MG TABLET PO SCH (21:53)
[2020-08-11] MEDS ORDERED: AMLO10TA4 MT (15:45)
[2020-08-11] MEDS ORDERED: CALC667C PO (15:56)
== END 2020-06-16 22:22 | disposition home health service (06) | DRG 721 ==
LOC: ER 07:54 → 8WST 09:20 → EDBEDREQ 09:26 → EDBEDREQTM 09:26 → CANRESERV 09:58 → ENRESERV 09:58 → 8WST 11:29
PROVIDERS: ADMIT Internal Medicine; ATTEND Internal Medicine
PROC: 0JPT3XZ Removal of Tunneled Vascular Access Device from Trunk Subcutaneous Tissue and Fascia, Percutaneous Approach (ICD-10-PCS; principal; 2020-06-14)
PROC: 5A1D70Z Performance of Urinary Filtration, Intermittent, Less than 6 Hours Per Day (ICD-10-PCS; 2020-06-14)
PROC: 0JH63XZ Insertion of Tunneled Vascular Access Device into Chest Subcutaneous Tissue and Fascia, Percutaneous Approach (ICD-10-PCS; 2020-06-16)
PROC: 02HV33Z Insertion of Infusion Device into Superior Vena Cava, Percutaneous Approach (ICD-10-PCS; 2020-06-16)
PROC: B5181ZA Fluoroscopy of Superior Vena Cava using Low Osmolar Contrast, Guidance (ICD-10-PCS; 2020-06-16)
PROC: B548ZZA Ultrasonography of Superior Vena Cava, Guidance (ICD-10-PCS; 2020-06-16)
PROC: 5A1D70Z Performance of Urinary Filtration, Intermittent, Less than 6 Hours Per Day (ICD-10-PCS; 2020-06-16)
DX: T80.211A Bloodstream infection due to central venous catheter, initial encounter (principal); A41.52 Sepsis due to Pseudomonas; E87.2 Acidosis; I13.2 Hypertensive heart and chronic kidney disease with heart failure and with stage 5 chronic kidney disease, or end stage renal disease; I50.23 Acute on chronic systolic (congestive) heart failure; D63.8 Anemia in other chronic diseases classified elsewhere; D69.6 Thrombocytopenia, unspecified; E11.22 Type 2 diabetes mellitus with diabetic chronic kidney disease; E78.5 Hyperlipidemia, unspecified; E87.1 Hypo-osmolality and hyponatremia; I25.5 Ischemic cardiomyopathy; I44.7 Left bundle-branch block, unspecified; I27.20 Pulmonary hypertension, unspecified; N18.6 End stage renal disease; J44.9 Chronic obstructive pulmonary disease, unspecified; I25.10 Atherosclerotic heart disease of native coronary artery without angina pectoris; E78.00 Pure hypercholesterolemia, unspecified; I08.0 Rheumatic disorders of both mitral and aortic valves; N83.9 Noninflammatory disorder of ovary, fallopian tube and broad ligament, unspecified; Z88.0 Allergy status to penicillin; Z88.2 Allergy status to sulfonamides; Z79.899 Other long term (current) drug therapy; Z91.013 Allergy to seafood; I25.2 Old myocardial infarction; Z95.1 Presence of aortocoronary bypass graft; Z86.73 Personal history of transient ischemic attack (TIA), and cerebral infarction without residual deficits; Z79.4 Long term (current) use of insulin; Z82.3 Family history of stroke; Z82.49 Family history of ischemic heart disease and other diseases of the circulatory system; Z95.2 Presence of prosthetic heart valve; Z95.5 Presence of coronary angioplasty implant and graft; Z99.2 Dependence on renal dialysis
CPT/HCPCS: 36415; 36558; 36589; 71045; 76937; 77001; 80048; 80053; 82962; 83605; 84484; 85025; 93005; 93306; 94640; 99152; 99153; 99285; C1750; C1769; C1887; J0692; J1200; J1644; J1815; J2185; J2405; J3010; J3490; J7060; G0500

== ENCOUNTER 2020-06-18 16:55 | Inpatient (IN) | payer MEDICAID ==
[~2020-06-18] VITALS: Ht 165.1 cm; Wt 67.6 kg
[2020-06-18] MEDS ORDERED: MORPHINE SULFATE 4 MG/ML CPJ (NOT FOR IM USE) IV ONE ×2 (18:45→21:45)
[2020-06-18 18:51] LABS: CHLORIDE 102 mEq/L (98-107)
[2020-06-18 18:54] LABS: BASOPHILS % 0.8 % (0.0-2.0); EOSINOPHILS % 0.1 % (0.0-5.0); HEMATOCRIT. 30.1 % (36.0-48.0); HEMOGLOBIN. 9.4 g/dL (12.0-16.0); LYMPHOCYTES % 12.2 % (20.0-50.0); MEAN CORPUSCULAR HEMOGLOBIN 27.5 pg (28.0-32.0); MEAN CORPUSCULAR VOLUME 88.1 fL (81.0-99.0); MEAN PLATELET VOLUME 10.6 fl (7.4-10.4); MONOCYTES % 7.4 % (2.0-8.0); NEUTROPHILS % 79.5 % (40.0-76.0); PLATELET 124 x1000/uL (130-400); RED BLOOD CELL COUNT 3.41 mill/uL (4.2-5.4); RED CELL DISTRIBUTION WIDTH 17.4 % (11.6-14.6)
[2020-06-18 19:23] LABS: INR 1.1; PARTIAL THROMBOPLASTIN TIME 27.9 sec (23.4-31.0); PROTHROMBIN TIME 11.9 sec (9.6-11.0)
[2020-06-18] MEDS ORDERED: HEPARIN 5000 UNITS/ML VIAL IV PRN ×2 (21:15→21:58)
[2020-06-18] MEDS ORDERED: HEPARIN 5000 UNITS/ML VIAL IV SCH (21:15)
[2020-06-18] MEDS: HEPARIN 25,000 UNITS PREMIX 500 ML IV PRN (22:47)
[2020-06-18 23:30] VITALS: BP 141/93
[2020-06-19] VITALS: BP 141/93
[2020-06-19] MEDS ORDERED: DEXTROSE 50% WATER 50ML SYRINGE IV PRN (01:45)
[2020-06-19] MEDS ORDERED: ONDANSETRON HCL 4MG/2ML INJ IV PRN (01:45)
[2020-06-19] MEDS ORDERED: HEPARIN 5000 UNITS/ML VIAL IV PRN (02:15)
[2020-06-19] MEDS: MORPHINE SULFATE 2 MG/ML CPJ (NOT FOR IM USE) IV PRN ×2 (02:38→06:35)
[2020-06-19 04:00] VITALS: BP 140/83
[2020-06-19] MEDS: BLOOD SUGAR DIAGNOSTIC STRIP TEST SCH ×4 (06:36→20:25)
[2020-06-19] MEDS: INSULIN LISPRO 100 UNITS/ML SUBCUT SCH ×4 (06:36→20:25)
[2020-06-19 06:42] LABS: BASOPHILS % 0.3 % (0.0-2.0); EOSINOPHILS % 0.1 % (0.0-5.0); HEMATOCRIT. 30.1 % (36.0-48.0); HEMOGLOBIN. 9.4 g/dL (12.0-16.0); LYMPHOCYTES % 14.6 % (20.0-50.0); MEAN CORPUSCULAR HEMOGLOBIN 27.4 pg (28.0-32.0); MEAN CORPUSCULAR VOLUME 87.4 fL (81.0-99.0); MEAN PLATELET VOLUME 11.1 fl (7.4-10.4); PLATELET 132 x1000/uL (130-400); RED BLOOD CELL COUNT 3.45 mill/uL (4.2-5.4); RED CELL DISTRIBUTION WIDTH 17.5 % (11.6-14.6)
[2020-06-19 06:51] LABS: PHOSPHORUS 6.8 mg/dL (2.5-4.9)
[2020-06-19 08:00] VITALS: BP 140/83
[2020-06-19] MEDS: SEVELAMER CARBONATE 800 MG TABLET PO SCH ×3 (09:47→18:52)
[2020-06-19] MEDS: LOSARTAN POTASSIUM 50 MG TABLET PO SCH (09:48)
[2020-06-19] MEDS: CARVEDILOL 6.25 MG TABLET PO SCH ×2 (09:48→20:29)
[2020-06-19] MEDS: FOLIC ACID/VITAMIN B COMP W-C TABLET PO SCH (09:48)
[2020-06-19] MEDS: INSULIN GLARGINE UD 100 UNITS/ML SYR SUBCUT SCH ×2 (11:26→22:33)
[2020-06-19] MEDS: CEFEPIME 1,000 MG in DEXTROSE 5% WATER 50 ML IV SCH (11:45)
[2020-06-19 12:00] VITALS: BP 130/83
[2020-06-19 16:00] VITALS: BP 134/66
[2020-06-19 20:24] VITALS: BP 161/100
[2020-06-19] MEDS: ATORVASTATIN CALCIUM 40MG TABLET PO SCH (20:28)
[2020-06-19] MEDS: HEPARIN 25,000 UNITS PREMIX 500 ML IV PRN (22:31)
[2020-06-20] VITALS: BP 125/81
[2020-06-20] MEDS: MORPHINE SULFATE 2 MG/ML CPJ (NOT FOR IM USE) IV PRN (00:30)
[2020-06-20 04:00] VITALS: BP 142/89
[2020-06-20 05:57] LABS: BASOPHILS % 0.3 % (0.0-2.0); HEMATOCRIT. 29.2 % (36.0-48.0); HEMOGLOBIN. 9.2 g/dL (12.0-16.0); LYMPHOCYTES % 13.7 % (20.0-50.0); MEAN CORPUSCULAR HEMOGLOBIN 27.2 pg (28.0-32.0); MEAN CORPUSCULAR VOLUME 86.7 fL (81.0-99.0); MEAN PLATELET VOLUME 10.9 fl (7.4-10.4); MONOCYTES % 6.2 % (2.0-8.0); NEUTROPHILS % 79.8 % (40.0-76.0); PLATELET 136 x1000/uL (130-400); RED BLOOD CELL COUNT 3.38 mill/uL (4.2-5.4); RED CELL DISTRIBUTION WIDTH 17.3 % (11.6-14.6)
[2020-06-20] MEDS: BLOOD SUGAR DIAGNOSTIC STRIP TEST SCH ×4 (07:28→21:26)
[2020-06-20] MEDS: INSULIN LISPRO 100 UNITS/ML SUBCUT SCH ×4 (07:40→21:25)
[2020-06-20 08:00] VITALS: BP 138/79
[2020-06-20] MEDS: HEPARIN 25,000 UNITS PREMIX 500 ML IV PRN ×2 (08:43→23:19)
[2020-06-20] MEDS: CARVEDILOL 6.25 MG TABLET PO SCH ×2 (08:44→21:26)
[2020-06-20] MEDS: SEVELAMER CARBONATE 800 MG TABLET PO SCH ×3 (08:45→18:11)
[2020-06-20] MEDS: FOLIC ACID/VITAMIN B COMP W-C TABLET PO SCH (08:45)
[2020-06-20] MEDS: LOSARTAN POTASSIUM 50 MG TABLET PO SCH (08:45)
[2020-06-20] MEDS: INSULIN GLARGINE UD 100 UNITS/ML SYR SUBCUT SCH ×2 (11:00→21:26)
[2020-06-20] MEDS: CEFEPIME 1,000 MG in DEXTROSE 5% WATER 50 ML IV SCH (11:13)
[2020-06-20 12:00] VITALS: BP 139/91
[2020-06-20] MEDS ORDERED: IOHEXOL-350 100 ML BOTTLE ONE ×2 (13:34→20:55)
[2020-06-20] MEDS ORDERED: HEPARIN 5000 UNITS/ML VIAL IV NR (17:30)
[2020-06-20 20:00] VITALS: BP 143/87
[2020-06-20] MEDS: ATORVASTATIN CALCIUM 40MG TABLET PO SCH (21:27)
[2020-06-21] VITALS: BP 145/83
[2020-06-21 04:00] VITALS: BP 110/63
[2020-06-21 06:19] LABS: BASOPHILS % 0.4 % (0.0-2.0); EOSINOPHILS % 0.1 % (0.0-5.0); HEMATOCRIT. 26.9 % (36.0-48.0); HEMOGLOBIN. 8.5 g/dL (12.0-16.0); LYMPHOCYTES % 9.8 % (20.0-50.0); MEAN CORPUSCULAR VOLUME 85.6 fL (81.0-99.0); MEAN PLATELET VOLUME 10.9 fl (7.4-10.4); MONOCYTES % 6.9 % (2.0-8.0); NEUTROPHILS % 82.8 % (40.0-76.0); PLATELET 119 x1000/uL (130-400); RED BLOOD CELL COUNT 3.14 mill/uL (4.2-5.4)
[2020-06-21] MEDS: BLOOD SUGAR DIAGNOSTIC STRIP TEST SCH ×2 (06:36→11:38)
[2020-06-21] MEDS: INSULIN LISPRO 100 UNITS/ML SUBCUT SCH ×2 (06:59→12:40)
[2020-06-21] MEDS: SEVELAMER CARBONATE 800 MG TABLET PO SCH ×2 (07:40→11:44)
[2020-06-21 08:00] VITALS: BP 142/89
[2020-06-21] MEDS: FOLIC ACID/VITAMIN B COMP W-C TABLET PO SCH ×2 (08:56→09:28)
[2020-06-21] MEDS: LOSARTAN POTASSIUM 50 MG TABLET PO SCH ×2 (08:56→09:29)
[2020-06-21] MEDS: CARVEDILOL 6.25 MG TABLET PO SCH ×2 (08:56→09:29)
[2020-06-21] MEDS: INSULIN GLARGINE UD 100 UNITS/ML SYR SUBCUT SCH (09:36)
[2020-06-21] MEDS: CEFEPIME 1,000 MG in DEXTROSE 5% WATER 50 ML IV SCH (11:14)
[2020-06-21 12:00] VITALS: BP 139/85
[2020-06-21 15:00] VITALS: BP 139/85
[2020-08-11] MEDS ORDERED: AMLO10TA4 MT (15:45)
[2020-08-11] MEDS ORDERED: CALC667C PO (15:56)
== END 2020-06-21 16:50 | disposition home or self-care (01) | DRG 197 ==
LOC: ER 16:55 → MICUSO 22:07 → EDBEDREQ 22:18 → EDBEDREQTM 22:18 → 8WST 23:43
PROVIDERS: ADMIT Internal Medicine; ATTEND Internal Medicine
PROC: 5A1D70Z Performance of Urinary Filtration, Intermittent, Less than 6 Hours Per Day (ICD-10-PCS; principal; 2020-06-19)
DX: E11.51 Type 2 diabetes mellitus with diabetic peripheral angiopathy without gangrene (principal); I99.8 Other disorder of circulatory system; E11.22 Type 2 diabetes mellitus with diabetic chronic kidney disease; E11.65 Type 2 diabetes mellitus with hyperglycemia; I13.2 Hypertensive heart and chronic kidney disease with heart failure and with stage 5 chronic kidney disease, or end stage renal disease; I25.10 Atherosclerotic heart disease of native coronary artery without angina pectoris; I50.9 Heart failure, unspecified; D64.9 Anemia, unspecified; E78.5 Hyperlipidemia, unspecified; J44.9 Chronic obstructive pulmonary disease, unspecified; N18.6 End stage renal disease; Z86.73 Personal history of transient ischemic attack (TIA), and cerebral infarction without residual deficits; Z95.5 Presence of coronary angioplasty implant and graft; Z99.2 Dependence on renal dialysis; I25.2 Old myocardial infarction; Z95.1 Presence of aortocoronary bypass graft; Z88.2 Allergy status to sulfonamides; Z88.0 Allergy status to penicillin; Z91.013 Allergy to seafood; Z79.82 Long term (current) use of aspirin; Z79.4 Long term (current) use of insulin; Z79.899 Other long term (current) drug therapy
CPT/HCPCS: 36415; 71045; 75635; 80048; 80053; 80061; 82962; 83036; 83880; 84100; 84484; 85025; 93005; 93922; 93970; 96374; 99285; J0692; J1644; J1815; J2270; J2405; J7060; Q9967

== ENCOUNTER 2020-06-29 00:51 | Emergency (ER) | payer MEDICAID ==
[~2020-06-29] VITALS: Ht 162.6 cm; Wt 69.0 kg
[2020-06-29 01:51] VITALS: BP 151/99
[2020-06-29 03:04] LABS: BASOPHILS % 1.8 % (0.0-2.0); EOSINOPHILS % 0.1 % (0.0-5.0); HEMATOCRIT. 29.5 % (36.0-48.0); HEMOGLOBIN. 9.3 g/dL (12.0-16.0); LYMPHOCYTES % 15.9 % (20.0-50.0); MEAN CORPUSCULAR HEMOGLOBIN 27.6 pg (28.0-32.0); MEAN CORPUSCULAR VOLUME 87.3 fL (81.0-99.0); MEAN PLATELET VOLUME 12.1 fl (7.4-10.4); NEUTROPHILS % 75.2 % (40.0-76.0); PLATELET 115 x1000/uL (130-400); RED BLOOD CELL COUNT 3.38 mill/uL (4.2-5.4); RED CELL DISTRIBUTION WIDTH 18.1 % (11.6-14.6)
[2020-06-29 03:10] LABS: CHLORIDE 101 mEq/L (98-107)
[2020-06-29 03:12] LABS: INR 1.3; PROTHROMBIN TIME 13.5 sec (9.6-11.0)
[2020-08-11] MEDS ORDERED: AMLO10TA4 MT (15:45)
[2020-08-11] MEDS ORDERED: CALC667C PO (15:56)
== END 2020-06-29 04:10 | disposition left against medical advice (07) ==
LOC: ER 00:51
DX: I11.0 Hypertensive heart disease with heart failure (principal); I50.9 Heart failure, unspecified; I10 Essential (primary) hypertension; Z88.0 Allergy status to penicillin; Z91.013 Allergy to seafood; Z88.2 Allergy status to sulfonamides; Z79.899 Other long term (current) drug therapy; Z79.82 Long term (current) use of aspirin; Z79.4 Long term (current) use of insulin
CPT/HCPCS: 36415; 71045; 80053; 83880; 84484; 85025; 93005; 99285

== ENCOUNTER 2020-06-30 23:10 | Inpatient (IN) | payer MEDICAID ==
[~2020-06-30] VITALS: Ht 165.1 cm; Wt 69.9 kg
[2020-07-01] MEDS ORDERED: CLINDAMYCIN 600 MG in DEXTROSE 5% WATER 50 ML IV ONE (00:45)
[2020-07-01] MEDS ORDERED: NITROGLYCERIN 0.4MG TABLET SL SL PRN (00:45)
[2020-07-01] MEDS ORDERED: ASPIRIN 81MG TABLET PO ONE (00:45)
[2020-07-01 01:04] LABS: BASOPHILS % 1.6 % (0.0-2.0); EOSINOPHILS % 0.2 % (0.0-5.0); HEMATOCRIT. 29.3 % (36.0-48.0); HEMOGLOBIN. 9.4 g/dL (12.0-16.0); LYMPHOCYTES % 14.4 % (20.0-50.0); MEAN CORPUSCULAR HEMOGLOBIN 28.2 pg (28.0-32.0); MEAN CORPUSCULAR VOLUME 87.7 fL (81.0-99.0); MEAN PLATELET VOLUME 12.7 fl (7.4-10.4); MONOCYTES % 8.5 % (2.0-8.0); NEUTROPHILS % 75.3 % (40.0-76.0); PLATELET 124 x1000/uL (130-400); RED BLOOD CELL COUNT 3.34 mill/uL (4.2-5.4); RED CELL DISTRIBUTION WIDTH 19.4 % (11.6-14.6)
[2020-07-01 01:09] LABS: CHLORIDE 99 mEq/L (98-107)
[2020-07-01] MEDS ORDERED: CLINDAMYCIN 600MG PREMIX 50 ML IV NR ×2 (01:15)
[2020-07-01] MEDS ORDERED: INSULIN REGULAR (HUMULIN R) 300UNITS/3ML IV NR (01:45)
[2020-07-01] MEDS ORDERED: SODIUM BICARBONATE 8.4% 1 MEQ/ML 50ML SYR IV NR (01:45)
[2020-07-01] MEDS ORDERED: DEXTROSE 50% WATER 50ML SYRINGE IV NR (01:45)
[2020-07-01] MEDS ORDERED: CALCIUM CHLORIDE 1GM/10ML SYR IV NR (01:45)
[2020-07-01] MEDS ORDERED: ALBUTEROL (0.083%) 2.5MG/3ML NEB HHN NR (01:45)
[2020-07-01] MEDS ORDERED: IOHEXOL-350 100 ML BOTTLE ONE (05:13)
[2020-07-01] MEDS ORDERED: HEPARIN 25,000 UNITS PREMIX 250 ML IV PRN (05:30)
[2020-07-01] MEDS ORDERED: HEPARIN 5000 UNITS/ML VIAL IV SCH (05:30)
[2020-07-01 08:47] LABS: INR 1.5; PROTHROMBIN TIME 15.6 sec (9.6-11.0)
[2020-07-01 09:08] LABS: PARTIAL THROMBOPLASTIN TIME 164.5 sec (23.4-31.0)
[2020-07-01] MEDS ORDERED: ENOXAPARIN 80MG/0.8ML SYR SUBCUT SCH (10:00)
[2020-07-01] MEDS ORDERED: ACETAMINOPHEN 325MG TABLET PO PRN (10:30)
[2020-07-01] MEDS ORDERED: ONDANSETRON HCL 4MG/2ML INJ IV PRN (10:30)
[2020-07-01] MEDS ORDERED: DEXTROSE 50% WATER 50ML SYRINGE IV PRN (10:30)
[2020-07-01] MEDS: TRAMADOL 50MG TABLET PO PRN ×2 (10:45→22:08)
[2020-07-01 11:25] LABS: BASOPHILS % 0.7 % (0.0-2.0); EOSINOPHILS % 0.2 % (0.0-5.0); HEMATOCRIT. 32.5 % (36.0-48.0); HEMOGLOBIN. 10.1 g/dL (12.0-16.0); LYMPHOCYTES % 14.4 % (20.0-50.0); MEAN CORPUSCULAR HEMOGLOBIN 27.5 pg (28.0-32.0); MEAN CORPUSCULAR VOLUME 88.9 fL (81.0-99.0); MEAN PLATELET VOLUME 12.1 fl (7.4-10.4); MONOCYTES % 10.8 % (2.0-8.0); NEUTROPHILS % 73.9 % (40.0-76.0); PLATELET 100 x1000/uL (130-400); RED BLOOD CELL COUNT 3.66 mill/uL (4.2-5.4); RED CELL DISTRIBUTION WIDTH 19.3 % (11.6-14.6)
[2020-07-01 12:00] VITALS: BP 141/96
[2020-07-01] MEDS: BLOOD SUGAR DIAGNOSTIC STRIP TEST SCH ×3 (12:28→21:48)
[2020-07-01] MEDS: INSULIN LISPRO 100 UNITS/ML SUBCUT SCH ×3 (12:41→21:00)
[2020-07-01] MEDS: LORAZEPAM 0.5MG TABLET PO PRN ×2 (13:21→23:51)
[2020-07-01 13:39] VITALS: BP 127/71
[2020-07-01] MEDS: DIPHENHYDRAMINE 25MG CAPSULE PO PRN (14:03)
[2020-07-01 16:00] VITALS: BP 145/88
[2020-07-01 20:00] VITALS: BP 110/77
[2020-07-01] MEDS: ATORVASTATIN CALCIUM 20MG TABLET PO SCH (21:48)
[2020-07-01] MEDS: CARVEDILOL 6.25 MG TABLET PO SCH (21:48)
[2020-07-02] VITALS: BP 110/77
[2020-07-02 04:00] VITALS: BP 134/82
[2020-07-02] MEDS: INSULIN LISPRO 100 UNITS/ML SUBCUT SCH ×4 (06:21→21:50)
[2020-07-02] MEDS: BLOOD SUGAR DIAGNOSTIC STRIP TEST SCH ×4 (07:10→21:00)
[2020-07-02 07:36] LABS: BASOPHILS % 0.4 % (0.0-2.0); EOSINOPHILS % 0.2 % (0.0-5.0); HEMATOCRIT. 28.4 % (36.0-48.0); LYMPHOCYTES % 18.1 % (20.0-50.0); MEAN CORPUSCULAR HEMOGLOBIN 27.7 pg (28.0-32.0); MEAN CORPUSCULAR VOLUME 87.7 fL (81.0-99.0); MONOCYTES % 12.8 % (2.0-8.0); NEUTROPHILS % 68.5 % (40.0-76.0); PLATELET 82 x1000/uL (130-400); RED BLOOD CELL COUNT 3.24 mill/uL (4.2-5.4); RED CELL DISTRIBUTION WIDTH 19.7 % (11.6-14.6)
[2020-07-02 08:00] VITALS: BP 158/83
[2020-07-02] MEDS ORDERED: LOSARTAN POTASSIUM 25 MG TABLET PO SCH (09:00)
[2020-07-02] MEDS: ASPIRIN 81MG TABLET PO SCH (09:10)
[2020-07-02] MEDS: TRAMADOL 50MG TABLET PO PRN (09:11)
[2020-07-02] MEDS: CLOPIDOGREL 75MG TABLET PO SCH (09:11)
[2020-07-02] MEDS: CARVEDILOL 6.25 MG TABLET PO SCH ×2 (09:11→21:48)
[2020-07-02] MEDS ORDERED: DEXTROSE 50% WATER 50ML SYRINGE IV NR (11:00)
[2020-07-02] MEDS ORDERED: SODIUM BICARBONATE 8.4% 1 MEQ/ML 50ML SYR IV NR (11:00)
[2020-07-02] MEDS ORDERED: INSULIN REGULAR (HUMULIN R) UD 100 UNITS/ML SYR IV NR (12:00)
[2020-07-02] MEDS: CALCIUM GLUCONATE 1,000 MG in DEXT 5% WATER 90 ML IV NR ×2 (12:00→13:53)
[2020-07-02] MEDS: DIPHENHYDRAMINE 25MG CAPSULE PO PRN ×2 (14:35→21:49)
[2020-07-02] MEDS ORDERED: ENOXAPARIN 30MG/0.3ML SYR SUBCUT SCH (16:00)
[2020-07-02 20:00] VITALS: BP 148/95
[2020-07-02] MEDS: LORAZEPAM 0.5MG TABLET PO PRN (21:49)
[2020-07-02] MEDS: ATORVASTATIN CALCIUM 20MG TABLET PO SCH (21:49)
[2020-07-03] VITALS: BP 138/77
[2020-07-03 04:00] VITALS: BP 152/89
[2020-07-03] MEDS: INSULIN LISPRO 100 UNITS/ML SUBCUT SCH ×2 (06:56→12:10)
[2020-07-03] MEDS: BLOOD SUGAR DIAGNOSTIC STRIP TEST SCH ×2 (06:57→12:10)
[2020-07-03 07:04] LABS: BASOPHILS % 0.3 % (0.0-2.0); EOSINOPHILS % 0.1 % (0.0-5.0); HEMATOCRIT. 31.1 % (36.0-48.0); HEMOGLOBIN. 9.6 g/dL (12.0-16.0); MEAN CORPUSCULAR HEMOGLOBIN 27.9 pg (28.0-32.0); MEAN CORPUSCULAR VOLUME 90.5 fL (81.0-99.0); NEUTROPHILS % 72.6 % (40.0-76.0); PLATELET 84 x1000/uL (130-400); RED BLOOD CELL COUNT 3.44 mill/uL (4.2-5.4); RED CELL DISTRIBUTION WIDTH 19.9 % (11.6-14.6)
[2020-07-03 08:00] VITALS: BP 152/84
[2020-07-03] MEDS ORDERED: LOSARTAN POTASSIUM 50 MG TABLET PO SCH (09:00)
[2020-07-03] MEDS: CLOPIDOGREL 75MG TABLET PO SCH (09:14)
[2020-07-03] MEDS: CARVEDILOL 6.25 MG TABLET PO SCH (09:15)
[2020-07-03] MEDS: ASPIRIN 81MG TABLET PO SCH (09:15)
[2020-07-03 10:01] VITALS: BP 152/84
[2020-08-11] MEDS ORDERED: AMLO10TA4 MT (15:45)
[2020-08-11] MEDS ORDERED: CALC667C PO (15:56)
== END 2020-07-03 16:13 | disposition home or self-care (01) | DRG 194 ==
LOC: ER 23:37 → 8WST 07-01 05:25 → EDBEDREQ 07-01 05:43 → EDBEDREQTM 07-01 05:43 → ENRESERV 07-01 07:18 → 8WST 07-03 03:33
PROVIDERS: ADMIT Internal Medicine; ATTEND Internal Medicine
PROC: 5A1D70Z Performance of Urinary Filtration, Intermittent, Less than 6 Hours Per Day (ICD-10-PCS; 2020-07-01)
PROC: 5A1D70Z Performance of Urinary Filtration, Intermittent, Less than 6 Hours Per Day (ICD-10-PCS; principal; 2020-07-02)
DX: I13.2 Hypertensive heart and chronic kidney disease with heart failure and with stage 5 chronic kidney disease, or end stage renal disease (principal); N61.0 Mastitis without abscess; R07.89 Other chest pain; D64.9 Anemia, unspecified; E11.22 Type 2 diabetes mellitus with diabetic chronic kidney disease; I26.99 Other pulmonary embolism without acute cor pulmonale; E11.51 Type 2 diabetes mellitus with diabetic peripheral angiopathy without gangrene; E78.5 Hyperlipidemia, unspecified; E87.5 Hyperkalemia; I50.23 Acute on chronic systolic (congestive) heart failure; I34.0 Nonrheumatic mitral (valve) insufficiency; I27.21 Secondary pulmonary arterial hypertension; I25.5 Ischemic cardiomyopathy; J44.9 Chronic obstructive pulmonary disease, unspecified; J96.00 Acute respiratory failure, unspecified whether with hypoxia or hypercapnia; S20.02XA Contusion of left breast, initial encounter; S20.01XA Contusion of right breast, initial encounter; I45.10 Unspecified right bundle-branch block; X58.XXXA Exposure to other specified factors, initial encounter; N18.6 End stage renal disease; Z86.73 Personal history of transient ischemic attack (TIA), and cerebral infarction without residual deficits; Z95.1 Presence of aortocoronary bypass graft; Z95.3 Presence of xenogenic heart valve; Z95.5 Presence of coronary angioplasty implant and graft; Z99.2 Dependence on renal dialysis; Z88.0 Allergy status to penicillin; Z88.2 Allergy status to sulfonamides; Z79.82 Long term (current) use of aspirin; Z79.4 Long term (current) use of insulin; Z79.899 Other long term (current) drug therapy; I25.2 Old myocardial infarction; Y93.89 Activity, other specified; Y92.89 Other specified places as the place of occurrence of the external cause; Y99.8 Other external cause status; I24.8 Other forms of acute ischemic heart disease
CPT/HCPCS: 36415; 71045; 71275; 80048; 80053; 80061; 82962; 83605; 83735; 83880; 84132; 84145; 84484; 85025; 93005; 94640; 99291; J0610; J1644; J1650; J1815; J3490; J7060; Q0163; Q9967

== ENCOUNTER 2020-07-04 17:06 | Emergency (ER) | payer MEDICAID ==
[~2020-07-04] VITALS: Ht 165.1 cm; Wt 72.0 kg
[2020-07-04] MEDS ORDERED: HYDROCODONE/ACETAMINOPHEN 5/325MG TABLET PO ONE (18:30)
[2020-07-04 19:48] VITALS: BP 143/75
== END 2020-07-04 19:50 | disposition home or self-care (01) ==
LOC: ER 17:06
DX: M79.605 Pain in left leg (principal); E11.9 Type 2 diabetes mellitus without complications; I10 Essential (primary) hypertension; I25.2 Old myocardial infarction; Z86.73 Personal history of transient ischemic attack (TIA), and cerebral infarction without residual deficits; Z79.899 Other long term (current) drug therapy; Z88.0 Allergy status to penicillin; Z88.2 Allergy status to sulfonamides
CPT/HCPCS: 93005; 99283

== ENCOUNTER 2020-07-08 22:44 | Inpatient (IN) | payer MEDICAID ==
[~2020-07-08] VITALS: Ht 166.4 cm; Wt 72.6 kg
[2020-07-08] MEDS ORDERED: ASPIRIN 81MG TABLET PO ONE (23:45)
[2020-07-09 00:38] LABS: CHLORIDE 102 mEq/L (98-107); INR 1.2; PARTIAL THROMBOPLASTIN TIME 29.4 sec (23.4-31.0); PROTHROMBIN TIME 12.5 sec (9.6-11.0)
[2020-07-09 00:47] LABS: BASOPHILS % 0.7 % (0.0-2.0); EOSINOPHILS % 0.3 % (0.0-5.0); HEMATOCRIT. 31.1 % (36.0-48.0); HEMOGLOBIN. 9.8 g/dL (12.0-16.0); LYMPHOCYTES % 7.7 % (20.0-50.0); MEAN CORPUSCULAR HEMOGLOBIN 28.6 pg (28.0-32.0); MONOCYTES % 4.8 % (2.0-8.0); NEUTROPHILS % 86.5 % (40.0-76.0); PLATELET 96 x1000/uL (130-400); RED BLOOD CELL COUNT 3.42 mill/uL (4.2-5.4); RED CELL DISTRIBUTION WIDTH 22.1 % (11.6-14.6)
[2020-07-09 01:10] LABS: PLATELET ESTIMATE DECREASED
[2020-07-09] MEDS: ACETAMINOPHEN 500MG TABLET PO SCH ×2 (01:28→02:43)
[2020-07-09] MEDS ORDERED: GUAIFENESIN 200MG/10ML SUGAR FREE UDC PO PRN (03:45)
[2020-07-09] MEDS ORDERED: MAGNESIUM/ALUMINUM HYDROXIDE/SIMETHICONE 30ML UDC PO PRN (03:45)
[2020-07-09] MEDS ORDERED: ACETAMINOPHEN 325MG TABLET PO PRN (03:45)
[2020-07-09] MEDS ORDERED: ONDANSETRON HCL 4MG/2ML INJ IV PRN (03:45)
[2020-07-09] MEDS ORDERED: ENOXAPARIN 40MG/0.4ML SYR SUBCUT SCH (03:45)
[2020-07-09] MEDS ORDERED: NITROGLYCERIN 0.4MG TABLET SL SL PRN (03:45)
[2020-07-09] MEDS ORDERED: DOCUSATE SODIUM 100MG CAPSULE PO PRN (03:45)
[2020-07-09] MEDS ORDERED: CLONIDINE 0.1MG TABLET PO PRN (03:45)
[2020-07-09 04:45] VITALS: BP 151/76
[2020-07-09] MEDS: DIPHENHYDRAMINE 50MG/ML VIAL IV PRN ×3 (04:54→21:40)
[2020-07-09] MEDS ORDERED: DEXTROSE 50% WATER 50ML SYRINGE IV PRN (06:00)
[2020-07-09] MEDS: BLOOD SUGAR DIAGNOSTIC STRIP TEST SCH ×4 (06:41→21:05)
[2020-07-09] MEDS: INSULIN LISPRO 100 UNITS/ML SUBCUT SCH ×5 (07:02→21:00)
[2020-07-09 08:00] VITALS: BP 156/91
[2020-07-09] MEDS: ISOSORBIDE MONONITRATE 60MG TABLET SR 24HR PO SCH (08:50)
[2020-07-09] MEDS: ENOXAPARIN 30MG/0.3ML SYR SUBCUT SCH (08:50)
[2020-07-09] MEDS: AMLODIPINE 10MG TABLET PO SCH (08:50)
[2020-07-09] MEDS: HYDROCODONE/ACETAMINOPHEN 5/325MG TABLET PO PRN ×2 (08:51→17:46)
[2020-07-09] MEDS: CLOPIDOGREL 75MG TABLET PO SCH (11:36)
[2020-07-09 12:00] VITALS: BP 133/81
[2020-07-09] MEDS: INSULIN GLARGINE UD 100 UNITS/ML SYR SUBCUT SCH ×2 (12:07→21:05)
[2020-07-09] MEDS ORDERED: ALBUTEROL 6.7GM HFA INHALER INH SCH (13:00)
[2020-07-09] MEDS ORDERED: ALBUTEROL (0.083%) 2.5MG/3ML NEB HHN SCH (13:00)
[2020-07-09 16:00] VITALS: BP 148/94
[2020-07-09 20:00] VITALS: BP 151/98
[2020-07-09] MEDS ORDERED: ATORVASTATIN CALCIUM 40MG TABLET PO SCH (21:00)
[2020-07-09] MEDS: CARVEDILOL 6.25 MG TABLET PO SCH (21:05)
[2020-07-10] VITALS: BP 146/74
[2020-07-10 04:00] VITALS: BP 137/75
[2020-07-10] MEDS: BLOOD SUGAR DIAGNOSTIC STRIP TEST SCH ×2 (05:50→11:45)
[2020-07-10] MEDS: INSULIN LISPRO 100 UNITS/ML SUBCUT SCH ×2 (05:50→12:11)
[2020-07-10 08:00] VITALS: BP 131/83
[2020-07-10] MEDS: HYDROCODONE/ACETAMINOPHEN 5/325MG TABLET PO PRN (08:06)
[2020-07-10] MEDS: CLOPIDOGREL 75MG TABLET PO SCH (08:07)
[2020-07-10] MEDS: ISOSORBIDE MONONITRATE 60MG TABLET SR 24HR PO SCH (08:07)
[2020-07-10] MEDS: AMLODIPINE 10MG TABLET PO SCH (08:07)
[2020-07-10] MEDS: CARVEDILOL 6.25 MG TABLET PO SCH (08:07)
[2020-07-10 08:37] LABS: BASOPHILS % 0.4 % (0.0-2.0); EOSINOPHILS % 0.2 % (0.0-5.0); HEMOGLOBIN. 9.9 g/dL (12.0-16.0); LYMPHOCYTES % 11.6 % (20.0-50.0); MEAN CORPUSCULAR HEMOGLOBIN 28.6 pg (28.0-32.0); MEAN CORPUSCULAR VOLUME 89.3 fL (81.0-99.0); MEAN PLATELET VOLUME 11.8 fl (7.4-10.4); MONOCYTES % 10.1 % (2.0-8.0); NEUTROPHILS % 77.7 % (40.0-76.0); PLATELET 99 x1000/uL (130-400); RED BLOOD CELL COUNT 3.47 mill/uL (4.2-5.4); RED CELL DISTRIBUTION WIDTH 22.2 % (11.6-14.6)
[2020-07-10] MEDS: ENOXAPARIN 30MG/0.3ML SYR SUBCUT SCH (09:00)
[2020-07-10] MEDS: DIPHENHYDRAMINE 50MG/ML VIAL IV PRN (09:01)
[2020-07-10 09:36] LABS: CHLORIDE 101 mEq/L (98-107)
[2020-07-10] MEDS: INSULIN GLARGINE UD 100 UNITS/ML SYR SUBCUT SCH (10:22)
[2020-07-10 13:43] VITALS: BP 128/89
[2020-08-11] MEDS ORDERED: AMLO10TA4 MT (15:45)
[2020-08-11] MEDS ORDERED: CALC667C PO (15:56)
== END 2020-07-10 15:25 | disposition home or self-care (01) | DRG 194 ==
LOC: ER 22:44 → EDBEDREQ 07-09 02:07 → ENRESERV 07-09 03:24 → UNDOADMIN 07-09 04:42 → 8WST 07-09 04:42
PROVIDERS: ADMIT Hospitalist; ATTEND Hospitalist
PROC: 5A1D70Z Performance of Urinary Filtration, Intermittent, Less than 6 Hours Per Day (ICD-10-PCS; principal; 2020-07-09)
PROC: 5A1D70Z Performance of Urinary Filtration, Intermittent, Less than 6 Hours Per Day (ICD-10-PCS; 2020-07-10)
DX: I13.2 Hypertensive heart and chronic kidney disease with heart failure and with stage 5 chronic kidney disease, or end stage renal disease (principal); I24.9 Acute ischemic heart disease, unspecified; I50.33 Acute on chronic diastolic (congestive) heart failure; E87.70 Fluid overload, unspecified; I25.5 Ischemic cardiomyopathy; N18.6 End stage renal disease; E87.5 Hyperkalemia; N63.0 Unspecified lump in unspecified breast; Z99.2 Dependence on renal dialysis; I25.10 Atherosclerotic heart disease of native coronary artery without angina pectoris; Z88.0 Allergy status to penicillin; Z88.2 Allergy status to sulfonamides; Z95.1 Presence of aortocoronary bypass graft; D64.9 Anemia, unspecified; E11.22 Type 2 diabetes mellitus with diabetic chronic kidney disease; E78.5 Hyperlipidemia, unspecified; I27.21 Secondary pulmonary arterial hypertension; I34.0 Nonrheumatic mitral (valve) insufficiency; I45.10 Unspecified right bundle-branch block; J44.9 Chronic obstructive pulmonary disease, unspecified; N61.0 Mastitis without abscess; Z79.4 Long term (current) use of insulin; Z86.73 Personal history of transient ischemic attack (TIA), and cerebral infarction without residual deficits; Z87.891 Personal history of nicotine dependence; Z91.19 Patient's noncompliance with other medical treatment and regimen; Z95.5 Presence of coronary angioplasty implant and graft; F32.9 Major depressive disorder, single episode, unspecified; Z91.15 Patient's noncompliance with renal dialysis; M94.0 Chondrocostal junction syndrome [Tietze]
CPT/HCPCS: 36415; 80048; 80053; 82962; 83735; 83880; 84484; 85025; 86850; 86900; 93005; 99285; J1200; J1650; J1815; J2405

== ENCOUNTER 2020-07-17 20:56 | Inpatient (IN) | payer MEDICAID ==
[~2020-07-17] VITALS: Ht 160 cm; Wt 56.2 kg
[2020-07-17] MEDS ORDERED: MORPHINE SULFATE 2 MG/ML CPJ (NOT FOR IM USE) IV ONE (23:45)
[2020-07-17] MEDS ORDERED: ONDANSETRON HCL 4MG/2ML INJ IV ONE (23:45)
[2020-07-18 00:10] LABS: BASOPHILS % 0.7 % (0.0-2.0); EOSINOPHILS % 0.1 % (0.0-5.0); HEMATOCRIT. 34.1 % (36.0-48.0); HEMOGLOBIN. 10.7 g/dL (12.0-16.0); LYMPHOCYTES % 12.3 % (20.0-50.0); MEAN CORPUSCULAR HEMOGLOBIN 28.5 pg (28.0-32.0); MEAN CORPUSCULAR VOLUME 91.1 fL (81.0-99.0); MEAN PLATELET VOLUME 11.5 fl (7.4-10.4); MONOCYTES % 11.2 % (2.0-8.0); NEUTROPHILS % 75.7 % (40.0-76.0); PLATELET 103 x1000/uL (130-400); RED BLOOD CELL COUNT 3.74 mill/uL (4.2-5.4); RED CELL DISTRIBUTION WIDTH 21.7 % (11.6-14.6)
[2020-07-18 00:16] LABS: CHLORIDE 102 mEq/L (98-107)
[2020-07-18 08:00] VITALS: BP 123/84
[2020-07-18 08:08] VITALS: BP 137/78
[2020-07-18] MEDS ORDERED: ACETAMINOPHEN 325MG TABLET PO PRN ×2 (08:45)
[2020-07-18] MEDS ORDERED: ONDANSETRON HCL 4MG/2ML INJ IV PRN (08:45)
[2020-07-18] MEDS ORDERED: CLONIDINE 0.1MG TABLET PO PRN (08:45)
[2020-07-18] MEDS ORDERED: LORAZEPAM 0.5MG TABLET PO PRN (08:45)
[2020-07-18] MEDS ORDERED: HYDROCODONE/ACETAMINOPHEN 5/325MG TABLET PO PRN (08:45)
[2020-07-18] MEDS ORDERED: IPRATROPIUM/ALBUTEROL 0.5-3(2.5)MG/3ML NEB HHN PRN (08:45)
[2020-07-18] MEDS ORDERED: DOCUSATE SODIUM 100MG CAPSULE PO PRN (08:45)
[2020-07-18] MEDS ORDERED: DIPHENHYDRAMINE 50MG/ML VIAL IV SCH (10:00)
[2020-07-18] MEDS ORDERED: HEPARIN SODIUM 1,000 UNIT/1ML VIAL IV SCH (11:30)
[2020-07-18 12:00] VITALS: BP_SYST 123; BP_SYST 156; BP_DIAS 78; BP_DIAS 84
[2020-07-18] MEDS: HYDROCODONE/ACETAMINOPHEN 10/325MG TABLET PO PRN ×2 (12:51→21:17)
[2020-07-18] MEDS: CLOPIDOGREL 75MG TABLET PO SCH (13:09)
[2020-07-18] MEDS: PANTOPRAZOLE 40MG DR TABLET PO SCH (13:09)
[2020-07-18] MEDS: ASPIRIN 81MG TABLET PO SCH (13:09)
[2020-07-18] MEDS: LOSARTAN POTASSIUM 50 MG TABLET PO SCH (13:10)
[2020-07-18] MEDS ORDERED: IOHEXOL-350 100 ML BOTTLE ONE (15:34)
[2020-07-18 16:00] VITALS: BP 155/88
[2020-07-18] MEDS ORDERED: ASPIRIN 81MG TABLET PO SCH (17:00)
[2020-07-18] MEDS: CALCIUM ACETATE 667MG CAPSULE PO SCH (17:06)
[2020-07-18 20:00] VITALS: BP 131/87
[2020-07-18] MEDS ORDERED: DEXTROSE 50% WATER 50ML SYRINGE IV PRN (20:45)
[2020-07-18] MEDS: CARVEDILOL 6.25 MG TABLET PO SCH (21:16)
[2020-07-18] MEDS: HEPARIN 5000 UNITS/ML VIAL SUBCUT SCH (21:16)
[2020-07-18] MEDS: INSULIN LISPRO 100 UNITS/ML SUBCUT SCH (21:31)
[2020-07-18] MEDS: INSULIN GLARGINE UD 100 UNITS/ML SYR SUBCUT SCH (21:32)
[2020-07-18] MEDS: BLOOD SUGAR DIAGNOSTIC STRIP TEST SCH (21:32)
[2020-07-19] VITALS: BP 92/59
[2020-07-19] MEDS: HYDROCODONE/ACETAMINOPHEN 10/325MG TABLET PO PRN ×2 (03:13→09:27)
[2020-07-19 04:00] VITALS: BP 136/72
[2020-07-19] MEDS: BLOOD SUGAR DIAGNOSTIC STRIP TEST SCH ×2 (06:13→11:46)
[2020-07-19] MEDS: INSULIN LISPRO 100 UNITS/ML SUBCUT SCH ×2 (06:13→11:47)
[2020-07-19 06:56] LABS: BASOPHILS % 0.5 % (0.0-2.0); EOSINOPHILS % 0.4 % (0.0-5.0); HEMATOCRIT. 29.9 % (36.0-48.0); HEMOGLOBIN. 9.4 g/dL (12.0-16.0); LYMPHOCYTES % 11.2 % (20.0-50.0); MEAN CORPUSCULAR HEMOGLOBIN 28.2 pg (28.0-32.0); MEAN CORPUSCULAR VOLUME 89.9 fL (81.0-99.0); MEAN PLATELET VOLUME 11.1 fl (7.4-10.4); MONOCYTES % 12.8 % (2.0-8.0); NEUTROPHILS % 75.1 % (40.0-76.0); PLATELET 96 x1000/uL (130-400); RED BLOOD CELL COUNT 3.33 mill/uL (4.2-5.4); RED CELL DISTRIBUTION WIDTH 21.8 % (11.6-14.6)
[2020-07-19 08:00] VITALS: BP 108/71
[2020-07-19] MEDS: CARVEDILOL 6.25 MG TABLET PO SCH (08:30)
[2020-07-19] MEDS: ASPIRIN 81MG TABLET PO SCH (08:37)
[2020-07-19] MEDS: CLOPIDOGREL 75MG TABLET PO SCH (08:38)
[2020-07-19] MEDS: PANTOPRAZOLE 40MG DR TABLET PO SCH (08:38)
[2020-07-19] MEDS: LOSARTAN POTASSIUM 50 MG TABLET PO SCH (08:38)
[2020-07-19] MEDS: CALCIUM ACETATE 667MG CAPSULE PO SCH ×2 (08:38→12:57)
[2020-07-19] MEDS: HEPARIN 5000 UNITS/ML VIAL SUBCUT SCH (08:39)
[2020-07-19] MEDS: INSULIN GLARGINE UD 100 UNITS/ML SYR SUBCUT SCH (09:28)
[2020-07-19 11:43] LABS: FERRITIN 573 ng/mL (10-291)
[2020-07-19 11:54] LABS: HEPATITIS B SURFACE ANTIGEN NEGATIVE
[2020-07-19 12:00] VITALS: BP 98/77
[2020-07-19 12:23] LABS: HEPATITIS A AB IGM NEGATIVE (NEGATIVE)
[2020-07-19] MEDS ORDERED: HYDR-4009 MT (13:58)
[2020-07-19 15:55] VITALS: BP 98/77
[2020-08-11] MEDS ORDERED: AMLO10TA4 MT (15:45)
[2020-08-11] MEDS ORDERED: CALC667C PO (15:56)
== END 2020-07-19 16:27 | disposition home or self-care (01) | DRG 203 ==
LOC: ER 20:56 → 5WST 07-18 03:15 → EDBEDREQDT 07-18 04:03 → EDBEDREQ 07-18 04:03 → EDBEDREQTM 07-18 04:03 → ENRESERV 07-18 05:06
PROVIDERS: ADMIT Internal Medicine; ATTEND Internal Medicine
PROC: 5A1D70Z Performance of Urinary Filtration, Intermittent, Less than 6 Hours Per Day (ICD-10-PCS; principal; 2020-07-18)
PROC: 5A1D70Z Performance of Urinary Filtration, Intermittent, Less than 6 Hours Per Day (ICD-10-PCS; 2020-07-19)
DX: M94.0 Chondrocostal junction syndrome [Tietze] (principal); I13.2 Hypertensive heart and chronic kidney disease with heart failure and with stage 5 chronic kidney disease, or end stage renal disease; J44.9 Chronic obstructive pulmonary disease, unspecified; I50.22 Chronic systolic (congestive) heart failure; N18.6 End stage renal disease; D64.9 Anemia, unspecified; D69.6 Thrombocytopenia, unspecified; D72.810 Lymphocytopenia; D72.821 Monocytosis (symptomatic); E11.22 Type 2 diabetes mellitus with diabetic chronic kidney disease; E78.5 Hyperlipidemia, unspecified; E87.5 Hyperkalemia; F32.9 Major depressive disorder, single episode, unspecified; I25.10 Atherosclerotic heart disease of native coronary artery without angina pectoris; I25.5 Ischemic cardiomyopathy; R74.0 Nonspecific elevation of levels of transaminase and lactic acid dehydrogenase [LDH]; R74.8 Abnormal levels of other serum enzymes; N83.9 Noninflammatory disorder of ovary, fallopian tube and broad ligament, unspecified; Z79.4 Long term (current) use of insulin; Z86.73 Personal history of transient ischemic attack (TIA), and cerebral infarction without residual deficits; Z91.19 Patient's noncompliance with other medical treatment and regimen; Z95.5 Presence of coronary angioplasty implant and graft; Z95.1 Presence of aortocoronary bypass graft; Z99.2 Dependence on renal dialysis; Z88.0 Allergy status to penicillin; Z88.2 Allergy status to sulfonamides; Z79.899 Other long term (current) drug therapy; Z79.891 Long term (current) use of opiate analgesic
CPT/HCPCS: 36415; 71045; 71275; 76700; 80048; 80053; 82728; 82962; 83540; 83550; 83880; 84484; 85025; 85379; 86705; 86709; 86803; 87340; 93005; 93970; 99285; J1200; J1644; J1815; J2270; J2405; Q9967

== ENCOUNTER 2020-07-21 16:13 | Emergency (ER) | payer MEDICAID ==
[~2020-07-21] VITALS: Ht 165.1 cm; Wt 68.0 kg
[~2020-07-21 16:13] MED LIST changes: +HYDR-4009 MT
[2020-07-21 18:05] VITALS: BP 132/97
== END 2020-07-21 18:07 | disposition home or self-care (01) ==
LOC: ER 16:13
DX: Z76.0 Encounter for issue of repeat prescription (principal); F41.9 Anxiety disorder, unspecified
CPT/HCPCS: 99281

== ENCOUNTER 2020-07-25 09:11 | Inpatient (IN) | payer MEDICAID ==
[~2020-07-25] VITALS: Ht 165.1 cm; Wt 68.0 kg
[2020-07-25 10:01] LABS: BASOPHILS % 0.9 % (0.0-2.0); EOSINOPHILS % 0.1 % (0.0-5.0); HEMATOCRIT. 34.5 % (36.0-48.0); HEMOGLOBIN. 10.9 g/dL (12.0-16.0); LYMPHOCYTES % 10.9 % (20.0-50.0); MEAN CORPUSCULAR HEMOGLOBIN 29.1 pg (28.0-32.0); MEAN CORPUSCULAR VOLUME 92.4 fL (81.0-99.0); MEAN PLATELET VOLUME 11.3 fl (7.4-10.4); NEUTROPHILS % 77.1 % (40.0-76.0); PLATELET 108 x1000/uL (130-400); RED BLOOD CELL COUNT 3.74 mill/uL (4.2-5.4); RED CELL DISTRIBUTION WIDTH 22.2 % (11.6-14.6)
[2020-07-25 10:07] LABS: CHLORIDE 102 mEq/L (98-107)
[2020-07-25] MEDS ORDERED: ONDANSETRON HCL 4MG/2ML INJ IV STA (10:21)
[2020-07-25] MEDS ORDERED: MORPHINE SULFATE 4 MG/ML CPJ (NOT FOR IM USE) IV STA (10:21)
[2020-07-25 10:23] LABS: PLATELET ESTIMATE DECREASED
[2020-07-25] MEDS ORDERED: DEXTROSE 50% WATER 50ML SYRINGE IV PRN (13:30)
[2020-07-25 14:30] VITALS: BP 135/97
[2020-07-25] MEDS: LOSARTAN POTASSIUM 50 MG TABLET PO SCH (14:38)
[2020-07-25] MEDS: TRAMADOL 50MG TABLET PO PRN (14:38)
[2020-07-25 16:00] VITALS: BP_SYST 148; BP_SYST 161; BP_DIAS 92; BP_DIAS 95
[2020-07-25 16:57] VITALS: BP 135/97
[2020-07-25] MEDS: BLOOD SUGAR DIAGNOSTIC STRIP TEST SCH ×2 (17:40→21:13)
[2020-07-25] MEDS: INSULIN LISPRO 100 UNITS/ML SUBCUT SCH ×2 (18:10→21:00)
[2020-07-25] MEDS ORDERED: ALBUTEROL 6.7GM HFA INHALER INH PRN (18:46)
[2020-07-25 20:31] VITALS: BP 138/83
[2020-07-25] MEDS ORDERED: CARVEDILOL 6.25 MG TABLET PO SCH (21:00)
[2020-07-25] MEDS ORDERED: ATORVASTATIN CALCIUM 40MG TABLET PO SCH (21:00)
[2020-07-25] MEDS ORDERED: DIPHENHYDRAMINE 50MG/ML VIAL IV PRN (21:15)
[2020-07-25] MEDS: INSULIN GLARGINE UD 100 UNITS/ML SYR SUBCUT SCH (21:37)
[2020-07-26] MEDS: TRAMADOL 50MG TABLET PO PRN (00:16)
[2020-07-26 00:21] VITALS: BP 126/77
[2020-07-26] MEDS: HYDROCODONE/ACETAMINOPHEN 5/325MG TABLET PO PRN ×4 (00:28→18:04)
[2020-07-26] MEDS: CARVEDILOL 12.5MG TABLET PO SCH ×2 (00:29→09:15)
[2020-07-26 04:00] VITALS: BP 101/46
[2020-07-26 05:50] LABS: BASOPHILS % 0.4 % (0.0-2.0); EOSINOPHILS % 0.3 % (0.0-5.0); HEMATOCRIT. 33.7 % (36.0-48.0); HEMOGLOBIN. 10.7 g/dL (12.0-16.0); LYMPHOCYTES % 11.1 % (20.0-50.0); MEAN CORPUSCULAR HEMOGLOBIN 28.7 pg (28.0-32.0); MEAN CORPUSCULAR VOLUME 90.6 fL (81.0-99.0); MEAN PLATELET VOLUME 11.8 fl (7.4-10.4); MONOCYTES % 10.6 % (2.0-8.0); NEUTROPHILS % 77.6 % (40.0-76.0); PLATELET 126 x1000/uL (130-400); RED BLOOD CELL COUNT 3.71 mill/uL (4.2-5.4); RED CELL DISTRIBUTION WIDTH 22.4 % (11.6-14.6)
[2020-07-26] MEDS ORDERED: PANTOPRAZOLE 40MG DR TABLET PO SCH (07:40)
[2020-07-26] MEDS: BLOOD SUGAR DIAGNOSTIC STRIP TEST SCH ×3 (07:40→17:40)
[2020-07-26 08:00] VITALS: BP 129/88
[2020-07-26] MEDS: INSULIN LISPRO 100 UNITS/ML SUBCUT SCH ×2 (08:10→12:58)
[2020-07-26] MEDS ORDERED: MEDICATION NOT ON FORMULARY EA (Atorvastatin Calcium 80 MG) PO SCH (09:00)
[2020-07-26] MEDS ORDERED: LOSARTAN POTASSIUM 50 MG TABLET PO SCH (09:00)
[2020-07-26] MEDS ORDERED: CLOPIDOGREL 75MG TABLET PO SCH (09:00)
[2020-07-26] MEDS: LOSARTAN POTASSIUM 50 MG TABLET PO SCH (09:15)
[2020-07-26] MEDS: CALCIUM ACETATE 667MG CAPSULE PO SCH ×3 (09:15→18:03)
[2020-07-26] MEDS: ASPIRIN 81MG TABLET PO SCH ×2 (09:15→18:03)
[2020-07-26] MEDS: INSULIN GLARGINE UD 100 UNITS/ML SYR SUBCUT SCH (09:16)
[2020-07-26 12:00] VITALS: BP 117/75
[2020-07-26 16:47] VITALS: BP 117/75
[2020-07-26 18:04] VITALS: BP 117/75
[2020-07-26] MEDS ORDERED: MEDICATION NOT ON FORMULARY EA (Insulin Glargine,Hum.rec.anlog (Lantus Solostar) 20 UNIT SQ SCH (21:00)
== END 2020-07-26 19:00 | disposition home or self-care (01) | DRG 133 ==
LOC: ER 09:14 → 7WST 11:12 → EDBEDREQ 11:22 → ENRESERV 13:18 → 7WST 15:35
PROVIDERS: ADMIT Internal Medicine; ATTEND Internal Medicine
PROC: 5A1D70Z Performance of Urinary Filtration, Intermittent, Less than 6 Hours Per Day (ICD-10-PCS; principal; 2020-07-25)
PROC: 5A1D70Z Performance of Urinary Filtration, Intermittent, Less than 6 Hours Per Day (ICD-10-PCS; 2020-07-26)
DX: J96.01 Acute respiratory failure with hypoxia (principal); I13.2 Hypertensive heart and chronic kidney disease with heart failure and with stage 5 chronic kidney disease, or end stage renal disease; I50.23 Acute on chronic systolic (congestive) heart failure; J44.9 Chronic obstructive pulmonary disease, unspecified; D63.8 Anemia in other chronic diseases classified elsewhere; E11.22 Type 2 diabetes mellitus with diabetic chronic kidney disease; E78.5 Hyperlipidemia, unspecified; I25.10 Atherosclerotic heart disease of native coronary artery without angina pectoris; F41.9 Anxiety disorder, unspecified; I27.20 Pulmonary hypertension, unspecified; I34.0 Nonrheumatic mitral (valve) insufficiency; I42.9 Cardiomyopathy, unspecified; D69.6 Thrombocytopenia, unspecified; Z20.828 Contact with and (suspected) exposure to other viral communicable diseases; N18.6 End stage renal disease; Z86.73 Personal history of transient ischemic attack (TIA), and cerebral infarction without residual deficits; I25.2 Old myocardial infarction; Z95.1 Presence of aortocoronary bypass graft; Z99.2 Dependence on renal dialysis; Z91.19 Patient's noncompliance with other medical treatment and regimen; Z95.2 Presence of prosthetic heart valve; Z88.0 Allergy status to penicillin; Z88.2 Allergy status to sulfonamides; Z88.8 Allergy status to other drugs, medicaments and biological substances; Z79.82 Long term (current) use of aspirin; Z79.51 Long term (current) use of inhaled steroids; Z79.1 Long term (current) use of non-steroidal anti-inflammatories (NSAID)
CPT/HCPCS: 36415; 71045; 80048; 80053; 82962; 83880; 84484; 85025; 87635; 93005; 93970; 99291; J1200; J1815; J2270; J2405; U0003-CS

== ENCOUNTER 2020-08-07 20:28 | Emergency (ER) | payer MEDICAID ==
[~2020-08-07] VITALS: Ht 165.1 cm; Wt 62.0 kg
[2020-08-07] MEDS ORDERED: ACETAMINOPHEN 325MG TABLET PO ONE (22:45)
[2020-08-07] MEDS ORDERED: LEVOFLOXACIN 500MG TABLET PO ONE (23:00)
[2020-08-07 23:31] LABS: BASOPHILS % 0.5 % (0.0-2.0); EOSINOPHILS % 0.1 % (0.0-5.0); HEMATOCRIT. 34.3 % (36.0-48.0); HEMOGLOBIN. 10.7 g/dL (12.0-16.0); LYMPHOCYTES % 12.1 % (20.0-50.0); MEAN CORPUSCULAR HEMOGLOBIN 28.9 pg (28.0-32.0); MEAN PLATELET VOLUME 10.7 fl (7.4-10.4); MONOCYTES % 12.9 % (2.0-8.0); NEUTROPHILS % 74.4 % (40.0-76.0); PLATELET 102 x1000/uL (130-400); RED BLOOD CELL COUNT 3.69 mill/uL (4.2-5.4); RED CELL DISTRIBUTION WIDTH 22.1 % (11.6-14.6)
[2020-08-07 23:39] LABS: CHLORIDE 102 mEq/L (98-107)
[2020-08-07 23:50] VITALS: BP 111/55
[2020-08-11] MEDS ORDERED: AMLO10TA4 MT (15:45)
[2020-08-11] MEDS ORDERED: CALC667C PO (15:56)
== END 2020-08-07 23:55 | disposition left against medical advice (07) ==
LOC: ER 20:45
DX: N61.0 Mastitis without abscess (principal); I12.0 Hypertensive chronic kidney disease with stage 5 chronic kidney disease or end stage renal disease; E11.22 Type 2 diabetes mellitus with diabetic chronic kidney disease; N18.6 End stage renal disease; Z99.2 Dependence on renal dialysis; Z88.0 Allergy status to penicillin; Z88.2 Allergy status to sulfonamides; I25.2 Old myocardial infarction; Z86.73 Personal history of transient ischemic attack (TIA), and cerebral infarction without residual deficits
CPT/HCPCS: 36415; 80053; 85025; 99283

== ENCOUNTER 2020-08-28 07:58 | Inpatient (IN) | payer MEDICAID ==
[~2020-08-28] VITALS: Ht 165.1 cm; Wt 68.0 kg
[~2020-08-28 07:58] MED LIST changes: +AMLO10TA4 MT
[2020-08-28 09:14] LABS: BASOPHILS % 0.5 % (0.0-2.0); EOSINOPHILS % 0.1 % (0.0-5.0); HEMATOCRIT. 39.8 % (36.0-48.0); HEMOGLOBIN. 12.4 g/dL (12.0-16.0); MEAN CORPUSCULAR HEMOGLOBIN 28.3 pg (28.0-32.0); MEAN CORPUSCULAR VOLUME 90.8 fL (81.0-99.0); MEAN PLATELET VOLUME 10.7 fl (7.4-10.4); MONOCYTES % 9.4 % (2.0-8.0); PLATELET 129 x1000/uL (130-400); RED BLOOD CELL COUNT 4.39 mill/uL (4.2-5.4)
[2020-08-28 09:18] LABS: CHLORIDE 100 mEq/L (98-107)
[2020-08-28] MEDS ORDERED: NITROGLYCERIN 0.4MG TABLET SL SL PRN (10:00)
[2020-08-28] MEDS ORDERED: ASPIRIN 81MG TABLET PO ONE (10:00)
[2020-08-28] MEDS ORDERED: CLONIDINE 0.1MG TABLET PO PRN (13:00)
[2020-08-28] MEDS ORDERED: ACETAMINOPHEN 325MG TABLET PO PRN (13:00)
[2020-08-28] MEDS ORDERED: ONDANSETRON HCL 4MG/2ML INJ IV PRN (13:00)
[2020-08-28] MEDS ORDERED: IPRATROPIUM/ALBUTEROL 0.5-3(2.5)MG/3ML NEB HHN PRN (13:00)
[2020-08-28 13:22] LABS: PHOSPHORUS 5.5 mg/dL (2.5-4.9)
[2020-08-28] MEDS: MORPHINE SULFATE 2 MG/ML CPJ (NOT FOR IM USE) IV PRN ×2 (14:53→19:31)
[2020-08-28] MEDS: FUROSEMIDE 40MG/4ML VIAL IV SCH (16:56)
[2020-08-28] MEDS: SEVELAMER CARBONATE 800 MG TABLET PO SCH (16:56)
[2020-08-28] MEDS: FOLIC ACID/VITAMIN B COMP W-C TABLET PO SCH (16:56)
[2020-08-28 22:00] VITALS: BP 135/87
[2020-08-28 23:42] VITALS: BP 149/89
[2020-08-29] VITALS: BP 141/88
[2020-08-29] MEDS: MORPHINE SULFATE 2 MG/ML CPJ (NOT FOR IM USE) IV PRN ×4 (02:55→21:39)
[2020-08-29 04:00] VITALS: BP 130/78
[2020-08-29 05:42] LABS: BASOPHILS % 0.4 % (0.0-2.0); HEMATOCRIT. 35.9 % (36.0-48.0); MEAN CORPUSCULAR VOLUME 91.2 fL (81.0-99.0); MEAN PLATELET VOLUME 10.7 fl (7.4-10.4); MONOCYTES % 11.3 % (2.0-8.0); NEUTROPHILS % 77.3 % (40.0-76.0); PLATELET 117 x1000/uL (130-400); RED BLOOD CELL COUNT 3.93 mill/uL (4.2-5.4); RED CELL DISTRIBUTION WIDTH 20.6 % (11.6-14.6)
[2020-08-29 06:02] LABS: CHLORIDE 100 mEq/L (98-107)
[2020-08-29 06:16] LABS: LDL CHOLESTEROL 56 mg/dL (5-100)
[2020-08-29 06:18] LABS: HDL CHOLESTEROL 58 mg/dL (40-59)
[2020-08-29] MEDS: SEVELAMER CARBONATE 800 MG TABLET PO SCH ×3 (07:51→18:00)
[2020-08-29 08:00] VITALS: BP_SYST 129; BP_SYST 165; BP_DIAS 80; BP_DIAS 89
[2020-08-29] MEDS: FOLIC ACID/VITAMIN B COMP W-C TABLET PO SCH (09:00)
[2020-08-29] MEDS: FUROSEMIDE 40MG/4ML VIAL IV SCH ×2 (09:00→17:43)
[2020-08-29] MEDS ORDERED: DEXTROSE 50% WATER 50ML SYRINGE IV PRN (09:45)
[2020-08-29] MEDS ORDERED: HEPARIN SODIUM 1,000 UNIT/1ML VIAL IV SCH (10:30)
[2020-08-29] MEDS: BLOOD SUGAR DIAGNOSTIC STRIP TEST SCH ×3 (11:48→20:36)
[2020-08-29 12:00] VITALS: BP 146/80
[2020-08-29] MEDS: INSULIN LISPRO 100 UNITS/ML SUBCUT SCH ×3 (12:34→21:38)
[2020-08-29 16:00] VITALS: BP 135/85
[2020-08-29] MEDS: DIPHENHYDRAMINE 50MG/ML VIAL IV PRN (17:54)
[2020-08-29 20:00] VITALS: BP 141/89
[2020-08-30] VITALS: BP 142/88
[2020-08-30] MEDS: MORPHINE SULFATE 2 MG/ML CPJ (NOT FOR IM USE) IV PRN ×3 (01:43→21:42)
[2020-08-30 04:00] VITALS: BP 154/88
[2020-08-30] MEDS: DIPHENHYDRAMINE 50MG/ML VIAL IV PRN ×2 (05:48→15:35)
[2020-08-30 07:05] LABS: BASOPHILS % 0.3 % (0.0-2.0); EOSINOPHILS % 0.1 % (0.0-5.0); HEMATOCRIT. 38.6 % (36.0-48.0); HEMOGLOBIN. 11.9 g/dL (12.0-16.0); LYMPHOCYTES % 13.2 % (20.0-50.0); MEAN CORPUSCULAR HEMOGLOBIN 28.3 pg (28.0-32.0); MEAN CORPUSCULAR VOLUME 91.7 fL (81.0-99.0); MEAN PLATELET VOLUME 11.4 fl (7.4-10.4); MONOCYTES % 13.3 % (2.0-8.0); NEUTROPHILS % 73.1 % (40.0-76.0); PLATELET 106 x1000/uL (130-400); RED BLOOD CELL COUNT 4.21 mill/uL (4.2-5.4); RED CELL DISTRIBUTION WIDTH 20.7 % (11.6-14.6)
[2020-08-30] MEDS: BLOOD SUGAR DIAGNOSTIC STRIP TEST SCH ×4 (07:31→21:43)
[2020-08-30 07:46] VITALS: BP 119/64
[2020-08-30] MEDS: INSULIN LISPRO 100 UNITS/ML SUBCUT SCH ×4 (07:50→21:50)
[2020-08-30] MEDS: SEVELAMER CARBONATE 800 MG TABLET PO SCH ×3 (08:59→18:23)
[2020-08-30] MEDS: FUROSEMIDE 40MG/4ML VIAL IV SCH (08:59)
[2020-08-30] MEDS: FOLIC ACID/VITAMIN B COMP W-C TABLET PO SCH (09:04)
[2020-08-30 11:56] VITALS: BP 143/91
[2020-08-30 16:08] VITALS: BP 111/66
[2020-08-30] MEDS ORDERED: VANCOMYCIN 1250MG in DEXTROSE 5% WATER 250ML IV SCH (18:00)
[2020-08-30 20:00] VITALS: BP 158/115
[2020-08-30] MEDS ORDERED: IOHEXOL-300 100 ML BOTTLE ONE (22:24)
[2020-08-31] VITALS: BP 150/106
[2020-08-31] MEDS: DIPHENHYDRAMINE 50MG/ML VIAL IV PRN ×5 (00:50→20:32)
[2020-08-31 04:00] VITALS: BP 139/96
[2020-08-31] MEDS: MORPHINE SULFATE 2 MG/ML CPJ (NOT FOR IM USE) IV PRN ×4 (04:13→23:02)
[2020-08-31] MEDS: BLOOD SUGAR DIAGNOSTIC STRIP TEST SCH ×4 (06:34→21:00)
[2020-08-31 07:06] LABS: BASOPHILS % 0.4 % (0.0-2.0); EOSINOPHILS % 0.2 % (0.0-5.0); HEMATOCRIT. 36.5 % (36.0-48.0); HEMOGLOBIN. 11.3 g/dL (12.0-16.0); MEAN CORPUSCULAR HEMOGLOBIN 27.9 pg (28.0-32.0); MEAN CORPUSCULAR VOLUME 90.1 fL (81.0-99.0); MEAN PLATELET VOLUME 10.5 fl (7.4-10.4); MONOCYTES % 13.6 % (2.0-8.0); NEUTROPHILS % 74.8 % (40.0-76.0); PLATELET 117 x1000/uL (130-400); RED BLOOD CELL COUNT 4.05 mill/uL (4.2-5.4); RED CELL DISTRIBUTION WIDTH 20.5 % (11.6-14.6)
[2020-08-31 07:40] LABS: CHLORIDE 98 mEq/L (98-107)
[2020-08-31] MEDS ORDERED: VANCOMYCIN 1250MG in DEXTROSE 5% WATER 250ML IV SCH (07:45)
[2020-08-31 07:54] VITALS: BP 157/100
[2020-08-31] MEDS: SEVELAMER CARBONATE 800 MG TABLET PO SCH ×3 (08:19→17:50)
[2020-08-31] MEDS: FOLIC ACID/VITAMIN B COMP W-C TABLET PO SCH (08:19)
[2020-08-31] MEDS: INSULIN LISPRO 100 UNITS/ML SUBCUT SCH ×4 (08:21→21:00)
[2020-08-31 11:40] VITALS: BP 143/101
[2020-08-31] MEDS ORDERED: HEPARIN SODIUM 1,000 UNIT/1ML VIAL IV ONE (16:15)
[2020-08-31 17:05] VITALS: BP 132/83
[2020-08-31 20:00] VITALS: BP 156/96
[2020-09-01] VITALS: BP 141/91
[2020-09-01] MEDS: DIPHENHYDRAMINE 50MG/ML VIAL IV PRN ×2 (02:48→10:20)
[2020-09-01 04:00] VITALS: BP 141/90
[2020-09-01] MEDS: BLOOD SUGAR DIAGNOSTIC STRIP TEST SCH ×2 (07:20→12:20)
[2020-09-01 08:00] VITALS: BP 145/90
[2020-09-01] MEDS: FOLIC ACID/VITAMIN B COMP W-C TABLET PO SCH (08:51)
[2020-09-01] MEDS: SEVELAMER CARBONATE 800 MG TABLET PO SCH ×2 (08:51→13:15)
[2020-09-01] MEDS: INSULIN LISPRO 100 UNITS/ML SUBCUT SCH ×2 (08:56→13:17)
[2020-09-01] MEDS: MORPHINE SULFATE 2 MG/ML CPJ (NOT FOR IM USE) IV PRN (09:10)
[2020-09-01 12:00] VITALS: BP 141/81
[2020-09-01] MEDS ORDERED: HYDR-4001 MT (14:39)
[2020-09-01 15:11] VITALS: BP 141/81
[2020-09-01 16:00] VITALS: BP 137/93
== END 2020-09-01 16:55 | disposition home or self-care (01) | DRG 385 ==
LOC: ER 08:31 → 6WST 11:36 → ENRESERV 19:55
PROVIDERS: ADMIT Internal Medicine; ATTEND Internal Medicine
PROC: 5A1D70Z Performance of Urinary Filtration, Intermittent, Less than 6 Hours Per Day (ICD-10-PCS; principal; 2020-08-29)
PROC: 5A1D70Z Performance of Urinary Filtration, Intermittent, Less than 6 Hours Per Day (ICD-10-PCS; 2020-08-31)
DX: N61.0 Mastitis without abscess (principal); I13.2 Hypertensive heart and chronic kidney disease with heart failure and with stage 5 chronic kidney disease, or end stage renal disease; I87.2 Venous insufficiency (chronic) (peripheral); D69.6 Thrombocytopenia, unspecified; E11.22 Type 2 diabetes mellitus with diabetic chronic kidney disease; E78.5 Hyperlipidemia, unspecified; E83.41 Hypermagnesemia; E83.39 Other disorders of phosphorus metabolism; I34.0 Nonrheumatic mitral (valve) insufficiency; I25.10 Atherosclerotic heart disease of native coronary artery without angina pectoris; F41.9 Anxiety disorder, unspecified; N18.6 End stage renal disease; I25.5 Ischemic cardiomyopathy; I27.20 Pulmonary hypertension, unspecified; I50.22 Chronic systolic (congestive) heart failure; J44.9 Chronic obstructive pulmonary disease, unspecified; D63.8 Anemia in other chronic diseases classified elsewhere; Z95.2 Presence of prosthetic heart valve; Z86.73 Personal history of transient ischemic attack (TIA), and cerebral infarction without residual deficits; Z99.2 Dependence on renal dialysis; Z95.1 Presence of aortocoronary bypass graft; I25.2 Old myocardial infarction; Z95.5 Presence of coronary angioplasty implant and graft; Z88.0 Allergy status to penicillin; Z88.2 Allergy status to sulfonamides; Z88.6 Allergy status to analgesic agent; Z79.02 Long term (current) use of antithrombotics/antiplatelets; Z79.899 Other long term (current) drug therapy
CPT/HCPCS: 36415; 71045; 71260; 80048; 80053; 80061; 80202; 82378; 82962; 83735; 83880; 84100; 84145; 84443; 84484; 85025; 85651; 86140; 86300; 86304; 93005; 93970; 99291; J1200; J1644; J1815; J1940; J2270; J2405; J3370; J7060; Q9967

== ENCOUNTER 2020-10-08 09:39 | Emergency (ER) | payer MEDICAID ==
[~2020-10-08] VITALS: Ht 165.1 cm; Wt 76.0 kg
[~2020-10-08 09:39] MED LIST changes: -ALBU18HF2 IH; -LOSA50TA41 MT
[2020-10-08 11:20] VITALS: BP 128/82
== END 2020-10-08 11:37 | disposition home or self-care (01) ==
LOC: ER 09:39
DX: R06.02 Shortness of breath (principal); H10.9 Unspecified conjunctivitis; I25.2 Old myocardial infarction; I10 Essential (primary) hypertension; E11.9 Type 2 diabetes mellitus without complications; Z88.0 Allergy status to penicillin; Z88.2 Allergy status to sulfonamides; Z88.5 Allergy status to narcotic agent; Z88.6 Allergy status to analgesic agent; Z79.899 Other long term (current) drug therapy; Z86.73 Personal history of transient ischemic attack (TIA), and cerebral infarction without residual deficits
CPT/HCPCS: 93005; 99283

== ENCOUNTER 2020-11-17 12:23 | Emergency (ER) | payer MEDICAID ==
[~2020-11-17] VITALS: Ht 160 cm; Wt 58.0 kg
[2020-11-17] MEDS ORDERED: ACETAMINOPHEN 325MG TABLET PO NR (12:45)
[2020-11-17] MEDS ORDERED: LIDOCAINE 5% PATCH TOP SCH (13:00)
[2020-11-17 13:19] VITALS: BP 127/73
== END 2020-11-17 15:15 | disposition home or self-care (01) ==
LOC: ER 12:23
DX: S22.41XA Multiple fractures of ribs, right side, initial encounter for closed fracture (principal); E11.22 Type 2 diabetes mellitus with diabetic chronic kidney disease; I12.0 Hypertensive chronic kidney disease with stage 5 chronic kidney disease or end stage renal disease; N18.6 End stage renal disease; I25.2 Old myocardial infarction; Z99.2 Dependence on renal dialysis; Z86.73 Personal history of transient ischemic attack (TIA), and cerebral infarction without residual deficits; Z88.0 Allergy status to penicillin; Z88.2 Allergy status to sulfonamides; Z79.82 Long term (current) use of aspirin; Z79.4 Long term (current) use of insulin; W06.XXXA Fall from bed, initial encounter; Y93.89 Activity, other specified; Y92.013 Bedroom of single-family (private) house as the place of occurrence of the external cause
CPT/HCPCS: 71101; 99283

== ENCOUNTER 2020-12-12 17:42 | Inpatient (IN) | payer MEDICAID ==
[~2020-12-12] VITALS: Ht 165.1 cm; Wt 65.4 kg
[2020-12-12 18:26] LABS: BASOPHILS % 0.3 % (0.0-2.0); EOSINOPHILS % 0.2 % (0.0-5.0); HEMOGLOBIN. 12.2 g/dL (12.0-16.0); LYMPHOCYTES % 17.7 % (20.0-50.0); MEAN CORPUSCULAR HEMOGLOBIN 27.7 pg (28.0-32.0); MEAN CORPUSCULAR VOLUME 90.6 fL (81.0-99.0); MEAN PLATELET VOLUME 10.7 fl (7.4-10.4); MONOCYTES % 9.9 % (2.0-8.0); NEUTROPHILS % 71.9 % (40.0-76.0); PLATELET 131 x1000/uL (130-400); RED BLOOD CELL COUNT 4.41 mill/uL (4.2-5.4); RED CELL DISTRIBUTION WIDTH 21.4 % (11.6-14.6)
[2020-12-12] MEDS ORDERED: TRANEXAMIC ACID 1,000 MG/10 ML TP ONE ×2 (18:30→22:30)
[2020-12-12 18:31] LABS: CHLORIDE 100 mEq/L (98-107)
[2020-12-12] MEDS ORDERED: ASPIRIN 325MG EC TABLET PO ONE (20:45)
[2020-12-12] MEDS ORDERED: LORAZEPAM 0.5MG TABLET PO PRN (21:00)
[2020-12-12] MEDS ORDERED: GUAIFENESIN 200MG/10ML SUGAR FREE UDC PO PRN (21:00)
[2020-12-12] MEDS ORDERED: IPRATROPIUM/ALBUTEROL 0.5-3(2.5)MG/3ML NEB NEB PRN (21:00)
[2020-12-12] MEDS ORDERED: CLONIDINE 0.1MG TABLET PO PRN (21:00)
[2020-12-12] MEDS ORDERED: NITROGLYCERIN 0.4MG TABLET SL SL PRN (21:00)
[2020-12-12] MEDS ORDERED: MAGNESIUM/ALUMINUM HYDROXIDE/SIMETHICONE 30ML UDC PO PRN (21:00)
[2020-12-12] MEDS ORDERED: ACETAMINOPHEN 325MG TABLET PO PRN ×2 (21:00)
[2020-12-12] MEDS ORDERED: DIPHENHYDRAMINE 50MG/ML VIAL IV PRN (21:00)
[2020-12-12] MEDS ORDERED: DEXTROSE 50% WATER 50ML SYRINGE IV PRN (21:00)
[2020-12-12] MEDS ORDERED: ONDANSETRON HCL 4MG/2ML INJ IV PRN (21:00)
[2020-12-12] MEDS: ASCORBIC ACID 500 MG TABLET PO SCH (21:00)
[2020-12-12] MEDS: INSULIN LISPRO 100 UNITS/ML SUBCUT SCH (21:30)
[2020-12-12] MEDS: BLOOD SUGAR DIAGNOSTIC STRIP TEST SCH (21:30)
[2020-12-12] MEDS ORDERED: ZOLPIDEM TARTRATE 5MG TABLET PO PRN (21:36)
[2020-12-12] MEDS: ENOXAPARIN 30MG/0.3ML SYR SUBCUT SCH (21:45)
[2020-12-12] MEDS ORDERED: ONDANSETRON HCL 4MG/2ML INJ IV ONE (22:15)
[2020-12-12] MEDS ORDERED: MORPHINE SULFATE 4 MG/ML CPJ (NOT FOR IM USE) IV ONE (22:15)
[2020-12-12] MEDS ORDERED: ACETAMINOPHEN 500MG TABLET PO ONE (22:30)
[2020-12-12] MEDS: FAMOTIDINE 20MG TABLET PO SCH (23:32)
[2020-12-12] MEDS: INSULIN GLARGINE UD 100 UNITS/ML SYR SUBCUT SCH (23:37)
[2020-12-12 23:43] LABS: CREATINE KINASE MB FRACTION 2.7 ng/mL (0.5-3.6)
[2020-12-12] MEDS: METOPROLOL TARTRATE 25MG TABLET PO SCH (23:59)
[2020-12-13 06:19] LABS: BASOPHILS % 0.5 % (0.0-2.0); EOSINOPHILS % 0.1 % (0.0-5.0); HEMATOCRIT. 36.5 % (36.0-48.0); HEMOGLOBIN. 11.1 g/dL (12.0-16.0); LYMPHOCYTES % 19.3 % (20.0-50.0); MEAN CORPUSCULAR HEMOGLOBIN 27.3 pg (28.0-32.0); MEAN CORPUSCULAR VOLUME 89.8 fL (81.0-99.0); MEAN PLATELET VOLUME 10.6 fl (7.4-10.4); NEUTROPHILS % 69.1 % (40.0-76.0); PLATELET 123 x1000/uL (130-400); RED BLOOD CELL COUNT 4.07 mill/uL (4.2-5.4); RED CELL DISTRIBUTION WIDTH 21.5 % (11.6-14.6)
[2020-12-13 06:21] LABS: CHLORIDE 105 mEq/L (98-107)
[2020-12-13 06:30] LABS: LDL CHOLESTEROL 47 mg/dL (5-100)
[2020-12-13 06:31] LABS: CREATINE KINASE 63 IU/L (26-192); HDL CHOLESTEROL 62 mg/dL (40-59)
[2020-12-13 06:33] LABS: CREATINE KINASE MB FRACTION 3.2 ng/mL (0.5-3.6)
[2020-12-13] MEDS: BLOOD SUGAR DIAGNOSTIC STRIP TEST SCH ×4 (06:41→21:00)
[2020-12-13] MEDS: INSULIN LISPRO 100 UNITS/ML SUBCUT SCH ×4 (06:41→23:57)
[2020-12-13] MEDS: SEVELAMER CARBONATE 800 MG TABLET PO SCH ×3 (08:10→18:31)
[2020-12-13] MEDS: TRAMADOL 50MG TABLET PO PRN (08:10)
[2020-12-13] MEDS: CLOPIDOGREL 75MG TABLET PO SCH (09:00)
[2020-12-13] MEDS: METOPROLOL TARTRATE 25MG TABLET PO SCH ×2 (09:20→21:34)
[2020-12-13] MEDS: ZINC SULFATE 220 MG ( 50 ) CAPSULE PO SCH (09:21)
[2020-12-13] MEDS: ASCORBIC ACID 500 MG TABLET PO SCH ×2 (09:21→21:34)
[2020-12-13] MEDS: ASPIRIN 325MG EC TABLET PO SCH (15:47)
[2020-12-13] MEDS: ENOXAPARIN 30MG/0.3ML SYR SUBCUT SCH (21:00)
[2020-12-13] MEDS: FAMOTIDINE 20MG TABLET PO SCH (21:34)
[2020-12-13] MEDS: INSULIN GLARGINE UD 100 UNITS/ML SYR SUBCUT SCH (22:00)
[2020-12-14 03:22] VITALS: BP 137/54
[2020-12-14] MEDS: BLOOD SUGAR DIAGNOSTIC STRIP TEST SCH ×4 (06:26→20:54)
[2020-12-14] MEDS: INSULIN LISPRO 100 UNITS/ML SUBCUT SCH ×4 (06:30→20:54)
[2020-12-14 08:00] VITALS: BP 106/78
[2020-12-14] MEDS: CLOPIDOGREL 75MG TABLET PO SCH (09:00)
[2020-12-14] MEDS: METOPROLOL TARTRATE 25MG TABLET PO SCH ×3 (09:00→21:03)
[2020-12-14] MEDS: ASCORBIC ACID 500 MG TABLET PO SCH ×2 (09:15→21:03)
[2020-12-14] MEDS: SEVELAMER CARBONATE 800 MG TABLET PO SCH ×3 (09:16→17:58)
[2020-12-14] MEDS: ZINC SULFATE 220 MG ( 50 ) CAPSULE PO SCH (09:16)
[2020-12-14] MEDS: ASPIRIN 325MG EC TABLET PO SCH (09:16)
[2020-12-14 09:21] LABS: BASOPHILS % 0.4 % (0.0-2.0); EOSINOPHILS % 0.1 % (0.0-5.0); HEMATOCRIT. 37.7 % (36.0-48.0); HEMOGLOBIN. 11.5 g/dL (12.0-16.0); LYMPHOCYTES % 15.5 % (20.0-50.0); MEAN CORPUSCULAR HEMOGLOBIN 27.7 pg (28.0-32.0); MEAN CORPUSCULAR VOLUME 91.2 fL (81.0-99.0); MEAN PLATELET VOLUME 10.9 fl (7.4-10.4); MONOCYTES % 10.8 % (2.0-8.0); NEUTROPHILS % 73.2 % (40.0-76.0); PLATELET 122 x1000/uL (130-400); RED BLOOD CELL COUNT 4.14 mill/uL (4.2-5.4); RED CELL DISTRIBUTION WIDTH 21.3 % (11.6-14.6)
[2020-12-14] MEDS: TRAMADOL 50MG TABLET PO PRN (10:00)
[2020-12-14] MEDS: DEXTROSE 50% WATER 50ML SYRINGE IV NR ×2 (11:30→12:48)
[2020-12-14] MEDS: SODIUM BICARBONATE 8.4% 1 MEQ/ML 50ML SYR IV NR ×2 (11:30→12:47)
[2020-12-14 12:00] VITALS: BP 115/62
[2020-12-14] MEDS ORDERED: INSULIN REGULAR (HUMULIN R) UD 100 UNITS/ML SYR IV NR (12:30)
[2020-12-14] MEDS ORDERED: CALCIUM CHLORIDE 1,000 MG in DEXT 5% WATER 90 ML IV NR (12:30)
[2020-12-14] MEDS: SODIUM POLYSTYRENE SULFONATE 15 G/60 ML BOT PO NR ×2 (12:30→12:48)
[2020-12-14] MEDS ORDERED: HEPARIN SODIUM 1,000 UNIT/1ML VIAL IV NR (15:00)
[2020-12-14 16:00] VITALS: BP 129/68
[2020-12-14 20:00] VITALS: BP 149/68
[2020-12-14] MEDS: FAMOTIDINE 20MG TABLET PO SCH (21:03)
[2020-12-14] MEDS: ENOXAPARIN 30MG/0.3ML SYR SUBCUT SCH (21:04)
[2020-12-14 22:00] VITALS: BP 121/82
[2020-12-14 22:16] LABS: BG BASE EXCESS -3.9 mmol/L (-2.0-2.0); BG CARBOXYHEMOGLOBIN 0.8 % (0.5-1.5); BG DEOXYHEMOGLOBIN 0.3 % (0.0-5.0); BG FRACTION INSPIRED OXYGEN 100; BG HCO3 ACT 22.7 mmol/L (22.0-26.0); BG METHEMOGLOBIN 0.1 % (0.0-1.5); BG OXYGEN SATURATION 99.7 % (92.0-98.5); BG OXYHEMOGLOBIN 98.8 % (94.0-97.0); BG PCO2 47.8 mmHg (35.0-45.0); BG PH 7.294 (7.350-7.450); BG PO2 383.3 mmHg (75.0-100.0); BG SAMPLE SITE LEFT BRACHIAL; BG TOTAL HEMOGLOBIN 11.7 g/dL (12.0-18.0); BG VENT MODE MASK - NRB
[2020-12-15] VITALS (8 sets, daily range): BP systolic 106–130; BP diastolic 56–95
[2020-12-15] MEDS: INSULIN GLARGINE UD 100 UNITS/ML SYR SUBCUT SCH (02:17)
[2020-12-15] MEDS: INSULIN LISPRO 100 UNITS/ML SUBCUT SCH ×4 (07:20→20:05)
[2020-12-15] MEDS: BLOOD SUGAR DIAGNOSTIC STRIP TEST SCH ×4 (07:45→20:05)
[2020-12-15] MEDS: ASPIRIN 325MG EC TABLET PO SCH (09:15)
[2020-12-15] MEDS: SEVELAMER CARBONATE 800 MG TABLET PO SCH ×3 (09:15→17:21)
[2020-12-15] MEDS: DOCUSATE SODIUM 100MG CAPSULE PO PRN (09:16)
[2020-12-15] MEDS: CLOPIDOGREL 75MG TABLET PO SCH (09:16)
[2020-12-15] MEDS: ZINC SULFATE 220 MG ( 50 ) CAPSULE PO SCH (09:16)
[2020-12-15] MEDS: ASCORBIC ACID 500 MG TABLET PO SCH ×2 (09:16→20:20)
[2020-12-15] MEDS: TRAMADOL 50MG TABLET PO PRN (09:35)
[2020-12-15] MEDS: METOPROLOL TARTRATE 25MG TABLET PO SCH ×2 (09:36→20:20)
[2020-12-15] MEDS: FAMOTIDINE 20MG TABLET PO SCH (20:20)
[2020-12-15] MEDS: ENOXAPARIN 30MG/0.3ML SYR SUBCUT SCH (20:20)
[2020-12-15] MEDS ORDERED: INSULIN GLARGINE UD 100 UNITS/ML SYR SUBCUT SCH (22:45)
[2020-12-16] VITALS: BP 144/79
[2020-12-16 04:00] VITALS: BP 136/82
[2020-12-16 07:15] LABS: BASOPHILS % 0.5 % (0.0-2.0); EOSINOPHILS % 0.1 % (0.0-5.0); HEMATOCRIT. 35.3 % (36.0-48.0); HEMOGLOBIN. 10.9 g/dL (12.0-16.0); LYMPHOCYTES % 17.5 % (20.0-50.0); MEAN CORPUSCULAR HEMOGLOBIN 28.3 pg (28.0-32.0); MEAN CORPUSCULAR VOLUME 91.4 fL (81.0-99.0); MEAN PLATELET VOLUME 11.1 fl (7.4-10.4); MONOCYTES % 13.5 % (2.0-8.0); NEUTROPHILS % 68.4 % (40.0-76.0); PLATELET 134 x1000/uL (130-400); RED BLOOD CELL COUNT 3.86 mill/uL (4.2-5.4); RED CELL DISTRIBUTION WIDTH 21.2 % (11.6-14.6)
[2020-12-16] MEDS: INSULIN LISPRO 100 UNITS/ML SUBCUT SCH ×3 (07:20→17:20)
[2020-12-16] MEDS: BLOOD SUGAR DIAGNOSTIC STRIP TEST SCH ×3 (07:24→16:30)
[2020-12-16 08:00] VITALS: BP 127/56
[2020-12-16] MEDS: METOPROLOL TARTRATE 25MG TABLET PO SCH (08:33)
[2020-12-16] MEDS: DOCUSATE SODIUM 100MG CAPSULE PO PRN (09:32)
[2020-12-16] MEDS: ASPIRIN 325MG EC TABLET PO SCH (09:32)
[2020-12-16] MEDS: ASCORBIC ACID 500 MG TABLET PO SCH (09:32)
[2020-12-16] MEDS: SEVELAMER CARBONATE 800 MG TABLET PO SCH ×3 (09:32→17:52)
[2020-12-16] MEDS: ZINC SULFATE 220 MG ( 50 ) CAPSULE PO SCH (09:32)
[2020-12-16] MEDS: CLOPIDOGREL 75MG TABLET PO SCH (09:33)
[2020-12-16 16:00] VITALS: BP 151/101
[2020-12-16 18:00] VITALS: BP 164/99
== END 2020-12-16 08:20 | disposition home or self-care (01) | DRG 194 ==
LOC: ER 17:42 → MICUSO 20:35 → 3WST 12-14 02:34
PROVIDERS: ADMIT Internal Medicine; ATTEND Internal Medicine
PROC: 5A1D70Z Performance of Urinary Filtration, Intermittent, Less than 6 Hours Per Day (ICD-10-PCS; principal; 2020-12-14)
PROC: 5A1D70Z Performance of Urinary Filtration, Intermittent, Less than 6 Hours Per Day (ICD-10-PCS; 2020-12-16)
DX: I13.2 Hypertensive heart and chronic kidney disease with heart failure and with stage 5 chronic kidney disease, or end stage renal disease (principal); M94.0 Chondrocostal junction syndrome [Tietze]; I50.30 Unspecified diastolic (congestive) heart failure; N18.6 End stage renal disease; E11.22 Type 2 diabetes mellitus with diabetic chronic kidney disease; E87.1 Hypo-osmolality and hyponatremia; I42.9 Cardiomyopathy, unspecified; I27.20 Pulmonary hypertension, unspecified; I25.10 Atherosclerotic heart disease of native coronary artery without angina pectoris; F32.9 Major depressive disorder, single episode, unspecified; I36.1 Nonrheumatic tricuspid (valve) insufficiency; I34.0 Nonrheumatic mitral (valve) insufficiency; I25.2 Old myocardial infarction; I69.354 Hemiplegia and hemiparesis following cerebral infarction affecting left non-dominant side; Z99.2 Dependence on renal dialysis; Z95.5 Presence of coronary angioplasty implant and graft; Z95.1 Presence of aortocoronary bypass graft; Z87.891 Personal history of nicotine dependence; Z88.5 Allergy status to narcotic agent; Z88.0 Allergy status to penicillin; Z88.2 Allergy status to sulfonamides; Z79.899 Other long term (current) drug therapy; Z79.82 Long term (current) use of aspirin; Z82.49 Family history of ischemic heart disease and other diseases of the circulatory system; Z83.3 Family history of diabetes mellitus
CPT/HCPCS: 36415; 36600; 71045; 80048; 80053; 80061; 82375; 82550; 82553; 82805; 82947; 82962; 83036; 83880; 84132; 84484; 85025; 93005; 93306; 93970; 96372; 97110; 97116; 97162; 97166; 97530; 97535; 99285; J1200; J1644; J1650; J1815; J2270; J2405; J3490; J7060

== ENCOUNTER 2020-12-20 21:59 | Emergency (ER) | payer MEDICAID ==
[~2020-12-20] VITALS: Ht 165.1 cm; Wt 73.0 kg
[2020-12-21 01:32] VITALS: BP 145/81
== END 2020-12-21 01:46 | disposition home or self-care (01) ==
LOC: ER 21:59
DX: M25.551 Pain in right hip (principal); I12.0 Hypertensive chronic kidney disease with stage 5 chronic kidney disease or end stage renal disease; E11.22 Type 2 diabetes mellitus with diabetic chronic kidney disease; N18.6 End stage renal disease; Z86.73 Personal history of transient ischemic attack (TIA), and cerebral infarction without residual deficits; I25.2 Old myocardial infarction; Z79.899 Other long term (current) drug therapy; Z88.2 Allergy status to sulfonamides; Z88.0 Allergy status to penicillin
CPT/HCPCS: 72192; 99284

== ENCOUNTER 2020-12-28 16:44 | Inpatient (IN) | payer MEDICAID ==
[~2020-12-28] VITALS: Ht 167.6 cm; Wt 64.6 kg
[~2020-12-28 16:44] MED LIST changes: +ETOMIDATE 2MG/ML 10ML VIAL IV ONE; +SODIUM CHLORIDE 0.9% 10ML VIAL ONE; +VECURONIUM BROMIDE 10 MG/VIAL IV ONE
[2020-12-28] MEDS ORDERED: MIDAZOLAM HCL 2 MG/2 ML VIAL IV ONE (17:00)
[2020-12-28] MEDS ORDERED: PROPOFOL 10MG/ML 100ML 100 ML IV ONE (17:00)
[2020-12-28] MEDS ORDERED: VANCOMYCIN 1 G PREMIX 200 ML IV ONE (18:00)
[2020-12-28] MEDS ORDERED: LEVOFLOXACIN 750MG PREMIX 150 ML IV ONE (18:00)
[2020-12-28 18:03] LABS: BASOPHILS % 0.4 % (0.0-2.0); EOSINOPHILS % 0.1 % (0.0-5.0); HEMOGLOBIN. 10.8 g/dL (12.0-16.0); LYMPHOCYTES % 9.1 % (20.0-50.0); MEAN CORPUSCULAR HEMOGLOBIN 28.7 pg (28.0-32.0); MEAN CORPUSCULAR VOLUME 92.8 fL (81.0-99.0); MEAN PLATELET VOLUME 10.9 fl (7.4-10.4); MONOCYTES % 11.9 % (2.0-8.0); NEUTROPHILS % 78.5 % (40.0-76.0); PLATELET 98 x1000/uL (130-400); RED BLOOD CELL COUNT 3.77 mill/uL (4.2-5.4); RED CELL DISTRIBUTION WIDTH 22.4 % (11.6-14.6)
[2020-12-28 18:04] LABS: BG BASE EXCESS -7.6 mmol/L (-2.0-2.0); BG CARBOXYHEMOGLOBIN 0.4 % (0.5-1.5); BG DEOXYHEMOGLOBIN 0.2 % (0.0-5.0); BG HCO3 ACT 17.2 mmol/L (22.0-26.0); BG METHEMOGLOBIN 0.1 % (0.0-1.5); BG OXYGEN SATURATION 99.8 % (92.0-98.5); BG OXYHEMOGLOBIN 99.3 % (94.0-97.0); BG PCO2 32.8 mmHg (35.0-45.0); BG PH 7.338 (7.350-7.450); BG PO2 596.9 mmHg (75.0-100.0); BG SAMPLE SITE RIGHT FEMORAL; BG TOTAL HEMOGLOBIN 11.6 g/dL (12.0-18.0); BG VENT MODE VENT - AC
[2020-12-28 18:06] LABS: CLARITY URINE CLOUDY (CLEAR); COLOR URINE YELLOW (YELLOW); KETONES URINE TRACE (NEGATIVE); LEUKOCYTE ESTERASE URINE 2+ (NEGATIVE); NITRITE URINE NEGATIVE (NEGATIVE); OCCULT BLOOD URINE 3+ (NEGATIVE); PROTEIN URINE 3+ (NEGATIVE); SPECIFIC GRAVITY URINE 1.022 (1.005-1.030); UROBILINOGEN URINE 0.2 E.U./dL (0.2-1.0)
[2020-12-28 18:10] LABS: CHLORIDE 108 mEq/L (98-107)
[2020-12-28 18:11] LABS: INR 1.3
[2020-12-28 18:15] LABS: ETHANOL BLOOD < 10 mg/dL
[2020-12-28] MEDS ORDERED: IPRATROPIUM/ALBUTEROL 0.5-3(2.5)MG/3ML NEB HHN PRN (18:15)
[2020-12-28] MEDS ORDERED: PROPOFOL 10MG/ML 100ML 100 ML IV PRN (18:15)
[2020-12-28 18:19] LABS: CREATINE KINASE 128 IU/L (26-192)
[2020-12-28 18:43] LABS: PLATELET ESTIMATE DECREASED
[2020-12-28] MEDS ORDERED: ENOXAPARIN 40MG/0.4ML SYR SUBCUT SCH (18:45)
[2020-12-28] MEDS ORDERED: ONDANSETRON HCL 4MG/2ML INJ IV PRN (18:45)
[2020-12-28] MEDS ORDERED: IOHEXOL-350 100 ML BOTTLE ONE (18:53)
[2020-12-28] MEDS ORDERED: FUROSEMIDE 40MG/4ML VIAL IVP ONE (19:00)
[2020-12-28] MEDS: PANTOPRAZOLE SODIUM 40 MG/VIAL IV SCH (19:12)
[2020-12-29] MEDS: IPRATROPIUM/ALBUTEROL 0.5-3(2.5)MG/3ML NEB HHN SCH ×5 (02:05→21:56)
[2020-12-29 04:23] LABS: BASOPHILS % 0.2 % (0.0-2.0); HEMATOCRIT. 34.6 % (36.0-48.0); HEMOGLOBIN. 10.5 g/dL (12.0-16.0); LYMPHOCYTES % 8.6 % (20.0-50.0); MEAN CORPUSCULAR HEMOGLOBIN 28.2 pg (28.0-32.0); MEAN CORPUSCULAR VOLUME 92.8 fL (81.0-99.0); MEAN PLATELET VOLUME 10.6 fl (7.4-10.4); MONOCYTES % 14.3 % (2.0-8.0); NEUTROPHILS % 76.9 % (40.0-76.0); PLATELET 96 x1000/uL (130-400); RED BLOOD CELL COUNT 3.73 mill/uL (4.2-5.4); RED CELL DISTRIBUTION WIDTH 22.4 % (11.6-14.6)
[2020-12-29 04:30] LABS: CHLORIDE 106 mEq/L (98-107)
[2020-12-29] MEDS: AMLODIPINE 10MG TABLET PO SCH (09:00)
[2020-12-29] MEDS ORDERED: DEXTROSE 50% WATER 50ML SYRINGE IV ONE (09:30)
[2020-12-29 09:49] LABS: *AMPHETAMINES SCREEN URINE NEGATIVE (NEGATIVE); *BARBITURATES SCREEN URINE NEGATIVE (NEGATIVE); *COCAINE SCREEN URINE NEGATIVE (NEGATIVE)
[2020-12-29 09:50] LABS: *BENZODIAZEPINES SCREEN URINE NEGATIVE (NEGATIVE); CANNABINOID URINE SCREEN NEGATIVE (NEGATIVE); METHADONE URINE SCREEN NEGATIVE (NEGATIVE); OPIATES URINE SCREEN PRESUMTIVE POSITIVE (NEGATIVE); PHENCYCLIDINE URINE SCREEN NEGATIVE (NEGATIVE)
[2020-12-29 10:08] LABS: BG BASE EXCESS -9.2 mmol/L (-2.0-2.0); BG CARBOXYHEMOGLOBIN 0.3 % (0.5-1.5); BG DEOXYHEMOGLOBIN 2.3 % (0.0-5.0); BG FRACTION INSPIRED OXYGEN 40; BG HCO3 ACT 16.9 mmol/L (22.0-26.0); BG METHEMOGLOBIN 0.3 % (0.0-1.5); BG OXYGEN SATURATION 97.7 % (92.0-98.5); BG OXYHEMOGLOBIN 97.1 % (94.0-97.0); BG PCO2 37.2 mmHg (35.0-45.0); BG PH 7.275 (7.350-7.450); BG PO2 121.7 mmHg (75.0-100.0); BG SAMPLE SITE LEFT RADIAL; BG TOTAL HEMOGLOBIN 11.2 g/dL (12.0-18.0); BG VENT MODE VENT - AC
[2020-12-29] MEDS: PANTOPRAZOLE SODIUM 40 MG/VIAL IV SCH (13:24)
[2020-12-29] MEDS ORDERED: PROPOFOL 10MG/ML 100ML 100 ML IV PRN (13:30)
[2020-12-30] VITALS (26 sets, daily range): BP systolic 93–164; BP diastolic 25–94
[2020-12-30 01:44] LABS: CHLORIDE 108 mEq/L (98-107)
[2020-12-30 04:30] LABS: HEMATOCRIT. 35.1 % (36.0-48.0); HEMOGLOBIN. 10.9 g/dL (12.0-16.0); MEAN CORPUSCULAR HEMOGLOBIN 28.6 pg (28.0-32.0); MEAN CORPUSCULAR VOLUME 92.5 fL (81.0-99.0); MEAN PLATELET VOLUME 10.6 fl (7.4-10.4); PLATELET 99 x1000/uL (130-400); RED CELL DISTRIBUTION WIDTH 22.7 % (11.6-14.6)
[2020-12-30] MEDS: IPRATROPIUM/ALBUTEROL 0.5-3(2.5)MG/3ML NEB HHN SCH ×3 (06:00→20:27)
[2020-12-30] MEDS: AMLODIPINE 10MG TABLET PO SCH (07:55)
[2020-12-30 08:12] LABS: BG BASE EXCESS -6.2 mmol/L (-2.0-2.0); BG CARBOXYHEMOGLOBIN 0.2 % (0.5-1.5); BG DEOXYHEMOGLOBIN 2.9 % (0.0-5.0); BG HCO3 ACT 18.4 mmol/L (22.0-26.0); BG METHEMOGLOBIN 0.1 % (0.0-1.5); BG OXYGEN SATURATION 97.1 % (92.0-98.5); BG OXYHEMOGLOBIN 96.8 % (94.0-97.0); BG PCO2 33.5 mmHg (35.0-45.0); BG PH 7.358 (7.350-7.450); BG PO2 101.1 mmHg (75.0-100.0); BG SAMPLE SITE RIGHT BRACHIAL; BG TOTAL HEMOGLOBIN 11.3 g/dL (12.0-18.0); BG VENT MODE VENT - AC
[2020-12-30] MEDS ORDERED: FENTANYL CITRATE/PF 1,000 MCG in SODIUM CHLORIDE 0.9% 80 ML IV PRN (12:15)
[2020-12-30] MEDS ORDERED: PROPOFOL 10MG/ML 100ML 100 ML IV PRN (12:15)
[2020-12-30] MEDS: LEVOFLOXACIN 500MG PREMIX 100 ML IV SCH (14:43)
[2020-12-30] MEDS: ASPIRIN 81MG TABLET PO SCH (15:29)
[2020-12-30] MEDS: CLOPIDOGREL 75MG TABLET PO SCH (15:29)
[2020-12-30] MEDS ORDERED: FENTANYL CITRATE/PF 2,500 MCG in SODIUM CHLORIDE 0.9% 200 ML IV PRN (17:15)
[2020-12-30 17:25] LABS: PLATELET ESTIMATE DECREASED
[2020-12-30] MEDS ORDERED: LEVOFLOXACIN 500MG PREMIX 100 ML IV SCH (18:00)
[2020-12-30] MEDS ORDERED: HEPARIN SODIUM 1,000 UNIT/1ML VIAL IV NR (19:00)
[2020-12-31] VITALS (47 sets, daily range): BP systolic 91–162; BP diastolic 32–98
[2020-12-31] MEDS: IPRATROPIUM/ALBUTEROL 0.5-3(2.5)MG/3ML NEB HHN SCH ×4 (00:36→20:29)
[2020-12-31] MEDS: CLOPIDOGREL 75MG TABLET PO SCH (09:06)
[2020-12-31] MEDS: AMLODIPINE 10MG TABLET PO SCH (09:06)
[2020-12-31] MEDS: ASPIRIN 81MG TABLET PO SCH (09:06)
[2020-12-31] MEDS: PANTOPRAZOLE SODIUM 40 MG/VIAL IV SCH (09:06)
[2020-12-31 09:46] LABS: HEMATOCRIT. 37.5 % (36.0-48.0); HEMOGLOBIN. 11.8 g/dL (12.0-16.0); MEAN CORPUSCULAR HEMOGLOBIN 28.7 pg (28.0-32.0); MEAN PLATELET VOLUME 10.6 fl (7.4-10.4); PLATELET 110 x1000/uL (130-400); RED BLOOD CELL COUNT 4.12 mill/uL (4.2-5.4); RED CELL DISTRIBUTION WIDTH 23.2 % (11.6-14.6)
[2020-12-31 11:11] LABS: BG BASE EXCESS -2.4 mmol/L (-2.0-2.0); BG CARBOXYHEMOGLOBIN 0.3 % (0.5-1.5); BG DEOXYHEMOGLOBIN 2.3 % (0.0-5.0); BG FRACTION INSPIRED OXYGEN 40; BG HCO3 ACT 21.6 mmol/L (22.0-26.0); BG METHEMOGLOBIN 0.3 % (0.0-1.5); BG OXYGEN SATURATION 97.7 % (92.0-98.5); BG OXYHEMOGLOBIN 97.1 % (94.0-97.0); BG PCO2 34.9 mmHg (35.0-45.0); BG PO2 109.8 mmHg (75.0-100.0); BG SAMPLE SITE RIGHT RADIAL; BG TOTAL HEMOGLOBIN 12.7 g/dL (12.0-18.0); BG VENT MODE VENT - CPAP
[2020-12-31] MEDS ORDERED: RACEPINEPHRINE 2.25% 0.5ML NEB VIAL HHN PRN (11:30)
[2020-12-31 22:10] LABS: PLATELET ESTIMATE DECREASED
[2021-01-01] VITALS (31 sets, daily range): BP systolic 112–155; BP diastolic 69–99
[2021-01-01] MEDS: IPRATROPIUM/ALBUTEROL 0.5-3(2.5)MG/3ML NEB HHN SCH ×4 (00:46→22:33)
[2021-01-01 05:41] LABS: HEMATOCRIT. 34.8 % (36.0-48.0); HEMOGLOBIN. 10.9 g/dL (12.0-16.0); MEAN CORPUSCULAR HEMOGLOBIN 28.2 pg (28.0-32.0); MEAN CORPUSCULAR VOLUME 90.4 fL (81.0-99.0); MEAN PLATELET VOLUME 10.2 fl (7.4-10.4); PLATELET 93 x1000/uL (130-400); RED BLOOD CELL COUNT 3.85 mill/uL (4.2-5.4); RED CELL DISTRIBUTION WIDTH 22.5 % (11.6-14.6)
[2021-01-01] MEDS: PANTOPRAZOLE SODIUM 40 MG/VIAL IV SCH (09:10)
[2021-01-01] MEDS: AMLODIPINE 10MG TABLET PO SCH (09:11)
[2021-01-01] MEDS: CLOPIDOGREL 75MG TABLET PO SCH (09:11)
[2021-01-01] MEDS: ASPIRIN 81MG TABLET PO SCH (09:11)
[2021-01-01 11:37] LABS: PLATELET ESTIMATE DECREASED
[2021-01-01] MEDS: LEVOFLOXACIN 500MG PREMIX 100 ML IV SCH (22:09)
[2021-01-01] MEDS: ACETAMINOPHEN 325MG TABLET PO PRN (22:10)
[2021-01-01] MEDS: GABAPENTIN 300MG CAPSULE PO PRN (23:56)
[2021-01-02] VITALS (28 sets, daily range): BP systolic 94–149; BP diastolic 51–94
[2021-01-02] MEDS: ACETAMINOPHEN 325MG TABLET PO PRN (03:03)
[2021-01-02] MEDS: IPRATROPIUM/ALBUTEROL 0.5-3(2.5)MG/3ML NEB HHN SCH ×4 (05:32→22:13)
[2021-01-02] MEDS: AMLODIPINE 10MG TABLET PO SCH (08:38)
[2021-01-02] MEDS: CLOPIDOGREL 75MG TABLET PO SCH (08:47)
[2021-01-02] MEDS: ASPIRIN 81MG TABLET PO SCH (08:51)
[2021-01-02] MEDS: PANTOPRAZOLE SODIUM 40 MG/VIAL IV SCH (08:54)
[2021-01-02] MEDS: HYDROMORPHONE HCL/PF 2MG/ML CPJ IV PRN ×2 (12:52→21:05)
[2021-01-02] MEDS: MIDODRINE HCL 2.5MG TABLET PO SCH ×2 (12:52→17:00)
[2021-01-03] VITALS (12 sets, daily range): BP systolic 106–149; BP diastolic 55–83
[2021-01-03] MEDS: GABAPENTIN 300MG CAPSULE PO PRN (01:08)
[2021-01-03] MEDS: IPRATROPIUM/ALBUTEROL 0.5-3(2.5)MG/3ML NEB HHN SCH ×3 (04:21→13:54)
[2021-01-03] MEDS: HYDROMORPHONE HCL/PF 2MG/ML CPJ IV PRN (04:31)
[2021-01-03] MEDS ORDERED: DEXTROSE 50% WATER 50ML SYRINGE IV PRN (05:45)
[2021-01-03] MEDS: BLOOD SUGAR DIAGNOSTIC STRIP TEST SCH ×4 (06:25→20:33)
[2021-01-03] MEDS: INSULIN LISPRO 100 UNITS/ML SUBCUT SCH ×4 (06:30→20:46)
[2021-01-03 07:08] LABS: HEMATOCRIT. 33.1 % (36.0-48.0); HEMOGLOBIN. 10.3 g/dL (12.0-16.0); MEAN CORPUSCULAR HEMOGLOBIN 28.4 pg (28.0-32.0); MEAN CORPUSCULAR VOLUME 91.4 fL (81.0-99.0); MEAN PLATELET VOLUME 10.4 fl (7.4-10.4); PLATELET 78 x1000/uL (130-400); RED BLOOD CELL COUNT 3.62 mill/uL (4.2-5.4); RED CELL DISTRIBUTION WIDTH 21.9 % (11.6-14.6)
[2021-01-03] MEDS: MIDODRINE HCL 2.5MG TABLET PO SCH ×2 (09:00→10:00)
[2021-01-03] MEDS: DIPHENHYDRAMINE 50MG/ML VIAL IV PRN ×2 (09:58→22:42)
[2021-01-03] MEDS: AMLODIPINE 10MG TABLET PO SCH (09:58)
[2021-01-03] MEDS: PANTOPRAZOLE SODIUM 40 MG/VIAL IV SCH (09:59)
[2021-01-03] MEDS: ASPIRIN 81MG TABLET PO SCH (09:59)
[2021-01-03] MEDS: CLOPIDOGREL 75MG TABLET PO SCH (09:59)
[2021-01-03 14:08] LABS: PLATELET ESTIMATE DECREASED
[2021-01-03] MEDS: HYDROCODONE/ACETAMINOPHEN 5/325MG TABLET PO PRN ×2 (15:46→21:03)
[2021-01-03] MEDS ORDERED: LEVOFLOXACIN 500MG PREMIX 100 ML IV SCH (16:00)
[2021-01-04] VITALS (18 sets, daily range): BP systolic 93–152; BP diastolic 40–97
[2021-01-04] MEDS: HYDROCODONE/ACETAMINOPHEN 5/325MG TABLET PO PRN ×3 (03:50→22:12)
[2021-01-04] MEDS: BLOOD SUGAR DIAGNOSTIC STRIP TEST SCH ×4 (06:44→20:51)
[2021-01-04] MEDS: INSULIN LISPRO 100 UNITS/ML SUBCUT SCH ×4 (07:20→20:51)
[2021-01-04] MEDS: PANTOPRAZOLE SODIUM 40 MG/VIAL IV SCH (08:11)
[2021-01-04] MEDS: GABAPENTIN 300MG CAPSULE PO PRN (08:11)
[2021-01-04 08:38] LABS: BG BASE EXCESS -0.9 mmol/L (-2.0-2.0); BG CARBOXYHEMOGLOBIN 0.7 % (0.5-1.5); BG DEOXYHEMOGLOBIN 8.8 % (0.0-5.0); BG FRACTION INSPIRED OXYGEN 21; BG HCO3 ACT 24.9 mmol/L (22.0-26.0); BG METHEMOGLOBIN 0.1 % (0.0-1.5); BG OXYGEN SATURATION 91.1 % (92.0-98.5); BG OXYHEMOGLOBIN 90.4 % (94.0-97.0); BG PCO2 46.2 mmHg (35.0-45.0); BG PO2 66.5 mmHg (75.0-100.0); BG SAMPLE SITE LEFT BRACHIAL; BG TOTAL HEMOGLOBIN 10.4 g/dL (12.0-18.0); BG VENT MODE ROOM AIR
[2021-01-04] MEDS: DIPHENHYDRAMINE 50MG/ML VIAL IV PRN ×2 (09:25→19:54)
[2021-01-04] MEDS: IPRATROPIUM/ALBUTEROL 0.5-3(2.5)MG/3ML NEB HHN SCH ×2 (09:59→15:48)
[2021-01-04] MEDS: CLOPIDOGREL 75MG TABLET PO SCH (13:38)
[2021-01-04] MEDS: ASPIRIN 81MG TABLET PO SCH (13:38)
[2021-01-05] VITALS (13 sets, daily range): BP systolic 95–122; BP diastolic 57–80
[2021-01-05] MEDS: HYDROCODONE/ACETAMINOPHEN 5/325MG TABLET PO PRN ×2 (02:24→20:25)
[2021-01-05] MEDS: DIPHENHYDRAMINE 50MG/ML VIAL IV PRN ×2 (02:28→20:25)
[2021-01-05] MEDS: BLOOD SUGAR DIAGNOSTIC STRIP TEST SCH ×4 (05:56→20:17)
[2021-01-05] MEDS: INSULIN LISPRO 100 UNITS/ML SUBCUT SCH ×4 (05:58→20:24)
[2021-01-05] MEDS: PANTOPRAZOLE 40MG DR TABLET PO SCH (09:09)
[2021-01-05] MEDS: ASPIRIN 81MG TABLET PO SCH (09:09)
[2021-01-05] MEDS: CLOPIDOGREL 75MG TABLET PO SCH (09:09)
[2021-01-05] MEDS: GABAPENTIN 300MG CAPSULE PO PRN (09:11)
[2021-01-05] MEDS: IPRATROPIUM/ALBUTEROL 0.5-3(2.5)MG/3ML NEB HHN SCH ×2 (09:29→21:25)
[2021-01-06] VITALS (21 sets, daily range): BP systolic 96–130; BP diastolic 40–78
[2021-01-06] MEDS: HYDROCODONE/ACETAMINOPHEN 5/325MG TABLET PO PRN ×4 (05:17→21:03)
[2021-01-06] MEDS: BLOOD SUGAR DIAGNOSTIC STRIP TEST SCH ×4 (06:28→20:06)
[2021-01-06] MEDS: PANTOPRAZOLE 40MG DR TABLET PO SCH (06:30)
[2021-01-06] MEDS: INSULIN LISPRO 100 UNITS/ML SUBCUT SCH ×4 (07:38→19:57)
[2021-01-06] MEDS: ASPIRIN 81MG TABLET PO SCH (07:51)
[2021-01-06] MEDS: CLOPIDOGREL 75MG TABLET PO SCH (07:52)
[2021-01-06] MEDS: DIPHENHYDRAMINE 50MG/ML VIAL IV PRN ×2 (07:52→19:57)
[2021-01-06] MEDS: GABAPENTIN 300MG CAPSULE PO PRN ×2 (07:52→19:57)
[2021-01-06 07:54] LABS: BASOPHILS % 0.2 % (0.0-2.0); HEMATOCRIT. 32.6 % (36.0-48.0); LYMPHOCYTES % 13.9 % (20.0-50.0); MEAN CORPUSCULAR HEMOGLOBIN 28.2 pg (28.0-32.0); MEAN CORPUSCULAR VOLUME 92.4 fL (81.0-99.0); MONOCYTES % 12.2 % (2.0-8.0); NEUTROPHILS % 73.7 % (40.0-76.0); PLATELET 90 x1000/uL (130-400); RED BLOOD CELL COUNT 3.53 mill/uL (4.2-5.4); RED CELL DISTRIBUTION WIDTH 21.4 % (11.6-14.6)
[2021-01-06] MEDS: ACETAMINOPHEN 325MG TABLET PO PRN ×2 (08:52→15:52)
[2021-01-06] MEDS: IPRATROPIUM/ALBUTEROL 0.5-3(2.5)MG/3ML NEB HHN SCH ×2 (09:00→17:00)
[2021-01-07] VITALS (13 sets, daily range): BP systolic 98–134; BP diastolic 54–82
[2021-01-07] MEDS: HYDROCODONE/ACETAMINOPHEN 5/325MG TABLET PO PRN ×3 (03:30→16:03)
[2021-01-07] MEDS: DIPHENHYDRAMINE 50MG/ML VIAL IV PRN ×2 (03:32→09:24)
[2021-01-07] MEDS: PANTOPRAZOLE 40MG DR TABLET PO SCH (06:03)
[2021-01-07] MEDS: BLOOD SUGAR DIAGNOSTIC STRIP TEST SCH ×4 (06:03→21:37)
[2021-01-07] MEDS: INSULIN LISPRO 100 UNITS/ML SUBCUT SCH ×4 (06:25→21:00)
[2021-01-07] MEDS: CLOPIDOGREL 75MG TABLET PO SCH (07:40)
[2021-01-07] MEDS: ASPIRIN 81MG TABLET PO SCH (07:41)
[2021-01-07] MEDS: GABAPENTIN 300MG CAPSULE PO PRN (12:14)
[2021-01-07] MEDS: ACETAMINOPHEN 325MG TABLET PO PRN (12:18)
[2021-01-07] MEDS ORDERED: POLYETHYLENE GLYCOL 3350 (17GM) 1 DOSE PACK PO NR (14:00)
[2021-01-07] MEDS: BACITRACIN 15GM TUBE TOP SCH ×2 (18:05→21:38)
[2021-01-07] MEDS ORDERED: BACITRACIN 15GM TUBE TOP SCH (21:00)
== END 2021-01-07 23:30 | disposition home or self-care (01) | DRG 137 ==
LOC: ER 16:44 → MICUSO 17:47 → CVICU 12-30 10:59 → 3WST 01-02 14:05
PROVIDERS: ADMIT Hospitalist; ATTEND Hospitalist
PROC: 0BH17EZ Insertion of Endotracheal Airway into Trachea, Via Natural or Artificial Opening (ICD-10-PCS; principal; 2020-12-28)
PROC: 5A1945Z Respiratory Ventilation, 24-96 Consecutive Hours (ICD-10-PCS; 2020-12-28)
PROC: 5A1D70Z Performance of Urinary Filtration, Intermittent, Less than 6 Hours Per Day (ICD-10-PCS; 2020-12-29)
PROC: 5A1D70Z Performance of Urinary Filtration, Intermittent, Less than 6 Hours Per Day (ICD-10-PCS; 2020-12-30)
PROC: 5A1D70Z Performance of Urinary Filtration, Intermittent, Less than 6 Hours Per Day (ICD-10-PCS; 2021-01-01)
PROC: 5A1D70Z Performance of Urinary Filtration, Intermittent, Less than 6 Hours Per Day (ICD-10-PCS; 2021-01-04)
PROC: 5A1D70Z Performance of Urinary Filtration, Intermittent, Less than 6 Hours Per Day (ICD-10-PCS; 2021-01-06)
PROC: 5A1D70Z Performance of Urinary Filtration, Intermittent, Less than 6 Hours Per Day (ICD-10-PCS; 2021-01-07)
DX: J69.0 Pneumonitis due to inhalation of food and vomit (principal); J96.01 Acute respiratory failure with hypoxia; N18.6 End stage renal disease; E43 Unspecified severe protein-calorie malnutrition; I13.2 Hypertensive heart and chronic kidney disease with heart failure and with stage 5 chronic kidney disease, or end stage renal disease; Z99.2 Dependence on renal dialysis; E11.22 Type 2 diabetes mellitus with diabetic chronic kidney disease; I50.43 Acute on chronic combined systolic (congestive) and diastolic (congestive) heart failure; I69.354 Hemiplegia and hemiparesis following cerebral infarction affecting left non-dominant side; D63.1 Anemia in chronic kidney disease; D69.6 Thrombocytopenia, unspecified; Z95.2 Presence of prosthetic heart valve; E87.5 Hyperkalemia; G93.40 Encephalopathy, unspecified; I27.29 Other secondary pulmonary hypertension; F41.9 Anxiety disorder, unspecified; S30.0XXA Contusion of lower back and pelvis, initial encounter; S70.02XA Contusion of left hip, initial encounter; E11.51 Type 2 diabetes mellitus with diabetic peripheral angiopathy without gangrene; S90.32XA Contusion of left foot, initial encounter; I25.10 Atherosclerotic heart disease of native coronary artery without angina pectoris; I25.2 Old myocardial infarction; I42.9 Cardiomyopathy, unspecified; J44.9 Chronic obstructive pulmonary disease, unspecified; L84 Corns and callosities; Z20.822 Contact with and (suspected) exposure to COVID-19; Z95.1 Presence of aortocoronary bypass graft; Z95.5 Presence of coronary angioplasty implant and graft; Z79.899 Other long term (current) drug therapy; Z79.82 Long term (current) use of aspirin; Z79.4 Long term (current) use of insulin; Z88.0 Allergy status to penicillin; Z88.2 Allergy status to sulfonamides; Z88.8 Allergy status to other drugs, medicaments and biological substances; X58.XXXA Exposure to other specified factors, initial encounter; Y93.89 Activity, other specified; Y92.89 Other specified places as the place of occurrence of the external cause; Y99.8 Other external cause status; Z82.49 Family history of ischemic heart disease and other diseases of the circulatory system; Z83.3 Family history of diabetes mellitus; Z68.23 Body mass index [BMI] 23.0-23.9, adult
CPT/HCPCS: 36415; 36600; 70496; 71045; 80048; 80053; 80305; 80320; 81003; 82040; 82140; 82375; 82550; 82805; 82962; 83036; 83605; 83880; 84134; 84443; 84478; 84484; 85025; 86850; 86900; 87070; 92610; 93005; 93923; 93970; 94002; 94003; 94640; 96365; 97110; 97116; 97162; 97166; 97530; 99285; C9113; J1170; J1200; J1644; J1815; J1940; J1956; J2250; J2405; J2704; J3010; J3370; J3490; J7050; Q9967; U0003; G0480

== ENCOUNTER 2021-01-26 18:21 | Inpatient (IN) | payer MEDICAID ==
[~2021-01-26] VITALS: Ht 170.2 cm; Wt 67.2 kg
[~2021-01-26 18:21] MED LIST changes: -ETOMIDATE 2MG/ML 10ML VIAL IV ONE; -SODIUM CHLORIDE 0.9% 10ML VIAL ONE; -VECURONIUM BROMIDE 10 MG/VIAL IV ONE
[2021-01-26] MEDS ORDERED: ASPIRIN 81MG TABLET PO ONE (19:30)
[2021-01-26 22:31] LABS: BASOPHILS % 0.3 % (0.0-2.0); HEMATOCRIT. 33.4 % (36.0-48.0); HEMOGLOBIN. 10.2 g/dL (12.0-16.0); LYMPHOCYTES % 13.9 % (20.0-50.0); MEAN CORPUSCULAR HEMOGLOBIN 28.9 pg (28.0-32.0); MEAN PLATELET VOLUME 10.6 fl (7.4-10.4); NEUTROPHILS % 71.8 % (40.0-76.0); PLATELET 92 x1000/uL (130-400); RED BLOOD CELL COUNT 3.51 mill/uL (4.2-5.4); RED CELL DISTRIBUTION WIDTH 21.2 % (11.6-14.6)
[2021-01-26 22:37] LABS: CHLORIDE 102 mEq/L (98-107)
[2021-01-27] MEDS ORDERED: MORPHINE SULFATE 2 MG/ML CPJ (NOT FOR IM USE) IV ONE (01:00)
[2021-01-27] MEDS ORDERED: DIPHENHYDRAMINE 50MG/ML VIAL IV ONE (03:15)
[2021-01-27 08:30] VITALS: BP 149/93
[2021-01-27] MEDS ORDERED: ONDANSETRON HCL 4MG/2ML INJ IV PRN (08:30)
[2021-01-27] MEDS ORDERED: IPRATROPIUM/ALBUTEROL 0.5-3(2.5)MG/3ML NEB HHN PRN (08:30)
[2021-01-27] MEDS ORDERED: ACETAMINOPHEN 325MG TABLET PO PRN (08:30)
[2021-01-27] MEDS ORDERED: HYDROCODONE/ACETAMINOPHEN 10/325MG TABLET PO PRN (09:15)
[2021-01-27] MEDS: CARVEDILOL 6.25 MG TABLET PO SCH ×2 (09:20→21:00)
[2021-01-27] MEDS: LOSARTAN POTASSIUM 25 MG TABLET PO SCH (09:21)
[2021-01-27] MEDS ORDERED: IOHEXOL-350 100 ML BOTTLE ONE (12:08)
[2021-01-27] MEDS: OXYCODONE HCL/ACETAMINOPHEN 5/325MG TABLET PO PRN ×2 (15:47→21:04)
[2021-01-27] MEDS ORDERED: GABA600T PO (17:31)
[2021-01-27] MEDS ORDERED: SERT-422 PO (17:31)
[2021-01-27] MEDS ORDERED: LISI20TA31 PO (17:31)
[2021-01-27] MEDS ORDERED: DEXTROSE 50% WATER 50ML SYRINGE IV PRN (18:30)
[2021-01-27 20:00] VITALS: BP 134/74
[2021-01-27] MEDS: BLOOD SUGAR DIAGNOSTIC STRIP TEST SCH (21:04)
[2021-01-27] MEDS: INSULIN LISPRO 100 UNITS/ML SUBCUT SCH (21:07)
[2021-01-27] MEDS ORDERED: DIPHENHYDRAMINE 50MG CAPSULE PO PRN (21:45)
[2021-01-27] MEDS ORDERED: DIPHENHYDRAMINE 50MG/ML VIAL IV NR (22:15)
[2021-01-28] VITALS: BP 112/68
[2021-01-28 04:00] VITALS: BP 128/79
[2021-01-28] MEDS ORDERED: MORPHINE SULFATE 2 MG/ML CPJ (NOT FOR IM USE) IV PRN (05:30)
[2021-01-28 05:55] LABS: BASOPHILS % 0.3 % (0.0-2.0); EOSINOPHILS % 0.1 % (0.0-5.0); HEMOGLOBIN. 9.9 g/dL (12.0-16.0); LYMPHOCYTES % 13.6 % (20.0-50.0); MEAN CORPUSCULAR HEMOGLOBIN 29.1 pg (28.0-32.0); PLATELET 100 x1000/uL (130-400); RED CELL DISTRIBUTION WIDTH 21.2 % (11.6-14.6)
[2021-01-28] MEDS: INSULIN LISPRO 100 UNITS/ML SUBCUT SCH ×4 (07:40→20:17)
[2021-01-28] MEDS: BLOOD SUGAR DIAGNOSTIC STRIP TEST SCH ×4 (07:40→20:17)
[2021-01-28 08:00] VITALS: BP 141/58
[2021-01-28] MEDS ORDERED: IODIXANOL 320MG/ML 200ML BOTTLE ONE (08:00)
[2021-01-28] MEDS ORDERED: LIDOCAINE HCL 1% 20ML VIAL (Pyxis) INJ ONE (08:00)
[2021-01-28] MEDS ORDERED: FENTANYL CITRATE/PF 50MCG/ML 2ML VIAL ONE ×2 (08:01→08:49)
[2021-01-28] MEDS: LOSARTAN POTASSIUM 25 MG TABLET PO SCH (08:01)
[2021-01-28] MEDS: CARVEDILOL 6.25 MG TABLET PO SCH ×2 (08:01→19:48)
[2021-01-28] MEDS ORDERED: MIDAZOLAM HCL 2 MG/2 ML VIAL ONE (08:02)
[2021-01-28] MEDS ORDERED: IOHEXOL-300 100 ML BOTTLE ONE (08:16)
[2021-01-28] MEDS: OXYCODONE HCL/ACETAMINOPHEN 5/325MG TABLET PO PRN ×3 (11:30→19:47)
[2021-01-28] MEDS: CLOPIDOGREL 75MG TABLET PO SCH (11:30)
[2021-01-28 12:00] VITALS: BP 127/83
[2021-01-28 16:00] VITALS: BP_SYST 119; BP_SYST 133; BP_DIAS 73; BP_DIAS 77
[2021-01-28 20:00] VITALS: BP 131/84
[2021-01-29] VITALS: BP 128/66
[2021-01-29] MEDS: OXYCODONE HCL/ACETAMINOPHEN 5/325MG TABLET PO PRN ×6 (01:09→21:43)
[2021-01-29 04:00] VITALS: BP 126/75
[2021-01-29] MEDS: BLOOD SUGAR DIAGNOSTIC STRIP TEST SCH ×5 (05:34→20:47)
[2021-01-29] MEDS: INSULIN LISPRO 100 UNITS/ML SUBCUT SCH ×4 (05:34→20:47)
[2021-01-29 07:06] LABS: HEMATOCRIT. 32.9 % (36.0-48.0); HEMOGLOBIN. 9.8 g/dL (12.0-16.0); MEAN CORPUSCULAR HEMOGLOBIN 28.5 pg (28.0-32.0); MEAN CORPUSCULAR VOLUME 95.5 fL (81.0-99.0); MEAN PLATELET VOLUME 10.7 fl (7.4-10.4); PLATELET 97 x1000/uL (130-400); RED BLOOD CELL COUNT 3.44 mill/uL (4.2-5.4); RED CELL DISTRIBUTION WIDTH 22.2 % (11.6-14.6)
[2021-01-29 08:00] VITALS: BP 125/75
[2021-01-29] MEDS: CLOPIDOGREL 75MG TABLET PO SCH ×2 (09:00→09:39)
[2021-01-29] MEDS: LOSARTAN POTASSIUM 25 MG TABLET PO SCH ×2 (09:00→09:39)
[2021-01-29] MEDS: CARVEDILOL 6.25 MG TABLET PO SCH ×3 (09:00→20:44)
[2021-01-29] MEDS ORDERED: DIPHENHYDRAMINE 50MG/ML VIAL IV SCH (10:00)
[2021-01-29 12:00] VITALS: BP 139/76
[2021-01-29] MEDS ORDERED: HEPARIN SODIUM 1,000 UNIT/1ML VIAL IV SCH (12:45)
[2021-01-29 16:00] VITALS: BP 138/79
[2021-01-29 18:18] LABS: PLATELET ESTIMATE DECREASED
[2021-01-29 20:00] VITALS: BP 115/69
[2021-01-30] VITALS: BP 122/80
[2021-01-30] MEDS: OXYCODONE HCL/ACETAMINOPHEN 5/325MG TABLET PO PRN ×3 (01:51→11:25)
[2021-01-30 04:00] VITALS: BP 130/75
[2021-01-30] MEDS: INSULIN LISPRO 100 UNITS/ML SUBCUT SCH ×2 (06:19→13:52)
[2021-01-30] MEDS: BLOOD SUGAR DIAGNOSTIC STRIP TEST SCH ×2 (06:20→12:28)
[2021-01-30 07:05] LABS: HEMATOCRIT. 34.2 % (36.0-48.0); HEMOGLOBIN. 10.6 g/dL (12.0-16.0); MEAN CORPUSCULAR HEMOGLOBIN 29.2 pg (28.0-32.0); MEAN CORPUSCULAR VOLUME 93.8 fL (81.0-99.0); MEAN PLATELET VOLUME 10.3 fl (7.4-10.4); PLATELET 107 x1000/uL (130-400); RED BLOOD CELL COUNT 3.64 mill/uL (4.2-5.4); RED CELL DISTRIBUTION WIDTH 21.4 % (11.6-14.6)
[2021-01-30 08:21] VITALS: BP 136/79
[2021-01-30] MEDS ORDERED: COR6 PO (09:04)
[2021-01-30] MEDS ORDERED: HYDR-4009 MT (09:04)
[2021-01-30] MEDS ORDERED: CLOP75TA15 PO (09:04)
[2021-01-30] MEDS ORDERED: ASPI-1160 PO (09:04)
[2021-01-30] MEDS: LOSARTAN POTASSIUM 25 MG TABLET PO SCH (09:57)
[2021-01-30] MEDS: CARVEDILOL 6.25 MG TABLET PO SCH (09:57)
[2021-01-30] MEDS: CLOPIDOGREL 75MG TABLET PO SCH (09:57)
[2021-01-30 11:47] VITALS: BP 110/65
[2021-01-30 14:19] LABS: PLATELET ESTIMATE SLIGHTLY DECREASED
[2021-01-30 14:58] VITALS: BP 124/63
[2021-01-30 15:49] VITALS: BP 118/72
== END 2021-01-30 15:35 | disposition home health service (06) | DRG 181 ==
LOC: ER 18:21 → 8WST 01-27 01:30 → ENRESERV 01-27 07:23
PROVIDERS: ADMIT Internal Medicine; ATTEND Internal Medicine
PROC: 5A1D70Z Performance of Urinary Filtration, Intermittent, Less than 6 Hours Per Day (ICD-10-PCS; 2021-01-27)
PROC: 047N3ZZ Dilation of Left Popliteal Artery, Percutaneous Approach (ICD-10-PCS; principal; 2021-01-28)
PROC: 04HK33Z Insertion of Infusion Device into Right Femoral Artery, Percutaneous Approach (ICD-10-PCS; 2021-01-28)
PROC: 04HN33Z Insertion of Infusion Device into Left Popliteal Artery, Percutaneous Approach (ICD-10-PCS; 2021-01-28)
PROC: B41G1ZZ Fluoroscopy of Left Lower Extremity Arteries using Low Osmolar Contrast (ICD-10-PCS; 2021-01-28)
PROC: B41F1ZZ Fluoroscopy of Right Lower Extremity Arteries using Low Osmolar Contrast (ICD-10-PCS; 2021-01-28)
PROC: 047U3ZZ Dilation of Left Peroneal Artery, Percutaneous Approach (ICD-10-PCS; 2021-01-28)
PROC: 5A1D70Z Performance of Urinary Filtration, Intermittent, Less than 6 Hours Per Day (ICD-10-PCS; 2021-01-29)
DX: I70.202 Unspecified atherosclerosis of native arteries of extremities, left leg (principal); I42.9 Cardiomyopathy, unspecified; I99.8 Other disorder of circulatory system; L84 Corns and callosities; N18.6 End stage renal disease; S92.352A Displaced fracture of fifth metatarsal bone, left foot, initial encounter for closed fracture; I13.2 Hypertensive heart and chronic kidney disease with heart failure and with stage 5 chronic kidney disease, or end stage renal disease; E87.5 Hyperkalemia; E87.1 Hypo-osmolality and hyponatremia; E11.22 Type 2 diabetes mellitus with diabetic chronic kidney disease; D61.818 Other pancytopenia; F32.9 Major depressive disorder, single episode, unspecified; I25.10 Atherosclerotic heart disease of native coronary artery without angina pectoris; J44.9 Chronic obstructive pulmonary disease, unspecified; E11.51 Type 2 diabetes mellitus with diabetic peripheral angiopathy without gangrene; Z20.822 Contact with and (suspected) exposure to COVID-19; I50.43 Acute on chronic combined systolic (congestive) and diastolic (congestive) heart failure; R26.89 Other abnormalities of gait and mobility; Z95.5 Presence of coronary angioplasty implant and graft; Z99.2 Dependence on renal dialysis; Z95.1 Presence of aortocoronary bypass graft; Z88.0 Allergy status to penicillin; Z88.2 Allergy status to sulfonamides; Z79.891 Long term (current) use of opiate analgesic; Z79.899 Other long term (current) drug therapy; Z79.1 Long term (current) use of non-steroidal anti-inflammatories (NSAID); Z87.891 Personal history of nicotine dependence; Z86.73 Personal history of transient ischemic attack (TIA), and cerebral infarction without residual deficits; Z82.49 Family history of ischemic heart disease and other diseases of the circulatory system; Z83.3 Family history of diabetes mellitus; Z79.4 Long term (current) use of insulin; W18.39XA Other fall on same level, initial encounter; Y93.89 Activity, other specified; Y92.89 Other specified places as the place of occurrence of the external cause; Y99.8 Other external cause status
CPT/HCPCS: 36415; 37224; 37228; 71045; 73610; 73630; 75635; 75710; 80048; 80053; 82962; 83880; 84484; 85025; 87426; 97162; 99285; C1725; C1760; C1769; C1893; C1894; J1200; J1644; J1815; J2250; J2270; J3010; J3490; Q0163; Q9967

== ENCOUNTER 2021-03-18 08:49 | Inpatient (IN) | payer MEDICAID ==
[~2021-03-18] VITALS: Ht 165.1 cm; Wt 71.7 kg
[~2021-03-18 08:49] MED LIST changes: +FAMO20TA8 PO; +GABA600T PO; -HYDR-4001 MT; -HYDR-4009 MT; +LISI20TA31 PO; -PROT40 PO; +SERT-422 PO
[2021-03-18] MEDS ORDERED: LEVOFLOXACIN 500MG PREMIX 100 ML IV ONE (09:45)
[2021-03-18 09:47] LABS: BG BASE EXCESS -3.9 mmol/L (-2.0-2.0); BG CARBOXYHEMOGLOBIN 0.3 % (0.5-1.5); BG DEOXYHEMOGLOBIN 34.2 % (0.0-5.0); BG FRACTION INSPIRED OXYGEN 28; BG HCO3 ACT 23.8 mmol/L (22.0-26.0); BG METHEMOGLOBIN 0.4 % (0.0-1.5); BG OXYGEN SATURATION 65.6 % (92.0-98.5); BG OXYHEMOGLOBIN 65.1 % (94.0-97.0); BG PCO2 55.7 mmHg (35.0-45.0); BG PH 7.249 (7.350-7.450); BG PO2 37.3 mmHg (75.0-100.0); BG SAMPLE SITE RIGHT RADIAL; BG TOTAL HEMOGLOBIN 11.7 g/dL (12.0-18.0); BG VENT MODE NASAL CANNULA
[2021-03-18 10:27] LABS: BASOPHILS % 0.6 % (0.0-2.0); HEMATOCRIT. 34.7 % (36.0-48.0); HEMOGLOBIN. 10.8 g/dL (12.0-16.0); LYMPHOCYTES % 7.7 % (20.0-50.0); MEAN CORPUSCULAR HEMOGLOBIN 29.9 pg (28.0-32.0); MEAN PLATELET VOLUME 10.9 fl (7.4-10.4); MONOCYTES % 6.6 % (2.0-8.0); NEUTROPHILS % 85.1 % (40.0-76.0); PLATELET 95 x1000/uL (130-400); RED BLOOD CELL COUNT 3.61 mill/uL (4.2-5.4); RED CELL DISTRIBUTION WIDTH 18.7 % (11.6-14.6)
[2021-03-18 10:32] LABS: CHLORIDE 105 mEq/L (98-107)
[2021-03-18 10:38] LABS: PHOSPHORUS 6.8 mg/dL (2.5-4.9)
[2021-03-18] MEDS ORDERED: INSULIN REGULAR (HUMULIN R) 300UNITS/3ML VIAL IV ONE (11:15)
[2021-03-18] MEDS ORDERED: DEXTROSE 50% WATER 50ML SYRINGE IV ONE (11:15)
[2021-03-18] MEDS ORDERED: ONDANSETRON HCL 4MG/2ML INJ IV PRN (12:00)
[2021-03-18] MEDS ORDERED: IPRATROPIUM/ALBUTEROL 0.5-3(2.5)MG/3ML NEB HHN PRN (12:00)
[2021-03-18] MEDS ORDERED: CLONIDINE 0.1MG TABLET PO PRN (12:00)
[2021-03-18] MEDS: ACETAMINOPHEN 325MG TABLET PO PRN ×2 (12:08→22:04)
[2021-03-18] MEDS ORDERED: AZITHROMYCIN 500 MG in DEXT 5% WATER 250 ML IV NR (12:30)
[2021-03-18] MEDS: IPRATROPIUM/ALBUTEROL 0.5-3(2.5)MG/3ML NEB HHN SCH ×2 (12:48→20:05)
[2021-03-18] MEDS: METHYLPREDNISOLONE SOD SUCC 40 MG/ML VIAL IV SCH ×2 (12:50→20:14)
[2021-03-18] MEDS: DIPHENHYDRAMINE 50MG/ML VIAL IV PRN ×2 (13:38→23:39)
[2021-03-18] MEDS: ASPIRIN 81MG EC TABLET PO SCH (15:15)
[2021-03-18] MEDS ORDERED: AMLODIPINE 10MG TABLET PO NR (18:15)
[2021-03-18] MEDS: CARVEDILOL 6.25 MG TABLET PO SCH (18:25)
[2021-03-18 21:00] VITALS: BP 172/85
[2021-03-18 22:00] VITALS: BP 152/87
[2021-03-18] MEDS: ATORVASTATIN CALCIUM 40MG TABLET PO SCH (22:03)
[2021-03-18] MEDS ORDERED: DEXTROSE 50% WATER 50ML SYRINGE IV PRN ×2 (22:15)
[2021-03-18 23:07] VITALS: BP 153/88
[2021-03-19] VITALS (12 sets, daily range): BP systolic 127–155; BP diastolic 73–96
[2021-03-19] MEDS: IPRATROPIUM/ALBUTEROL 0.5-3(2.5)MG/3ML NEB HHN SCH ×3 (02:41→14:34)
[2021-03-19] MEDS: METHYLPREDNISOLONE SOD SUCC 40 MG/ML VIAL IV SCH ×2 (03:37→14:34)
[2021-03-19] MEDS: ACETAMINOPHEN 325MG TABLET PO PRN (03:46)
[2021-03-19 07:53] LABS: CHLORIDE 104 mEq/L (98-107); HEMATOCRIT. 34.8 % (36.0-48.0); HEMOGLOBIN. 10.9 g/dL (12.0-16.0); MEAN CORPUSCULAR HEMOGLOBIN 29.4 pg (28.0-32.0); MEAN CORPUSCULAR VOLUME 93.8 fL (81.0-99.0); MEAN PLATELET VOLUME 10.7 fl (7.4-10.4); PLATELET 81 x1000/uL (130-400); RED BLOOD CELL COUNT 3.71 mill/uL (4.2-5.4); RED CELL DISTRIBUTION WIDTH 18.2 % (11.6-14.6)
[2021-03-19 07:59] LABS: LDL CHOLESTEROL 63 mg/dL (5-100)
[2021-03-19 08:01] LABS: HDL CHOLESTEROL 69 mg/dL (40-59)
[2021-03-19] MEDS: BLOOD SUGAR DIAGNOSTIC STRIP TEST SCH ×4 (08:24→20:09)
[2021-03-19] MEDS: FUROSEMIDE 40MG/4ML VIAL IV SCH (08:48)
[2021-03-19] MEDS: ASPIRIN 81MG EC TABLET PO SCH (08:49)
[2021-03-19] MEDS: CARVEDILOL 6.25 MG TABLET PO SCH ×2 (08:49→18:11)
[2021-03-19] MEDS: INSULIN LISPRO 100 UNITS/ML SUBCUT SCH ×4 (08:53→20:19)
[2021-03-19] MEDS ORDERED: CLOPIDOGREL 75MG TABLET PO SCH (09:00)
[2021-03-19] MEDS ORDERED: HYDROCODONE/ACETAMINOPHEN 5/325MG TABLET PO PRN (11:45)
[2021-03-19] MEDS: DIPHENHYDRAMINE 50MG/ML VIAL IV PRN ×2 (11:52→20:34)
[2021-03-19] MEDS: HYDROCODONE/ACETAMINOPHEN 10/325MG TABLET PO PRN ×2 (14:34→20:18)
[2021-03-19 14:35] LABS: PLATELET ESTIMATE DECREASED
[2021-03-19] MEDS: ATORVASTATIN CALCIUM 40MG TABLET PO SCH (20:18)
[2021-03-20] VITALS (12 sets, daily range): BP systolic 120–153; BP diastolic 68–89
[2021-03-20] MEDS: METHYLPREDNISOLONE SOD SUCC 40 MG/ML VIAL IV SCH ×2 (00:10→12:53)
[2021-03-20] MEDS: DIPHENHYDRAMINE 50MG/ML VIAL IV PRN ×3 (00:11→22:47)
[2021-03-20] MEDS: IPRATROPIUM/ALBUTEROL 0.5-3(2.5)MG/3ML NEB HHN SCH ×3 (01:50→12:33)
[2021-03-20] MEDS: HYDROCODONE/ACETAMINOPHEN 10/325MG TABLET PO PRN ×2 (04:45→17:54)
[2021-03-20 05:36] LABS: HEMATOCRIT. 31.7 % (36.0-48.0); MEAN CORPUSCULAR HEMOGLOBIN 29.9 pg (28.0-32.0); MEAN CORPUSCULAR VOLUME 94.4 fL (81.0-99.0); MEAN PLATELET VOLUME 11.4 fl (7.4-10.4); PLATELET 78 x1000/uL (130-400); RED BLOOD CELL COUNT 3.36 mill/uL (4.2-5.4); RED CELL DISTRIBUTION WIDTH 18.4 % (11.6-14.6)
[2021-03-20] MEDS: BLOOD SUGAR DIAGNOSTIC STRIP TEST SCH ×4 (07:30→21:02)
[2021-03-20] MEDS: CARVEDILOL 6.25 MG TABLET PO SCH ×2 (08:35→17:53)
[2021-03-20] MEDS: FUROSEMIDE 40MG/4ML VIAL IV SCH (08:35)
[2021-03-20] MEDS: INSULIN LISPRO 100 UNITS/ML SUBCUT SCH ×4 (08:45→21:43)
[2021-03-20 18:21] LABS: PLATELET ESTIMATE DECREASED
[2021-03-20] MEDS: ATORVASTATIN CALCIUM 40MG TABLET PO SCH (21:42)
[2021-03-21] VITALS (12 sets, daily range): BP systolic 121–154; BP diastolic 74–89
[2021-03-21] MEDS: HYDROCODONE/ACETAMINOPHEN 10/325MG TABLET PO PRN ×3 (00:33→17:00)
[2021-03-21] MEDS: IPRATROPIUM/ALBUTEROL 0.5-3(2.5)MG/3ML NEB HHN SCH ×4 (01:27→21:03)
[2021-03-21] MEDS: DIPHENHYDRAMINE 50MG/ML VIAL IV PRN ×2 (04:34→21:23)
[2021-03-21 06:20] LABS: HEMATOCRIT. 34.2 % (36.0-48.0); HEMOGLOBIN. 10.6 g/dL (12.0-16.0); MEAN CORPUSCULAR HEMOGLOBIN 29.3 pg (28.0-32.0); MEAN PLATELET VOLUME 10.4 fl (7.4-10.4); PLATELET 75 x1000/uL (130-400); RED BLOOD CELL COUNT 3.64 mill/uL (4.2-5.4)
[2021-03-21] MEDS: BLOOD SUGAR DIAGNOSTIC STRIP TEST SCH ×4 (07:30→20:21)
[2021-03-21] MEDS: CARVEDILOL 6.25 MG TABLET PO SCH ×2 (08:26→16:59)
[2021-03-21] MEDS: LOSARTAN POTASSIUM 25 MG TABLET PO SCH (08:27)
[2021-03-21] MEDS: INSULIN LISPRO 100 UNITS/ML SUBCUT SCH ×4 (08:42→20:21)
[2021-03-21 14:42] LABS: PLATELET ESTIMATE DECREASED
[2021-03-21] MEDS: ATORVASTATIN CALCIUM 40MG TABLET PO SCH (20:19)
[2021-03-21] MEDS: MORPHINE SULFATE 2 MG/ML CPJ (NOT FOR IM USE) IV PRN (20:19)
[2021-03-22] VITALS (10 sets, daily range): BP systolic 125–148; BP diastolic 65–109
[2021-03-22] MEDS: DIPHENHYDRAMINE 50MG/ML VIAL IV PRN ×2 (00:30→12:46)
[2021-03-22] MEDS: IPRATROPIUM/ALBUTEROL 0.5-3(2.5)MG/3ML NEB HHN SCH ×3 (01:00→14:15)
[2021-03-22] MEDS: MORPHINE SULFATE 2 MG/ML CPJ (NOT FOR IM USE) IV PRN ×2 (02:57→10:22)
[2021-03-22] MEDS: ACETAMINOPHEN 325MG TABLET PO PRN (05:56)
[2021-03-22 07:00] LABS: BASOPHILS % 0.2 % (0.0-2.0); EOSINOPHILS % 0.1 % (0.0-5.0); HEMATOCRIT. 35.3 % (36.0-48.0); HEMOGLOBIN. 11.1 g/dL (12.0-16.0); LYMPHOCYTES % 12.8 % (20.0-50.0); MEAN CORPUSCULAR HEMOGLOBIN 29.8 pg (28.0-32.0); MEAN CORPUSCULAR VOLUME 94.5 fL (81.0-99.0); MEAN PLATELET VOLUME 10.7 fl (7.4-10.4); MONOCYTES % 8.7 % (2.0-8.0); NEUTROPHILS % 78.2 % (40.0-76.0); PLATELET 82 x1000/uL (130-400); RED BLOOD CELL COUNT 3.74 mill/uL (4.2-5.4); RED CELL DISTRIBUTION WIDTH 18.6 % (11.6-14.6)
[2021-03-22] MEDS: BLOOD SUGAR DIAGNOSTIC STRIP TEST SCH ×2 (07:51→12:53)
[2021-03-22] MEDS: INSULIN LISPRO 100 UNITS/ML SUBCUT SCH ×2 (08:00→13:20)
[2021-03-22] MEDS: CARVEDILOL 6.25 MG TABLET PO SCH (09:00)
[2021-03-22] MEDS: LOSARTAN POTASSIUM 25 MG TABLET PO SCH (09:00)
[2021-03-22] MEDS ORDERED: HYDR-4009 PO (12:55)
[2021-03-22] MEDS ORDERED: CLOPIDOGREL 75MG TABLET PO SCH (14:30)
== END 2021-03-22 18:07 | disposition home or self-care (01) | DRG 133 ==
LOC: ER 08:49 → 5EST 10:36 → EDBEDREQ 11:15 → EDBEDREQTM 11:15 → ENRESERV 20:00
PROVIDERS: ADMIT Internal Medicine; ATTEND Internal Medicine
PROC: 5A09357 Assistance with Respiratory Ventilation, Less than 24 Consecutive Hours, Continuous Positive Airway Pressure (ICD-10-PCS; principal; 2021-03-18)
PROC: 5A1D70Z Performance of Urinary Filtration, Intermittent, Less than 6 Hours Per Day (ICD-10-PCS; 2021-03-18)
PROC: 5A1D70Z Performance of Urinary Filtration, Intermittent, Less than 6 Hours Per Day (ICD-10-PCS; 2021-03-19)
PROC: 5A1D70Z Performance of Urinary Filtration, Intermittent, Less than 6 Hours Per Day (ICD-10-PCS; 2021-03-20)
PROC: 5A1D70Z Performance of Urinary Filtration, Intermittent, Less than 6 Hours Per Day (ICD-10-PCS; 2021-03-21)
DX: J96.01 Acute respiratory failure with hypoxia (principal); I13.2 Hypertensive heart and chronic kidney disease with heart failure and with stage 5 chronic kidney disease, or end stage renal disease; D69.6 Thrombocytopenia, unspecified; E11.22 Type 2 diabetes mellitus with diabetic chronic kidney disease; E11.51 Type 2 diabetes mellitus with diabetic peripheral angiopathy without gangrene; N18.6 End stage renal disease; E11.65 Type 2 diabetes mellitus with hyperglycemia; E87.5 Hyperkalemia; E87.79 Other fluid overload; I50.43 Acute on chronic combined systolic (congestive) and diastolic (congestive) heart failure; E83.39 Other disorders of phosphorus metabolism; D63.1 Anemia in chronic kidney disease; E83.41 Hypermagnesemia; E83.42 Hypomagnesemia; G40.909 Epilepsy, unspecified, not intractable, without status epilepticus; I25.10 Atherosclerotic heart disease of native coronary artery without angina pectoris; J44.1 Chronic obstructive pulmonary disease with (acute) exacerbation; L03.116 Cellulitis of left lower limb; F32.9 Major depressive disorder, single episode, unspecified; R26.89 Other abnormalities of gait and mobility; R74.01 Elevation of levels of liver transaminase levels; E05.90 Thyrotoxicosis, unspecified without thyrotoxic crisis or storm; I25.2 Old myocardial infarction; Z95.1 Presence of aortocoronary bypass graft; Z98.62 Peripheral vascular angioplasty status; Z99.2 Dependence on renal dialysis; Z99.81 Dependence on supplemental oxygen; I69.354 Hemiplegia and hemiparesis following cerebral infarction affecting left non-dominant side; Z79.02 Long term (current) use of antithrombotics/antiplatelets; Z79.4 Long term (current) use of insulin; Z79.899 Other long term (current) drug therapy; Z88.0 Allergy status to penicillin; Z88.2 Allergy status to sulfonamides; Z91.15 Patient's noncompliance with renal dialysis; Z79.82 Long term (current) use of aspirin; Z82.49 Family history of ischemic heart disease and other diseases of the circulatory system; Z83.3 Family history of diabetes mellitus
CPT/HCPCS: 36415; 36600; 71045; 73630; 80048; 80053; 80061; 80076; 82375; 82805; 82962; 83036; 83605; 83735; 83880; 84100; 84443; 84484; 85025; 93005; 93306; 93970; 94640; 94660; 99291; J0456; J1200; J1815; J1940; J1956; J2270; J2920; J7060

== ENCOUNTER 2021-04-26 15:40 | Emergency (ER) | payer MEDICAID ==
[~2021-04-26] VITALS: Ht 165.1 cm; Wt 61.2 kg
[~2021-04-26 15:40] MED LIST changes: +HYDR-4009 PO
[2021-04-26 16:37] LABS: BASOPHILS % 0.4 % (0.0-2.0); EOSINOPHILS % 0.1 % (0.0-5.0); HEMOGLOBIN. 10.2 g/dL (12.0-16.0); LYMPHOCYTES % 8.1 % (20.0-50.0); MEAN CORPUSCULAR HEMOGLOBIN 29.5 pg (28.0-32.0); MEAN CORPUSCULAR VOLUME 92.8 fL (81.0-99.0); MEAN PLATELET VOLUME 10.4 fl (7.4-10.4); MONOCYTES % 12.9 % (2.0-8.0); NEUTROPHILS % 78.5 % (40.0-76.0); PLATELET 83 x1000/uL (130-400); RED BLOOD CELL COUNT 3.45 mill/uL (4.2-5.4); RED CELL DISTRIBUTION WIDTH 16.9 % (11.6-14.6)
[2021-04-26 16:47] LABS: CHLORIDE 99 mEq/L (98-107)
[2021-04-26 18:11] VITALS: BP 129/72
[2021-04-26] MEDS ORDERED: CEPH500C2 MT (18:52)
== END 2021-04-26 19:42 | disposition home or self-care (01) ==
LOC: ER 15:40
DX: E11.621 Type 2 diabetes mellitus with foot ulcer (principal); L97.529 Non-pressure chronic ulcer of other part of left foot with unspecified severity; I13.11 Hypertensive heart and chronic kidney disease without heart failure, with stage 5 chronic kidney disease, or end stage renal disease; E11.22 Type 2 diabetes mellitus with diabetic chronic kidney disease; N18.6 End stage renal disease; I25.2 Old myocardial infarction; I73.9 Peripheral vascular disease, unspecified; Z99.2 Dependence on renal dialysis; Z79.899 Other long term (current) drug therapy; Z95.1 Presence of aortocoronary bypass graft; Z98.890 Other specified postprocedural states; Z88.0 Allergy status to penicillin; Z88.2 Allergy status to sulfonamides; Z86.73 Personal history of transient ischemic attack (TIA), and cerebral infarction without residual deficits
CPT/HCPCS: 36415; 71045; 80053; 83880; 84484; 85025; 93005; 99285; Z7610

== ENCOUNTER 2021-05-16 12:32 | Emergency (ER) | payer MEDICAID ==
[~2021-05-16] VITALS: Ht 165.1 cm; Wt 60.0 kg
[~2021-05-16 12:32] MED LIST changes: +CEPH500C2 MT
[2021-05-16] MEDS ORDERED: HYDROCODONE/ACETAMINOPHEN 5/325MG TABLET PO ONE (13:45)
[2021-05-16] MEDS ORDERED: HYDR-4346 PO (13:47)
[2021-05-16 14:08] VITALS: BP 148/70
== END 2021-05-16 13:57 | disposition home or self-care (01) ==
LOC: ER 12:32
DX: S92.355A Nondisplaced fracture of fifth metatarsal bone, left foot, initial encounter for closed fracture (principal); E11.22 Type 2 diabetes mellitus with diabetic chronic kidney disease; I13.11 Hypertensive heart and chronic kidney disease without heart failure, with stage 5 chronic kidney disease, or end stage renal disease; N18.6 End stage renal disease; Z99.2 Dependence on renal dialysis; G40.909 Epilepsy, unspecified, not intractable, without status epilepticus; I25.2 Old myocardial infarction; Z79.4 Long term (current) use of insulin; Z88.0 Allergy status to penicillin; Z88.2 Allergy status to sulfonamides; Z95.1 Presence of aortocoronary bypass graft; W18.30XA Fall on same level, unspecified, initial encounter; Y93.89 Activity, other specified; Y92.89 Other specified places as the place of occurrence of the external cause
CPT/HCPCS: 82962; 99283

== ENCOUNTER 2021-07-12 21:28 | Inpatient (IN) | payer MEDICAID ==
[~2021-07-12] VITALS: Ht 165.1 cm; Wt 57.6 kg
[~2021-07-12 21:28] MED LIST changes: +HYDR-4346 PO; -SERT-422 PO; +SERT50TA12 PO
[2021-07-12] MEDS ORDERED: MORPHINE SULFATE 4 MG/ML CPJ (NOT FOR IM USE) IV STA (23:18)
[2021-07-12] MEDS ORDERED: ONDANSETRON HCL 4MG/2ML INJ IV STA (23:18)
[2021-07-12] MEDS ORDERED: MEROPENEM 1,000 MG in SODIUM CHLORIDE 0.9% 100 ML IV ONE (23:30)
[2021-07-12] MEDS ORDERED: CLINDAMYCIN 600 MG in DEXTROSE 5% WATER 50 ML IV ONE (23:30)
[2021-07-12] MEDS ORDERED: VANCOMYCIN 1 G PREMIX 200 ML IV ONE (23:30)
[2021-07-12 23:43] LABS: BASOPHILS % 0.8 % (0.0-2.0); EOSINOPHILS % 0.1 % (0.0-5.0); HEMATOCRIT. 31.4 % (36.0-48.0); LYMPHOCYTES % 7.9 % (20.0-50.0); MEAN CORPUSCULAR HEMOGLOBIN 30.5 pg (28.0-32.0); MEAN CORPUSCULAR VOLUME 96.1 fL (81.0-99.0); MEAN PLATELET VOLUME 10.6 fl (7.4-10.4); MONOCYTES % 13.4 % (2.0-8.0); NEUTROPHILS % 77.8 % (40.0-76.0); PLATELET 133 x1000/uL (130-400); RED BLOOD CELL COUNT 3.26 mill/uL (4.2-5.4); RED CELL DISTRIBUTION WIDTH 19.7 % (11.6-14.6)
[2021-07-12 23:49] LABS: INR 1.2; PROTHROMBIN TIME 12.9 sec (9.6-11.0)
[2021-07-13 00:17] LABS: CHLORIDE 105 mEq/L (98-107)
[2021-07-13] MEDS ORDERED: CLINDAMYCIN 600MG PREMIX 50 ML IV SCH (01:45)
[2021-07-13] MEDS ORDERED: MORPHINE SULFATE 4 MG/ML CPJ (NOT FOR IM USE) IV ONE (03:30)
[2021-07-13] MEDS ORDERED: HYDROCODONE/ACETAMINOPHEN 10/325MG TABLET PO PRN ×2 (11:00→16:45)
[2021-07-13] MEDS ORDERED: NALOXONE HCL 0.4MG/ML VIAL IV PRN (11:15)
[2021-07-13] MEDS ORDERED: ONDANSETRON HCL 4MG/2ML INJ IV PRN (11:15)
[2021-07-13] MEDS ORDERED: CLINDAMYCIN 300 MG in DEXTROSE 5% WATER 50 ML IV SCH (12:00)
[2021-07-13] MEDS ORDERED: ENOXAPARIN 30MG/0.3ML SYR SUBCUT SCH (15:00)
[2021-07-13] MEDS: CARVEDILOL 3.125 MG TABLET PO SCH (21:00)
[2021-07-13 23:00] VITALS: BP 128/66
[2021-07-14] VITALS (41 sets, daily range): BP systolic 91–166; BP diastolic 42–81
[2021-07-14] MEDS: CLINDAMYCIN 300 MG in DEXTROSE 5% WATER 50 ML IV SCH ×3 (02:36→20:32)
[2021-07-14 07:33] LABS: HEMATOCRIT. 32.5 % (36.0-48.0); HEMOGLOBIN. 10.2 g/dL (12.0-16.0); MEAN CORPUSCULAR HEMOGLOBIN 30.6 pg (28.0-32.0); MEAN CORPUSCULAR VOLUME 96.9 fL (81.0-99.0); MEAN PLATELET VOLUME 10.9 fl (7.4-10.4); PLATELET 126 x1000/uL (130-400); RED BLOOD CELL COUNT 3.35 mill/uL (4.2-5.4); RED CELL DISTRIBUTION WIDTH 18.9 % (11.6-14.6)
[2021-07-14] MEDS ORDERED: IODIXANOL 320MG/ML 100 ML BOTTLE IV ONE (08:40)
[2021-07-14] MEDS ORDERED: LIDOCAINE HCL 1% 20ML VIAL (Pyxis) INJ ONE (08:40)
[2021-07-14] MEDS ORDERED: IOHEXOL-300 100 ML BOTTLE ONE (08:41)
[2021-07-14] MEDS ORDERED: MIDAZOLAM HCL 2 MG/2 ML VIAL ONE (08:56)
[2021-07-14] MEDS ORDERED: FENTANYL CITRATE/PF 50MCG/ML 2ML VIAL ONE (08:56)
[2021-07-14] MEDS: CARVEDILOL 3.125 MG TABLET PO SCH ×2 (09:00→21:00)
[2021-07-14] MEDS: ASPIRIN 81MG TABLET PO SCH (09:00)
[2021-07-14] MEDS ORDERED: HEPARIN SODIUM 1,000 UNIT/1ML VIAL IV ONE (09:20)
[2021-07-14] MEDS ORDERED: CLOPIDOGREL 75MG TABLET ONE (10:13)
[2021-07-14] MEDS ORDERED: ASPIRIN 325MG TABLET ONE (10:14)
[2021-07-14] MEDS ORDERED: ONDANSETRON HCL 4MG/2ML INJ IV PRN (10:15)
[2021-07-14] MEDS ORDERED: ATROPINE SULFATE 1MG/10ML SYR IV PRN (10:15)
[2021-07-14] MEDS ORDERED: ACETAMINOPHEN 325MG TABLET PO PRN (10:15)
[2021-07-14 14:49] LABS: HEPATITIS B SURFACE ANTIGEN NEGATIVE
[2021-07-14 16:55] LABS: PLATELET ESTIMATE DECREASED
[2021-07-14] MEDS ORDERED: DIPHENHYDRAMINE 50MG/ML VIAL IV PRN (23:00)
[2021-07-15] VITALS (12 sets, daily range): BP systolic 107–134; BP diastolic 39–81
[2021-07-15] MEDS: CLINDAMYCIN 300 MG in DEXTROSE 5% WATER 50 ML IV SCH ×2 (02:15→09:32)
[2021-07-15] MEDS: ASPIRIN 81MG TABLET PO SCH (08:20)
[2021-07-15] MEDS: CARVEDILOL 3.125 MG TABLET PO SCH (08:20)
[2021-07-15] MEDS ORDERED: CLOPIDOGREL 75MG TABLET PO SCH (09:00)
[2021-07-15] MEDS ORDERED: ASPIRIN 325MG TABLET PO SCH (09:00)
[2021-07-15 09:40] LABS: HEMATOCRIT. 32.8 % (36.0-48.0); HEMOGLOBIN. 10.2 g/dL (12.0-16.0); MEAN CORPUSCULAR HEMOGLOBIN 30.2 pg (28.0-32.0); MEAN CORPUSCULAR VOLUME 96.6 fL (81.0-99.0); PLATELET 134 x1000/uL (130-400); RED BLOOD CELL COUNT 3.39 mill/uL (4.2-5.4); RED CELL DISTRIBUTION WIDTH 19.2 % (11.6-14.6)
[2021-07-15 11:04] LABS: PLATELET ESTIMATE NORMAL
[2021-07-15] MEDS ORDERED: COR6 PO (12:55)
[2021-07-15] MEDS ORDERED: HYDR-4009 PO (12:55)
[2021-07-15] MEDS ORDERED: CLOP75TA15 PO (12:55)
[2021-07-15] MEDS ORDERED: GABA600T PO (12:55)
[2021-07-15] MEDS ORDERED: ASPI-1160 PO (12:55)
[2021-07-15] MEDS ORDERED: LISI20TA31 PO (12:55)
== END 2021-07-15 14:20 | disposition home or self-care (01) | DRG 182 ==
LOC: ER 21:28 → MICUSO 07-13 02:59 → EDBEDREQSVC 07-13 18:21 → 6WST 07-13 21:43 → 3WST 07-14 10:50
PROVIDERS: ADMIT Internal Medicine; ATTEND Internal Medicine
PROC: 047K3DZ Dilation of Right Femoral Artery with Intraluminal Device, Percutaneous Approach (ICD-10-PCS; principal; 2021-07-14)
PROC: B41G1ZZ Fluoroscopy of Left Lower Extremity Arteries using Low Osmolar Contrast (ICD-10-PCS; 2021-07-14)
PROC: B41F1ZZ Fluoroscopy of Right Lower Extremity Arteries using Low Osmolar Contrast (ICD-10-PCS; 2021-07-14)
PROC: 5A1D70Z Performance of Urinary Filtration, Intermittent, Less than 6 Hours Per Day (ICD-10-PCS; 2021-07-14)
DX: T82.856A Stenosis of peripheral vascular stent, initial encounter (principal); J96.00 Acute respiratory failure, unspecified whether with hypoxia or hypercapnia; I50.43 Acute on chronic combined systolic (congestive) and diastolic (congestive) heart failure; I27.20 Pulmonary hypertension, unspecified; D69.6 Thrombocytopenia, unspecified; I96 Gangrene, not elsewhere classified; E44.1 Mild protein-calorie malnutrition; D63.8 Anemia in other chronic diseases classified elsewhere; E11.52 Type 2 diabetes mellitus with diabetic peripheral angiopathy with gangrene; E88.09 Other disorders of plasma-protein metabolism, not elsewhere classified; N18.6 End stage renal disease; E11.22 Type 2 diabetes mellitus with diabetic chronic kidney disease; L03.115 Cellulitis of right lower limb; E11.621 Type 2 diabetes mellitus with foot ulcer; I13.2 Hypertensive heart and chronic kidney disease with heart failure and with stage 5 chronic kidney disease, or end stage renal disease; E78.5 Hyperlipidemia, unspecified; I25.10 Atherosclerotic heart disease of native coronary artery without angina pectoris; I25.5 Ischemic cardiomyopathy; F32.9 Major depressive disorder, single episode, unspecified; J44.9 Chronic obstructive pulmonary disease, unspecified; L03.116 Cellulitis of left lower limb; L97.529 Non-pressure chronic ulcer of other part of left foot with unspecified severity; R53.81 Other malaise; I08.0 Rheumatic disorders of both mitral and aortic valves; R26.89 Other abnormalities of gait and mobility; Z20.822 Contact with and (suspected) exposure to COVID-19; Y83.8 Other surgical procedures as the cause of abnormal reaction of the patient, or of later complication, without mention of misadventure at the time of the procedure; Z86.73 Personal history of transient ischemic attack (TIA), and cerebral infarction without residual deficits; Z95.2 Presence of prosthetic heart valve; Z95.5 Presence of coronary angioplasty implant and graft; Z99.2 Dependence on renal dialysis; Z95.1 Presence of aortocoronary bypass graft; I25.2 Old myocardial infarction; Z82.49 Family history of ischemic heart disease and other diseases of the circulatory system; Z83.3 Family history of diabetes mellitus; Z88.0 Allergy status to penicillin; Z88.2 Allergy status to sulfonamides; Z79.899 Other long term (current) drug therapy; Z79.02 Long term (current) use of antithrombotics/antiplatelets; Y92.89 Other specified places as the place of occurrence of the external cause; Z68.21 Body mass index [BMI] 21.0-21.9, adult; M21.962 Unspecified acquired deformity of left lower leg
CPT/HCPCS: 36415; 37226; 71045; 73630; 75710; 80048; 80053; 83605; 84145; 85025; 85347; 86705; 86709; 86803; 87340; 87426; 93005; 93970; 99291; C1725; C1726; C1769; C1876; C1887; C1893; C1894; J1200; J1644; J1650; J2185; J2250; J2270; J2405; J3010; J3370; J3490; J7040; J7050; J7060; Q9967

== ENCOUNTER 2021-09-26 00:15 | Inpatient (IN) | payer MEDICARE, MEDICAID ==
[2021-09-26] VITALS (40 sets, daily range): BP systolic 54–155; BP diastolic 31–115
[~2021-09-26] VITALS: Ht 162.6 cm; Wt 70.8 kg
[~2021-09-26 00:15] MED LIST changes: -ALBU6.7H11 INH; +ALBU6.7H15 INH; -AMLO10TA4 MT; -CEPH500C2 MT; -INSU100I28 SQ; +SERT-422 PO; -SERT50TA12 PO
[2021-09-26] MEDS ORDERED: MORPHINE SULFATE 4 MG/ML CPJ (NOT FOR IM USE) IV STA (00:46)
[2021-09-26] MEDS ORDERED: ONDANSETRON HCL 4MG/2ML INJ IV STA (00:46)
[2021-09-26] MEDS ORDERED: VANCOMYCIN 1 G PREMIX 200 ML IV ONE (01:00)
[2021-09-26] MEDS ORDERED: CLINDAMYCIN 600 MG in DEXTROSE 5% WATER 50 ML IV ONE (01:00)
[2021-09-26] MEDS ORDERED: CLINDAMYCIN 600MG PREMIX 50 ML IV NR (01:15)
[2021-09-26 02:56] LABS: HEMATOCRIT. 28.6 % (36.0-48.0); HEMOGLOBIN. 8.4 g/dL (12.0-16.0); MEAN CORPUSCULAR HEMOGLOBIN 29.6 pg (28.0-32.0); MEAN CORPUSCULAR VOLUME 100.7 fL (81.0-99.0); MEAN PLATELET VOLUME 11.5 fl (7.4-10.4); PLATELET 123 x1000/uL (130-400); RED BLOOD CELL COUNT 2.84 mill/uL (4.2-5.4); RED CELL DISTRIBUTION WIDTH 20.7 % (11.6-14.6)
[2021-09-26 03:06] LABS: CHLORIDE 102 mEq/L (98-107)
[2021-09-26] MEDS ORDERED: SODIUM BICARBONATE 8.4% 1 MEQ/ML 50ML SYR IV ONE (03:45)
[2021-09-26] MEDS ORDERED: DEXTROSE 50% WATER 50ML SYRINGE IV ONE (03:45)
[2021-09-26] MEDS ORDERED: CALCIUM CHLORIDE 1GM/10ML SYR IV ONE (03:45)
[2021-09-26 05:25] LABS: PLATELET ESTIMATE SLIGHTLY DECREASED
[2021-09-26] MEDS ORDERED: SODIUM CHLORIDE 0.9% 500 ML IV ONE (05:45)
[2021-09-26] MEDS ORDERED: HYDROCODONE/ACETAMINOPHEN 10/325MG TABLET PO PRN (08:15)
[2021-09-26] MEDS ORDERED: VANCOMYCIN 500 MG PREMIX 100 ML IV SCH (09:00)
[2021-09-26] MEDS ORDERED: NOREPINEPHRINE 8MG/250ML PMX 250 ML IV PRN (09:00)
[2021-09-26 10:43] LABS: INR 1.4; PROTHROMBIN TIME 14.9 sec (9.6-11.0)
[2021-09-26] MEDS ORDERED: LIDOCAINE HCL 1% 10 MG/ML 10ML VIAL ONE (10:53)
[2021-09-26] MEDS ORDERED: NOREPINEPHRINE 8 MG in DEXT 5% WATER 242 ML IV PRN ×2 (11:00→18:30)
[2021-09-26 11:04] LABS: HEPATITIS B SURFACE ANTIGEN NEGATIVE
[2021-09-26] MEDS: NALOXONE HCL 0.4MG/ML VIAL IV PRN (11:14)
[2021-09-26] MEDS: SODIUM BICARBONATE 100 MEQ in DEXTROSE 5% WATER 1,000 ML IV SCH (11:33)
[2021-09-26] MEDS ORDERED: PHENYLEPHRINE 100 MG in DEXT 5% WATER 240 ML IV PRN (19:15)
[2021-09-27] VITALS (93 sets, daily range): BP systolic 77–154; BP diastolic 27–125
[2021-09-27] MEDS: NOREPINEPHRINE 32 MG in DEXT 5% WATER 218 ML IV PRN ×2 (00:26→17:11)
[2021-09-27] MEDS: SODIUM BICARBONATE 100 MEQ in DEXTROSE 5% WATER 1,000 ML IV SCH ×2 (04:53→18:51)
[2021-09-27 08:24] LABS: BG BASE EXCESS -11.3 mmol/L (-2.0-2.0); BG CARBOXYHEMOGLOBIN 0.3 % (0.5-1.5); BG DEOXYHEMOGLOBIN 1.9 % (0.0-5.0); BG HCO3 ACT 17.2 mmol/L (22.0-26.0); BG METHEMOGLOBIN 0.3 % (0.0-1.5); BG OXYGEN SATURATION 98.1 % (92.0-98.5); BG OXYHEMOGLOBIN 97.5 % (94.0-97.0); BG PCO2 51.5 mmHg (35.0-45.0); BG PH 7.142 (7.350-7.450); BG PO2 136.6 mmHg (75.0-100.0); BG SAMPLE SITE RIGHT BRACHIAL; BG TOTAL HEMOGLOBIN 9.5 g/dL (12.0-18.0); BG VENT MODE NASAL CANNULA
[2021-09-27] MEDS ORDERED: IPRATROPIUM/ALBUTEROL 0.5-3(2.5)MG/3ML NEB HHN PRN (09:15)
[2021-09-27 09:29] LABS: CHLORIDE 99 mEq/L (98-107)
[2021-09-27 09:32] LABS: HEMATOCRIT. 28.2 % (36.0-48.0); HEMOGLOBIN. 8.4 g/dL (12.0-16.0); MEAN CORPUSCULAR HEMOGLOBIN 29.3 pg (28.0-32.0); MEAN CORPUSCULAR VOLUME 98.5 fL (81.0-99.0); MEAN PLATELET VOLUME 11.6 fl (7.4-10.4); PLATELET 165 x1000/uL (130-400); RED BLOOD CELL COUNT 2.86 mill/uL (4.2-5.4); RED CELL DISTRIBUTION WIDTH 20.3 % (11.6-14.6)
[2021-09-27 11:52] LABS: PLATELET ESTIMATE NORMAL
[2021-09-27] MEDS: IPRATROPIUM/ALBUTEROL 0.5-3(2.5)MG/3ML NEB HHN SCH ×2 (13:59→20:37)
[2021-09-27 14:28] LABS: BG BASE EXCESS -12.2 mmol/L (-2.0-2.0); BG CARBOXYHEMOGLOBIN 0.1 % (0.5-1.5); BG METHEMOGLOBIN 0.3 % (0.0-1.5); BG OXYHEMOGLOBIN 97.6 % (94.0-97.0); BG PH 7.158 (7.350-7.450); BG PO2 133.5 mmHg (75.0-100.0); BG SAMPLE SITE RIGHT BRACHIAL; BG TOTAL HEMOGLOBIN 9.7 g/dL (12.0-18.0); BG VENT MODE MASK - BIPAP
[2021-09-27] MEDS ORDERED: SODIUM BICARBONATE 8.4% 1 MEQ/ML 50ML SYR IV NR (15:00)
[2021-09-27] MEDS ORDERED: DEXTROSE 50% WATER 50ML SYRINGE IV PRN (18:30)
[2021-09-27] MEDS: INSULIN LISPRO 100 UNITS/ML SUBCUT SCH (21:46)
[2021-09-27] MEDS: BLOOD SUGAR DIAGNOSTIC STRIP TEST SCH (21:46)
[2021-09-28] VITALS (102 sets, daily range): BP systolic 63–157; BP diastolic 27–109
[2021-09-28] MEDS: IPRATROPIUM/ALBUTEROL 0.5-3(2.5)MG/3ML NEB HHN SCH ×4 (01:58→21:11)
[2021-09-28 05:54] LABS: BASOPHILS % 0.4 % (0.0-2.0); HEMATOCRIT. 28.6 % (36.0-48.0); HEMOGLOBIN. 8.7 g/dL (12.0-16.0); LYMPHOCYTES % 7.5 % (20.0-50.0); MEAN CORPUSCULAR VOLUME 95.1 fL (81.0-99.0); NEUTROPHILS % 78.1 % (40.0-76.0); PLATELET 163 x1000/uL (130-400); RED BLOOD CELL COUNT 3.01 mill/uL (4.2-5.4); RED CELL DISTRIBUTION WIDTH 20.3 % (11.6-14.6)
[2021-09-28] MEDS: BLOOD SUGAR DIAGNOSTIC STRIP TEST SCH ×4 (06:14→22:00)
[2021-09-28] MEDS: INSULIN LISPRO 100 UNITS/ML SUBCUT SCH ×4 (06:30→22:03)
[2021-09-28] MEDS: SODIUM BICARBONATE 100 MEQ in DEXTROSE 5% WATER 1,000 ML IV SCH (07:00)
[2021-09-28] MEDS ORDERED: SODIUM BICARBONATE 100 MEQ in DEXTROSE 5% WATER 1,000 ML IV SCH (07:00)
[2021-09-28 10:13] LABS: BG CARBOXYHEMOGLOBIN 0.3 % (0.5-1.5); BG DEOXYHEMOGLOBIN 0.5 % (0.0-5.0); BG FRACTION INSPIRED OXYGEN 35; BG HCO3 ACT 19.4 mmol/L (22.0-26.0); BG METHEMOGLOBIN 0.3 % (0.0-1.5); BG OXYGEN SATURATION 99.5 % (92.0-98.5); BG OXYHEMOGLOBIN 98.9 % (94.0-97.0); BG PH 7.224 (7.350-7.450); BG PO2 267.7 mmHg (75.0-100.0); BG SAMPLE SITE LEFT BRACHIAL; BG TOTAL HEMOGLOBIN 10.4 g/dL (12.0-18.0); BG VENT MODE MASK - BIPAP
[2021-09-28] MEDS ORDERED: ALBUMIN HUMAN 12.5G/250ML (5%) IV NR (11:00)
[2021-09-28] MEDS ORDERED: DOBUTAMINE 250MG PREMIX 250 ML IV SCH (12:00)
[2021-09-28] MEDS: NOREPINEPHRINE 32 MG in DEXT 5% WATER 218 ML IV PRN (13:25)
[2021-09-28] MEDS ORDERED: CEFEPIME 1,000 MG in DEXTROSE 5% WATER 50 ML IV SCH (16:00)
[2021-09-28] MEDS ORDERED: METRONIDAZOLE 500MG TABLET PO SCH (17:00)
[2021-09-28] MEDS ORDERED: AZTREONAM 2GM in DEXTROSE 5% WATER 100ML IV NR (17:30)
[2021-09-28] MEDS ORDERED: VANCOMYCIN 500 MG PREMIX 100 ML IV NR (18:00)
[2021-09-28] MEDS ORDERED: LEVETIRACETAM 500MG/5ML CUP PO SCH (21:00)
[2021-09-28] MEDS ORDERED: METRONIDAZOLE 500 MG PREMIX 100 ML IV SCH (23:00)
[2021-09-28] MEDS: LEVETIRACETAM 250 MG in SODIUM CHLORIDE 0.9% 100 ML IV SCH (23:17)
[2021-09-28] MEDS: DOBUTAMINE 500MG PREMIX 250 ML IV PRN (23:58)
[2021-09-29] VITALS (109 sets, daily range): BP systolic 36–132; BP diastolic 14–90
[2021-09-29] MEDS: IPRATROPIUM/ALBUTEROL 0.5-3(2.5)MG/3ML NEB HHN SCH ×4 (01:56→20:26)
[2021-09-29] MEDS: AZTREONAM 500MG in DEXTROSE 5% WATER 50ML IV SCH ×3 (02:30→17:37)
[2021-09-29 06:02] LABS: MEAN CORPUSCULAR HEMOGLOBIN 29.3 pg (28.0-32.0); MEAN CORPUSCULAR VOLUME 92.2 fL (81.0-99.0); MEAN PLATELET VOLUME 9.9 fl (7.4-10.4); PLATELET 72 x1000/uL (130-400); RED BLOOD CELL COUNT 2.28 mill/uL (4.2-5.4)
[2021-09-29 06:41] LABS: HEMOGLOBIN. 6.7 g/dL (12.0-16.0)
[2021-09-29] MEDS: BLOOD SUGAR DIAGNOSTIC STRIP TEST SCH ×4 (06:59→21:44)
[2021-09-29] MEDS: INSULIN LISPRO 100 UNITS/ML SUBCUT SCH ×4 (07:00→21:45)
[2021-09-29 08:19] LABS: NUCLEATED RED BLOOD CELLS 3 /100 WBC; PLATELET ESTIMATE DECREASED
[2021-09-29 10:07] LABS: BG BASE EXCESS 2.4 mmol/L (-2.0-2.0); BG CARBOXYHEMOGLOBIN 0.4 % (0.5-1.5); BG DEOXYHEMOGLOBIN 1.9 % (0.0-5.0); BG FRACTION INSPIRED OXYGEN 28; BG HCO3 ACT 27.5 mmol/L (22.0-26.0); BG METHEMOGLOBIN 0.2 % (0.0-1.5); BG OXYGEN SATURATION 98.1 % (92.0-98.5); BG OXYHEMOGLOBIN 97.5 % (94.0-97.0); BG PCO2 45.7 mmHg (35.0-45.0); BG PH 7.397 (7.350-7.450); BG PO2 118.5 mmHg (75.0-100.0); BG SAMPLE SITE RIGHT BRACHIAL; BG TOTAL HEMOGLOBIN 7.4 g/dL (12.0-18.0); BG TOTAL RESPIRATORY RATE 26 b/min; BG VENT MODE NASAL CANNULA
[2021-09-29] MEDS: LEVETIRACETAM 250 MG in SODIUM CHLORIDE 0.9% 100 ML IV SCH ×2 (12:48→21:44)
[2021-09-29] MEDS: FOLIC ACID/VITAMIN B COMP W-C TABLET PO SCH (12:50)
[2021-09-29] MEDS: MIDODRINE HCL 5MG TABLET PO SCH ×3 (12:50→16:00)
[2021-09-29] MEDS: METRONIDAZOLE 500MG TABLET PO SCH ×2 (14:00→21:44)
[2021-09-29] MEDS: DOBUTAMINE 500MG PREMIX 250 ML IV PRN (19:02)
[2021-09-30] VITALS (91 sets, daily range): BP systolic 66–149; BP diastolic 24–128
[2021-09-30] MEDS: AZTREONAM 500MG in DEXTROSE 5% WATER 50ML IV SCH ×3 (01:14→18:10)
[2021-09-30] MEDS: IPRATROPIUM/ALBUTEROL 0.5-3(2.5)MG/3ML NEB HHN SCH ×4 (01:36→20:24)
[2021-09-30] MEDS: BLOOD SUGAR DIAGNOSTIC STRIP TEST SCH ×4 (06:10→21:04)
[2021-09-30] MEDS: INSULIN LISPRO 100 UNITS/ML SUBCUT SCH ×4 (06:11→21:27)
[2021-09-30] MEDS: METRONIDAZOLE 500MG TABLET PO SCH ×3 (06:11→21:25)
[2021-09-30 06:30] LABS: HEMATOCRIT. 26.1 % (36.0-48.0); HEMOGLOBIN. 8.3 g/dL (12.0-16.0); MEAN CORPUSCULAR HEMOGLOBIN 29.1 pg (28.0-32.0); MEAN CORPUSCULAR VOLUME 91.3 fL (81.0-99.0); MEAN PLATELET VOLUME 10.5 fl (7.4-10.4); PLATELET 73 x1000/uL (130-400); RED BLOOD CELL COUNT 2.86 mill/uL (4.2-5.4); RED CELL DISTRIBUTION WIDTH 18.9 % (11.6-14.6)
[2021-09-30] MEDS ORDERED: POTASSIUM CHLORIDE 20MEQ/PACKET PO SCH (07:15)
[2021-09-30 08:08] LABS: NUCLEATED RED BLOOD CELLS 1 /100 WBC; PLATELET ESTIMATE DECREASED
[2021-09-30] MEDS: FOLIC ACID/VITAMIN B COMP W-C TABLET PO SCH (08:16)
[2021-09-30] MEDS: MIDODRINE HCL 5MG TABLET PO SCH ×3 (08:16→16:29)
[2021-09-30 08:44] LABS: BG BASE EXCESS 0.2 mmol/L (-2.0-2.0); BG CARBOXYHEMOGLOBIN 0.7 % (0.5-1.5); BG DEOXYHEMOGLOBIN 8.7 % (0.0-5.0); BG FRACTION INSPIRED OXYGEN 21; BG HCO3 ACT 24.4 mmol/L (22.0-26.0); BG METHEMOGLOBIN 0.4 % (0.0-1.5); BG OXYGEN SATURATION 91.2 % (92.0-98.5); BG OXYHEMOGLOBIN 90.2 % (94.0-97.0); BG PCO2 37.5 mmHg (35.0-45.0); BG PH 7.431 (7.350-7.450); BG PO2 61.1 mmHg (75.0-100.0); BG SAMPLE SITE RIGHT RADIAL; BG TOTAL HEMOGLOBIN 8.6 g/dL (12.0-18.0); BG VENT MODE ROOM AIR
[2021-09-30] MEDS: LEVETIRACETAM 250 MG in SODIUM CHLORIDE 0.9% 100 ML IV SCH ×2 (08:52→21:25)
[2021-09-30] MEDS ORDERED: SODIUM BICARBONATE 4% (2.4MEQ) 5ML VIAL IV ONE (13:46)
[2021-09-30] MEDS: DOBUTAMINE 500MG PREMIX 250 ML IV PRN (14:43)
[2021-09-30] MEDS ORDERED: VANCOMYCIN 1 G PREMIX 200 ML IV NR (18:00)
[2021-09-30] MEDS: VANCOMYCIN HCL 1000 MG/20 ML ORAL PO SCH (22:40)
[2021-10-01] VITALS (97 sets, daily range): BP systolic 52–123; BP diastolic 28–88
[2021-10-01] MEDS: IPRATROPIUM/ALBUTEROL 0.5-3(2.5)MG/3ML NEB HHN SCH ×4 (01:10→20:29)
[2021-10-01] MEDS: AZTREONAM 500MG in DEXTROSE 5% WATER 50ML IV SCH ×3 (01:58→18:21)
[2021-10-01] MEDS: BLOOD SUGAR DIAGNOSTIC STRIP TEST SCH ×4 (05:58→21:02)
[2021-10-01] MEDS: METRONIDAZOLE 500MG TABLET PO SCH ×2 (06:02→14:25)
[2021-10-01] MEDS: INSULIN LISPRO 100 UNITS/ML SUBCUT SCH ×4 (06:03→21:00)
[2021-10-01 06:06] LABS: HEMATOCRIT. 25.2 % (36.0-48.0); HEMOGLOBIN. 8.1 g/dL (12.0-16.0); MEAN CORPUSCULAR HEMOGLOBIN 29.1 pg (28.0-32.0); MEAN CORPUSCULAR VOLUME 90.4 fL (81.0-99.0); MEAN PLATELET VOLUME 9.8 fl (7.4-10.4); PLATELET 98 x1000/uL (130-400); RED BLOOD CELL COUNT 2.79 mill/uL (4.2-5.4); RED CELL DISTRIBUTION WIDTH 18.6 % (11.6-14.6)
[2021-10-01] MEDS: FOLIC ACID/VITAMIN B COMP W-C TABLET PO SCH (08:43)
[2021-10-01] MEDS: LEVETIRACETAM 250 MG in SODIUM CHLORIDE 0.9% 100 ML IV SCH (08:43)
[2021-10-01] MEDS: MIDODRINE HCL 5MG TABLET PO SCH ×3 (08:43→18:18)
[2021-10-01] MEDS: VANCOMYCIN HCL 1000 MG/20 ML ORAL PO SCH ×3 (08:44→18:19)
[2021-10-01 09:12] LABS: BG BASE EXCESS 0.2 mmol/L (-2.0-2.0); BG CARBOXYHEMOGLOBIN 0.3 % (0.5-1.5); BG DEOXYHEMOGLOBIN 24.7 % (0.0-5.0); BG FRACTION INSPIRED OXYGEN 21; BG HCO3 ACT 24.2 mmol/L (22.0-26.0); BG METHEMOGLOBIN 0.3 % (0.0-1.5); BG OXYGEN SATURATION 75.2 % (92.0-98.5); BG OXYHEMOGLOBIN 74.7 % (94.0-97.0); BG PCO2 36.8 mmHg (35.0-45.0); BG PH 7.436 (7.350-7.450); BG PO2 40.3 mmHg (75.0-100.0); BG SAMPLE SITE RIGHT RADIAL; BG TOTAL HEMOGLOBIN 9.6 g/dL (12.0-18.0); BG VENT MODE ROOM AIR
[2021-10-01 10:55] LABS: NUCLEATED RED BLOOD CELLS 1 /100 WBC
[2021-10-01 10:56] LABS: PLATELET ESTIMATE DECREASED
[2021-10-01] MEDS: DOBUTAMINE 500MG PREMIX 250 ML IV PRN (14:34)
[2021-10-01] MEDS: NYSTATIN/TRIAMCIN CREAM 15GM TOP SCH (18:19)
[2021-10-02] VITALS (69 sets, daily range): BP systolic 94–133; BP diastolic 42–108
[2021-10-02] MEDS: LEVETIRACETAM 250 MG in SODIUM CHLORIDE 0.9% 100 ML IV SCH ×3 (00:20→21:53)
[2021-10-02] MEDS: EPOETIN ALFA-EPBX 4,000 UNIT/ML VIAL SUBCUT SCH (00:20)
[2021-10-02] MEDS: METRONIDAZOLE 500MG TABLET PO SCH ×4 (00:22→21:48)
[2021-10-02] MEDS: IPRATROPIUM/ALBUTEROL 0.5-3(2.5)MG/3ML NEB HHN SCH ×4 (00:52→21:07)
[2021-10-02] MEDS: VANCOMYCIN HCL 1000 MG/20 ML ORAL PO SCH ×4 (00:59→17:06)
[2021-10-02] MEDS: AZTREONAM 500MG in DEXTROSE 5% WATER 50ML IV SCH ×3 (02:06→17:11)
[2021-10-02] MEDS ORDERED: DIPHENHYDRAMINE 50MG/ML VIAL IV PRN ×2 (04:30)
[2021-10-02] MEDS: HYDROCODONE/ACETAMINOPHEN 10/325MG TABLET PO PRN (04:35)
[2021-10-02] MEDS: BLOOD SUGAR DIAGNOSTIC STRIP TEST SCH ×4 (06:16→21:40)
[2021-10-02] MEDS: INSULIN LISPRO 100 UNITS/ML SUBCUT SCH ×4 (06:17→21:43)
[2021-10-02] MEDS: MIDODRINE HCL 5MG TABLET PO SCH ×3 (08:43→17:06)
[2021-10-02] MEDS: FOLIC ACID/VITAMIN B COMP W-C TABLET PO SCH (08:43)
[2021-10-02] MEDS: NYSTATIN/TRIAMCIN CREAM 15GM TOP SCH ×3 (08:44→17:06)
[2021-10-02 09:31] LABS: HEMATOCRIT. 25.6 % (36.0-48.0); HEMOGLOBIN. 8.1 g/dL (12.0-16.0); MEAN CORPUSCULAR HEMOGLOBIN 29.4 pg (28.0-32.0); MEAN CORPUSCULAR VOLUME 92.5 fL (81.0-99.0); MEAN PLATELET VOLUME 10.3 fl (7.4-10.4); PLATELET 90 x1000/uL (130-400); RED BLOOD CELL COUNT 2.77 mill/uL (4.2-5.4); RED CELL DISTRIBUTION WIDTH 18.9 % (11.6-14.6)
[2021-10-02 10:10] LABS: NUCLEATED RED BLOOD CELLS 1 /100 WBC; PLATELET ESTIMATE DECREASED
[2021-10-03] VITALS (12 sets, daily range): BP systolic 94–156; BP diastolic 39–79
[2021-10-03] MEDS: IPRATROPIUM/ALBUTEROL 0.5-3(2.5)MG/3ML NEB HHN SCH ×4 (01:41→21:08)
[2021-10-03] MEDS: AZTREONAM 500MG in DEXTROSE 5% WATER 50ML IV SCH ×3 (02:03→18:00)
[2021-10-03] MEDS: HYDROXYZINE 10 MG TABLET PO PRN (02:55)
[2021-10-03] MEDS: HYDROCODONE/ACETAMINOPHEN 10/325MG TABLET PO PRN ×3 (02:56→19:55)
[2021-10-03] MEDS: METRONIDAZOLE 500MG TABLET PO SCH ×3 (05:19→22:00)
[2021-10-03] MEDS: NALOXONE HCL 0.4MG/ML VIAL IV PRN (05:51)
[2021-10-03 07:25] LABS: HEMATOCRIT. 27.3 % (36.0-48.0); HEMOGLOBIN. 8.6 g/dL (12.0-16.0); MEAN CORPUSCULAR HEMOGLOBIN 29.4 pg (28.0-32.0); MEAN CORPUSCULAR VOLUME 93.5 fL (81.0-99.0); MEAN PLATELET VOLUME 10.7 fl (7.4-10.4); PLATELET 90 x1000/uL (130-400); RED BLOOD CELL COUNT 2.92 mill/uL (4.2-5.4); RED CELL DISTRIBUTION WIDTH 19.1 % (11.6-14.6)
[2021-10-03] MEDS: BLOOD SUGAR DIAGNOSTIC STRIP TEST SCH ×4 (07:30→21:21)
[2021-10-03] MEDS: FOLIC ACID/VITAMIN B COMP W-C TABLET PO SCH (08:37)
[2021-10-03] MEDS: MIDODRINE HCL 5MG TABLET PO SCH ×3 (08:37→17:58)
[2021-10-03] MEDS: INSULIN LISPRO 100 UNITS/ML SUBCUT SCH ×4 (08:39→21:00)
[2021-10-03] MEDS: NYSTATIN/TRIAMCIN CREAM 15GM TOP SCH ×3 (08:52→18:12)
[2021-10-03] MEDS: LEVETIRACETAM 250 MG in SODIUM CHLORIDE 0.9% 100 ML IV SCH ×2 (10:21→21:21)
[2021-10-03 10:51] LABS: BG BASE EXCESS -1.4 mmol/L (-2.0-2.0); BG CARBOXYHEMOGLOBIN 0.2 % (0.5-1.5); BG DEOXYHEMOGLOBIN 1.9 % (0.0-5.0); BG FRACTION INSPIRED OXYGEN 35; BG HCO3 ACT 23.3 mmol/L (22.0-26.0); BG OXYGEN SATURATION 98.1 % (92.0-98.5); BG OXYHEMOGLOBIN 97.9 % (94.0-97.0); BG PCO2 38.9 mmHg (35.0-45.0); BG PH 7.395 (7.350-7.450); BG PO2 114.8 mmHg (75.0-100.0); BG SAMPLE SITE LEFT RADIAL; BG TOTAL HEMOGLOBIN 9.1 g/dL (12.0-18.0); BG VENT MODE MASK - VENTI
[2021-10-03 14:00] LABS: NUCLEATED RED BLOOD CELLS 1 /100 WBC; PLATELET ESTIMATE SLIGHTLY DECREASED
[2021-10-03] MEDS ORDERED: NALOXONE HCL 0.4MG/ML VIAL IV PRN (20:45)
[2021-10-03] MEDS ORDERED: LEVETIRACETAM 250MG TABLET PO SCH (21:00)
[2021-10-04] VITALS (10 sets, daily range): BP systolic 91–108; BP diastolic 39–76
[2021-10-04] MEDS: IPRATROPIUM/ALBUTEROL 0.5-3(2.5)MG/3ML NEB HHN SCH ×4 (01:34→20:20)
[2021-10-04] MEDS: AZTREONAM 500MG in DEXTROSE 5% WATER 50ML IV SCH (01:47)
[2021-10-04 06:31] LABS: HEMATOCRIT. 26.8 % (36.0-48.0); HEMOGLOBIN. 8.3 g/dL (12.0-16.0); MEAN CORPUSCULAR HEMOGLOBIN 29.2 pg (28.0-32.0); MEAN CORPUSCULAR VOLUME 94.4 fL (81.0-99.0); MEAN PLATELET VOLUME 11.2 fl (7.4-10.4); PLATELET 92 x1000/uL (130-400); RED BLOOD CELL COUNT 2.84 mill/uL (4.2-5.4); RED CELL DISTRIBUTION WIDTH 19.5 % (11.6-14.6)
[2021-10-04] MEDS: BLOOD SUGAR DIAGNOSTIC STRIP TEST SCH ×4 (07:30→21:15)
[2021-10-04] MEDS: INSULIN LISPRO 100 UNITS/ML SUBCUT SCH ×4 (08:00→21:10)
[2021-10-04] MEDS: LEVETIRACETAM 250 MG in SODIUM CHLORIDE 0.9% 100 ML IV SCH ×2 (08:57→21:09)
[2021-10-04] MEDS: FOLIC ACID/VITAMIN B COMP W-C TABLET PO SCH (08:58)
[2021-10-04] MEDS: MIDODRINE HCL 5MG TABLET PO SCH ×2 (08:59→16:39)
[2021-10-04] MEDS: HYDROCODONE/ACETAMINOPHEN 10/325MG TABLET PO PRN ×2 (09:00→16:48)
[2021-10-04] MEDS: NYSTATIN/TRIAMCIN CREAM 15GM TOP SCH ×3 (09:06→16:56)
[2021-10-04 09:26] LABS: PLATELET ESTIMATE DECREASED
[2021-10-04] MEDS: FLUDROCORTISONE ACETATE 0.1MG TABLET PO SCH (16:39)
[2021-10-04] MEDS: EPOETIN ALFA-EPBX 4,000 UNIT/ML VIAL SUBCUT SCH (21:09)
[2021-10-05] VITALS (9 sets, daily range): BP systolic 80–108; BP diastolic 43–73
[2021-10-05] MEDS: ONDANSETRON HCL 4MG/2ML INJ IV PRN (00:43)
[2021-10-05] MEDS: HYDROCODONE/ACETAMINOPHEN 10/325MG TABLET PO PRN ×3 (00:44→17:13)
[2021-10-05] MEDS: MIDODRINE HCL 5MG TABLET PO SCH ×3 (00:45→17:14)
[2021-10-05] MEDS: IPRATROPIUM/ALBUTEROL 0.5-3(2.5)MG/3ML NEB HHN SCH ×4 (01:11→21:19)
[2021-10-05] MEDS: BLOOD SUGAR DIAGNOSTIC STRIP TEST SCH ×4 (07:30→21:23)
[2021-10-05] MEDS: INSULIN LISPRO 100 UNITS/ML SUBCUT SCH ×4 (08:00→21:00)
[2021-10-05] MEDS: FOLIC ACID/VITAMIN B COMP W-C TABLET PO SCH (08:53)
[2021-10-05] MEDS: NYSTATIN/TRIAMCIN CREAM 15GM TOP SCH ×3 (08:53→17:14)
[2021-10-05] MEDS: FLUDROCORTISONE ACETATE 0.1MG TABLET PO SCH (08:54)
[2021-10-05] MEDS: LEVETIRACETAM 250 MG in SODIUM CHLORIDE 0.9% 100 ML IV SCH ×2 (09:03→21:23)
[2021-10-05] MEDS: GUAIFENESIN-DM 200MG-20MG/10ML UDC PO PRN (17:37)
[2021-10-06] MEDS: HYDROCODONE/ACETAMINOPHEN 10/325MG TABLET PO PRN ×4 (00:05→19:59)
[2021-10-06] MEDS: MIDODRINE HCL 5MG TABLET PO SCH ×3 (00:06→17:19)
[2021-10-06] MEDS: ONDANSETRON HCL 4MG/2ML INJ IV PRN (00:28)
[2021-10-06] MEDS: IPRATROPIUM/ALBUTEROL 0.5-3(2.5)MG/3ML NEB HHN SCH ×4 (02:10→21:22)
[2021-10-06] MEDS: HYDROXYZINE 10 MG TABLET PO PRN (04:49)
[2021-10-06] MEDS: INSULIN LISPRO 100 UNITS/ML SUBCUT SCH ×4 (07:37→20:29)
[2021-10-06] MEDS: BLOOD SUGAR DIAGNOSTIC STRIP TEST SCH ×4 (07:37→21:14)
[2021-10-06 08:10] VITALS: BP 104/54
[2021-10-06 08:33] LABS: HEMATOCRIT. 29.1 % (36.0-48.0); HEMOGLOBIN. 8.8 g/dL (12.0-16.0); MEAN CORPUSCULAR HEMOGLOBIN 28.9 pg (28.0-32.0); MEAN CORPUSCULAR VOLUME 95.3 fL (81.0-99.0); PLATELET 115 x1000/uL (130-400); RED BLOOD CELL COUNT 3.06 mill/uL (4.2-5.4); RED CELL DISTRIBUTION WIDTH 19.2 % (11.6-14.6)
[2021-10-06 09:28] LABS: NUCLEATED RED BLOOD CELLS 1 /100 WBC; PLATELET ESTIMATE SLIGHTLY DECREASED
[2021-10-06] MEDS: GUAIFENESIN-DM 200MG-20MG/10ML UDC PO PRN ×2 (10:11→14:28)
[2021-10-06] MEDS: LEVETIRACETAM 250 MG in SODIUM CHLORIDE 0.9% 100 ML IV SCH (11:42)
[2021-10-06] MEDS: FLUDROCORTISONE ACETATE 0.1MG TABLET PO SCH (11:43)
[2021-10-06] MEDS: FOLIC ACID/VITAMIN B COMP W-C TABLET PO SCH (11:43)
[2021-10-06] MEDS: ASPIRIN 81MG TABLET PO SCH (11:44)
[2021-10-06 12:01] VITALS: BP 109/69
[2021-10-06] MEDS: NYSTATIN/TRIAMCIN CREAM 15GM TOP SCH ×2 (15:27→17:19)
[2021-10-06] MEDS: LEVETIRACETAM 250MG TABLET PO SCH (17:18)
[2021-10-06 20:00] VITALS: BP 102/49
[2021-10-06] MEDS: EPOETIN ALFA-EPBX 4,000 UNIT/ML VIAL SUBCUT SCH (21:14)
[2021-10-07] VITALS: BP 113/71
[2021-10-07] MEDS: MIDODRINE HCL 5MG TABLET PO SCH ×3 (01:00→16:49)
[2021-10-07] MEDS: IPRATROPIUM/ALBUTEROL 0.5-3(2.5)MG/3ML NEB HHN SCH ×4 (01:51→21:02)
[2021-10-07] MEDS: HYDROCODONE/ACETAMINOPHEN 10/325MG TABLET PO PRN ×3 (03:29→16:49)
[2021-10-07 04:00] VITALS: BP 128/58
[2021-10-07] MEDS: HYDROXYZINE 10 MG TABLET PO PRN (05:04)
[2021-10-07] MEDS: BLOOD SUGAR DIAGNOSTIC STRIP TEST SCH ×4 (07:17→20:18)
[2021-10-07] MEDS: INSULIN LISPRO 100 UNITS/ML SUBCUT SCH ×4 (07:48→20:18)
[2021-10-07 08:00] VITALS: BP 110/65
[2021-10-07] MEDS: FLUDROCORTISONE ACETATE 0.1MG TABLET PO SCH (08:38)
[2021-10-07] MEDS: LEVETIRACETAM 250MG TABLET PO SCH ×2 (08:38→16:48)
[2021-10-07] MEDS: NYSTATIN/TRIAMCIN CREAM 15GM TOP SCH ×3 (08:39→16:50)
[2021-10-07] MEDS: ASPIRIN 81MG TABLET PO SCH (08:39)
[2021-10-07] MEDS: FOLIC ACID/VITAMIN B COMP W-C TABLET PO SCH (08:39)
[2021-10-07 10:38] LABS: HEMATOCRIT. 30.4 % (36.0-48.0); HEMOGLOBIN. 8.8 g/dL (12.0-16.0); MEAN CORPUSCULAR HEMOGLOBIN 28.2 pg (28.0-32.0); MEAN CORPUSCULAR VOLUME 97.9 fL (81.0-99.0); MEAN PLATELET VOLUME 10.5 fl (7.4-10.4); PLATELET 146 x1000/uL (130-400); RED BLOOD CELL COUNT 3.11 mill/uL (4.2-5.4); RED CELL DISTRIBUTION WIDTH 20.3 % (11.6-14.6)
[2021-10-07 11:15] LABS: PLATELET ESTIMATE NORMAL
[2021-10-07 12:00] VITALS: BP 102/71
[2021-10-07 16:00] VITALS: BP 107/60
[2021-10-07 18:36] LABS: BG CARBOXYHEMOGLOBIN 0.1 % (0.5-1.5); BG DEOXYHEMOGLOBIN 18.7 % (0.0-5.0); BG FRACTION INSPIRED OXYGEN 36; BG HCO3 ACT 21.9 mmol/L (22.0-26.0); BG METHEMOGLOBIN 0.3 % (0.0-1.5); BG OXYGEN SATURATION 81.2 % (92.0-98.5); BG OXYHEMOGLOBIN 80.9 % (94.0-97.0); BG PCO2 55.4 mmHg (35.0-45.0); BG PH 7.214 (7.350-7.450); BG PO2 54.2 mmHg (75.0-100.0); BG SAMPLE SITE RIGHT RADIAL; BG VENT MODE NASAL CANNULA
[2021-10-07 20:00] VITALS: BP 98/59
[2021-10-08] VITALS (8 sets, daily range): BP systolic 95–118; BP diastolic 47–69
[2021-10-08] MEDS: IPRATROPIUM/ALBUTEROL 0.5-3(2.5)MG/3ML NEB HHN SCH ×2 (02:47→08:41)
[2021-10-08] MEDS: MIDODRINE HCL 5MG TABLET PO SCH ×3 (03:48→17:36)
[2021-10-08] MEDS: HYDROCODONE/ACETAMINOPHEN 10/325MG TABLET PO PRN (03:52)
[2021-10-08 07:30] LABS: HEMATOCRIT. 28.3 % (36.0-48.0); HEMOGLOBIN. 8.5 g/dL (12.0-16.0); MEAN CORPUSCULAR HEMOGLOBIN 28.8 pg (28.0-32.0); MEAN CORPUSCULAR VOLUME 95.8 fL (81.0-99.0); MEAN PLATELET VOLUME 11.1 fl (7.4-10.4); PLATELET 161 x1000/uL (130-400); RED BLOOD CELL COUNT 2.95 mill/uL (4.2-5.4); RED CELL DISTRIBUTION WIDTH 19.7 % (11.6-14.6)
[2021-10-08] MEDS: BLOOD SUGAR DIAGNOSTIC STRIP TEST SCH ×4 (07:30→21:16)
[2021-10-08] MEDS: INSULIN LISPRO 100 UNITS/ML SUBCUT SCH ×4 (08:00→21:00)
[2021-10-08] MEDS: ASPIRIN 81MG TABLET PO SCH (10:51)
[2021-10-08] MEDS: FLUDROCORTISONE ACETATE 0.1MG TABLET PO SCH (10:52)
[2021-10-08] MEDS: FOLIC ACID/VITAMIN B COMP W-C TABLET PO SCH (10:52)
[2021-10-08] MEDS: LEVETIRACETAM 250MG TABLET PO SCH ×2 (10:52→17:36)
[2021-10-08] MEDS: NYSTATIN/TRIAMCIN CREAM 15GM TOP SCH ×3 (11:22→17:36)
[2021-10-08] MEDS ORDERED: VANCOMYCIN 1 G PREMIX 200 ML IV NR (13:00)
[2021-10-08 13:47] LABS: PLATELET ESTIMATE NORMAL
[2021-10-09] VITALS (7 sets, daily range): BP systolic 95–118; BP diastolic 31–75
[2021-10-09] MEDS: MIDODRINE HCL 5MG TABLET PO SCH ×3 (00:35→17:00)
[2021-10-09] MEDS: GUAIFENESIN-DM 200MG-20MG/10ML UDC PO PRN (05:49)
[2021-10-09 06:59] LABS: HEMATOCRIT. 28.9 % (36.0-48.0); HEMOGLOBIN. 8.6 g/dL (12.0-16.0); MEAN CORPUSCULAR VOLUME 96.9 fL (81.0-99.0); MEAN PLATELET VOLUME 10.2 fl (7.4-10.4); PLATELET 152 x1000/uL (130-400); RED BLOOD CELL COUNT 2.98 mill/uL (4.2-5.4); RED CELL DISTRIBUTION WIDTH 19.8 % (11.6-14.6)
[2021-10-09] MEDS: BLOOD SUGAR DIAGNOSTIC STRIP TEST SCH ×4 (07:30→21:00)
[2021-10-09] MEDS: INSULIN LISPRO 100 UNITS/ML SUBCUT SCH ×4 (08:00→21:00)
[2021-10-09] MEDS: IPRATROPIUM/ALBUTEROL 0.5-3(2.5)MG/3ML NEB HHN SCH ×3 (08:02→20:50)
[2021-10-09] MEDS: ASPIRIN 81MG TABLET PO SCH (09:55)
[2021-10-09] MEDS: FLUDROCORTISONE ACETATE 0.1MG TABLET PO SCH (09:55)
[2021-10-09] MEDS: LEVETIRACETAM 250MG TABLET PO SCH ×2 (09:55→17:00)
[2021-10-09] MEDS: FOLIC ACID/VITAMIN B COMP W-C TABLET PO SCH (09:55)
[2021-10-09] MEDS: NYSTATIN/TRIAMCIN CREAM 15GM TOP SCH ×3 (09:56→17:00)
[2021-10-09 13:22] LABS: NUCLEATED RED BLOOD CELLS 2 /100 WBC; PLATELET ESTIMATE NORMAL
[2021-10-09] MEDS ORDERED: TRAMADOL 50MG TABLET PO PRN (18:00)
[2021-10-10] VITALS (13 sets, daily range): BP systolic 91–114; BP diastolic 49–69
[2021-10-10] MEDS: MIDODRINE HCL 5MG TABLET PO SCH ×3 (00:33→18:42)
[2021-10-10] MEDS: GUAIFENESIN-DM 200MG-20MG/10ML UDC PO PRN (00:33)
[2021-10-10] MEDS: IPRATROPIUM/ALBUTEROL 0.5-3(2.5)MG/3ML NEB HHN SCH ×3 (02:00→12:43)
[2021-10-10] MEDS: BLOOD SUGAR DIAGNOSTIC STRIP TEST SCH ×3 (07:30→17:30)
[2021-10-10] MEDS: INSULIN LISPRO 100 UNITS/ML SUBCUT SCH ×3 (08:00→18:43)
[2021-10-10] MEDS: LEVETIRACETAM 250MG TABLET PO SCH ×2 (09:00→18:42)
[2021-10-10] MEDS: NYSTATIN/TRIAMCIN CREAM 15GM TOP SCH ×3 (09:00→18:44)
[2021-10-10] MEDS: FOLIC ACID/VITAMIN B COMP W-C TABLET PO SCH (09:00)
[2021-10-10] MEDS: ASPIRIN 81MG TABLET PO SCH (09:00)
[2021-10-10] MEDS: FLUDROCORTISONE ACETATE 0.1MG TABLET PO SCH (09:00)
== END 2021-10-10 20:46 | DRG 720 ==
LOC: ER 00:15 → EDBEDREQ 03:44 → MICUNO 03:57 → EDBEDREQ 04:02 → EDBEDREQTM 04:02 → EDBEDREQSVC 11:02 → ENRESERV 13:21 → 5EST 10-02 20:08
PROVIDERS: ADMIT Internal Medicine; ATTEND Internal Medicine
PROC: 02HV33Z Insertion of Infusion Device into Superior Vena Cava, Percutaneous Approach (ICD-10-PCS; 2021-09-26)
PROC: B548ZZA Ultrasonography of Superior Vena Cava, Guidance (ICD-10-PCS; 2021-09-26)
PROC: 5A1D70Z Performance of Urinary Filtration, Intermittent, Less than 6 Hours Per Day (ICD-10-PCS; 2021-09-26)
PROC: 5A09457 Assistance with Respiratory Ventilation, 24-96 Consecutive Hours, Continuous Positive Airway Pressure (ICD-10-PCS; 2021-09-27)
PROC: 5A1D70Z Performance of Urinary Filtration, Intermittent, Less than 6 Hours Per Day (ICD-10-PCS; 2021-09-28)
PROC: 4A10X4Z Monitoring of Central Nervous Electrical Activity, External Approach (ICD-10-PCS; principal; 2021-09-29)
PROC: 5A1D70Z Performance of Urinary Filtration, Intermittent, Less than 6 Hours Per Day (ICD-10-PCS; 2021-09-29)
PROC: 30233N1 Transfusion of Nonautologous Red Blood Cells into Peripheral Vein, Percutaneous Approach (ICD-10-PCS; 2021-09-29)
PROC: 0W993ZZ Drainage of Right Pleural Cavity, Percutaneous Approach (ICD-10-PCS; 2021-09-30)
PROC: 30233R1 Transfusion of Nonautologous Platelets into Peripheral Vein, Percutaneous Approach (ICD-10-PCS; 2021-09-30)
PROC: 5A1D70Z Performance of Urinary Filtration, Intermittent, Less than 6 Hours Per Day (ICD-10-PCS; 2021-10-01)
PROC: 5A1D70Z Performance of Urinary Filtration, Intermittent, Less than 6 Hours Per Day (ICD-10-PCS; 2021-10-04)
PROC: 5A1D70Z Performance of Urinary Filtration, Intermittent, Less than 6 Hours Per Day (ICD-10-PCS; 2021-10-06)
PROC: 5A1D70Z Performance of Urinary Filtration, Intermittent, Less than 6 Hours Per Day (ICD-10-PCS; 2021-10-08)
DX: A41.9 Sepsis, unspecified organism (principal); J96.21 Acute and chronic respiratory failure with hypoxia; R65.21 Severe sepsis with septic shock; G93.40 Encephalopathy, unspecified; E44.0 Moderate protein-calorie malnutrition; J91.8 Pleural effusion in other conditions classified elsewhere; I50.23 Acute on chronic systolic (congestive) heart failure; J18.9 Pneumonia, unspecified organism; E11.52 Type 2 diabetes mellitus with diabetic peripheral angiopathy with gangrene; D69.6 Thrombocytopenia, unspecified; E11.649 Type 2 diabetes mellitus with hypoglycemia without coma; N18.6 End stage renal disease; E11.22 Type 2 diabetes mellitus with diabetic chronic kidney disease; D64.9 Anemia, unspecified; E87.5 Hyperkalemia; I13.2 Hypertensive heart and chronic kidney disease with heart failure and with stage 5 chronic kidney disease, or end stage renal disease; Z99.2 Dependence on renal dialysis; B36.9 Superficial mycosis, unspecified; E11.40 Type 2 diabetes mellitus with diabetic neuropathy, unspecified; E11.621 Type 2 diabetes mellitus with foot ulcer; E78.00 Pure hypercholesterolemia, unspecified; E78.5 Hyperlipidemia, unspecified; I07.1 Rheumatic tricuspid insufficiency; I25.10 Atherosclerotic heart disease of native coronary artery without angina pectoris; I25.2 Old myocardial infarction; I27.20 Pulmonary hypertension, unspecified; I49.3 Ventricular premature depolarization; F32.A Depression, unspecified; J44.0 Chronic obstructive pulmonary disease with (acute) lower respiratory infection; I25.5 Ischemic cardiomyopathy; G40.909 Epilepsy, unspecified, not intractable, without status epilepticus; L89.156 Pressure-induced deep tissue damage of sacral region; J96.22 Acute and chronic respiratory failure with hypercapnia; E11.69 Type 2 diabetes mellitus with other specified complication; M86.8X7 Other osteomyelitis, ankle and foot; Z20.822 Contact with and (suspected) exposure to COVID-19; L97.519 Non-pressure chronic ulcer of other part of right foot with unspecified severity; Z79.4 Long term (current) use of insulin; Z79.52 Long term (current) use of systemic steroids; Z79.82 Long term (current) use of aspirin; Z82.49 Family history of ischemic heart disease and other diseases of the circulatory system; Z83.3 Family history of diabetes mellitus; Z95.1 Presence of aortocoronary bypass graft; Z95.3 Presence of xenogenic heart valve; Z95.5 Presence of coronary angioplasty implant and graft; Z99.81 Dependence on supplemental oxygen; Z79.899 Other long term (current) drug therapy; Z88.0 Allergy status to penicillin; Z88.2 Allergy status to sulfonamides; I69.354 Hemiplegia and hemiparesis following cerebral infarction affecting left non-dominant side; Z68.26 Body mass index [BMI] 26.0-26.9, adult
CPT/HCPCS: 32555; 36415; 36600; 70551; 71045; 71250; 76937; 80048; 80053; 80061; 80202; 82040; 82140; 82375; 82805; 82962; 83605; 83615; 84134; 84145; 84484; 85025; 85651; 86705; 86709; 86803; 86850; 86900; 86920; 87340; 87426; 88108; 92610; 93005; 93880; 93971; 94640; 94660; 95816; 97162; 97166; 97530; 99291; A6261; C1725; J0885; J1200; J1250; J1815; J1953; J2270; J2310; J2405; J3370; J3490; J7050; J7060; J7070; P9016; P9041; P9036

== ENCOUNTER 2021-10-14 09:54 | Inpatient (IN) | payer MEDICARE, MEDICAID ==
[~2021-10-14] VITALS: Ht 162.6 cm; Wt 63.0 kg
[2021-10-14] VITALS (34 sets, daily range): BP systolic 87–152; BP diastolic 53–109
[~2021-10-14 09:54] MED LIST changes: +ETOMIDATE 2MG/ML 10ML VIAL IV ONE; +SUCCINYLCHOLINE CHLORIDE 200MG/10ML IV ONE
[2021-10-14] MEDS ORDERED: MEROPENEM 1,000 MG in SODIUM CHLORIDE 0.9% 100 ML IV ONE (10:15)
[2021-10-14] MEDS ORDERED: SUCCINYLCHOLINE CHLORIDE 200MG/10ML IV ONE (10:30)
[2021-10-14] MEDS ORDERED: PROPOFOL 10MG/ML 100ML 100 ML IV ONE (10:30)
[2021-10-14] MEDS ORDERED: FENTANYL CITRATE/PF 50MCG/ML 2ML VIAL IV ONE ×2 (10:30→12:00)
[2021-10-14] MEDS ORDERED: ETOMIDATE 2MG/ML 10ML VIAL IV ONE (10:30)
[2021-10-14 10:59] LABS: BG BASE EXCESS 0.1 mmol/L (-2.0-2.0); BG CARBOXYHEMOGLOBIN 0.3 % (0.5-1.5); BG DEOXYHEMOGLOBIN 0.2 % (0.0-5.0); BG FRACTION INSPIRED OXYGEN 100; BG HCO3 ACT 27.3 mmol/L (22.0-26.0); BG METHEMOGLOBIN 0.4 % (0.0-1.5); BG OXYGEN SATURATION 99.8 % (92.0-98.5); BG OXYHEMOGLOBIN 99.1 % (94.0-97.0); BG PCO2 57.2 mmHg (35.0-45.0); BG PH 7.296 (7.350-7.450); BG SAMPLE SITE RIGHT RADIAL; BG TOTAL HEMOGLOBIN 10.5 g/dL (12.0-18.0); BG TOTAL RESPIRATORY RATE 14 b/min; BG VENT MODE VENT - AC
[2021-10-14] MEDS ORDERED: SODIUM CHLORIDE 0.9% 1000ML BAG (SEPSIS BOLUS) IV ONE (11:00)
[2021-10-14 11:27] LABS: CLARITY URINE TURBID (CLEAR); KETONES URINE NEGATIVE (NEGATIVE); LEUKOCYTE ESTERASE URINE 3+ (NEGATIVE); NITRITE URINE NEGATIVE (NEGATIVE); OCCULT BLOOD URINE 3+ (NEGATIVE); PROTEIN URINE 4+ (NEGATIVE); SPECIFIC GRAVITY URINE 1.019 (1.005-1.030); UROBILINOGEN URINE 0.2 E.U./dL (0.2-1.0)
[2021-10-14 11:29] LABS: COLOR URINE BLOODY (YELLOW)
[2021-10-14] MEDS ORDERED: MIDAZOLAM 100MG/100ML PMX 100 ML IV NR (12:00)
[2021-10-14] MEDS ORDERED: MIDAZOLAM HCL 100 MG in DEXT 5% WATER 80 ML IV ONE (12:00)
[2021-10-14] MEDS ORDERED: MIDAZOLAM HCL 100 MG in SODIUM CHLORIDE 0.9% 100 ML IV PRN (12:15)
[2021-10-14 13:37] LABS: BASOPHILS % 0.4 % (0.0-2.0); EOSINOPHILS % 0.2 % (0.0-5.0); HEMATOCRIT. 30.9 % (36.0-48.0); HEMOGLOBIN. 8.6 g/dL (12.0-16.0); LYMPHOCYTES % 7.6 % (20.0-50.0); MEAN CORPUSCULAR VOLUME 103.7 fL (81.0-99.0); MEAN PLATELET VOLUME 10.4 fl (7.4-10.4); MONOCYTES % 11.2 % (2.0-8.0); NEUTROPHILS % 80.6 % (40.0-76.0); PLATELET 111 x1000/uL (130-400); RED BLOOD CELL COUNT 2.98 mill/uL (4.2-5.4); RED CELL DISTRIBUTION WIDTH 21.9 % (11.6-14.6)
[2021-10-14 13:43] LABS: CHLORIDE 109 mEq/L (98-107)
[2021-10-14 14:57] LABS: HEPATITIS B SURFACE ANTIGEN NEGATIVE
[2021-10-14] MEDS ORDERED: MIDAZOLAM 100MG/100ML PMX 100 ML IV PRN (15:30)
[2021-10-14] MEDS ORDERED: NOREPINEPHRINE 8 MG in DEXT 5% WATER 242 ML IV PRN (15:45)
[2021-10-14] MEDS ORDERED: ACETAMINOPHEN 325MG TABLET PO PRN (16:45)
[2021-10-14] MEDS ORDERED: HYDRALAZINE 20MG/ML VIAL IV PRN (16:45)
[2021-10-14] MEDS ORDERED: CLONIDINE 0.1MG TABLET PO PRN (16:45)
[2021-10-14] MEDS ORDERED: ONDANSETRON HCL 4MG/2ML INJ IV PRN (16:45)
[2021-10-14] MEDS ORDERED: MORPHINE SULFATE 2 MG/ML CPJ (NOT FOR IM USE) IV PRN (16:45)
[2021-10-14] MEDS ORDERED: ENOXAPARIN 40MG/0.4ML SYR SUBCUT SCH (16:45)
[2021-10-14] MEDS ORDERED: GUAIFENESIN 200MG/10ML SUGAR FREE UDC PO PRN (16:45)
[2021-10-14] MEDS ORDERED: LEVOFLOXACIN 500MG PREMIX 100 ML IV SCH (16:45)
[2021-10-14] MEDS ORDERED: MAGNESIUM/ALUMINUM HYDROXIDE/SIMETHICONE 30ML UDC PO PRN (16:45)
[2021-10-14] MEDS ORDERED: DOCUSATE SODIUM 100MG CAPSULE PO PRN (16:45)
[2021-10-14] MEDS ORDERED: LORAZEPAM 2MG/ML CPJ IV PRN (16:45)
[2021-10-14] MEDS: MIDAZOLAM HCL 100 MG in SODIUM CHLORIDE 0.9% 100 ML IV PRN (17:26)
[2021-10-14] MEDS ORDERED: NALOXONE HCL 0.4MG/ML VIAL IV PRN (17:30)
[2021-10-14] MEDS ORDERED: VANCOMYCIN 1250MG in DEXTROSE 5% WATER 250ML IV NR (18:00)
[2021-10-14] MEDS ORDERED: LEVOFLOXACIN 750MG PREMIX 150 ML IV NR (18:00)
[2021-10-14] MEDS: ENOXAPARIN 30MG/0.3ML SYR SUBCUT SCH (19:03)
[2021-10-14] MEDS: FENTANYL CITRATE/PF 2,500 MCG in SODIUM CHLORIDE 0.9% 200 ML IV PRN (20:39)
[2021-10-15] VITALS (94 sets, daily range): BP systolic 84–148; BP diastolic 49–98
[2021-10-15] MEDS: MIDAZOLAM HCL 100 MG in SODIUM CHLORIDE 0.9% 100 ML IV PRN (00:08)
[2021-10-15 06:15] LABS: HEMATOCRIT. 32.6 % (36.0-48.0); HEMOGLOBIN. 9.6 g/dL (12.0-16.0); MEAN CORPUSCULAR HEMOGLOBIN 29.1 pg (28.0-32.0); MEAN PLATELET VOLUME 10.2 fl (7.4-10.4); PLATELET 126 x1000/uL (130-400); RED CELL DISTRIBUTION WIDTH 22.7 % (11.6-14.6)
[2021-10-15 06:23] LABS: CHLORIDE 108 mEq/L (98-107)
[2021-10-15] MEDS: PANTOPRAZOLE 40MG DR TABLET PO SCH (08:30)
[2021-10-15] MEDS ORDERED: POTASSIUM CHLORIDE INJ 40 MEQ in DEXT 5% WATER 250 ML IV ONE (09:00)
[2021-10-15] MEDS: FENTANYL CITRATE/PF 2,500 MCG in SODIUM CHLORIDE 0.9% 200 ML IV PRN (09:23)
[2021-10-15] MEDS: KCL 20MEQ/100ML PREMIX 100 ML IV SCH ×2 (10:48→13:16)
[2021-10-15 11:42] LABS: BG BASE EXCESS 2.4 mmol/L (-2.0-2.0); BG CARBOXYHEMOGLOBIN 0.3 % (0.5-1.5); BG FRACTION INSPIRED OXYGEN 40; BG HCO3 ACT 23.7 mmol/L (22.0-26.0); BG METHEMOGLOBIN 0.1 % (0.0-1.5); BG OXYHEMOGLOBIN 98.6 % (94.0-97.0); BG PCO2 26.6 mmHg (35.0-45.0); BG PH 7.568 (7.350-7.450); BG PO2 145.6 mmHg (75.0-100.0); BG SAMPLE SITE RIGHT RADIAL; BG TOTAL HEMOGLOBIN 10.7 g/dL (12.0-18.0); BG VENT MODE VENT - AC
[2021-10-15 15:22] LABS: PLATELET ESTIMATE NORMAL
[2021-10-15] MEDS: ENOXAPARIN 30MG/0.3ML SYR SUBCUT SCH (17:37)
[2021-10-16] VITALS (94 sets, daily range): BP systolic 83–128; BP diastolic 20–77
[2021-10-16] MEDS: MIDAZOLAM HCL 100 MG in SODIUM CHLORIDE 0.9% 100 ML IV PRN (04:32)
[2021-10-16 05:45] LABS: HEMATOCRIT. 27.5 % (36.0-48.0); HEMOGLOBIN. 8.7 g/dL (12.0-16.0); MEAN CORPUSCULAR HEMOGLOBIN 30.3 pg (28.0-32.0); MEAN CORPUSCULAR VOLUME 95.5 fL (81.0-99.0); MEAN PLATELET VOLUME 10.3 fl (7.4-10.4); PLATELET 103 x1000/uL (130-400); RED BLOOD CELL COUNT 2.88 mill/uL (4.2-5.4)
[2021-10-16 05:57] LABS: PHOSPHORUS 3.3 mg/dL (2.5-4.9)
[2021-10-16] MEDS: PANTOPRAZOLE 40MG DR TABLET PO SCH (09:02)
[2021-10-16 12:28] LABS: PLATELET ESTIMATE SLIGHTLY DECREASED
[2021-10-16] MEDS: LEVOFLOXACIN 500MG PREMIX 100 ML IV SCH (13:41)
[2021-10-16] MEDS ORDERED: LEVOFLOXACIN 500MG PREMIX 100 ML IV SCH (18:00)
[2021-10-16] MEDS: ENOXAPARIN 30MG/0.3ML SYR SUBCUT SCH (18:44)
[2021-10-17] VITALS (76 sets, daily range): BP systolic 100–161; BP diastolic 44–81
[2021-10-17] MEDS: DIPHENHYDRAMINE 50MG/ML VIAL IV PRN (01:14)
[2021-10-17 06:15] LABS: HEMATOCRIT. 31.8 % (36.0-48.0); HEMOGLOBIN. 9.6 g/dL (12.0-16.0); MEAN CORPUSCULAR HEMOGLOBIN 30.1 pg (28.0-32.0); MEAN CORPUSCULAR VOLUME 99.3 fL (81.0-99.0); MEAN PLATELET VOLUME 10.7 fl (7.4-10.4); PLATELET 83 x1000/uL (130-400); RED CELL DISTRIBUTION WIDTH 22.8 % (11.6-14.6)
[2021-10-17] MEDS: PANTOPRAZOLE 40MG DR TABLET PO SCH (08:13)
[2021-10-17 08:18] LABS: BG BASE EXCESS -0.6 mmol/L (-2.0-2.0); BG CARBOXYHEMOGLOBIN 0.3 % (0.5-1.5); BG FRACTION INSPIRED OXYGEN 35; BG HCO3 ACT 22.5 mmol/L (22.0-26.0); BG METHEMOGLOBIN 0.2 % (0.0-1.5); BG OXYHEMOGLOBIN 98.5 % (94.0-97.0); BG PCO2 31.5 mmHg (35.0-45.0); BG PH 7.472 (7.350-7.450); BG PO2 142.3 mmHg (75.0-100.0); BG TOTAL HEMOGLOBIN 9.7 g/dL (12.0-18.0); BG VENT MODE VENT - AC
[2021-10-17] MEDS: GUAIFENESIN 200MG/10ML SUGAR FREE UDC PO SCH ×3 (09:30→21:37)
[2021-10-17 12:58] LABS: PLATELET ESTIMATE DECREASED
[2021-10-17 13:14] LABS: BG BASE EXCESS 2.4 mmol/L (-2.0-2.0); BG CARBOXYHEMOGLOBIN 0.2 % (0.5-1.5); BG DEOXYHEMOGLOBIN 3.9 % (0.0-5.0); BG FRACTION INSPIRED OXYGEN 35; BG HCO3 ACT 26.2 mmol/L (22.0-26.0); BG METHEMOGLOBIN 0.1 % (0.0-1.5); BG OXYGEN SATURATION 96.1 % (92.0-98.5); BG OXYHEMOGLOBIN 95.8 % (94.0-97.0); BG PCO2 37.7 mmHg (35.0-45.0); BG PO2 80.3 mmHg (75.0-100.0); BG SAMPLE SITE RIGHT BRACHIAL; BG TOTAL HEMOGLOBIN 10.2 g/dL (12.0-18.0); BG TOTAL RESPIRATORY RATE 29 b/min; BG VENT MODE VENT - CPAP
[2021-10-17] MEDS ORDERED: VANCOMYCIN 750 MG PREMIX 150 ML IV SCH (15:00)
[2021-10-17] MEDS: IPRATROPIUM/ALBUTEROL 0.5-3(2.5)MG/3ML NEB HHN PRN (15:52)
[2021-10-17] MEDS: ACETYLCYSTEINE 100MG/ML 10% VIAL 4ML INH SCH (15:52)
[2021-10-17] MEDS: HYDROCODONE/ACETAMINOPHEN 5/325MG TABLET PO PRN (16:22)
[2021-10-18] VITALS (26 sets, daily range): BP systolic 101–147; BP diastolic 53–80
[2021-10-18] MEDS: HYDROCODONE/ACETAMINOPHEN 5/325MG TABLET PO PRN ×3 (00:11→21:45)
[2021-10-18] MEDS: ACETYLCYSTEINE 100MG/ML 10% VIAL 4ML INH SCH ×2 (00:15→20:00)
[2021-10-18] MEDS: IPRATROPIUM/ALBUTEROL 0.5-3(2.5)MG/3ML NEB HHN PRN (00:15)
[2021-10-18] MEDS: GUAIFENESIN 200MG/10ML SUGAR FREE UDC PO SCH ×5 (04:10→21:45)
[2021-10-18 06:05] LABS: HEMATOCRIT. 29.8 % (36.0-48.0); HEMOGLOBIN. 9.1 g/dL (12.0-16.0); MEAN CORPUSCULAR HEMOGLOBIN 29.9 pg (28.0-32.0); MEAN CORPUSCULAR VOLUME 98.4 fL (81.0-99.0); MEAN PLATELET VOLUME 10.6 fl (7.4-10.4); PLATELET 82 x1000/uL (130-400); RED BLOOD CELL COUNT 3.03 mill/uL (4.2-5.4); RED CELL DISTRIBUTION WIDTH 23.3 % (11.6-14.6)
[2021-10-18] MEDS: PANTOPRAZOLE 40MG DR TABLET PO SCH (08:05)
[2021-10-18] MEDS: LEVOFLOXACIN 500MG PREMIX 100 ML IV SCH (15:12)
[2021-10-18 16:36] LABS: PLATELET ESTIMATE DECREASED
[2021-10-18] MEDS: IPRATROPIUM/ALBUTEROL 0.5-3(2.5)MG/3ML NEB HHN SCH (20:54)
[2021-10-19] VITALS (12 sets, daily range): BP systolic 105–138; BP diastolic 55–96
[2021-10-19] MEDS: IPRATROPIUM/ALBUTEROL 0.5-3(2.5)MG/3ML NEB HHN SCH ×4 (00:30→20:13)
[2021-10-19] MEDS: GUAIFENESIN 200MG/10ML SUGAR FREE UDC PO SCH ×4 (03:30→21:06)
[2021-10-19] MEDS: PANTOPRAZOLE 40MG DR TABLET PO SCH (08:32)
[2021-10-19] MEDS: HYDROCODONE/ACETAMINOPHEN 5/325MG TABLET PO PRN ×2 (08:33→17:42)
[2021-10-19 09:34] LABS: HEMOGLOBIN. 9.5 g/dL (12.0-16.0); MEAN CORPUSCULAR HEMOGLOBIN 29.6 pg (28.0-32.0); MEAN CORPUSCULAR VOLUME 96.7 fL (81.0-99.0); MEAN PLATELET VOLUME 10.2 fl (7.4-10.4); PLATELET 75 x1000/uL (130-400); RED BLOOD CELL COUNT 3.21 mill/uL (4.2-5.4); RED CELL DISTRIBUTION WIDTH 23.1 % (11.6-14.6)
[2021-10-19] MEDS ORDERED: SULFAMETHOXAZOLE/TRIMETHOPRIM 400/80MG TAB PO SCH (11:15)
[2021-10-19] MEDS: SULFAMETHOXAZOLE/TRIMETHOPRIM 400/80MG TAB PO SCH (12:33)
[2021-10-19] MEDS: FLUCONAZOLE 100MG TABLET PO SCH (15:27)
[2021-10-19 18:10] LABS: PLATELET ESTIMATE DECREASED
[2021-10-20] VITALS (13 sets, daily range): BP systolic 108–140; BP diastolic 46–88
[2021-10-20] MEDS: IPRATROPIUM/ALBUTEROL 0.5-3(2.5)MG/3ML NEB HHN SCH ×4 (01:36→18:00)
[2021-10-20] MEDS: GUAIFENESIN 200MG/10ML SUGAR FREE UDC PO SCH ×4 (03:30→21:30)
[2021-10-20] MEDS: SULFAMETHOXAZOLE/TRIMETHOPRIM 400/80MG TAB PO SCH (08:27)
[2021-10-20] MEDS: PANTOPRAZOLE 40MG DR TABLET PO SCH (08:27)
[2021-10-20] MEDS: FLUCONAZOLE 100MG TABLET PO SCH (08:27)
[2021-10-20] MEDS: HYDROCODONE/ACETAMINOPHEN 5/325MG TABLET PO PRN ×3 (09:05→21:41)
[2021-10-20] MEDS: DIPHENHYDRAMINE 50MG/ML VIAL IV PRN (15:30)
[2021-10-21] VITALS (13 sets, daily range): BP systolic 104–133; BP diastolic 67–113
[2021-10-21] MEDS: GUAIFENESIN 200MG/10ML SUGAR FREE UDC PO SCH ×3 (03:30→15:07)
[2021-10-21] MEDS: HYDROCODONE/ACETAMINOPHEN 5/325MG TABLET PO PRN ×2 (06:08→14:20)
[2021-10-21] MEDS: DIPHENHYDRAMINE 50MG/ML VIAL IV PRN ×2 (06:38→11:44)
[2021-10-21 08:26] LABS: BASOPHILS % 0.7 % (0.0-2.0); HEMATOCRIT. 29.7 % (36.0-48.0); HEMOGLOBIN. 9.1 g/dL (12.0-16.0); LYMPHOCYTES % 7.5 % (20.0-50.0); MEAN CORPUSCULAR HEMOGLOBIN 29.7 pg (28.0-32.0); MEAN CORPUSCULAR VOLUME 96.4 fL (81.0-99.0); MONOCYTES % 7.2 % (2.0-8.0); NEUTROPHILS % 84.6 % (40.0-76.0); PLATELET 72 x1000/uL (130-400); RED BLOOD CELL COUNT 3.08 mill/uL (4.2-5.4); RED CELL DISTRIBUTION WIDTH 22.6 % (11.6-14.6)
[2021-10-21] MEDS: SULFAMETHOXAZOLE/TRIMETHOPRIM 400/80MG TAB PO SCH (08:28)
[2021-10-21] MEDS: PANTOPRAZOLE 40MG DR TABLET PO SCH (08:28)
[2021-10-21] MEDS: FLUCONAZOLE 100MG TABLET PO SCH (08:28)
[2021-10-21] MEDS: IPRATROPIUM/ALBUTEROL 0.5-3(2.5)MG/3ML NEB HHN SCH ×3 (08:29→15:04)
[2021-10-21] MEDS ORDERED: ASPIRIN 81MG EC TABLET PO SCH (11:00)
[2021-10-21] MEDS ORDERED: VANCOMYCIN 500 MG PREMIX 100 ML IV NR (18:00)
== END 2021-10-21 20:10 | disposition home health service (06) | DRG 720 ==
LOC: ER 09:54 → EDBEDREQSVC 11:58 → CVICU 12:39 → EDBEDREQTM 12:42 → EDBEDREQ 12:42 → ENRESERV 13:52 → 5EST 10-18 10:00
PROVIDERS: ADMIT Internal Medicine; ATTEND Internal Medicine
PROC: 5A1945Z Respiratory Ventilation, 24-96 Consecutive Hours (ICD-10-PCS; principal; 2021-10-14)
PROC: 0BH17EZ Insertion of Endotracheal Airway into Trachea, Via Natural or Artificial Opening (ICD-10-PCS; 2021-10-14)
PROC: 5A1D70Z Performance of Urinary Filtration, Intermittent, Less than 6 Hours Per Day (ICD-10-PCS; 2021-10-14)
PROC: 02HV33Z Insertion of Infusion Device into Superior Vena Cava, Percutaneous Approach (ICD-10-PCS; 2021-10-14)
PROC: B548ZZA Ultrasonography of Superior Vena Cava, Guidance (ICD-10-PCS; 2021-10-14)
PROC: 5A1D70Z Performance of Urinary Filtration, Intermittent, Less than 6 Hours Per Day (ICD-10-PCS; 2021-10-16)
PROC: 4A10X4Z Monitoring of Central Nervous Electrical Activity, External Approach (ICD-10-PCS; 2021-10-17)
PROC: 5A1D70Z Performance of Urinary Filtration, Intermittent, Less than 6 Hours Per Day (ICD-10-PCS; 2021-10-17)
PROC: 5A1D70Z Performance of Urinary Filtration, Intermittent, Less than 6 Hours Per Day (ICD-10-PCS; 2021-10-19)
PROC: 5A1D70Z Performance of Urinary Filtration, Intermittent, Less than 6 Hours Per Day (ICD-10-PCS; 2021-10-21)
DX: A41.51 Sepsis due to Escherichia coli [E. coli] (principal); J96.21 Acute and chronic respiratory failure with hypoxia; I63.9 Cerebral infarction, unspecified; J69.0 Pneumonitis due to inhalation of food and vomit; G92.8 Other toxic encephalopathy; E44.1 Mild protein-calorie malnutrition; I13.2 Hypertensive heart and chronic kidney disease with heart failure and with stage 5 chronic kidney disease, or end stage renal disease; E87.2 Acidosis; D61.818 Other pancytopenia; J18.9 Pneumonia, unspecified organism; J44.0 Chronic obstructive pulmonary disease with (acute) lower respiratory infection; N18.6 End stage renal disease; D50.9 Iron deficiency anemia, unspecified; E87.5 Hyperkalemia; I25.10 Atherosclerotic heart disease of native coronary artery without angina pectoris; I50.22 Chronic systolic (congestive) heart failure; R56.9 Unspecified convulsions; E11.22 Type 2 diabetes mellitus with diabetic chronic kidney disease; E11.40 Type 2 diabetes mellitus with diabetic neuropathy, unspecified; E11.621 Type 2 diabetes mellitus with foot ulcer; L97.519 Non-pressure chronic ulcer of other part of right foot with unspecified severity; L97.529 Non-pressure chronic ulcer of other part of left foot with unspecified severity; I25.5 Ischemic cardiomyopathy; L03.116 Cellulitis of left lower limb; E78.5 Hyperlipidemia, unspecified; E11.52 Type 2 diabetes mellitus with diabetic peripheral angiopathy with gangrene; I96 Gangrene, not elsewhere classified; B37.49 Other urogenital candidiasis; E78.00 Pure hypercholesterolemia, unspecified; Z20.822 Contact with and (suspected) exposure to COVID-19; A41.81 Sepsis due to Enterococcus; E87.6 Hypokalemia; R65.20 Severe sepsis without septic shock; Z78.1 Physical restraint status; Z82.49 Family history of ischemic heart disease and other diseases of the circulatory system; Z83.3 Family history of diabetes mellitus; Z95.1 Presence of aortocoronary bypass graft; Z95.2 Presence of prosthetic heart valve; Z99.2 Dependence on renal dialysis; Z99.81 Dependence on supplemental oxygen; I25.2 Old myocardial infarction; Z51.5 Encounter for palliative care; I69.354 Hemiplegia and hemiparesis following cerebral infarction affecting left non-dominant side; Z79.899 Other long term (current) drug therapy; Z79.4 Long term (current) use of insulin; Z87.891 Personal history of nicotine dependence; Z88.2 Allergy status to sulfonamides; Z88.0 Allergy status to penicillin; Z95.5 Presence of coronary angioplasty implant and graft; Z68.23 Body mass index [BMI] 23.0-23.9, adult
CPT/HCPCS: 36415; 36600; 70551; 71045; 76937; 80048; 80053; 80202; 81003; 82375; 82805; 82962; 83605; 83735; 83880; 84100; 84145; 84484; 85025; 86705; 86709; 86803; 87070; 87077; 87186; 87340; 87426; 87804; 92610; 93005; 94002; 94640; 95816; 99291; A6261; C1725; J0330; J1200; J1650; J1956; J2185; J2250; J2704; J3010; J3370; J3480; J3490; J7030; J7040; J7050; J7060; J7608; A4315

== ENCOUNTER 2021-10-27 12:08 | Inpatient (IN) | payer MEDICARE, MEDICAID ==
[~2021-10-27] VITALS: Ht 165.1 cm; Wt 71.3 kg
[~2021-10-27 12:08] MED LIST changes: -ETOMIDATE 2MG/ML 10ML VIAL IV ONE; -SUCCINYLCHOLINE CHLORIDE 200MG/10ML IV ONE
[2021-10-27 12:58] LABS: HEMOGLOBIN. 9.6 g/dL (12.0-16.0); MEAN CORPUSCULAR HEMOGLOBIN 29.1 pg (28.0-32.0); MEAN CORPUSCULAR VOLUME 97.3 fL (81.0-99.0); MEAN PLATELET VOLUME 10.5 fl (7.4-10.4); PLATELET 105 x1000/uL (130-400); RED BLOOD CELL COUNT 3.28 mill/uL (4.2-5.4); RED CELL DISTRIBUTION WIDTH 22.4 % (11.6-14.6)
[2021-10-27 13:05] LABS: CHLORIDE 112 mEq/L (98-107)
[2021-10-27 13:20] LABS: NUCLEATED RED BLOOD CELLS 1 /100 WBC; PLATELET ESTIMATE DECREASED
[2021-10-27] MEDS ORDERED: SODIUM CHLORIDE 0.9% 250 ML IV ONE (15:45)
[2021-10-27] MEDS ORDERED: GUAIFENESIN 200MG/10ML SUGAR FREE UDC PO PRN (17:00)
[2021-10-27] MEDS ORDERED: MAGNESIUM/ALUMINUM HYDROXIDE/SIMETHICONE 30ML UDC PO PRN (17:00)
[2021-10-27] MEDS ORDERED: ENOXAPARIN 40MG/0.4ML SYR SUBCUT SCH (17:00)
[2021-10-27] MEDS ORDERED: ACETAMINOPHEN 325MG TABLET PO PRN (17:00)
[2021-10-27] MEDS ORDERED: ENOXAPARIN 30MG/0.3ML SYR SUBCUT SCH (17:00)
[2021-10-27] MEDS ORDERED: CLONIDINE 0.1MG TABLET PO PRN (17:00)
[2021-10-27] MEDS: SEVELAMER CARBONATE 800 MG TABLET PO SCH (17:00)
[2021-10-27] MEDS ORDERED: IPRATROPIUM/ALBUTEROL 0.5-3(2.5)MG/3ML NEB NEB PRN (17:00)
[2021-10-27] MEDS ORDERED: NALOXONE HCL 0.4MG/ML VIAL IV PRN (17:15)
[2021-10-27 18:15] VITALS: BP 96/60
[2021-10-27 20:00] VITALS: BP 101/64
[2021-10-27] MEDS ORDERED: DEXTROSE 50% WATER 50ML SYRINGE IV PRN (20:30)
[2021-10-27] MEDS: TRAMADOL 50MG TABLET PO PRN (20:33)
[2021-10-27] MEDS: BLOOD SUGAR DIAGNOSTIC STRIP TEST SCH (20:35)
[2021-10-27] MEDS: ASCORBIC ACID 500 MG TABLET PO SCH (20:39)
[2021-10-27] MEDS ORDERED: FAMOTIDINE 20MG TABLET PO SCH (21:00)
[2021-10-27] MEDS ORDERED: ZOLPIDEM TARTRATE 5MG TABLET PO PRN (21:00)
[2021-10-27] MEDS ORDERED: SODIUM POLYSTYRENE SULFONATE 15 G/60 ML BOT PO NR (21:00)
[2021-10-27] MEDS: DIPHENHYDRAMINE 50MG/ML VIAL IV PRN (21:22)
[2021-10-27] MEDS: INSULIN LISPRO 100 UNITS/ML SUBCUT SCH (21:26)
[2021-10-28] VITALS: BP 105/70
[2021-10-28 01:21] LABS: CREATINE KINASE MB FRACTION 11.4 ng/mL (0.5-3.6)
[2021-10-28 04:00] VITALS: BP 111/71
[2021-10-28] MEDS: TRAMADOL 50MG TABLET PO PRN ×3 (06:17→21:46)
[2021-10-28] MEDS: BLOOD SUGAR DIAGNOSTIC STRIP TEST SCH ×4 (06:17→21:45)
[2021-10-28] MEDS: DIPHENHYDRAMINE 50MG/ML VIAL IV PRN ×2 (06:17→21:45)
[2021-10-28] MEDS: INSULIN LISPRO 100 UNITS/ML SUBCUT SCH ×4 (06:17→21:00)
[2021-10-28 07:50] LABS: HEMATOCRIT. 30.6 % (36.0-48.0); HEMOGLOBIN. 9.6 g/dL (12.0-16.0); MEAN CORPUSCULAR HEMOGLOBIN 30.2 pg (28.0-32.0); MEAN CORPUSCULAR VOLUME 96.6 fL (81.0-99.0); MEAN PLATELET VOLUME 11.2 fl (7.4-10.4); PLATELET 88 x1000/uL (130-400); RED BLOOD CELL COUNT 3.16 mill/uL (4.2-5.4); RED CELL DISTRIBUTION WIDTH 22.3 % (11.6-14.6)
[2021-10-28 08:00] VITALS: BP 111/87
[2021-10-28] MEDS ORDERED: SODIUM POLYSTYRENE SULFONATE 15 G/60 ML BOT PO PRN (08:00)
[2021-10-28 08:03] LABS: CHLORIDE 113 mEq/L (98-107)
[2021-10-28 08:19] LABS: CREATINE KINASE 131 IU/L (26-192); PHOSPHORUS 5.4 mg/dL (2.5-4.9)
[2021-10-28 08:24] LABS: CREATINE KINASE MB FRACTION 9.2 ng/mL (0.5-3.6)
[2021-10-28] MEDS ORDERED: CLOPIDOGREL 75MG TABLET PO SCH (09:00)
[2021-10-28] MEDS: ASCORBIC ACID 500 MG TABLET PO SCH ×2 (09:27→21:45)
[2021-10-28] MEDS: SEVELAMER CARBONATE 800 MG TABLET PO SCH ×3 (09:27→16:13)
[2021-10-28] MEDS: ZINC SULFATE 220 MG ( 50 ) CAPSULE PO SCH (09:28)
[2021-10-28] MEDS: ONDANSETRON HCL 4MG/2ML INJ IV PRN (09:28)
[2021-10-28 12:00] VITALS: BP 116/71
[2021-10-28 14:43] LABS: TOTAL IRON BINDING CAPACITY 218 ug/dL (250-450)
[2021-10-28 15:24] LABS: FOLIC ACID (FOLATE) SERUM 7.4 ng/mL (>5.38)
[2021-10-28 16:00] VITALS: BP 108/68
[2021-10-28] MEDS: PANTOPRAZOLE SODIUM 40 MG/VIAL IV SCH (16:13)
[2021-10-28 17:58] LABS: PLATELET ESTIMATE DECREASED
[2021-10-28 18:03] LABS: HEPATITIS B SURFACE ANTIGEN NEGATIVE
[2021-10-28 20:00] VITALS: BP 99/58
[2021-10-28 23:18] LABS: HEMATOCRIT 30.3 % (36.0-48.0); HEMOGLOBIN 9.5 g/dL (12.0-16.0)
[2021-10-29] VITALS: BP_SYST 87; BP_SYST 98; BP_DIAS 50; BP_DIAS 58
[2021-10-29 04:00] VITALS: BP 116/65
[2021-10-29] MEDS: BLOOD SUGAR DIAGNOSTIC STRIP TEST SCH ×4 (06:29→20:53)
[2021-10-29] MEDS: INSULIN LISPRO 100 UNITS/ML SUBCUT SCH ×5 (06:29→20:53)
[2021-10-29 07:27] LABS: BASOPHILS % 0.4 % (0.0-2.0); HEMATOCRIT. 28.7 % (36.0-48.0); HEMOGLOBIN. 8.9 g/dL (12.0-16.0); LYMPHOCYTES % 8.5 % (20.0-50.0); MEAN CORPUSCULAR HEMOGLOBIN 30.3 pg (28.0-32.0); MEAN CORPUSCULAR VOLUME 97.4 fL (81.0-99.0); MEAN PLATELET VOLUME 11.8 fl (7.4-10.4); MONOCYTES % 9.2 % (2.0-8.0); NEUTROPHILS % 81.9 % (40.0-76.0); PLATELET 85 x1000/uL (130-400); RED BLOOD CELL COUNT 2.95 mill/uL (4.2-5.4); RED CELL DISTRIBUTION WIDTH 22.1 % (11.6-14.6)
[2021-10-29 07:43] LABS: PHOSPHORUS 6.8 mg/dL (2.5-4.9)
[2021-10-29 08:00] VITALS: BP 104/64
[2021-10-29] MEDS: ASCORBIC ACID 500 MG TABLET PO SCH ×2 (09:20→20:53)
[2021-10-29] MEDS: ZINC SULFATE 220 MG ( 50 ) CAPSULE PO SCH (09:20)
[2021-10-29] MEDS: NYSTATIN POWDER 15GM TOP SCH ×3 (09:20→22:11)
[2021-10-29] MEDS: SEVELAMER CARBONATE 800 MG TABLET PO SCH ×3 (09:20→18:16)
[2021-10-29] MEDS: PANTOPRAZOLE SODIUM 40 MG/VIAL IV SCH (09:20)
[2021-10-29] MEDS: ACETAMINOPHEN 325MG TABLET PO PRN (09:21)
[2021-10-29 12:00] VITALS: BP 105/58
[2021-10-29] MEDS ORDERED: SEVELAMER CARBONATE 800 MG TABLET PO SCH (12:10)
[2021-10-29] MEDS ORDERED: SORBITOL 70% SOLN 30ML PO SCH (15:15)
[2021-10-29 16:00] VITALS: BP 96/59
[2021-10-29 20:00] VITALS: BP 114/33
[2021-10-29] MEDS: PANTOPRAZOLE 40MG DR TABLET PO SCH (20:53)
[2021-10-29] MEDS: TRAMADOL 50MG TABLET PO PRN (20:54)
[2021-10-29] MEDS ORDERED: SORBITOL 70% SOLN 30ML PO NR (21:00)
[2021-10-29 21:59] LABS: HEMATOCRIT 29.1 % (36.0-48.0); HEMOGLOBIN 8.7 g/dL (12.0-16.0)
[2021-10-29 23:34] LABS: HEMATOCRIT 32.7 % (36.0-48.0); HEMOGLOBIN 9.6 g/dL (12.0-16.0)
[2021-10-30] VITALS (7 sets, daily range): BP systolic 94–132; BP diastolic 54–87
[2021-10-30] MEDS ORDERED: SORBITOL 70% SOLN 30ML PO NR (06:00)
[2021-10-30] MEDS: NYSTATIN POWDER 15GM TOP SCH ×3 (06:07→22:59)
[2021-10-30] MEDS: BLOOD SUGAR DIAGNOSTIC STRIP TEST SCH ×4 (06:09→21:00)
[2021-10-30] MEDS: PANTOPRAZOLE 40MG DR TABLET PO SCH ×2 (06:09→22:58)
[2021-10-30] MEDS: INSULIN LISPRO 100 UNITS/ML SUBCUT SCH ×4 (06:09→21:00)
[2021-10-30] MEDS: SEVELAMER CARBONATE 800 MG TABLET PO SCH ×3 (06:10→17:52)
[2021-10-30 06:41] LABS: INR 1.3; PROTHROMBIN TIME 13.3 sec (9.6-11.0)
[2021-10-30 06:48] LABS: BASOPHILS % 0.4 % (0.0-2.0); HEMOGLOBIN. 9.1 g/dL (12.0-16.0); LYMPHOCYTES % 8.1 % (20.0-50.0); MEAN CORPUSCULAR HEMOGLOBIN 29.8 pg (28.0-32.0); MEAN PLATELET VOLUME 11.9 fl (7.4-10.4); MONOCYTES % 11.4 % (2.0-8.0); NEUTROPHILS % 80.1 % (40.0-76.0); PLATELET 83 x1000/uL (130-400); RED BLOOD CELL COUNT 3.07 mill/uL (4.2-5.4); RED CELL DISTRIBUTION WIDTH 23.5 % (11.6-14.6)
[2021-10-30 06:58] LABS: CHLORIDE 116 mEq/L (98-107)
[2021-10-30] MEDS ORDERED: NA PHOS,M-B/NA PHOS,DI-BA ENEMA 118ML PR SCH (08:00)
[2021-10-30 08:04] LABS: PHOSPHORUS 4.9 mg/dL (2.5-4.9)
[2021-10-30] MEDS: ASCORBIC ACID 500 MG TABLET PO SCH ×2 (08:32→22:58)
[2021-10-30] MEDS: ZINC SULFATE 220 MG ( 50 ) CAPSULE PO SCH (08:32)
[2021-10-30] MEDS ORDERED: MIDAZOLAM HCL 5 MG/5 ML VIAL ONE (14:37)
[2021-10-30] MEDS ORDERED: FENTANYL CITRATE/PF 50MCG/ML 2ML VIAL ONE (14:37)
[2021-10-30] MEDS ORDERED: MIDAZOLAM HCL 5 MG/5 ML VIAL IV PRN (14:42)
[2021-10-30] MEDS: TRAMADOL 50MG TABLET PO PRN (23:28)
[2021-10-31] VITALS: BP 115/73
[2021-10-31 04:00] VITALS: BP_SYST 100; BP_SYST 131; BP_DIAS 65; BP_DIAS 80
[2021-10-31] MEDS: SEVELAMER CARBONATE 800 MG TABLET PO SCH ×3 (06:31→17:55)
[2021-10-31] MEDS: TRAMADOL 50MG TABLET PO PRN (06:31)
[2021-10-31] MEDS: INSULIN LISPRO 100 UNITS/ML SUBCUT SCH ×4 (06:32→21:00)
[2021-10-31] MEDS: PANTOPRAZOLE 40MG DR TABLET PO SCH ×2 (06:32→22:19)
[2021-10-31] MEDS: BLOOD SUGAR DIAGNOSTIC STRIP TEST SCH ×4 (06:32→21:07)
[2021-10-31] MEDS: NYSTATIN POWDER 15GM TOP SCH ×3 (06:32→22:20)
[2021-10-31 08:00] VITALS: BP 118/74
[2021-10-31] MEDS: ASCORBIC ACID 500 MG TABLET PO SCH ×2 (08:52→22:19)
[2021-10-31] MEDS: ZINC SULFATE 220 MG ( 50 ) CAPSULE PO SCH (08:52)
[2021-10-31 12:00] VITALS: BP 107/64
[2021-10-31 16:00] VITALS: BP 106/59
[2021-10-31 20:00] VITALS: BP 121/78
[2021-11-01] VITALS (7 sets, daily range): BP systolic 99–114; BP diastolic 54–80
[2021-11-01] MEDS: BLOOD SUGAR DIAGNOSTIC STRIP TEST SCH ×4 (06:13→21:00)
[2021-11-01] MEDS: INSULIN LISPRO 100 UNITS/ML SUBCUT SCH ×4 (06:13→21:00)
[2021-11-01] MEDS: PANTOPRAZOLE 40MG DR TABLET PO SCH ×2 (06:36→21:20)
[2021-11-01] MEDS: NYSTATIN POWDER 15GM TOP SCH ×3 (06:37→21:23)
[2021-11-01 07:27] LABS: HEMATOCRIT. 29.3 % (36.0-48.0); HEMOGLOBIN. 8.9 g/dL (12.0-16.0); MEAN CORPUSCULAR HEMOGLOBIN 30.1 pg (28.0-32.0); MEAN CORPUSCULAR VOLUME 99.2 fL (81.0-99.0); MEAN PLATELET VOLUME 11.3 fl (7.4-10.4); PLATELET 71 x1000/uL (130-400); RED BLOOD CELL COUNT 2.95 mill/uL (4.2-5.4); RED CELL DISTRIBUTION WIDTH 22.6 % (11.6-14.6)
[2021-11-01] MEDS: ASCORBIC ACID 500 MG TABLET PO SCH ×2 (08:36→21:20)
[2021-11-01] MEDS: SEVELAMER CARBONATE 800 MG TABLET PO SCH ×3 (08:36→16:52)
[2021-11-01] MEDS: ZINC SULFATE 220 MG ( 50 ) CAPSULE PO SCH (08:36)
[2021-11-01] MEDS ORDERED: HEPARIN SODIUM 1,000 UNIT/1ML VIAL IV SCH (12:30)
[2021-11-01] MEDS: TRAMADOL 50MG TABLET PO PRN (12:35)
[2021-11-01] MEDS: CLOPIDOGREL 75MG TABLET PO SCH (16:52)
[2021-11-01 18:29] LABS: PLATELET ESTIMATE DECREASED
[2021-11-02] VITALS: BP 100/67
[2021-11-02 04:00] VITALS: BP 122/81
[2021-11-02] MEDS: NYSTATIN POWDER 15GM TOP SCH ×3 (06:28→21:06)
[2021-11-02] MEDS: SEVELAMER CARBONATE 800 MG TABLET PO SCH ×3 (06:28→17:10)
[2021-11-02] MEDS: PANTOPRAZOLE 40MG DR TABLET PO SCH ×2 (06:29→21:04)
[2021-11-02] MEDS: INSULIN LISPRO 100 UNITS/ML SUBCUT SCH ×4 (06:29→21:05)
[2021-11-02] MEDS: BLOOD SUGAR DIAGNOSTIC STRIP TEST SCH ×4 (06:29→21:05)
[2021-11-02 08:00] VITALS: BP 115/61
[2021-11-02] MEDS: CLOPIDOGREL 75MG TABLET PO SCH (10:38)
[2021-11-02] MEDS: ASCORBIC ACID 500 MG TABLET PO SCH ×2 (10:38→21:04)
[2021-11-02] MEDS: ZINC SULFATE 220 MG ( 50 ) CAPSULE PO SCH (10:38)
[2021-11-02] MEDS: ACETAMINOPHEN 325MG TABLET PO PRN ×2 (11:39→21:05)
[2021-11-02 12:00] VITALS: BP 118/66
[2021-11-02 16:00] VITALS: BP 118/70
[2021-11-02 20:00] VITALS: BP 105/73
[2021-11-03] VITALS: BP 101/80
[2021-11-03 04:00] VITALS: BP 127/88
[2021-11-03] MEDS: BLOOD SUGAR DIAGNOSTIC STRIP TEST SCH ×4 (06:40→21:00)
[2021-11-03] MEDS: PANTOPRAZOLE 40MG DR TABLET PO SCH ×2 (06:40→21:00)
[2021-11-03] MEDS: INSULIN LISPRO 100 UNITS/ML SUBCUT SCH ×4 (06:46→21:00)
[2021-11-03] MEDS: NYSTATIN POWDER 15GM TOP SCH ×3 (06:54→21:00)
[2021-11-03 06:59] LABS: HEMATOCRIT. 29.7 % (36.0-48.0); HEMOGLOBIN. 9.1 g/dL (12.0-16.0); MEAN CORPUSCULAR HEMOGLOBIN 29.8 pg (28.0-32.0); MEAN CORPUSCULAR VOLUME 97.2 fL (81.0-99.0); MEAN PLATELET VOLUME 11.9 fl (7.4-10.4); PLATELET 71 x1000/uL (130-400); RED BLOOD CELL COUNT 3.06 mill/uL (4.2-5.4); RED CELL DISTRIBUTION WIDTH 22.1 % (11.6-14.6)
[2021-11-03 08:00] VITALS: BP 116/71
[2021-11-03] MEDS: SEVELAMER CARBONATE 800 MG TABLET PO SCH ×3 (09:18→18:04)
[2021-11-03] MEDS: ZINC SULFATE 220 MG ( 50 ) CAPSULE PO SCH (09:21)
[2021-11-03] MEDS: ASCORBIC ACID 500 MG TABLET PO SCH ×2 (09:21→21:00)
[2021-11-03] MEDS: CLOPIDOGREL 75MG TABLET PO SCH (09:21)
[2021-11-03] MEDS: ONDANSETRON HCL 4MG/2ML INJ IV PRN ×2 (09:32→18:27)
[2021-11-03 12:00] VITALS: BP 110/78
[2021-11-03] MEDS: ACETAMINOPHEN 325MG TABLET PO PRN (12:30)
[2021-11-03] MEDS: DIPHENHYDRAMINE 50MG/ML VIAL IV PRN (12:30)
[2021-11-03 13:33] LABS: PLATELET ESTIMATE DECREASED
[2021-11-03 16:00] VITALS: BP 110/76
[2021-11-03] MEDS: DOCUSATE SODIUM 100MG CAPSULE PO SCH (18:03)
[2021-11-03 20:00] VITALS: BP 116/64
[2021-11-04] VITALS: BP 117/73
[2021-11-04] MEDS: DIPHENHYDRAMINE 50MG/ML VIAL IV PRN ×2 (01:24→23:39)
[2021-11-04 04:00] VITALS: BP 108/69
[2021-11-04] MEDS: INSULIN LISPRO 100 UNITS/ML SUBCUT SCH ×4 (06:12→21:00)
[2021-11-04] MEDS: NYSTATIN POWDER 15GM TOP SCH ×3 (06:12→21:10)
[2021-11-04] MEDS: PANTOPRAZOLE 40MG DR TABLET PO SCH ×2 (06:12→21:07)
[2021-11-04] MEDS: BLOOD SUGAR DIAGNOSTIC STRIP TEST SCH ×4 (06:12→21:47)
[2021-11-04] MEDS: SEVELAMER CARBONATE 800 MG TABLET PO SCH ×3 (06:12→18:41)
[2021-11-04] MEDS: ACETAMINOPHEN 325MG TABLET PO PRN ×2 (06:16→23:32)
[2021-11-04] MEDS: DOCUSATE SODIUM 100MG CAPSULE PO SCH ×2 (08:22→17:00)
[2021-11-04] MEDS: ASCORBIC ACID 500 MG TABLET PO SCH ×2 (08:22→20:58)
[2021-11-04] MEDS: ZINC SULFATE 220 MG ( 50 ) CAPSULE PO SCH (08:22)
[2021-11-04] MEDS: CLOPIDOGREL 75MG TABLET PO SCH (08:22)
[2021-11-04 12:00] VITALS: BP 93/57
[2021-11-04 13:19] LABS: HEPATITIS B SURFACE ANTIGEN NEGATIVE
[2021-11-04 16:00] VITALS: BP 120/72
[2021-11-04 20:00] VITALS: BP 98/58
[2021-11-05] VITALS: BP 112/55
[2021-11-05 04:00] VITALS: BP 117/67
[2021-11-05] MEDS: BLOOD SUGAR DIAGNOSTIC STRIP TEST SCH ×4 (06:54→20:36)
[2021-11-05] MEDS: PANTOPRAZOLE 40MG DR TABLET PO SCH ×2 (06:54→22:15)
[2021-11-05] MEDS: INSULIN LISPRO 100 UNITS/ML SUBCUT SCH ×4 (06:54→20:36)
[2021-11-05] MEDS: SEVELAMER CARBONATE 800 MG TABLET PO SCH ×3 (06:54→17:40)
[2021-11-05] MEDS: NYSTATIN POWDER 15GM TOP SCH ×3 (06:54→22:15)
[2021-11-05 08:00] VITALS: BP 112/71
[2021-11-05] MEDS: DOCUSATE SODIUM 100MG CAPSULE PO SCH ×2 (09:50→17:40)
[2021-11-05] MEDS: ASCORBIC ACID 500 MG TABLET PO SCH ×2 (09:50→22:15)
[2021-11-05] MEDS: CLOPIDOGREL 75MG TABLET PO SCH (09:50)
[2021-11-05] MEDS: ZINC SULFATE 220 MG ( 50 ) CAPSULE PO SCH (09:50)
[2021-11-05] MEDS: DIPHENHYDRAMINE 50MG/ML VIAL IV PRN (09:54)
[2021-11-05 09:58] LABS: PHOSPHORUS 4.3 mg/dL (2.5-4.9)
[2021-11-05] MEDS: ACETAMINOPHEN 325MG TABLET PO PRN (11:59)
[2021-11-05 12:00] VITALS: BP 125/71
[2021-11-05 16:00] VITALS: BP 112/89
[2021-11-05 20:00] VITALS: BP 116/68
[2021-11-06] MEDS: DIPHENHYDRAMINE 50MG/ML VIAL IV PRN ×2 (02:03→13:31)
[2021-11-06 04:00] VITALS: BP 115/71
[2021-11-06] MEDS: PANTOPRAZOLE 40MG DR TABLET PO SCH ×2 (05:53→21:17)
[2021-11-06] MEDS: NYSTATIN POWDER 15GM TOP SCH ×3 (05:58→21:17)
[2021-11-06] MEDS: BLOOD SUGAR DIAGNOSTIC STRIP TEST SCH ×4 (06:40→21:12)
[2021-11-06] MEDS: INSULIN LISPRO 100 UNITS/ML SUBCUT SCH ×4 (07:03→21:00)
[2021-11-06] MEDS: SEVELAMER CARBONATE 800 MG TABLET PO SCH ×3 (07:10→17:47)
[2021-11-06 08:00] VITALS: BP 132/78
[2021-11-06] MEDS: DOCUSATE SODIUM 100MG CAPSULE PO SCH ×3 (09:00→17:00)
[2021-11-06] MEDS: ONDANSETRON HCL 4MG/2ML INJ IV PRN (09:06)
[2021-11-06] MEDS: ASCORBIC ACID 500 MG TABLET PO SCH ×2 (09:06→21:17)
[2021-11-06] MEDS: ZINC SULFATE 220 MG ( 50 ) CAPSULE PO SCH (09:06)
[2021-11-06] MEDS: CLOPIDOGREL 75MG TABLET PO SCH (09:06)
[2021-11-06 12:00] VITALS: BP 117/77
[2021-11-06 16:00] VITALS: BP 131/72
[2021-11-06 20:00] VITALS: BP 116/76
[2021-11-07] VITALS: BP 119/78
[2021-11-07] MEDS: DIPHENHYDRAMINE 50MG/ML VIAL IV PRN ×3 (01:41→20:41)
[2021-11-07 04:00] VITALS: BP 128/85
[2021-11-07] MEDS: PANTOPRAZOLE 40MG DR TABLET PO SCH ×2 (05:57→20:40)
[2021-11-07] MEDS: NYSTATIN POWDER 15GM TOP SCH ×3 (05:58→21:58)
[2021-11-07] MEDS: BLOOD SUGAR DIAGNOSTIC STRIP TEST SCH ×4 (05:59→20:54)
[2021-11-07] MEDS: INSULIN LISPRO 100 UNITS/ML SUBCUT SCH ×4 (06:10→20:41)
[2021-11-07] MEDS: SEVELAMER CARBONATE 800 MG TABLET PO SCH ×3 (06:10→18:10)
[2021-11-07 08:00] VITALS: BP 127/72
[2021-11-07] MEDS: ACETAMINOPHEN 325MG TABLET PO PRN (08:58)
[2021-11-07] MEDS: ZINC SULFATE 220 MG ( 50 ) CAPSULE PO SCH (08:58)
[2021-11-07] MEDS: DOCUSATE SODIUM 100MG CAPSULE PO SCH ×2 (08:58→16:11)
[2021-11-07] MEDS: ASCORBIC ACID 500 MG TABLET PO SCH ×2 (08:58→20:40)
[2021-11-07] MEDS: CLOPIDOGREL 75MG TABLET PO SCH (08:59)
[2021-11-07 12:00] VITALS: BP 123/70
[2021-11-07 16:00] VITALS: BP 130/80
[2021-11-07 20:00] VITALS: BP 117/71
[2021-11-08] VITALS: BP 129/83
[2021-11-08 04:00] VITALS: BP 110/75
[2021-11-08] MEDS: BLOOD SUGAR DIAGNOSTIC STRIP TEST SCH ×4 (06:21→21:43)
[2021-11-08] MEDS: INSULIN LISPRO 100 UNITS/ML SUBCUT SCH ×4 (06:22→21:00)
[2021-11-08] MEDS: PANTOPRAZOLE 40MG DR TABLET PO SCH ×2 (06:28→21:43)
[2021-11-08] MEDS: NYSTATIN POWDER 15GM TOP SCH ×3 (06:29→22:12)
[2021-11-08] MEDS: SEVELAMER CARBONATE 800 MG TABLET PO SCH ×3 (07:43→16:37)
[2021-11-08 08:00] VITALS: BP 135/73
[2021-11-08] MEDS: DOCUSATE SODIUM 100MG CAPSULE PO SCH ×2 (09:38→16:37)
[2021-11-08] MEDS: ASCORBIC ACID 500 MG TABLET PO SCH ×2 (09:38→21:43)
[2021-11-08] MEDS: ZINC SULFATE 220 MG ( 50 ) CAPSULE PO SCH (09:38)
[2021-11-08] MEDS: CLOPIDOGREL 75MG TABLET PO SCH (09:38)
[2021-11-08 12:00] VITALS: BP 130/77
[2021-11-08 12:43] LABS: BASOPHILS % 0.3 % (0.0-2.0); EOSINOPHILS % 0.1 % (0.0-5.0); HEMATOCRIT. 30.3 % (36.0-48.0); HEMOGLOBIN. 9.3 g/dL (12.0-16.0); LYMPHOCYTES % 8.5 % (20.0-50.0); MEAN CORPUSCULAR VOLUME 97.7 fL (81.0-99.0); MEAN PLATELET VOLUME 11.7 fl (7.4-10.4); MONOCYTES % 8.8 % (2.0-8.0); NEUTROPHILS % 82.3 % (40.0-76.0); PLATELET 103 x1000/uL (130-400); RED BLOOD CELL COUNT 3.11 mill/uL (4.2-5.4)
[2021-11-08 16:00] VITALS: BP 132/75
[2021-11-08 20:00] VITALS: BP 115/63
[2021-11-08] MEDS: DIPHENHYDRAMINE 50MG/ML VIAL IV PRN (22:12)
[2021-11-09] VITALS: BP 98/79
[2021-11-09] MEDS: DIPHENHYDRAMINE 50MG/ML VIAL IV PRN (02:30)
[2021-11-09 04:00] VITALS: BP 112/70
[2021-11-09] MEDS: NYSTATIN POWDER 15GM TOP SCH ×3 (06:02→21:09)
[2021-11-09] MEDS: BLOOD SUGAR DIAGNOSTIC STRIP TEST SCH ×4 (06:04→21:00)
[2021-11-09] MEDS: PANTOPRAZOLE 40MG DR TABLET PO SCH ×2 (06:41→21:00)
[2021-11-09] MEDS: INSULIN LISPRO 100 UNITS/ML SUBCUT SCH ×4 (07:10→20:59)
[2021-11-09 08:00] VITALS: BP 111/81
[2021-11-09] MEDS: CLOPIDOGREL 75MG TABLET PO SCH (10:10)
[2021-11-09] MEDS: ZINC SULFATE 220 MG ( 50 ) CAPSULE PO SCH (10:10)
[2021-11-09] MEDS: ASCORBIC ACID 500 MG TABLET PO SCH ×2 (10:10→21:00)
[2021-11-09] MEDS: DOCUSATE SODIUM 100MG CAPSULE PO SCH ×2 (10:10→17:00)
[2021-11-09] MEDS: SEVELAMER CARBONATE 800 MG TABLET PO SCH ×3 (10:10→17:10)
[2021-11-09 16:00] VITALS: BP 98/53
[2021-11-09 20:00] VITALS: BP 108/70
[2021-11-10] VITALS: BP 105/70
[2021-11-10 04:00] VITALS: BP 107/66
[2021-11-10] MEDS: NYSTATIN POWDER 15GM TOP SCH ×3 (05:40→22:33)
[2021-11-10] MEDS: PANTOPRAZOLE 40MG DR TABLET PO SCH ×2 (05:40→22:30)
[2021-11-10] MEDS: BLOOD SUGAR DIAGNOSTIC STRIP TEST SCH ×4 (06:20→21:00)
[2021-11-10] MEDS: INSULIN LISPRO 100 UNITS/ML SUBCUT SCH ×4 (06:20→21:00)
[2021-11-10 06:28] LABS: HEMATOCRIT. 33.1 % (36.0-48.0); HEMOGLOBIN. 10.2 g/dL (12.0-16.0); MEAN CORPUSCULAR HEMOGLOBIN 30.3 pg (28.0-32.0); MEAN PLATELET VOLUME 12.2 fl (7.4-10.4); PLATELET 101 x1000/uL (130-400); RED BLOOD CELL COUNT 3.38 mill/uL (4.2-5.4); RED CELL DISTRIBUTION WIDTH 22.8 % (11.6-14.6)
[2021-11-10 08:26] VITALS: BP 139/60
[2021-11-10] MEDS: ASCORBIC ACID 500 MG TABLET PO SCH ×2 (09:15→22:31)
[2021-11-10] MEDS: ZINC SULFATE 220 MG ( 50 ) CAPSULE PO SCH (09:15)
[2021-11-10] MEDS: DOCUSATE SODIUM 100MG CAPSULE PO SCH ×2 (09:15→17:00)
[2021-11-10] MEDS: CLOPIDOGREL 75MG TABLET PO SCH (09:15)
[2021-11-10] MEDS: SEVELAMER CARBONATE 800 MG TABLET PO SCH ×4 (09:15→17:10)
[2021-11-10] MEDS: ONDANSETRON HCL 4MG/2ML INJ IV PRN (09:29)
[2021-11-10 11:33] LABS: NUCLEATED RED BLOOD CELLS 1 /100 WBC
[2021-11-10 11:34] LABS: PLATELET ESTIMATE DECREASED
[2021-11-10 12:00] VITALS: BP_SYST 88; BP_SYST 97; BP_DIAS 55; BP_DIAS 57
[2021-11-10] MEDS ORDERED: MIDODRINE HCL 5MG TABLET PO SCH (12:00)
[2021-11-10 16:04] VITALS: BP 106/65
[2021-11-10 20:00] VITALS: BP 102/69
[2021-11-10] MEDS: MIDODRINE HCL 2.5MG TABLET PO SCH (22:35)
[2021-11-11] VITALS: BP 85/54
[2021-11-11 04:00] VITALS: BP 112/59
[2021-11-11] MEDS: BLOOD SUGAR DIAGNOSTIC STRIP TEST SCH ×4 (06:20→20:39)
[2021-11-11] MEDS: INSULIN LISPRO 100 UNITS/ML SUBCUT SCH ×4 (06:20→20:39)
[2021-11-11] MEDS: PANTOPRAZOLE 40MG DR TABLET PO SCH ×2 (06:33→20:38)
[2021-11-11] MEDS: SEVELAMER CARBONATE 800 MG TABLET PO SCH ×3 (06:33→18:32)
[2021-11-11] MEDS: NYSTATIN POWDER 15GM TOP SCH ×3 (06:35→20:41)
[2021-11-11] MEDS: MIDODRINE HCL 2.5MG TABLET PO SCH ×3 (06:35→20:40)
[2021-11-11 08:00] VITALS: BP 122/77
[2021-11-11] MEDS: CLOPIDOGREL 75MG TABLET PO SCH (09:58)
[2021-11-11] MEDS: ASCORBIC ACID 500 MG TABLET PO SCH ×2 (09:58→20:40)
[2021-11-11] MEDS: ZINC SULFATE 220 MG ( 50 ) CAPSULE PO SCH (09:58)
[2021-11-11] MEDS: DOCUSATE SODIUM 100MG CAPSULE PO SCH ×2 (09:58→17:00)
[2021-11-11 12:00] VITALS: BP 128/65
[2021-11-11] MEDS: ACETAMINOPHEN 325MG TABLET PO PRN ×2 (13:20→20:38)
[2021-11-11 16:00] VITALS: BP 124/68
[2021-11-11 17:45] LABS: INR 1.6; PROTHROMBIN TIME 16.1 sec (9.6-11.0)
[2021-11-11 20:00] VITALS: BP 96/52
[2021-11-12] VITALS (7 sets, daily range): BP systolic 95–136; BP diastolic 62–75
[2021-11-12] MEDS: PANTOPRAZOLE 40MG DR TABLET PO SCH ×2 (06:36→21:08)
[2021-11-12] MEDS: MIDODRINE HCL 2.5MG TABLET PO SCH ×3 (06:36→21:08)
[2021-11-12] MEDS: BLOOD SUGAR DIAGNOSTIC STRIP TEST SCH ×4 (06:37→21:08)
[2021-11-12] MEDS: SEVELAMER CARBONATE 800 MG TABLET PO SCH ×3 (06:37→17:36)
[2021-11-12] MEDS: INSULIN LISPRO 100 UNITS/ML SUBCUT SCH ×4 (06:37→21:00)
[2021-11-12 10:03] LABS: HEMATOCRIT. 30.7 % (36.0-48.0); HEMOGLOBIN. 9.4 g/dL (12.0-16.0); MEAN CORPUSCULAR HEMOGLOBIN 29.6 pg (28.0-32.0); MEAN CORPUSCULAR VOLUME 96.6 fL (81.0-99.0); MEAN PLATELET VOLUME 12.1 fl (7.4-10.4); PLATELET 75 x1000/uL (130-400); RED BLOOD CELL COUNT 3.18 mill/uL (4.2-5.4); RED CELL DISTRIBUTION WIDTH 22.4 % (11.6-14.6)
[2021-11-12] MEDS: ZINC SULFATE 220 MG ( 50 ) CAPSULE PO SCH (10:07)
[2021-11-12] MEDS: ASCORBIC ACID 500 MG TABLET PO SCH ×2 (10:07→21:08)
[2021-11-12] MEDS: CLOPIDOGREL 75MG TABLET PO SCH (10:07)
[2021-11-12] MEDS: DOCUSATE SODIUM 100MG CAPSULE PO SCH ×2 (10:07→17:35)
[2021-11-12 13:46] LABS: NUCLEATED RED BLOOD CELLS 3 /100 WBC; PLATELET ESTIMATE DECREASED
[2021-11-13] VITALS: BP 102/75
[2021-11-13 04:00] VITALS: BP 102/65
[2021-11-13] MEDS: MIDODRINE HCL 2.5MG TABLET PO SCH ×3 (06:30→22:28)
[2021-11-13] MEDS: PANTOPRAZOLE 40MG DR TABLET PO SCH ×2 (06:30→21:23)
[2021-11-13] MEDS: SEVELAMER CARBONATE 800 MG TABLET PO SCH ×3 (06:30→17:40)
[2021-11-13] MEDS: BLOOD SUGAR DIAGNOSTIC STRIP TEST SCH ×4 (06:51→21:21)
[2021-11-13] MEDS: INSULIN LISPRO 100 UNITS/ML SUBCUT SCH ×4 (06:51→21:00)
[2021-11-13 06:56] LABS: HEMATOCRIT. 30.9 % (36.0-48.0); HEMOGLOBIN. 9.8 g/dL (12.0-16.0); MEAN CORPUSCULAR HEMOGLOBIN 30.4 pg (28.0-32.0); MEAN CORPUSCULAR VOLUME 95.6 fL (81.0-99.0); MEAN PLATELET VOLUME 11.5 fl (7.4-10.4); PLATELET 69 x1000/uL (130-400); RED BLOOD CELL COUNT 3.23 mill/uL (4.2-5.4); RED CELL DISTRIBUTION WIDTH 22.7 % (11.6-14.6)
[2021-11-13 08:00] VITALS: BP 112/60
[2021-11-13] MEDS: ZINC SULFATE 220 MG ( 50 ) CAPSULE PO SCH (10:00)
[2021-11-13] MEDS: ASCORBIC ACID 500 MG TABLET PO SCH ×2 (10:01→21:23)
[2021-11-13] MEDS: DOCUSATE SODIUM 100MG CAPSULE PO SCH ×2 (10:01→17:40)
[2021-11-13] MEDS: CLOPIDOGREL 75MG TABLET PO SCH (10:01)
[2021-11-13 12:00] VITALS: BP 102/69
[2021-11-13 16:00] VITALS: BP_SYST 122; BP_SYST 95; BP_DIAS 71; BP_DIAS 96
[2021-11-13 18:10] LABS: NUCLEATED RED BLOOD CELLS 1 /100 WBC
[2021-11-13 18:11] LABS: PLATELET ESTIMATE DECREASED
[2021-11-13 20:00] VITALS: BP 112/73
[2021-11-14] VITALS: BP 100/59
[2021-11-14 04:00] VITALS: BP 106/52
[2021-11-14] MEDS: MIDODRINE HCL 2.5MG TABLET PO SCH ×3 (06:00→21:15)
[2021-11-14] MEDS: PANTOPRAZOLE 40MG DR TABLET PO SCH ×2 (06:40→21:15)
[2021-11-14] MEDS: BLOOD SUGAR DIAGNOSTIC STRIP TEST SCH ×4 (06:47→21:00)
[2021-11-14] MEDS: INSULIN LISPRO 100 UNITS/ML SUBCUT SCH ×4 (06:49→21:00)
[2021-11-14 07:51] LABS: HEMOGLOBIN. 9.4 g/dL (12.0-16.0); MEAN CORPUSCULAR HEMOGLOBIN 29.8 pg (28.0-32.0); MEAN CORPUSCULAR VOLUME 98.2 fL (81.0-99.0); RED BLOOD CELL COUNT 3.15 mill/uL (4.2-5.4); RED CELL DISTRIBUTION WIDTH 22.5 % (11.6-14.6)
[2021-11-14 08:00] VITALS: BP 99/63
[2021-11-14] MEDS: SEVELAMER CARBONATE 800 MG TABLET PO SCH ×3 (08:18→16:55)
[2021-11-14] MEDS: ZINC SULFATE 220 MG ( 50 ) CAPSULE PO SCH (08:19)
[2021-11-14] MEDS: CLOPIDOGREL 75MG TABLET PO SCH (08:19)
[2021-11-14] MEDS: DOCUSATE SODIUM 100MG CAPSULE PO SCH ×2 (08:19→16:55)
[2021-11-14] MEDS: ASCORBIC ACID 500 MG TABLET PO SCH ×2 (08:19→21:15)
[2021-11-14 11:18] LABS: NUCLEATED RED BLOOD CELLS 3 /100 WBC
[2021-11-14 12:00] VITALS: BP 128/84
[2021-11-14 12:22] LABS: PLATELET 77 x1000/uL (130-400)
[2021-11-14 16:00] VITALS: BP 99/41
[2021-11-14] MEDS: ACETAMINOPHEN 325MG TABLET PO PRN (16:55)
[2021-11-14 20:00] VITALS: BP 108/73
[2021-11-15] VITALS (7 sets, daily range): BP systolic 102–115; BP diastolic 63–70
[2021-11-15] MEDS: MIDODRINE HCL 2.5MG TABLET PO SCH ×3 (06:28→21:08)
[2021-11-15] MEDS: PANTOPRAZOLE 40MG DR TABLET PO SCH ×2 (06:28→21:08)
[2021-11-15] MEDS: INSULIN LISPRO 100 UNITS/ML SUBCUT SCH ×4 (06:34→21:00)
[2021-11-15] MEDS: BLOOD SUGAR DIAGNOSTIC STRIP TEST SCH ×4 (06:34→21:00)
[2021-11-15] MEDS: SEVELAMER CARBONATE 800 MG TABLET PO SCH ×3 (08:05→18:13)
[2021-11-15 08:06] LABS: HEMATOCRIT. 30.5 % (36.0-48.0); HEMOGLOBIN. 9.8 g/dL (12.0-16.0); MEAN CORPUSCULAR HEMOGLOBIN 30.5 pg (28.0-32.0); MEAN CORPUSCULAR VOLUME 95.2 fL (81.0-99.0); RED BLOOD CELL COUNT 3.21 mill/uL (4.2-5.4); RED CELL DISTRIBUTION WIDTH 22.2 % (11.6-14.6)
[2021-11-15] MEDS: CLOPIDOGREL 75MG TABLET PO SCH (08:06)
[2021-11-15] MEDS: ACETAMINOPHEN 325MG TABLET PO PRN (08:06)
[2021-11-15] MEDS: DOCUSATE SODIUM 100MG CAPSULE PO SCH ×2 (08:06→18:12)
[2021-11-15] MEDS: ZINC SULFATE 220 MG ( 50 ) CAPSULE PO SCH (08:06)
[2021-11-15] MEDS: ASCORBIC ACID 500 MG TABLET PO SCH ×2 (08:06→21:08)
[2021-11-15 09:52] LABS: PLATELET 67 x1000/uL (130-400)
[2021-11-15 09:58] LABS: NUCLEATED RED BLOOD CELLS 1 /100 WBC; PLATELET ESTIMATE DECREASED
[2021-11-15] MEDS: NITROGLYCERIN 0.4MG TABLET SL SL PRN ×3 (15:02→15:13)
[2021-11-15] MEDS ORDERED: NALOXONE HCL 0.4MG/ML VIAL IV PRN (15:30)
[2021-11-15] MEDS: TRAMADOL 50MG TABLET PO PRN ×2 (16:08→23:12)
[2021-11-15] MEDS: DIPHENHYDRAMINE 50MG/ML VIAL IV PRN (18:13)
== END 2021-11-15 23:45 | DRG 254 ==
LOC: ER 12:08 → EDBEDREQ 13:32 → EDBEDREQTM 13:32 → 7EST 15:08 → EDBEDREQ 15:10 → EDBEDREQTM 15:10 → ENRESERV 15:25 → SUPCPDRO 16:46
PROVIDERS: ADMIT Internal Medicine; ATTEND Internal Medicine
PROC: 5A1D70Z Performance of Urinary Filtration, Intermittent, Less than 6 Hours Per Day (ICD-10-PCS; 2021-10-27)
PROC: 5A1D70Z Performance of Urinary Filtration, Intermittent, Less than 6 Hours Per Day (ICD-10-PCS; 2021-10-29)
PROC: 0DBH8ZZ Excision of Cecum, Via Natural or Artificial Opening Endoscopic (ICD-10-PCS; principal; 2021-10-30)
PROC: 05HY33Z Insertion of Infusion Device into Upper Vein, Percutaneous Approach (ICD-10-PCS; 2021-10-30)
PROC: B54MZZA Ultrasonography of Right Upper Extremity Veins, Guidance (ICD-10-PCS; 2021-10-30)
PROC: 5A1D70Z Performance of Urinary Filtration, Intermittent, Less than 6 Hours Per Day (ICD-10-PCS; 2021-11-01)
PROC: 5A1D70Z Performance of Urinary Filtration, Intermittent, Less than 6 Hours Per Day (ICD-10-PCS; 2021-11-03)
PROC: 5A1D70Z Performance of Urinary Filtration, Intermittent, Less than 6 Hours Per Day (ICD-10-PCS; 2021-11-05)
PROC: 5A1D70Z Performance of Urinary Filtration, Intermittent, Less than 6 Hours Per Day (ICD-10-PCS; 2021-11-08)
PROC: 5A1D70Z Performance of Urinary Filtration, Intermittent, Less than 6 Hours Per Day (ICD-10-PCS; 2021-11-10)
PROC: 5A1D70Z Performance of Urinary Filtration, Intermittent, Less than 6 Hours Per Day (ICD-10-PCS; 2021-11-12)
PROC: 5A1D70Z Performance of Urinary Filtration, Intermittent, Less than 6 Hours Per Day (ICD-10-PCS; 2021-11-15)
DX: K64.8 Other hemorrhoids (principal); I63.9 Cerebral infarction, unspecified; G82.50 Quadriplegia, unspecified; G93.40 Encephalopathy, unspecified; E43 Unspecified severe protein-calorie malnutrition; I13.2 Hypertensive heart and chronic kidney disease with heart failure and with stage 5 chronic kidney disease, or end stage renal disease; D69.6 Thrombocytopenia, unspecified; E87.0 Hyperosmolality and hypernatremia; E83.39 Other disorders of phosphorus metabolism; D63.8 Anemia in other chronic diseases classified elsewhere; D62 Acute posthemorrhagic anemia; D12.0 Benign neoplasm of cecum; I42.9 Cardiomyopathy, unspecified; N18.6 End stage renal disease; E11.22 Type 2 diabetes mellitus with diabetic chronic kidney disease; E11.51 Type 2 diabetes mellitus with diabetic peripheral angiopathy without gangrene; E78.00 Pure hypercholesterolemia, unspecified; E78.5 Hyperlipidemia, unspecified; E87.5 Hyperkalemia; I25.10 Atherosclerotic heart disease of native coronary artery without angina pectoris; J44.9 Chronic obstructive pulmonary disease, unspecified; D53.9 Nutritional anemia, unspecified; H54.7 Unspecified visual loss; R47.1 Dysarthria and anarthria; K80.20 Calculus of gallbladder without cholecystitis without obstruction; D50.9 Iron deficiency anemia, unspecified; I50.9 Heart failure, unspecified; G81.91 Hemiplegia, unspecified affecting right dominant side; E11.42 Type 2 diabetes mellitus with diabetic polyneuropathy; K46.9 Unspecified abdominal hernia without obstruction or gangrene; Z20.822 Contact with and (suspected) exposure to COVID-19; L98.499 Non-pressure chronic ulcer of skin of other sites with unspecified severity; Z82.49 Family history of ischemic heart disease and other diseases of the circulatory system; Z79.4 Long term (current) use of insulin; Z83.3 Family history of diabetes mellitus; Z86.73 Personal history of transient ischemic attack (TIA), and cerebral infarction without residual deficits; Z91.15 Patient's noncompliance with renal dialysis; Z95.1 Presence of aortocoronary bypass graft; Z95.2 Presence of prosthetic heart valve; Z99.2 Dependence on renal dialysis; Z95.5 Presence of coronary angioplasty implant and graft; Z68.26 Body mass index [BMI] 26.0-26.9, adult; Z88.0 Allergy status to penicillin; Z79.899 Other long term (current) drug therapy
CPT/HCPCS: 36415; 70551; 71045; 74018; 74176; 76700; 76937; 80048; 80051; 80053; 80061; 80076; 82140; 82270; 82550; 82553; 82607; 82728; 82746; 82962; 83036; 83540; 83550; 83605; 83735; 84075; 84100; 84145; 84484; 85014; 85018; 85025; 85044; 86705; 86709; 86803; 86850; 86900; 87340; 87426; 88305; 92610; 93005; 93306; 93970; 97110; 97162; 97165; 97530; 97535; 99285; C1725; C1769; C1893; C9113; J1200; J1644; J1815; J2250; J2405; J3010; J7040; J7050